=== PATIENT | male | born 1950 | race American Indian/Alaskan Native ===

== ENCOUNTER 2019-03-03 13:29 | Inpatient (IN) | payer MEDICAID, MEDICARE ==
--- NOTE | 2019-03-03 16:23 | Emergency Department Report ---
ED General Adult HPI - General Chief complaint: Dyspnea/Respdistress Stated complaint: CHOKING Time Seen by Provider: 03/03/19 16:08 Source: EMS Mode of arrival: Stretcher Limitations: Altered Mental Status, Physical Limitation - History of Present Illness Initial comments: Patient is 68 year old male with history of progressive supranuclear ophthalmopl egia, HYPERTENSION AND PARANOID SCHIZOPHRENIA. PATIENT BROUGHT TO THE EMERGENCY ROOM BY [facility] FROM [facility] WITH CHIEF COMPLAINT OF CHOKING MORE THAN USUAL WHEN HE EATS. NO RESPIRATORY DISTRESS NOTED BY EMS OR IN THE EMERGENCY ROOM. PATIENT IS NOT VERBALLY COMMUNICATING SECONDARY TO HIS CHRONIC CONDITION. HOWEVER THE PATIENT IS FOLLOWING COMMANDS. Severity scale (0 -10): 0 ED Review of Systems ROS: Stated complaint: CHOKING Other details as noted in HPI Comment: Unobtainable due to pts medical conditions ED Past Medical Hx - Past Medical History Previous Medical History?: Yes Hx Hypertension: Yes Hx Psychiatric Treatment: Yes (paranoid schizophrenia) Additional medical history: cervical stenosis - Surgical History Past Surgical History?: No ED Physical Exam - General Limitations: Altered Mental Status, Physical Limitation General appearance: alert, in no apparent distress - Head Head exam: Present: atraumatic, normocephalic, normal inspection - Eye Eye exam: Present: normal appearance - ENT ENT exam: Present: normal exam, normal orophraynx, mucous membranes moist - Neck Neck exam: Present: normal inspection, full ROM. Absent: tenderness, m eningismus, lymphadenopathy, thyromegaly - Respiratory Respiratory exam: Present: normal lung sounds bilaterally. Absent: respiratory distress, wheezes, rales, rhonchi, chest wall tenderness, accessory muscle use, decreased breath sounds, prolonged expiratory - Cardiovascular Cardiovascular Exam: Present: regular rate, normal rhythm, normal heart sounds - GI/Abdominal GI/Abdominal exam: Present: soft, normal bowel sounds. Absent: distended, tenderness, guarding, rebound, rigid, organomegaly, mass, bruit, pulsatile mass, hernia - Back Exam Back exam: Present: normal inspection, full ROM. Absent: CVA tenderness (R), CVA tenderness (L) - Neurological Exam Neurological exam: Present: alert - Skin Skin exam: Present: warm ED Course Vital Signs 03/03/19 03/03/19 03/03/19 16:14 16:15 16:16 Temperature 98.0 F Pulse Rate 75 77 77 Respiratory 26 H 27 H 20 Rate Blood Pressure 145/80 Blood Pressure 148/81 [Left] O2 Sat by Pulse 86 98 98 Oximetry 03/03/19 03/03/19 03/03/19 16:30 16:45 17:00 Temperature Pulse Rate 73 69 69 Respiratory 25 H 26 H 24 Rate Blood Pressure 145/80 148/80 148/80 Blood Pressure [Left] O2 Sat by Pulse 98 97 100 Oximetry 03/03/19 03/03/19 03/03/19 17:16 17:30 17:46 Temperature Pulse Rate 77 68 78 Respiratory 26 H 24 27 H Rate Blood Pressure 133/78 151/76 137/77 Blood Pressure [Left] O2 Sat by Pulse 98 98 99 Oximetry 03/03/19 03/03/19 03/03/19 18:00 18:15 18:30 Temperature Pulse Rate 76 73 71 Respiratory 26 H 29 H 28 H Rate Blood Pressure 135/78 148/76 148/76 Blood Pressure [Left] O2 Sat by Pulse 100 99 100 Oximetry 03/03/19 03/03/19 03/03/19 18:46 19:00 19:23 Temperature Pulse Rate 70 77 64 Respiratory 24 26 H 22 Rate Blood Pressure 148/77 139/77 136/76 Blood Pressure [Left] O2 Sat by Pulse 100 99 100 Oximetry ED Medical Decision Making - Lab Data Result diagrams: 03/03/19 16:27 03/03/19 16:27 - EKG Data -: EKG Interpreted by Ct EKG shows normal: sinus rhythm Rate: normal - EKG Data Interpretation: no acute changes - Radiology Data Radiology results: report reviewed - Medical Decision Making Patient is 68 year old male with history of progressive supranuclear ophthalmoplegia, HYPERTENSION AND PARANOID SCHIZOPHRENIA. PATIENT BROUGHT TO THE EMERGENCY ROOM BY [facility] FROM [facility] WITH CHIEF COMPL AINT OF CHOKING MORE THAN USUAL WHEN HE EATS. NO RESPIRATORY DISTRESS NOTED BY EMS OR IN THE EMERGENCY ROOM. PATIENT IS NOT VERBALLY COMMUNICATING SECONDARY TO HIS CHRONIC CONDITION. HOWEVER THE PATIENT IS FOLLOWING COMMANDS. Patient remained stable in the emergency room. Labs reviewed and is u nremarkable. Chest x-ray show possible hilar mass and radiologist recommended CT chest with IV contrast. Patient CT chest with IV contrast showed a left lower lobe pneumonia. Patient received Levaquin IV. I discussed the patient with Dr., Gbenle, he agreed to admit the patient to medical service for further management. Critical care attestation.: If time is entered above; I have spent that time in minutes in the direct care of this critically ill patient, excluding procedure time. ED Disposition Clinical Impression: Pneumonia, Acute respiratory distress Disposition: [id number] OP ADMIT IP TO THIS HOSP Is pt being admited?: Yes Condition: Stable Instructions: Bacterial Pneumonia (ED) Referrals: PRIMARY CARE, [Primary Care Provider] - 3-5 Days
[2019-03-03 16:50] LABS: Basophils % (Auto) 0.3 % (0.0-1.8); Eosinophils # (Auto) 0.1 K/mm3 (0.0-0.4); Hematocrit 34.6 % (35.5-45.6); Hemoglobin 11.6 gm/dl (11.8-15.2); Lymphocytes # (Auto) 0.8 K/mm3 (1.2-5.4); Lymphocytes % (Auto) 13.7 % (13.4-35.0); Mean Corpuscular HGB Conc 34 % (32-34); Mean Corpuscular Volume 88 fl (84-94); Monocytes # (Auto) 0.5 K/mm3 (0.0-0.8); Monocytes % (Auto) 8.1 % (0.0-7.3); Platelet Count 328 K/mm3 (140-440); Red Blood Count 3.94 M/mm3 (3.65-5.03); Red Cell Distribution Width 14.9 % (13.2-15.2)
[2019-03-03 17:10] LABS: BUN/Creatinine Ratio 23; Blood Urea Nitrogen 14 mg/dL (9-20); Calcium 9.6 mg/dL (8.4-10.2); Hemolysis Index 1
--- NOTE | 2019-03-03 17:47 | XRay Report ---
CHEST 1 VIEW 03/03/2019 5:12 PM INDICATION / CLINICAL INFORMATION: Dyspnea. COMPARISON: None available. FINDINGS: SUPPORT DEVICES: None. HEART / MEDIASTINUM: No significant abnormality. LUNGS / PLEURA: Left perihilar mass versus less likely parenchymal consolidation No pneumothorax. ADDITIONAL FINDINGS: No significant additional findings. IMPRESSION: 1. Probable left perihilar mass/adenopathy. Recommend chest CT with contrast for further evaluation. Pneumonia is considered less likely Signer Name: Angel Brown MD Signed: 03/03/2019 5:43 PM Workstation Name: [id number]
--- NOTE | 2019-03-03 19:39 | Cat Scan Report ---
CT CHEST WITH IV CONTRAST INDICATION: abnormal chest x-ray, possible mass.. COMPARISON: No prior chest CTs. Chest radiograph earlier the same day. TECHNIQUE: All CT scans at this location are performed using CT dose reduction for ALARA by means of automated e xposure control. Axial CT images were obtained through the chest after IV contrast. FINDINGS: Upper Abdomen: Punctate hepatic cysts are noted. There is constipation the included upper colon. Ther e appears to be trace ascites. There is mild diffuse thickening of the adrenal glands. 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 This does not extend proximally or distally. Skeletal System: No acute abnormality. Chest: Great Vessels: No acute abnormality. Heart: Normal. Mediastinum & Monserrat: No significant abnormality. Lungs: Within the anteromedial left upper lobe, there is dense consolidation. Centrally within the co nsolidation, there is a cavitary lesion which measures 2.1 cm on axial image 66 of series 2. This im ages changes are noted. There is debris within the right bronchus intermedius and right lower lobe br onchi. Pleura: No significant pleural effusion. No pneumothorax. Additional Findings: None. IMPRESSION: 1. Consolidation in the anteromedial left upper lobe is likely due to pneumonia. Central 2.2 lesion m ay be an intrapulmonary abscess. Follow-up is recommended to confirm resolution. 2. Debris within the right bronchus intermedius and right lower lobe bronchi may be due to mucous/sec retions. 3. Emphysematous changes. 4. Incidental findings in the included upper abdomen, as above. Signer Name: Xavi Grant MD Signed: 03/03/2019 7:34 PM Workstation Name: [id number]
[2019-03-03] MEDS ORDERED: ONDANSETRON 4 MG/2 ML INJ IV PRN (22:12)
[2019-03-03] MEDS ORDERED: MORPHINE 2 MG/1 ML INJ IV PRN (22:12)
[2019-03-03] MEDS ORDERED: MAGNESIUM HYDROXIDE (MOM) ORAL LIQD UDC PO PRN (22:12)
[2019-03-03] MEDS ORDERED: ACETAMINOPHEN 325 MG TAB PO PRN (22:12)
--- NOTE | 2019-03-03 22:22 | History and Physical Report ---
History of Present Illness Date of examination: 03/03/19 Date of admission: 03/03/2019 Chief complaint: Choking while eating History of present illness: 68-year-old -[place] male resident of a [place] [facility] with known history of progressive supranuclear ophthalmoplegia brought into the emergency room today because of choking episodes while in the [place] [facility] [place]. Patient is said to be choking more frequently while eating. Patient is nonverbal however cannot follow commands. There was limited history from patient. Upon evaluation in the emergency room radiological exam including chest x-ray and CT scan of the chest was consistent with pneumonia. Patient subsequently started on empiric IV antibiotics. Past History Past Medical History: hypertension, other (Paranoid schizophrenia, history of cervical stenosis, history of progressive supranuclear ophthalmoplegia) Past Surgical History: No surgical history Social history: no significant social history Family history: no significant family history Medications and Allergies Allergies Allergy/AdvReac Type Severity Reaction Status Date / Time No Known Allergies Allergy Verified 03/03/19 22:19 Home Medications Medication Instructions Recorded Confirmed Last Taken Type Aspirin EC [Halfprin EC] 81 mg PO QDAY 03/03/19 03/03/19 03/03/19 History Folic Acid 1 mg PO DAILY 03/03/19 03/03/19 03/03/19 History Gabapentin [Neurontin] 300 mg PO Q8HR 03/03/19 03/03/19 03/03/19 History HYDROcodone/APAP 5-325 [Lena 1 each PO Q6HR PRN 03/03/19 03/03/19 03/03/19 History 5/325] LORazepam [Ativan] 1 mg PO TID PRN 03/03/19 03/03/19 03/03/19 History OLANZapine [Zyprexa] 5 mg PO DAILY 03/03/19 03/03/19 03/03/19 History OLANzapine [ZyPREXA] 10 mg PO DAILY 03/03/19 03/03/19 03/03/19 History amLODIPine [Norvasc] 10 mg PO DAILY 03/03/19 03/03/19 03/03/19 History Active Meds: Active Medications Acetaminophen (Tylenol) 650 mg PO Q4H PRN PRN Reason: Pain MILD(1-3)/Fever >100.5/URIAS Sodium Chloride (Nacl 0.9% 1000 Ml) 1,000 mls @ 125 mls/hr IV DIRECT NANCY Levofloxacin/Dextrose (Levaquin 750mg/150ml) 750 mg in 150 mls @ 100 mls/hr IV Q24HR NANCY; Protocol Magnesium Hydroxide (Milk Of Magnesia) 30 ml PO Q4H PRN PRN Reason: Constipation Morphine Sulfate (Morphine) 2 mg IV Q4H PRN PRN Reason: Pain, Moderate (4-6) Ondansetron HCl (Zofran) 4 mg IV Q8H PRN PRN Reason: Nausea And Vomiting Sodium Chloride (Sodium Chloride Flush Syringe 10 Ml) 10 ml IV BID NANCY Sodium Chloride (Sodium Chloride Flush Syringe 10 Ml) 10 ml IV PRN PRN PRN Reason: LINE FLUSH Review of Systems Gastrointestinal: other (Choking while eating) Exam - Constitutional Vitals: Temp Pulse Resp BP Pulse Ox 98.0 F 75 29 H 150/85 99 03/03/19 16:16 03/03/19 21:45 03/03/19 21:45 03/03/19 21:45 03/03/19 21:45 General appearance: Present: no acute distress, well-nourished - EENT Eyes: Present: PERRL, EOM intact ENT: hearing intact, clear oral mucosa, dentition normal - Neck Neck: Present: supple, normal ROM - Respiratory Respiratory: left: rales - Cardiovascular Rhythm: regular Heart Sounds: Present: S1 & S2 - Extremities Extremities: no ischemia, No edema, Full ROM Peripheral Pulses: within normal limits - Abdominal General gastrointestinal: Present: non-tender, non-distended - Integumentary Integumentary: Present: warm, dry, normal turgor - Musculoskeletal Musculoskeletal: strength equal bilaterally - Psychiatric Psychiatric: appropriate mood/affect, cooperative - Neurologic Neurologic: CNII-XII intact, focal deficits, moves all extremities, other (Nonverbal but responds to commands) Results - Labs CBC & Chem 7: 03/04/19 04:47 03/03/19 16:27 Labs: Abnormal lab results 03/03/19 03/03/19 Range/Units 16:27 16:27 Hgb 11.6 L (11.8-15.2) gm/dl Hct 34.6 L (35.5-45.6) % [place] % (Auto) 8.1 H (0.0-7.3) % Lymph # 0.8 L (1.2-5.4) K/mm3 Seg Neutrophils % 76.9 H (40.0-70.0) % Creatinine 0.6 L (0.8-1.5) mg/dL Glucose 105 H (75-100) mg/dL Assessment and Plan - Patient Problems (1) Acute respiratory distress Current Visit: Yes Status: Acute Plan to address problem: Possibly secondary to pneumonia. We will monitor vital signs closely continue antibiotics. (2) Pneumonia Current Visit: Yes Status: Acute Plan to address problem: Patient placed on empiric IV antibiotics and will await blood culture results. (3) DVT prophylaxis Current Visit: Yes Status: Acute Plan to address problem: Patient placed on subcutaneous heparin (4) Full code status Current Visit: Yes Status: Acute
[2019-03-04] MEDS: SODIUM CHLORIDE 0.9% 1000 ML 1,000 ML IV SCH ×2 (01:15→13:36)
[2019-03-04 05:40] LABS: Basophils % (Auto) 0.5 % (0.0-1.8); Eosinophils # (Auto) 0.1 K/mm3 (0.0-0.4); Eosinophils % (Auto) 1.8 % (0.0-4.3); Hematocrit 32.3 % (35.5-45.6); Hemoglobin 10.6 gm/dl (11.8-15.2); Lymphocytes # (Auto) 0.9 K/mm3 (1.2-5.4); Lymphocytes % (Auto) 16.8 % (13.4-35.0); Mean Corpuscular HGB Conc 33 % (32-34); Mean Corpuscular Volume 88 fl (84-94); Monocytes # (Auto) 0.5 K/mm3 (0.0-0.8); Monocytes % (Auto) 9.9 % (0.0-7.3); Platelet Count 302 K/mm3 (140-440); Red Blood Count 3.66 M/mm3 (3.65-5.03); Red Cell Distribution Width 14.8 % (13.2-15.2)
[2019-03-04] MEDS ORDERED: HYDROcodone/ACETAMINOPHEN 5-325 MG TAB PO PRN (05:54)
[2019-03-04] MEDS ORDERED: LORazepam 1 MG TAB PO PRN (05:54)
[2019-03-04 06:03] LABS: BUN/Creatinine Ratio 22; Blood Urea Nitrogen 13 mg/dL (9-20); Hemolysis Index 6
[2019-03-04] MEDS: GABAPENTIN 300 MG CAP PO SCH ×3 (07:44→22:00)
[2019-03-04] MEDS: amLODIPine 10 MG TAB PO SCH ×2 (09:35→11:12)
[2019-03-04] MEDS: FOLIC ACID 1 MG TAB PO SCH ×2 (09:35→11:12)
[2019-03-04] MEDS: ASPIRIN EC 81 MG TAB PO SCH ×2 (09:35→11:12)
--- NOTE | 2019-03-04 14:16 | Progress Note ---
Assessment and Plan - Patient Problems (1) Pneumonia Current Visit: Yes Status: Acute Qualifiers: Laterality: left Lung location: upper lobe of lung Plan to address problem: Pneumonia protocol, IV antibiotic therapy, supplemental oxygen, nebulizer therapy, aspiration precautions, pulse oximetry. (2) Encephalopathy Current Visit: Yes Status: Acute Plan to address problem: Metabolic Encephalopathy: Neuro check, thyroid panel, aspiration precautions, neuro checks. (3) Progressive supranuclear ophthalmoplegia Current Visit: Yes Status: Acute Plan to address problem: Supportive care, outpatient follow-up, (4) Debility Current Visit: Yes Status: Acute Plan to address problem: PT (5) Severe malnutrition Current Visit: Yes Status: Acute Plan to address problem: Increase protein intake when patient is awake and alert only, dietary supplementation, (6) DVT prophylaxis Current Visit: Yes Status: Acute Plan to address problem: SCD to BLE while in bed, Prophylactic heparin History Interval history: 68-year-old male hospital day 2 with pneumonia, supranuclear ophthalmoplegia, encephalopathy. Patient medically stable overnight. Patient is currently nonverbal. Patient requires 6 out of 6 assistance with activities of daily living. Patient is unable to express her rate his pain at this time. Patient has experienced episodes of dysphasia. Labs reviewed, imaging studies reviewed, vital signs reviewed. Hospitalist Physical - Constitutional Vitals: Temp Pulse Resp BP Pulse Ox 98.4 F 71 18 171/90 98 03/04/19 07:44 03/04/19 12:03 03/04/19 12:03 03/04/19 11:12 03/04/19 12:03 General appearance: Present: mild distress, obese - EENT Eyes: Present: PERRL, miosis - Neck Neck: Present: supple - Respiratory Respiratory effort: labored, accessory muscle use Respiratory: right: diminished - Cardiovascular Rhythm: regular Heart Sounds: Present: S1 & S2 - Extremities Extremities: no ischemia Peripheral Pulses: within normal limits - Abdominal General gastrointestinal: soft, non-tender, non-distended - Integumentary Integumentary: Present: clear, dry, clammy - Psychiatric Psychiatric: no appropriate mood/affect, no intact judgment & insight, no memory intact - Neurologic Neurologic: moves all extremities, no gait normal Results - Labs CBC & Chem 7: 03/04/19 04:47 03/04/19 04:47 Labs: Laboratory Last Values WBC 5.2 K/mm3 (4.5-11.0) 03/04/19 04:47 RBC 3.66 M/mm3 (3.65-5.03) 03/04/19 04:47 Hgb 10.6 gm/dl (11.8-15.2) L 03/04/19 04:47 Hct 32.3 % (35.5-45.6) L 03/04/19 04:47 MCV 88 fl (84-94) 03/04/19 04:47 MCH 29 pg (28-32) 03/04/19 04:47 MCHC 33 % (32-34) 03/04/19 04:47 RDW 14.8 % (13.2-15.2) 03/04/19 04:47 Plt Count 302 K/mm3 (140-440) 03/04/19 04:47 Lymph % (Auto) 16.8 % (13.4-35.0) 03/04/19 04:47 [place] % (Auto) 9.9 % (0.0-7.3) H 03/04/19 04:47 Eos % (Auto) 1.8 % (0.0-4.3) 03/04/19 04:47 Baso % (Auto) 0.5 % (0.0-1.8) 03/04/19 04:47 Lymph # 0.9 K/mm3 (1.2-5.4) L 03/04/19 04:47 Amelia # 0.5 K/mm3 (0.0-0.8) 03/04/19 04:47 Eos # 0.1 K/mm3 (0.0-0.4) 03/04/19 04:47 Baso # 0.0 K/mm3 (0.0-0.1) 03/04/19 04:47 Seg Neutrophils % 71.0 % (40.0-70.0) H 03/04/19 04:47 Seg Neutrophils # 3.7 K/mm3 (1.8-7.7) 03/04/19 04:47 Sodium 142 mmol/L (137-145) 03/04/19 04:47 Potassium 4.0 mmol/L (3.6-5.0) 03/04/19 04:47 Chloride 105.8 mmol/L (98-107) 03/04/19 04:47 Carbon Dioxide 23 mmol/L (22-30) 03/04/19 04:47 Anion Gap 17 mmol/L 03/04/19 04:47 BUN 13 mg/dL (9-20) 03/04/19 04:47 Creatinine 0.6 mg/dL (0.8-1.5) L 03/04/19 04:47 Estimated GFR > 60 ml/min 03/04/19 04:47 BUN/Creatinine Ratio 22 % 03/04/19 04:47 Glucose 93 mg/dL (75-100) 03/04/19 04:47 Calcium 9.0 mg/dL (8.4-10.2) 03/04/19 04:47 Troponin T < 0.010 ng/mL (0.00-0.029) 03/03/19 16:27 Active Medications - Current Medications Current Medications: Generic Name Dose Route Start Last Admin Trade Name Freq PRN Reason Stop Dose Admin Acetaminophen 650 mg 03/03/19 22:12 Tylenol PO Q4H PRN Pain MILD(1-3)/Fever >100.5/URIAS Acetaminophen/Hydrocodone Bitart 1 each 03/04/19 05:54 [place] 5/325 PO Q6HR PRN Pain, Moderate (4-6) Amlodipine Besylate 10 mg 03/04/19 10:00 03/04/19 11:12 Amlodipine PO 10 mg DAILY NANCY Administration Aspirin 81 mg 03/04/19 10:00 03/04/19 11:12 Halfprin Ec PO 81 mg QDAY NANCY Administration Folic Acid 1 mg 03/04/19 10:00 03/04/19 11:12 Folvite PO 1 mg DAILY NANCY Administration Gabapentin 300 mg 03/04/19 06:00 03/04/19 13:38 Gabapentin PO Not Given Q8HR NANCY Sodium Chloride 1,000 mls @ 125 mls/hr 03/03/19 22:15 03/04/19 13:36 Nacl 0.9% 1000 Ml IV 125 mls/hr DIRECT NANCY Administration Levofloxacin/Dextrose 750 mg in 150 mls @ 100 mls/hr 03/04/19 10:00 03/04/19 09:32 Levaquin 750mg/150ml IV 100 mls/hr Q24HR NANCY Administration Protocol Lorazepam 1 mg 03/04/19 05:54 Ativan PO TID PRN Agitation Magnesium Hydroxide 30 ml 03/03/19 22:12 Milk Of Magnesia PO Q4H PRN Constipation Morphine Sulfate 2 mg 03/03/19 22:12 03/04/19 01:15 Morphine IV 2 mg Q4H PRN Administration Pain, Moderate (4-6) Olanzapine 5 mg 03/04/19 10:00 03/04/19 11:12 Zyprexa PO 5 mg DAILY NANCY Administration Olanzapine 10 mg 03/04/19 10:00 03/04/19 11:12 Zyprexa PO 10 mg DAILY NANCY Administration Ondansetron HCl 4 mg 03/03/19 22:12 Zofran IV Q8H PRN Nausea And Vomiting Pneumococcal Polyvalent Vaccine 0.5 ml 03/05/19 12:00 Pneumovax 23 IM 03/05/19 12:01 .ONCE ONE Sodium Chloride 10 ml 03/04/19 10:00 03/04/19 11:12 Sodium Chloride Flush Syringe 10 Ml IV 10 ml BID NANCY Administration Sodium Chloride 10 ml 03/03/19 22:12 Sodium Chloride Flush Syringe 10 Ml IV PRN PRN LINE FLUSH Nutrition/Malnutrition Assess - Dietary Evaluation Nutrition/Malnutrition Findings: Nutrition Notes Start: 03/04/19 10:33 Freq: Status: Active Protocol: Document 03/04/19 10:36 PS (Rec: 03/04/19 10:53 PS [id number]) Co-Sign 03/04/19 10:36 LP Nutrition Notes Need for Assessment generated from: MD Order,Education Initial or Follow up Assessment Current Diagnosis Hypertension Other Pertinent Diagnosis paranoid schizophrenia, AMS Current Diet NPO Labs/Tests Cr 0.6 Pertinent Medications Milk of Magnesia Folic Acid Height 5 ft 7 in Weight 54.4 kg [place] Body Weight (kg) 67.27 BMI 18.8 Intake Prior to Admission Good Weight Status Underweight Subjective/Other Information MD order for diet education. Pt experiencing AMS. Pt. states that he has been eating 100% of diet [employer] and has had no wt loss. Pt does not know UBW. Ensure was offered and pt stated he drank them [employer]. Pt is NPO but has an appetite. Pt has temporal and clavical wasting. Burn Absent Trauma Absent GI Symptoms None Difficulty In Swallowing Current % PO Negligible Minimum of two criteria Yes Body Fat Depletion Moderate depletion (severe) Muscle Mass Mild Depletion (non-severe) #1 Nutrition Diagnosis Malnutrition Etiology choking while swallowing and AMS As Evidenced by Signs and Symptoms pt NPO and appearing with mild muscle depletion and moderate body fat depletion. Is patient on ventilator? No Is Patient Ambulatory and/or Out of Bed No REE-([facility]-confined to bed) 1544.832 Kcal/Kg value to use for calculation 35 Approximate Energy Requirements Using 1904 kcal/Kg Calculation Used for Recommendations Kcal/kg Additional Notes Pro: 65 - 82 g (1.2-1.5 g/kg) Malnutrition Fluid: 1 ml/kcal Nutrition Intervention Change Diet Order: Advance to Cardiac Diet per MD Add Supplement/Snack (indicate name/kcal Ensure Enlive Vanilla BID once /protein ) diet advances Provides kCal: 700 Provides Protein (gm) 40 Goal #1 Meet 75% of energy/pro needs Anticipated Discharge Needs: Cardiac Diet Follow-Up By: 03/06/19 Additional Comments F/U for diet advancement/ intakes - Malnutrition Assessment Minimum of two criteria: Yes - Attestation Statement I have reviewed and agreed w/ Malnutrition eval & tx plan: Yes
[2019-03-04] MEDS: HEPARIN 5,000 UNIT/1 ML VIAL SUB-Q SCH (22:00)
[2019-03-05] MEDS: SODIUM CHLORIDE 0.9% 1000 ML 1,000 ML IV SCH ×3 (02:08→22:22)
[2019-03-05] MEDS: GABAPENTIN 300 MG CAP PO SCH ×3 (06:03→22:23)
[2019-03-05 06:11] LABS: BUN/Creatinine Ratio 17; Blood Urea Nitrogen 10 mg/dL (9-20); Calcium 8.8 mg/dL (8.4-10.2); Hemolysis Index 3
[2019-03-05] MEDS: FOLIC ACID 1 MG TAB PO SCH (09:23)
[2019-03-05] MEDS: amLODIPine 10 MG TAB PO SCH (09:23)
[2019-03-05] MEDS: ASPIRIN EC 81 MG TAB PO SCH (09:23)
[2019-03-05] MEDS: HEPARIN 5,000 UNIT/1 ML VIAL SUB-Q SCH ×2 (09:24→22:22)
[2019-03-05] MEDS ORDERED: PNEUMOCOCCAL 23 Valent 0.5 ML VIAL IM ONE (12:00)
--- NOTE | 2019-03-05 14:38 | Progress Note ---
Assessment and Plan - Patient Problems (1) Pneumonia Current Visit: Yes Status: Acute Qualifiers: Laterality: left Lung location: upper lobe of lung Plan to address problem: Pneumonia protocol, IV antibiotic therapy, supplemental oxygen, nebulizer therapy, aspiration precautions, pulse oximetry. (2) Encephalopathy Current Visit: Yes Status: Acute Plan to address problem: Metabolic Encephalopathy: Neuro check, thyroid panel, aspiration precautions, neuro checks. (3) Progressive supranuclear ophthalmoplegia Current Visit: Yes Status: Acute Plan to address problem: Supportive care, outpatient follow-up, (4) Debility Current Visit: Yes Status: Acute Plan to address problem: PT (5) Severe malnutrition Current Visit: Yes Status: Acute Plan to address problem: Increase protein intake when patient is awake and alert only, dietary supplementation, (6) Dysphagia Current Visit: Yes Status: Acute Qualifiers: Dysphagia type: oropharyngeal phase Qualified Code(s): R13.12 - Dysphagia, oropharyngeal phase Plan to address problem: Speech therapy consulted, pending speech evaluation. (7) DVT prophylaxis Current Visit: Yes Status: Acute Plan to address problem: SCD to BLE while in bed, Prophylactic heparin History Interval history: 68-year-old male hospital day 3 with Pneumonia, supranuclear ophthalmoplegia, Encephalopathy. Patient medically stable overnight. Patient is currently nonverbal and continues to be Encephalopathic and is at high risk for aspiration. Patient is currently unable to tolerate oral diet.. Patient requires 6 out of 6 assistance with activities of daily living. Patient is unable to express her rate his pain at this time. Patient has experienced episodes of dysphasia. Speech Therapy Consulted. Labs reviewed, imaging studies reviewed, vital signs reviewed. No reported nursing events overnight. Continue antibiotic therapy for pneumonia. [facility] Hospitalist Physical - Constitutional Vitals: Temp Pulse Resp BP Pulse Ox 98.0 F 70 18 132/76 98 03/05/19 12:55 03/05/19 12:55 03/05/19 12:55 03/05/19 12:55 03/05/19 12:55 General appearance: Present: mild distress, obese - EENT Eyes: Present: PERRL, miosis - Neck Neck: Present: supple - Respiratory Respiratory: bilateral: diminished - Cardiovascular Rhythm: regular Heart Sounds: Present: S1 & S2 - Extremities Extremities: no ischemia Peripheral Pulses: within normal limits - Abdominal General gastrointestinal: soft, non-tender, non-distended - Integumentary Integumentary: Present: clear, dry - Psychiatric Psychiatric: no appropriate mood/affect, no intact judgment & insight, no memory intact - Neurologic Neurologic: moves all extremities, no gait normal Results - Labs CBC & Chem 7: 03/04/19 04:47 03/05/19 05:11 Labs: Laboratory Last Values WBC 5.2 K/mm3 (4.5-11.0) 03/04/19 04:47 RBC 3.66 M/mm3 (3.65-5.03) 03/04/19 04:47 Hgb 10.6 gm/dl (11.8-15.2) L 03/04/19 04:47 Hct 32.3 % (35.5-45.6) L 03/04/19 04:47 MCV 88 fl (84-94) 03/04/19 04:47 MCH 29 pg (28-32) 03/04/19 04:47 MCHC 33 % (32-34) 03/04/19 04:47 RDW 14.8 % (13.2-15.2) 03/04/19 04:47 Plt Count 302 K/mm3 (140-440) 03/04/19 04:47 Lymph % (Auto) 16.8 % (13.4-35.0) 03/04/19 04:47 [place] % (Auto) 9.9 % (0.0-7.3) H 03/04/19 04:47 Eos % (Auto) 1.8 % (0.0-4.3) 03/04/19 04:47 Baso % (Auto) 0.5 % (0.0-1.8) 03/04/19 04:47 Lymph # 0.9 K/mm3 (1.2-5.4) L 03/04/19 04:47 [place] # 0.5 K/mm3 (0.0-0.8) 03/04/19 04:47 Eos # 0.1 K/mm3 (0.0-0.4) 03/04/19 04:47 Baso # 0.0 K/mm3 (0.0-0.1) 03/04/19 04:47 Seg Neutrophils % 71.0 % (40.0-70.0) H 03/04/19 04:47 Seg Neutrophils # 3.7 K/mm3 (1.8-7.7) 03/04/19 04:47 Sodium 141 mmol/L (137-145) 03/05/19 05:11 Potassium 4.0 mmol/L (3.6-5.0) 03/05/19 05:11 Chloride 107.3 mmol/L (98-107) H 03/05/19 05:11 Carbon Dioxide 20 mmol/L (22-30) L 03/05/19 05:11 Anion Gap 18 mmol/L 03/05/19 05:11 BUN 10 mg/dL (9-20) 03/05/19 05:11 Creatinine 0.6 mg/dL (0.8-1.5) L 03/05/19 05:11 Estimated GFR > 60 ml/min 03/05/19 05:11 BUN/Creatinine Ratio 17 % 03/05/19 05:11 Glucose 82 mg/dL (75-100) 03/05/19 05:11 Calcium 8.8 mg/dL (8.4-10.2) 03/05/19 05:11 Troponin T < 0.010 ng/mL (0.00-0.029) 03/03/19 16:27 Active Medications - Current Medications Current Medications: Generic Name Dose Route Start Last Admin Trade Name Freq PRN Reason Stop Dose Admin Acetaminophen 650 mg 03/03/19 22:12 Tylenol PO Q4H PRN Pain MILD(1-3)/Fever >100.5/URIAS Acetaminophen/Hydrocodone Bitart 1 each 03/04/19 05:54 [place] 5/325 PO Q6HR PRN Pain, Moderate (4-6) Amlodipine Besylate 10 mg 03/04/19 10:00 03/05/19 09:23 Amlodipine PO 10 mg DAILY NANCY Administration Aspirin 81 mg 03/04/19 10:00 03/05/19 09:23 Halfprin Ec PO 81 mg QDAY NANCY Administration Folic Acid 1 mg 03/04/19 10:00 03/05/19 09:23 Folvite PO 1 mg DAILY NANCY Administration Gabapentin 300 mg 03/04/19 06:00 03/05/19 13:53 Gabapentin PO 300 mg Q8HR NANCY Administration Heparin Sodium (Porcine) 5,000 unit 03/04/19 22:00 03/05/19 09:24 Heparin SUB-Q 5,000 unit Q12HR NANCY Administration Sodium Chloride 1,000 mls @ 125 mls/hr 03/03/19 22:15 03/05/19 13:51 Nacl 0.9% 1000 Ml IV 125 mls/hr DIRECT NANCY Administration Levofloxacin/Dextrose 750 mg in 150 mls @ 100 mls/hr 03/04/19 10:00 03/05/19 09:23 Levaquin 750mg/150ml IV 100 mls/hr Q24HR NANCY Administration Protocol Lorazepam 1 mg 03/04/19 05:54 Ativan PO TID PRN Agitation Magnesium Hydroxide 30 ml 03/03/19 22:12 Milk Of Magnesia PO Q4H PRN Constipation Morphine Sulfate 2 mg 03/03/19 22:12 03/04/19 01:15 Morphine IV 2 mg Q4H PRN Administration Pain, Moderate (4-6) Olanzapine 5 mg 03/04/19 10:00 03/05/19 09:23 Zyprexa PO 5 mg DAILY NANCY Administration Olanzapine 10 mg 03/04/19 10:00 03/05/19 09:23 Zyprexa PO 10 mg DAILY NANCY Administration Ondansetron HCl 4 mg 03/03/19 22:12 Zofran IV Q8H PRN Nausea And Vomiting Sodium Chloride 10 ml 03/04/19 10:00 03/05/19 09:25 Sodium Chloride Flush Syringe 10 Ml IV 10 ml BID NANCY Administration Sodium Chloride 10 ml 03/03/19 22:12 Sodium Chloride Flush Syringe 10 Ml IV PRN PRN LINE FLUSH Nutrition/Malnutrition Assess - Dietary Evaluation Nutrition/Malnutrition Findings: Nutrition Notes Start: 03/04/19 10:33 Freq: Status: Active Protocol: Document 03/04/19 10:36 PS (Rec: 03/04/19 10:53 PS [id number]) Co-Sign 03/04/19 10:36 LP Nutrition Notes Need for Assessment generated from: MD Order,Education Initial or Follow up Assessment Current Diagnosis Hypertension Other Pertinent Diagnosis paranoid schizophrenia, AMS Current Diet NPO Labs/Tests Cr 0.6 Pertinent Medications Milk of Magnesia Folic Acid Height 5 ft 7 in Weight 54.4 kg [place] Body Weight (kg) 67.27 BMI 18.8 Intake Prior to Admission Good Weight Status Underweight Subjective/Other Information MD order for diet education. Pt experiencing AMS. Pt. states that he has been eating 100% of diet [employer] and has had no wt loss. Pt does not know UBW. Ensure was offered and pt stated he drank them [employer]. Pt is NPO but has an appetite. Pt has temporal and clavical wasting. Burn Absent Trauma Absent GI Symptoms None Difficulty In Swallowing Current % PO Negligible Minimum of two criteria Yes Body Fat Depletion Moderate depletion (severe) Muscle Mass Mild Depletion (non-severe) #1 Nutrition Diagnosis Malnutrition Etiology choking while swallowing and AMS As Evidenced by Signs and Symptoms pt NPO and appearing with mild muscle depletion and moderate body fat depletion. Is patient on ventilator? No Is Patient Ambulatory and/or Out of Bed No REE-([facility]-confined to bed) 1544.832 Kcal/Kg value to use for calculation 35 Approximate Energy Requirements Using 1904 kcal/Kg Calculation Used for Recommendations Kcal/kg Additional Notes Pro: 65 - 82 g (1.2-1.5 g/kg) Malnutrition Fluid: 1 ml/kcal Nutrition Intervention Change Diet Order: Advance to Cardiac Diet per MD Add Supplement/Snack (indicate name/kcal Ensure Enlive Vanilla BID once /protein ) diet advances Provides kCal: 700 Provides Protein (gm) 40 Goal #1 Meet 75% of energy/pro needs Anticipated Discharge Needs: Cardiac Diet Follow-Up By: 03/06/19 Additional Comments F/U for diet advancement/ intakes
[2019-03-05] MEDS ORDERED: SODIUM BICARB 8.4% 50 MEQ/50 ML SYRINGE IV ONE (21:30)
[2019-03-06] MEDS: SODIUM CHLORIDE 0.9% 1000 ML 1,000 ML IV SCH ×2 (06:34→14:49)
[2019-03-06] MEDS: GABAPENTIN 300 MG CAP PO SCH ×2 (06:35→14:49)
[2019-03-06 06:47] LABS: BUN/Creatinine Ratio 10; Blood Urea Nitrogen 6 mg/dL (9-20); Calcium 8.6 mg/dL (8.4-10.2); Hemolysis Index 0
[2019-03-06] MEDS: amLODIPine 10 MG TAB PO SCH (09:54)
[2019-03-06] MEDS: FOLIC ACID 1 MG TAB PO SCH (09:54)
[2019-03-06] MEDS: ASPIRIN EC 81 MG TAB PO SCH (09:54)
[2019-03-06] MEDS: HEPARIN 5,000 UNIT/1 ML VIAL SUB-Q SCH (09:55)
--- NOTE | 2019-03-06 15:00 | Progress Note ---
Assessment and Plan - Patient Problems (1) Pneumonia Current Visit: Yes Status: Acute Qualifiers: Laterality: left Lung location: upper lobe of lung Plan to address problem: Pneumonia protocol, IV antibiotic therapy, supplemental oxygen, nebulizer therapy, aspiration precautions, pulse oximetry. (2) Encephalopathy Current Visit: Yes Status: Acute Plan to address problem: Metabolic Encephalopathy: Neuro check, thyroid panel, aspiration precautions, neuro checks. (3) Progressive supranuclear ophthalmoplegia Current Visit: Yes Status: Acute Plan to address problem: Supportive care, outpatient follow-up, (4) Debility Current Visit: Yes Status: Acute Plan to address problem: PT (5) Severe malnutrition Current Visit: Yes Status: Acute Plan to address problem: Increase protein intake when patient is awake and alert only, dietary supplementation, (6) Dysphagia Current Visit: Yes Status: Acute Qualifiers: Dysphagia type: oropharyngeal phase Qualified Code(s): R13.12 - Dysphagia, oropharyngeal phase Plan to address problem: Speech therapy consulted, pending speech evaluation. (7) DVT prophylaxis Current Visit: Yes Status: Acute Plan to address problem: SCD to BLE while in bed, Prophylactic heparin (8) Advance care planning Current Visit: Yes Status: Acute Plan to address problem: Patient is full code, disease education conducted today. Patient son acknowledges understanding and agreement with care plan. +30 minutes. History Interval history: 68-year-old male hospital day 4 with Pneumonia, supranuclear ophthalmoplegia, Encephalopathy, dysphasia. Patient medically stable overnight. Patient is currently nonverbal and continues to be Encephalopathic and is at high risk for aspiration. Patient is currently unable to tolerate oral diet.. Patient requires 6 out of 6 assistance with activities of daily living. Patient is unable to express her rate his pain at this time. Patient has experienced ep isodes of dysphasia. Speech Therapy Consulted. Labs reviewed, imaging studies reviewed, vital signs reviewed. No reported nursing events overnight. Continue antibiotic therapy for pneumonia. [facility]charge planning to [facility] jail. Advanced care planning conducted again today. Patient son at bedside during exam and interview. Patient son signed consent for PEG tube placement. Hospitalist Physical - Constitutional Vitals: Temp Pulse Resp BP Pulse Ox 97.5 F L 55 L 20 156/81 98 03/06/19 03:21 03/06/19 10:00 03/06/19 03:21 03/06/19 03:21 03/06/19 03:21 General appearance: Present: mild distress, obese - EENT Eyes: Present: PERRL - Neck Neck: Present: supple - Respiratory Respiratory effort: labored Respiratory: bilateral: diminished - Cardiovascular Rhythm: regular Heart Sounds: Present: S1 & S2 - Extremities Extremities: no ischemia Peripheral Pulses: within normal limits - Abdominal General gastrointestinal: soft, non-tender, non-distended - Integumentary Integumentary: Present: clear, dry, clammy - Psychiatric Psychiatric: no appropriate mood/affect, no intact judgment & insight, no memory intact - Neurologic Neurologic: no CNII-XII intact, no focal deficits, no moves all extremities, no gait normal Results - Labs CBC & Chem 7: 03/04/19 04:47 03/06/19 05:47 Labs: Laboratory Last Values WBC 5.2 K/mm3 (4.5-11.0) 03/04/19 04:47 RBC 3.66 M/mm3 (3.65-5.03) 03/04/19 04:47 Hgb 10.6 gm/dl (11.8-15.2) L 03/04/19 04:47 Hct 32.3 % (35.5-45.6) L 03/04/19 04:47 MCV 88 fl (84-94) 03/04/19 04:47 MCH 29 pg (28-32) 03/04/19 04:47 MCHC 33 % (32-34) 03/04/19 04:47 RDW 14.8 % (13.2-15.2) 03/04/19 04:47 Plt Count 302 K/mm3 (140-440) 03/04/19 04:47 Lymph % (Auto) 16.8 % (13.4-35.0) 03/04/19 04:47 [place] % (Auto) 9.9 % (0.0-7.3) H 03/04/19 04:47 Eos % (Auto) 1.8 % (0.0-4.3) 03/04/19 04:47 Baso % (Auto) 0.5 % (0.0-1.8) 03/04/19 04:47 Lymph # 0.9 K/mm3 (1.2-5.4) L 03/04/19 04:47 [place] # 0.5 K/mm3 (0.0-0.8) 03/04/19 04:47 Eos # 0.1 K/mm3 (0.0-0.4) 03/04/19 04:47 Baso # 0.0 K/mm3 (0.0-0.1) 03/04/19 04:47 Seg Neutrophils % 71.0 % (40.0-70.0) H 03/04/19 04:47 Seg Neutrophils # 3.7 K/mm3 (1.8-7.7) 03/04/19 04:47 Sodium 142 mmol/L (137-145) 03/06/19 05:47 Potassium 3.6 mmol/L (3.6-5.0) 03/06/19 05:47 Chloride 107.4 mmol/L (98-107) H 03/06/19 05:47 Carbon Dioxide 25 mmol/L (22-30) 03/06/19 05:47 Anion Gap 13 mmol/L 03/06/19 05:47 BUN 6 mg/dL (9-20) L 03/06/19 05:47 Creatinine 0.6 mg/dL (0.8-1.5) L 03/06/19 05:47 Estimated GFR > 60 ml/min 03/06/19 05:47 BUN/Creatinine Ratio 10 % 03/06/19 05:47 Glucose 92 mg/dL (75-100) 03/06/19 05:47 Calcium 8.6 mg/dL (8.4-10.2) 03/06/19 05:47 Troponin T < 0.010 ng/mL (0.00-0.029) 03/03/19 16:27 Active Medications - Current Medications Current Medications: Generic Name Dose Route Start Last Admin Trade Name Freq PRN Reason Stop Dose Admin Acetaminophen 650 mg 03/03/19 22:12 Tylenol PO Q4H PRN Pain MILD(1-3)/Fever >100.5/URIAS Acetaminophen/Hydrocodone Bitart 1 each 03/04/19 05:54 [place] 5/325 PO Q6HR PRN Pain, Moderate (4-6) Amlodipine Besylate 10 mg 03/04/19 10:00 03/06/19 09:54 Amlodipine PO 10 mg DAILY NANCY Administration Aspirin 81 mg 03/04/19 10:00 03/06/19 09:54 Halfprin Ec PO 81 mg QDAY NANCY Administration Folic Acid 1 mg 03/04/19 10:00 03/06/19 09:54 Folvite PO 1 mg DAILY NANCY Administration Gabapentin 300 mg 03/04/19 06:00 03/06/19 14:49 Gabapentin PO 300 mg Q8HR NANCY Administration Heparin Sodium (Porcine) 5,000 unit 03/04/19 22:00 03/06/19 09:55 Heparin SUB-Q 5,000 unit Q12HR NANCY Administration Sodium Chloride 1,000 mls @ 125 mls/hr 03/03/19 22:15 03/06/19 14:49 Nacl 0.9% 1000 Ml IV 125 mls/hr DIRECT NANCY Administration Levofloxacin/Dextrose 750 mg in 150 mls @ 100 mls/hr 03/04/19 10:00 03/06/19 09:54 Levaquin 750mg/150ml IV 100 mls/hr Q24HR NANCY Administration Protocol Lorazepam 1 mg 03/04/19 05:54 Ativan PO TID PRN Agitation Magnesium Hydroxide 30 ml 03/03/19 22:12 Milk Of Magnesia PO Q4H PRN Constipation Morphine Sulfate 2 mg 03/03/19 22:12 03/04/19 01:15 Morphine IV 2 mg Q4H PRN Administration Pain, Moderate (4-6) Olanzapine 5 mg 03/04/19 10:00 03/06/19 09:54 Zyprexa PO 5 mg DAILY NANCY Administration Olanzapine 10 mg 03/04/19 10:00 03/06/19 09:54 Zyprexa PO 10 mg DAILY NANCY Administration Ondansetron HCl 4 mg 03/03/19 22:12 Zofran IV Q8H PRN Nausea And Vomiting Sodium Chloride 10 ml 03/04/19 10:00 03/06/19 09:55 Sodium Chloride Flush Syringe 10 Ml IV 10 ml BID NANCY Administration Sodium Chloride 10 ml 03/03/19 22:12 Sodium Chloride Flush Syringe 10 Ml IV PRN PRN LINE FLUSH Nutrition/Malnutrition Assess - Dietary Evaluation Nutrition/Malnutrition Findings: Nutrition Notes Start: 03/04/19 10:33 Freq: Status: Active Protocol: Document 03/06/19 12:59 MASON (Rec: 03/06/19 13:05 MASON [id number]) Co-Sign 01/10/20 12:59 LP Nutrition Notes Initial or Follow up Reassessment Current Diagnosis Hypertension Other Pertinent Diagnosis paranoid schizophrenia, AMS Current Diet Pureed diet Labs/Tests BUN 6 Cr 0.6 Pertinent Medications Reviewed Height 5 ft 7 in Weight 54.4 kg [place] Body Weight (kg) 67.27 BMI 18.8 Weight Status Underweight Subjective/Other Information F/U for diet advancement/ intakes. Pt was experiencing AMS during time of visit. Pt stated his appetite was good and ate 75% of breakfast. Pt drank one Ensure yesterday and one today. Percent of energy/protein needs met: 100%/100% Burn Absent Trauma Absent GI Symptoms None Difficulty In Swallowing Current % PO Good (75-100%) Minimum of two criteria Yes Body Fat Depletion Moderate depletion (severe) Muscle Mass Mild Depletion (non-severe) #1 Nutrition Diagnosis Malnutrition Diagnosis Progress(for reassessment Continues documentation) Is patient on ventilator? No Is Patient Ambulatory and/or Out of Bed No REE-([place]-confined to bed) 1544.832 Kcal/Kg value to use for calculation 35 Approximate Energy Requirements Using 1904 kcal/Kg Calculation Used for Recommendations Kcal/kg Additional Notes Pro: 65 - 82 g (1.2-1.5 g/kg) Malnutrition Fluid: 1 ml/kcal Nutrition Intervention Change Diet Order: Continue current Add Supplement/Snack (indicate name/kcal Ensure Enlive Vanilla BID /protein ) Provides kCal: 700 Provides Protein (gm) 40 Goal #1 Meet 90% of energy/pro needs Anticipated Discharge Needs: Pureed w/ ONS BID Follow-Up By: 03/11/19 Additional Comments F/U for PO and ONS intakes.
--- NOTE | 2019-03-06 15:11 | Discharge Summary ---
Providers - Providers Date of Admission: 03/03/19 21:34 Attending physician: STEFANY PEACOCK 03/03/19 22:14 Consult to Dietitian/Nutrition [CONS] Routine Physician Instructions: Reason For Exam: Reason for Consult: Diet education 03/03/19 22:16 Speech Therapy Evaluation and Treat [CONS] Routine Reason For Exam: swallowing difficulty and choking. please evaluate 03/04/19 11:30 Physical Therapy Evaluation and Treat [CONS] Routine Comment: Reason For Exam: Weakness Primary care physician: JIMY DANIELSON MD Hospitalization Condition: Stable Disposition: DC-30 STILL A PATIENT - Discharge Diagnoses (1) Pneumonia Status: Acute Qualifiers: Laterality: left Lung location: upper lobe of lung (2) Encephalopathy Status: Acute (3) Progressive supranuclear ophthalmoplegia Status: Acute (4) Debility Status: Acute (5) Severe malnutrition Status: Acute (6) Dysphagia Status: Acute Qualifiers: Dysphagia type: oropharyngeal phase Qualified Code(s): R13.12 - Dysphagia, oropharyngeal phase (7) DVT prophylaxis Status: Acute (8) Advance care planning Status: Acute Exam - Constitutional Vitals: Temp Pulse Resp BP Pulse Ox 97.5 F L 55 L 20 156/81 98 03/06/19 03:21 03/06/19 10:00 03/06/19 03:21 03/06/19 03:21 03/06/19 03:21 Plan Follow up with: JIMY DANIELSON MD [Primary Care Provider] - 3-5 Days
[2019-03-06 15:12] VITALS: BP 126/75
== END 2019-03-06 18:00 | disposition home health service (06) | DRG 193 ==
LOC: ED 13:29 → 3A 21:34 → 2B-ACE 22:24
PROVIDERS: ADMIT Internal Medicine Geriatric Medicine; ATTEND Internal Medicine
PROC: 3E0234Z Introduction of Serum, Toxoid and Vaccine into Muscle, Percutaneous Approach (ICD-10-PCS; principal; 2019-03-05)
DX: J18.9 Pneumonia, unspecified organism (principal); G93.41 Metabolic encephalopathy; E43 Unspecified severe protein-calorie malnutrition; R06.03 Acute respiratory distress; G23.1 Progressive supranuclear ophthalmoplegia [Steele-Richardson-Olszewski]; Z23 Encounter for immunization; I10 Essential (primary) hypertension; R13.12 Dysphagia, oropharyngeal phase; F20.0 Paranoid schizophrenia; Z68.1 Body mass index [BMI] 19.9 or less, adult
CPT/HCPCS: 36415; 71045; 71260; 80048; 84484; 85025; 87040; 87116; 90732; 93005; 93010; G0378; J1644; J1956; J2270; J7030; Q9967

== ENCOUNTER 2019-03-26 12:11 | Inpatient (IN) | payer MEDICAID, MEDICARE ==
[2019-03-26] MEDS ORDERED: SODIUM CHLORIDE 0.9% 1000 ML 1,000 ML ONE (12:16)
[2019-03-26] MEDS ORDERED: SODIUM CHLORIDE 0.9% 1000 ML 1,000 ML IV ONE (12:16)
--- NOTE | 2019-03-26 12:27 | Emergency Department Report ---
ED Altered Mental Status HPI - General Chief Complaint: Altered Mental Status Stated Complaint: AMS Time Seen by Provider: 03/26/19 12:16 Source: patient, family, RN/MD, EMS Mode of arrival: Stretcher - History of Present Illness Initial Comments: 68 yo comes to ER from nursing home after being found unresponsive prior to arrival. The last known well time was 1999 last night. Verbal reports are that pt uses pain meds- narcan given x 1 by EMS with no change. We gave a 2nd dose in ER on arrival and he did seem to respond. Prior to narcan he was flaccid. After the 2nd narcan he withdrew to deep pain. May be unrelated given UDS negative. Also given per EMS- 2 Gm Mg and 125 mg IV solumedrol EMS reports they were told pt had fall 3 days ago- details unknown On arrival to nursing home EMS reports sat in 60's with 100% NRB he was 86-88 on arrival-with teeth clenched. Bipap initiated p suctioning pts mouth for copious clear secretions- no vomit. Family in route to hospital On arrival ABC stabilized- labs sent- CT/xray- ABG MD Complaint: altered mental status -: Sudden, hour(s) Severity: severe Context: other Associated Symptoms: denies other symptoms Treatments Prior to Arrival: other pre-hosp med - Related Data Home Medications Medication Instructions Recorded Confirmed Last Taken Aspirin EC [Halfprin EC] 81 mg PO QDAY 03/03/19 03/03/19 03/03/19 Folic Acid 1 mg PO DAILY 03/03/19 03/03/19 03/03/19 Gabapentin [Neurontin] 300 mg PO Q8HR 03/03/19 03/03/19 03/03/19 HYDROcodone/APAP 5-325 [[place] 1 each PO Q6HR PRN 03/03/19 03/03/19 03/03/19 5/325] LORazepam [Ativan] 1 mg PO TID PRN 03/03/19 03/03/19 03/03/19 OLANZapine [Zyprexa] 5 mg PO DAILY 03/03/19 03/03/19 03/03/19 OLANzapine [ZyPREXA] 10 mg PO DAILY 03/03/19 03/03/19 03/03/19 amLODIPine [Norvasc] 10 mg PO DAILY 01/09/1303/03/19 03/03/19 Previous Rx's Medication Instructions Recorded Last Taken Type levoFLOXacin [Levaquin TAB] 500 mg PO QDAY #7 tablet 03/06/19 Unknown Rx Allergies Allergy/AdvReac Type Severity Reaction Status Date / Time No Known Allergies Allergy Verified 03/03/19 22:19 ED Review of Systems ROS: Stated complaint: AMS Other details as noted in HPI Comment: All other systems reviewed and negative ED Past Medical Hx - Past Medical History Hx Hypertension: Yes Hx CVA: No Hx Heart Attack/AMI: No Hx Congestive Heart Failure: No Hx Diabetes: No Hx Deep Vein Thrombosis: No Hx Pulmonary Embolism: No Hx GERD: No Hx Liver Disease: No Hx Renal Disease: No Hx of Cancer: No Hx Sickle Cell Disease: No Hx Arthritis: No Hx Headaches / Migraines: No Hx Seizures: No Hx Kidney Stones: No Hx Psychiatric Treatment: Yes (paranoid schizophrenia) Hx Asthma: No Hx COPD: No Hx Tuberculosis: No Hx Dementia: Yes Hx HIV: No Additional medical history: cervical stenosis-hld- hypothyroid - Family History Family history: no significant - Social History Smoking Status: Unknown if ever smoked - Medications Home Medications: Home Medications Medication Instructions Recorded Confirmed Last Taken Type Aspirin EC [Halfprin EC] 81 mg PO QDAY 03/03/19 03/03/19 03/03/19 History Folic Acid 1 mg PO DAILY 03/03/19 03/03/19 03/03/19 History Gabapentin [Neurontin] 300 mg PO Q8HR 03/03/19 03/03/19 03/03/19 History HYDROcodone/APAP 5-325 [[place] 1 each PO Q6HR PRN 03/03/19 03/03/19 03/03/19 History 5/325] LORazepam [Ativan] 1 mg PO TID PRN 03/03/19 03/03/19 03/03/19 History OLANZapine [Zyprexa] 5 mg PO DAILY 03/03/19 03/03/19 03/03/19 History OLANzapine [ZyPREXA] 10 mg PO DAILY 03/03/19 03/03/19 03/03/19 History amLODIPine [Norvasc] 10 mg PO DAILY 03/03/19 03/03/19 03/03/19 History levoFLOXacin [Levaquin TAB] 500 mg PO QDAY #7 tablet 03/06/19 Unknown Rx ED Physical Exam - General Limitations: Altered Mental Status General appearance: other (altered- withdrawal to noxious pain; pos cough; pupils pin point) - Head Head exam: Present: atraumatic - Eye Eye exam: Present: other (pinpoint) - ENT ENT exam: Present: mucous membranes moist - Neck Neck exam: Present: normal inspection - Respiratory Respiratory exam: Present: rhonchi (r>l), other (tachypnea) - Cardiovascular Cardiovascular Exam: Present: tachycardia - GI/Abdominal GI/Abdominal exam: Present: soft - Rectal Rectal exam: Present: deferred - exam: Present: other (payne ) - Extremities Exam Extremities exam: Absent: normal capillary refill - Neurological Exam Neurological exam: Present: other (ams) - Psychiatric Psychiatric exam: Present: other - Skin Skin exam: Present: warm, pallor - Assessment Assessment Interval: Baseline - Level of Consciousness 1a. Level of Consciousness: resp stimuli/obtunded - LOC Questions 1b. LOC Questions: aphasic - LOC Command 1c. LOC Commands: performs no tasks correctly - Best Gaze 2. Best Gaze: forced deviation - Motor Arm 5a. Motor Arm Left: no movement 5b. Motor Arm Right: no movement - Motor Leg 6a. Motor Leg Left: no movement 6b. Motor Leg Right: no movement - Sensory 8. Sensory: coma/unresponsive - Best Language 9. Best Language: coma/unresponsive - Dysarthria 10. Dysarthria: mute/anarrthric - Extinction and Inattention 11. Extinction/Inattention: complete neglect ED Course Vital Signs 03/26/19 03/26/19 12:59 13:00 Temperature 100.8 F H Pulse Rate 116 H 113 H Respiratory 34 H 40 H Rate Blood Pressure 126/83 [Left] O2 Sat by Pulse 96 95 Oximetry - Reevaluation(s) Reevaluation #1: 03/26/19 15:06 snf meds- administered to pt keppra risperidone mematine trazadone pravastatin norvasc fluticasone synthroid lexapro hctz asa metoprolol - Lab Data Result diagrams: 03/26/19 12:28 03/26/19 12:28 Lab Results 03/26/19 03/26/19 03/26/19 Range/Units 12:28 12:28 12:28 WBC 6.1 (4.5-11.0) K/mm3 RBC 4.81 (3.65-5.03) M/mm3 Hgb 13.9 (11.8-15.2) gm/dl Hct 42.2 (35.5-45.6) % MCV 88 (84-94) fl MCH 29 (28-32) pg MCHC 33 (32-34) % RDW 16.1 H (13.2-15.2) % Plt Count 237 (140-440) K/mm3 Lymph % (Auto) 12.3 L (13.4-35.0) % [place] % (Auto) 5.2 (0.0-7.3) % Eos % (Auto) 0.1 (0.0-4.3) % Baso % (Auto) 0.4 (0.0-1.8) % Lymph # 0.7 L (1.2-5.4) K/mm3 [place] # 0.3 (0.0-0.8) K/mm3 Eos # 0.0 (0.0-0.4) K/mm3 Baso # 0.0 (0.0-0.1) K/mm3 Seg Neutrophils % 82.0 H (40.0-70.0) % Seg Neutrophils # 5.0 (1.8-7.7) K/mm3 PT 15.9 H (12.2-14.9) Sec. INR 1.25 H (0.87-1.13) APTT 31.2 (24.2-36.6) Sec. ABG pH (7.350-7.450) pH Units ABG pCO2 mm Hg ABG pO2 (80.0-90.0) mm Hg ABG HCO3 (20.0-26.0) mmol/L ABG O2 Saturation (95.0-99.0) % ABG O2 Content (0.0-44) ABG Base Excess (-2.0-3.0) mmol/L ABG Hemoglobin (14.0-18.0) gm/dl ABG Carboxyhemoglobin (0.0-5.0) % ABG Methemoglobin (0.0-1.5) % Oxyhemoglobin (95.0-99.0) % FiO2 % Sodium 155 H (137-145) mmol/L Potassium 3.9 (3.6-5.0) mmol/L Chloride 115.8 H (98-107) mmol/L Carbon Dioxide 18 L (22-30) mmol/L Anion Gap 25 mmol/L BUN 39 H (9-20) mg/dL Creatinine 1.1 (0.8-1.5) mg/dL Estimated GFR > 60 ml/min BUN/Creatinine Ratio 35 % Glucose 213 H (75-100) mg/dL Lactic Acid (0.7-2.0) mmol/L Calcium 9.6 (8.4-10.2) mg/dL Total Bilirubin 1.20 (0.1-1.2) mg/dL AST 29 (5-40) units/L ALT 40 (7-56) units/L Alkaline Phosphatase 163 H (35-129) units/L Total Creatine Kinase 133 (55-170) units/L CK-MB (CK-2) < 1.0 (0.0-4.0) ng/mL CK-MB (CK-2) Rel Index 0.7 (0-4) Troponin T < 0.010 (0.00-0.029) ng/mL Total Protein 8.6 H (6.3-8.2) g/dL Albumin 3.4 L (3.9-5) g/dL Albumin/Globulin Ratio 0.7 % Urine Color (Yellow) Urine Turbidity (Clear) Urine pH (5.0-7.0) Ur Specific [place] (1.003-1.030) Urine Protein (Negative) mg/dL Urine Glucose (UA) (Negative) mg/dL Urine Ketones (Negative) mg/dL Urine Blood (Negative) Urine Nitrite (Negative) Urine Bilirubin (Negative) Urine Urobilinogen (<2.0) mg/dL Ur Leukocyte Esterase (Negative) Urine WBC (Auto) (0.0-6.0) /HPF Urine RBC (Auto) (0.0-6.0) /HPF U Epithel Cells (Auto) (0-13.0) /HPF Urine Mucus /HPF Urine Opiates Screen Urine Methadone Screen Ur Barbiturates Screen Ur Phencyclidine Scrn Ur Amphetamines Screen U Benzodiazepines Scrn Urine Cocaine Screen U Marijuana (THC) Screen Drugs of Abuse Note 03/26/19 03/26/19 03/26/19 Range/Units 12:28 12:36 12:36 WBC (4.5-11.0) K/mm3 RBC (3.65-5.03) M/mm3 Hgb (11.8-15.2) gm/dl Hct (35.5-45.6) % MCV (84-94) fl MCH (28-32) pg MCHC (32-34) % RDW (13.2-15.2) % Plt Count (140-440) K/mm3 Lymph % (Auto) (13.4-35.0) % [place] % (Auto) (0.0-7.3) % Eos % (Auto) (0.0-4.3) % Baso % (Auto) (0.0-1.8) % Lymph # (1.2-5.4) K/mm3 [place] # (0.0-0.8) K/mm3 Eos # (0.0-0.4) K/mm3 Baso # (0.0-0.1) K/mm3 Seg Neutrophils % (40.0-70.0) % Seg Neutrophils # (1.8-7.7) K/mm3 PT (12.2-14.9) Sec. INR (0.87-1.13) APTT (24.2-36.6) Sec. ABG pH (7.350-7.450) pH Units ABG pCO2 mm Hg ABG pO2 (80.0-90.0) mm Hg ABG HCO3 (20.0-26.0) mmol/L ABG O2 Saturation (95.0-99.0) % ABG O2 Content (0.0-44) ABG Base Excess (-2.0-3.0) mmol/L ABG Hemoglobin (14.0-18.0) gm/dl ABG Carboxyhemoglobin (0.0-5.0) % ABG Methemoglobin (0.0-1.5) % Oxyhemoglobin (95.0-99.0) % FiO2 % Sodium (137-145) mmol/L Potassium (3.6-5.0) mmol/L Chloride (98-107) mmol/L Carbon Dioxide (22-30) mmol/L Anion Gap mmol/L BUN (9-20) mg/dL Creatinine (0.8-1.5) mg/dL Estimated GFR ml/min BUN/Creatinine Ratio % Glucose (75-100) mg/dL Lactic Acid 3.50 H* (0.7-2.0) mmol/L Calcium (8.4-10.2) mg/dL Total Bilirubin (0.1-1.2) mg/dL AST (5-40) units/L ALT (7-56) units/L Alkaline Phosphatase (35-129) units/L Total Creatine Kinase (55-170) units/L CK-MB (CK-2) (0.0-4.0) ng/mL CK-MB (CK-2) Rel Index (0-4) Troponin T (0.00-0.029) ng/mL Total Protein (6.3-8.2) g/dL Albumin (3.9-5) g/dL Albumin/Globulin Ratio % Urine Color [place] (Yellow) Urine Turbidity Slightly-cloudy (Clear) Urine pH 5.0 (5.0-7.0) Ur Specific [place] 1.028 (1.003-1.030) Urine Protein 30 mg/dl (Negative) mg/dL Urine Glucose (UA) Neg (Negative) mg/dL Urine Ketones Neg (Negative) mg/dL Urine Blood Neg (Negative) Urine Nitrite Neg (Negative) Urine Bilirubin Neg (Negative) Urine Urobilinogen 4.0 (<2.0) mg/dL Ur Leukocyte Esterase Neg (Negative) Urine WBC (Auto) 6.0 (0.0-6.0) /HPF Urine RBC (Auto) 3.0 (0.0-6.0) /HPF U Epithel Cells (Auto) 11.0 (0-13.0) /HPF Urine Mucus 2+ /HPF Urine Opiates Screen Presumptive negative Urine Methadone Screen Presumptive negative Ur Barbiturates Screen Presumptive negative Ur Phencyclidine Scrn Presumptive negative Ur Amphetamines Screen Presumptive negative U Benzodiazepines Scrn Presumptive negative Urine Cocaine Screen Presumptive negative U Marijuana (THC) Screen Presumptive negative Drugs of Abuse Note Disclamer 03/26/19 Range/Units 13:40 WBC (4.5-11.0) K/mm3 RBC (3.65-5.03) M/mm3 Hgb (11.8-15.2) gm/dl Hct (35.5-45.6) % MCV (84-94) fl MCH (28-32) pg MCHC (32-34) % RDW (13.2-15.2) % Plt Count (140-440) K/mm3 Lymph % (Auto) (13.4-35.0) % [place] % (Auto) (0.0-7.3) % Eos % (Auto) (0.0-4.3) % Baso % (Auto) (0.0-1.8) % Lymph # (1.2-5.4) K/mm3 [place] # (0.0-0.8) K/mm3 Eos # (0.0-0.4) K/mm3 Baso # (0.0-0.1) K/mm3 Seg Neutrophils % (40.0-70.0) % Seg Neutrophils # (1.8-7.7) K/mm3 PT (12.2-14.9) Sec. INR (0.87-1.13) APTT (24.2-36.6) Sec. ABG pH 7.411 (7.350-7.450) pH Units ABG pCO2 34.3 mm Hg ABG pO2 109.5 H (80.0-90.0) mm Hg ABG HCO3 21.3 (20.0-26.0) mmol/L ABG O2 Saturation 98.0 (95.0-99.0) % ABG O2 Content 19.0 (0.0-44) ABG Base Excess -2.5 L (-2.0-3.0) mmol/L ABG Hemoglobin 13.9 L (14.0-18.0) gm/dl ABG Carboxyhemoglobin 1.3 (0.0-5.0) % ABG Methemoglobin 0.6 (0.0-1.5) % Oxyhemoglobin 96.2 (95.0-99.0) % FiO2 50 % Sodium (137-145) mmol/L Potassium (3.6-5.0) mmol/L Chloride (98-107) mmol/L Carbon Dioxide (22-30) mmol/L Anion Gap mmol/L BUN (9-20) mg/dL Creatinine (0.8-1.5) mg/dL Estimated GFR ml/min BUN/Creatinine Ratio % Glucose (75-100) mg/dL Lactic Acid (0.7-2.0) mmol/L Calcium (8.4-10.2) mg/dL Total Bilirubin (0.1-1.2) mg/dL AST (5-40) units/L ALT (7-56) units/L Alkaline Phosphatase (35-129) units/L Total Creatine Kinase (55-170) units/L CK-MB (CK-2) (0.0-4.0) ng/mL CK-MB (CK-2) Rel Index (0-4) Troponin T (0.00-0.029) ng/mL Total Protein (6.3-8.2) g/dL Albumin (3.9-5) g/dL Albumin/Globulin Ratio % Urine Color (Yellow) Urine Turbidity (Clear) Urine pH (5.0-7.0) Ur Specific [place] (1.003-1.030) Urine Protein (Negative) mg/dL Urine Glucose (UA) (Negative) mg/dL Urine Ketones (Negative) mg/dL Urine Blood (Negative) Urine Nitrite (Negative) Urine Bilirubin (Negative) Urine Urobilinogen (<2.0) mg/dL Ur Leukocyte Esterase (Negative) Urine WBC (Auto) (0.0-6.0) /HPF Urine RBC (Auto) (0.0-6.0) /HPF U Epithel Cells (Auto) (0-13.0) /HPF Urine Mucus /HPF Urine Opiates Screen Urine Methadone Screen Ur Barbiturates Screen Ur Phencyclidine Scrn Ur Amphetamines Screen U Benzodiazepines Scrn Urine Cocaine Screen U Marijuana (THC) Screen Drugs of Abuse Note - EKG Data -: EKG Interpreted by Tn EKG shows normal: sinus rhythm Rate: tachycardia When compared to previous EKG there are: no significant change Interpretation: no acute changes - Radiology Data Radiology results: report reviewed, image reviewed - Medical Decision Making Lab Results 03/26/19 03/26/19 03/26/19 Range/Units 12:28 12:28 12:28 WBC 6.1 (4.5-11.0) K/mm3 RBC 4.81 (3.65-5.03) M/mm3 Hgb 13.9 (11.8-15.2) gm/dl Hct 42.2 (35.5-45.6) % MCV 88 (84-94) fl MCH 29 (28-32) pg MCHC 33 (32-34) % RDW 16.1 H (13.2-15.2) % Plt Count 237 (140-440) K/mm3 Lymph % (Auto) 12.3 L (13.4-35.0) % [place] % (Auto) 5.2 (0.0-7.3) % Eos % (Auto) 0.1 (0.0-4.3) % Baso % (Auto) 0.4 (0.0-1.8) % Lymph # 0.7 L (1.2-5.4) K/mm3 [place] # 0.3 (0.0-0.8) K/mm3 Eos # 0.0 (0.0-0.4) K/mm3 Baso # 0.0 (0.0-0.1) K/mm3 Seg Neutrophils % 82.0 H (40.0-70.0) % Seg Neutrophils # 5.0 (1.8-7.7) K/mm3 PT 15.9 H (12.2-14.9) Sec. INR 1.25 H (0.87-1.13) APTT 31.2 (24.2-36.6) Sec. ABG pH (7.350-7.450) pH Units ABG pCO2 mm Hg ABG pO2 (80.0-90.0) mm Hg ABG HCO3 (20.0-26.0) mmol/L ABG O2 Saturation (95.0-99.0) % ABG O2 Content (0.0-44) ABG Base Excess (-2.0-3.0) mmol/L ABG Hemoglobin (14.0-18.0) gm/dl ABG Carboxyhemoglobin (0.0-5.0) % ABG Methemoglobin (0.0-1.5) % Oxyhemoglobin (95.0-99.0) % FiO2 % Sodium 155 H (137-145) mmol/L Potassium 3.9 (3.6-5.0) mmol/L Chloride 115.8 H (98-107) mmol/L Carbon Dioxide 18 L (22-30) mmol/L Anion Gap 25 mmol/L BUN 39 H (9-20) mg/dL Creatinine 1.1 (0.8-1.5) mg/dL Estimated GFR > 60 ml/min BUN/Creatinine Ratio 35 % Glucose 213 H (75-100) mg/dL Lactic Acid (0.7-2.0) mmol/L Calcium 9.6 (8.4-10.2) mg/dL Total Bilirubin 1.20 (0.1-1.2) mg/dL AST 29 (5-40) units/L ALT 40 (7-56) units/L Alkaline Phosphatase 163 H (35-129) units/L Total Creatine Kinase 133 (55-170) units/L CK-MB (CK-2) < 1.0 (0.0-4.0) ng/mL CK-MB (CK-2) Rel Index 0.7 (0-4) Troponin T < 0.010 (0.00-0.029) ng/mL Total Protein 8.6 H (6.3-8.2) g/dL Albumin 3.4 L (3.9-5) g/dL Albumin/Globulin Ratio 0.7 % Urine Color (Yellow) Urine Turbidity (Clear) Urine pH (5.0-7.0) Ur Specific [place] (1.003-1.030) Urine Protein (Negative) mg/dL Urine Glucose (UA) (Negative) mg/dL Urine Ketones (Negative) mg/dL Urine Blood (Negative) Urine Nitrite (Negative) Urine Bilirubin (Negative) Urine Urobilinogen (<2.0) mg/dL Ur Leukocyte Esterase (Negative) Urine WBC (Auto) (0.0-6.0) /HPF Urine RBC (Auto) (0.0-6.0) /HPF U Epithel Cells (Auto) (0-13.0) /HPF Urine Mucus /HPF Urine Opiates Screen Urine Methadone Screen Ur Barbiturates Screen Ur Phencyclidine Scrn Ur Amphetamines Screen U Benzodiazepines Scrn Urine Cocaine Screen U Marijuana (THC) Screen Drugs of Abuse Note 03/26/19 03/26/19 03/26/19 Range/Units 12:28 12:36 12:36 WBC (4.5-11.0) K/mm3 RBC (3.65-5.03) M/mm3 Hgb (11.8-15.2) gm/dl Hct (35.5-45.6) % MCV (84-94) fl MCH (28-32) pg MCHC (32-34) % RDW (13.2-15.2) % Plt Count (140-440) K/mm3 Lymph % (Auto) (13.4-35.0) % [place] % (Auto) (0.0-7.3) % Eos % (Auto) (0.0-4.3) % Baso % (Auto) (0.0-1.8) % Lymph # (1.2-5.4) K/mm3 [place] # (0.0-0.8) K/mm3 Eos # (0.0-0.4) K/mm3 Baso # (0.0-0.1) K/mm3 Seg Neutrophils % (40.0-70.0) % Seg Neutrophils # (1.8-7.7) K/mm3 PT (12.2-14.9) Sec. INR (0.87-1.13) APTT (24.2-36.6) Sec. ABG pH (7.350-7.450) pH Units ABG pCO2 mm Hg ABG pO2 (80.0-90.0) mm Hg ABG HCO3 (20.0-26.0) mmol/L ABG O2 Saturation (95.0-99.0) % ABG O2 Content (0.0-44) ABG Base Excess (-2.0-3.0) mmol/L ABG Hemoglobin (14.0-18.0) gm/dl ABG Carboxyhemoglobin (0.0-5.0) % ABG Methemoglobin (0.0-1.5) % Oxyhemoglobin (95.0-99.0) % FiO2 % Sodium (137-145) mmol/L Potassium (3.6-5.0) mmol/L Chloride (98-107) mmol/L Carbon Dioxide (22-30) mmol/L Anion Gap mmol/L BUN (9-20) mg/dL Creatinine (0.8-1.5) mg/dL Estimated GFR ml/min BUN/Creatinine Ratio % Glucose (75-100) mg/dL Lactic Acid 3.50 H* (0.7-2.0) mmol/L Calcium (8.4-10.2) mg/dL Total Bilirubin (0.1-1.2) mg/dL AST (5-40) units/L ALT (7-56) units/L Alkaline Phosphatase (35-129) units/L Total Creatine Kinase (55-170) units/L CK-MB (CK-2) (0.0-4.0) ng/mL CK-MB (CK-2) Rel Index (0-4) Troponin T (0.00-0.029) ng/mL Total Protein (6.3-8.2) g/dL Albumin (3.9-5) g/dL Albumin/Globulin Ratio % Urine Color [place] (Yellow) Urine Turbidity Slightly-cloudy (Clear) Urine pH 5.0 (5.0-7.0) Ur Specific [place] 1.028 (1.003-1.030) Urine Protein 30 mg/dl (Negative) mg/dL Urine Glucose (UA) Neg (Negative) mg/dL Urine Ketones Neg (Negative) mg/dL Urine Blood Neg (Negative) Urine Nitrite Neg (Negative) Urine Bilirubin Neg (Negative) Urine Urobilinogen 4.0 (<2.0) mg/dL Ur Leukocyte Esterase Neg (Negative) Urine WBC (Auto) 6.0 (0.0-6.0) /HPF Urine RBC (Auto) 3.0 (0.0-6.0) /HPF U Epithel Cells (Auto) 11.0 (0-13.0) /HPF Urine Mucus 2+ /HPF Urine Opiates Screen Presumptive negative Urine Methadone Screen Presumptive negative Ur Barbiturates Screen Presumptive negative Ur Phencyclidine Scrn Presumptive negative Ur Amphetamines Screen Presumptive negative U Benzodiazepines Scrn Presumptive negative Urine Cocaine Screen Presumptive negative U Marijuana (THC) Screen Presumptive negative Drugs of Abuse Note Disclamer 03/26/19 Range/Units 13:40 WBC (4.5-11.0) K/mm3 RBC (3.65-5.03) M/mm3 Hgb (11.8-15.2) gm/dl Hct (35.5-45.6) % MCV (84-94) fl MCH (28-32) pg MCHC (32-34) % RDW (13.2-15.2) % Plt Count (140-440) K/mm3 Lymph % (Auto) (13.4-35.0) % [place] % (Auto) (0.0-7.3) % Eos % (Auto) (0.0-4.3) % Baso % (Auto) (0.0-1.8) % Lymph # (1.2-5.4) K/mm3 [place] # (0.0-0.8) K/mm3 Eos # (0.0-0.4) K/mm3 Baso # (0.0-0.1) K/mm3 Seg Neutrophils % (40.0-70.0) % Seg Neutrophils # (1.8-7.7) K/mm3 PT (12.2-14.9) Sec. INR (0.87-1.13) APTT (24.2-36.6) Sec. ABG pH 7.411 (7.350-7.450) pH Units ABG pCO2 34.3 mm Hg ABG pO2 109.5 H (80.0-90.0) mm Hg ABG HCO3 21.3 (20.0-26.0) mmol/L ABG O2 Saturation 98.0 (95.0-99.0) % ABG O2 Content 19.0 (0.0-44) ABG Base Excess -2.5 L (-2.0-3.0) mmol/L ABG Hemoglobin 13.9 L (14.0-18.0) gm/dl ABG Carboxyhemoglobin 1.3 (0.0-5.0) % ABG Methemoglobin 0.6 (0.0-1.5) % Oxyhemoglobin 96.2 (95.0-99.0) % FiO2 50 % Sodium (137-145) mmol/L Potassium (3.6-5.0) mmol/L Chloride (98-107) mmol/L Carbon Dioxide (22-30) mmol/L Anion Gap mmol/L BUN (9-20) mg/dL Creatinine (0.8-1.5) mg/dL Estimated GFR ml/min BUN/Creatinine Ratio % Glucose (75-100) mg/dL Lactic Acid (0.7-2.0) mmol/L Calcium (8.4-10.2) mg/dL Total Bilirubin (0.1-1.2) mg/dL AST (5-40) units/L ALT (7-56) units/L Alkaline Phosphatase (35-129) units/L Total Creatine Kinase (55-170) units/L CK-MB (CK-2) (0.0-4.0) ng/mL CK-MB (CK-2) Rel Index (0-4) Troponin T (0.00-0.029) ng/mL Total Protein (6.3-8.2) g/dL Albumin (3.9-5) g/dL Albumin/Globulin Ratio % Urine Color (Yellow) Urine Turbidity (Clear) Urine pH (5.0-7.0) Ur Specific [place] (1.003-1.030) Urine Protein (Negative) mg/dL Urine Glucose (UA) (Negative) mg/dL Urine Ketones (Negative) mg/dL Urine Blood (Negative) Urine Nitrite (Negative) Urine Bilirubin (Negative) Urine Urobilinogen (<2.0) mg/dL Ur Leukocyte Esterase (Negative) Urine WBC (Auto) (0.0-6.0) /HPF Urine RBC (Auto) (0.0-6.0) /HPF U Epithel Cells (Auto) (0-13.0) /HPF Urine Mucus /HPF Urine Opiates Screen Urine Methadone Screen Ur Barbiturates Screen Ur Phencyclidine Scrn Ur Amphetamines Screen U Benzodiazepines Scrn Urine Cocaine Screen U Marijuana (THC) Screen Drugs of Abuse Note Vital Signs 03/26/19 03/26/19 12:59 13:00 Temperature 100.8 F H Pulse Rate 116 H 113 H Respiratory 34 H 40 H Rate Blood Pressure 126/83 [Left] O2 Sat by Pulse 96 [address] Ricks on NRB on arrival- to bipap concern for aspiration temp noted volume resuscitation initiated labs noted vanc/flagyl/azithrom empiric coverage- ? aspiration/recent hospitalization xray with b pna noted CT head NAP ABG noted on bipap noted- can wean oxygen 1200 family updated on plan of care and pt is a FULL code per NOK who is the son. [address] Marquez- will admit to [facility]U - Differential Diagnosis AMS ro CVA/drug related/sepsis/ACS - Core Measures Measure Exclusions: not indicated - NEXUS Criteria Focal neurological deficit present: Yes Midline spinal tenderness present: No Altered level of consciousness: Yes Intoxication present: No Distracting injury present: No NEXUS results: C-Spine cannot be cleared clinically by these results. Imaging is required. Critical care attestation.: If time is entered above; I have spent that time in minutes in the direct care of this critically ill patient, excluding procedure time. ED Disposition Clinical Impression: AMS (altered mental status), Sepsis Disposition: [id number] OP ADMIT IP TO THIS HOSP Is pt being admited?: Yes Does the pt Need Aspirin: No Condition: Stable Time of Disposition: 14:40
[2019-03-26 12:45] LABS: Basophils % (Auto) 0.4 % (0.0-1.8); Eosinophils % (Auto) 0.1 % (0.0-4.3); Hematocrit 42.2 % (35.5-45.6); Hemoglobin 13.9 gm/dl (11.8-15.2); Lymphocytes # (Auto) 0.7 K/mm3 (1.2-5.4); Lymphocytes % (Auto) 12.3 % (13.4-35.0); Mean Corpuscular HGB Conc 33 % (32-34); Mean Corpuscular Volume 88 fl (84-94); Monocytes # (Auto) 0.3 K/mm3 (0.0-0.8); Monocytes % (Auto) 5.2 % (0.0-7.3); Platelet Count 237 K/mm3 (140-440); Red Blood Count 4.81 M/mm3 (3.65-5.03); Red Cell Distribution Width 16.1 % (13.2-15.2)
[2019-03-26] MEDS ORDERED: ACETAMINOPHEN 650 MG RECT SUPP PR ONE (13:01)
[2019-03-26] MEDS ORDERED: VANCOMYCIN 1,000 MG in SODIUM CHLORIDE 0.9% 500 ML 500 ML IV ONE (13:02)
[2019-03-26] MEDS ORDERED: AZITHROMYCIN 500 MG in SODIUM CHLORIDE 0.9% 250ML 250 ML IV SCH (13:04)
[2019-03-26 13:07] LABS: Amphetamine Screen,Urine PRESUMPTIVE NEGATIVE; Benzodiazepines Screen,Urine PRESUMPTIVE NEGATIVE; Cannabinoid Screen,Urine PRESUMPTIVE NEGATIVE; Cocaine Screen,Urine PRESUMPTIVE NEGATIVE; Methadone Screen,Urine PRESUMPTIVE NEGATIVE; Opiate Screen,Urine PRESUMPTIVE NEGATIVE
[2019-03-26 13:10] LABS: Alanine Aminotransferase 40 units/L (7-56); Albumin 3.4 g/dL (3.9-5); BUN/Creatinine Ratio 35; Blood Urea Nitrogen 39 mg/dL (9-20); Calcium 9.6 mg/dL (8.4-10.2); Hemolysis Index 0
[2019-03-26 13:11] LABS: Creatine Kinase MB < 1.0 ng/mL (0.0-4.0)
[2019-03-26 13:12] LABS: Bilirubin,Urine NEG (Negative); Blood,Urine NEG (Negative); Color,Urine Amber (Yellow)
[2019-03-26] MEDS ORDERED: SODIUM CHLORIDE 0.9% 1000 ML IV SOLN IV ONE (13:14)
[2019-03-26] MEDS ORDERED: NALOXONE 2 MG/2 ML INJ ONE (13:15)
[2019-03-26 13:16] LABS: INR 1.25 (0.87-1.13)
[2019-03-26 13:17] LABS: Partial Thromboplastin Time 31.2 Sec. (24.2-36.6)
[2019-03-26 13:29] LABS: Mucus,Urine 2+ /HPF
--- NOTE | 2019-03-26 13:33 | Cat Scan Report ---
CT head without contrast HISTORY: AMS. TECHNIQUE: Axial imaging performed from the skull apex through the skull base without the use of con trast. All CT scans at this location are performed using CT dose reduction for ALARA by means of aut omated exposure control. COMPARISON: None FINDINGS: Parenchyma: No acute intracranial hemorrhage or parenchymal abnormality. Ventricles: There is mild diffuse brain atrophy with commensurate ventricular enlargement which is l ikely age appropriate. Soft tissues: Soft tissues including the orbits appear normal. Bones: No acute osseous abnormality. Sinuses: Sinuses and mastoid air cells are clear. IMPRESSION: No acute abnormality. Signer Name: Billy Boo MD Signed: 03/26/2019 1:29 PM Workstation Name: [id number]
--- NOTE | 2019-03-26 13:51 | XRay Report ---
CHEST 1 VIEW 1:26 PM INDICATION / CLINICAL INFORMATION: Dyspnea. COMPARISON: 03/03/2019. FINDINGS: SUPPORT DEVICES: None. HEART / MEDIASTINUM: The heart size and pulmonary vasculature are normal. LUNGS / PLEURA: There is mild patchy parenchymal disease in both perihilar regions/central lung zones and in the left lower lung, new since the prior study. There may be a trace amount of left pleural f luid. No pneumothorax. ADDITIONAL FINDINGS: No significant additional findings. IMPRESSION: Patchy bilateral bronchopneumonia. Signer Name: Timothy Madrid MD Signed: 03/26/2019 1:46 PM Workstation Name: [id number]
[2019-03-26 13:56] LABS: ABG Base Excess -2.5 mmol/L (-2.0-3.0); ABG HCO3 21.3 mmol/L (20.0-26.0); ABG Methemoglobin 0.6 % (0.0-1.5); ABG PCO2 34.3 mm Hg; ABG PH 7.411 pH Units (7.350-7.450); ABG PO2 109.5 mm Hg (80.0-90.0)
[2019-03-26] MEDS ORDERED: VANCOMYCIN/NS 1 GM/250 ML 1 GM/250 ML BAG IV ONE (14:00)
[2019-03-26] MEDS ORDERED: VANCOMYCIN PHARMACY TO DOSE IV SCH (14:00)
[2019-03-26] MEDS: metroNIDAZOLE/NS 500 MG/100 ML 500 MG/100 ML BAG IV SCH (14:50)
[2019-03-26] MEDS ORDERED: LORazepam 1 MG TAB PO PRN (22:17)
[2019-03-26] MEDS ORDERED: HYDROcodone/ACETAMINOPHEN 5-325 MG TAB PO PRN (22:17)
[2019-03-26] MEDS ORDERED: MORPHINE 2 MG/1 ML INJ IV PRN (22:19)
[2019-03-26] MEDS ORDERED: METOCLOPRAMIDE 10 MG/2 ML INJ IV PRN (22:19)
[2019-03-26] MEDS ORDERED: ACETAMINOPHEN 325 MG TAB PO PRN (22:19)
--- NOTE | 2019-03-26 22:19 | History and Physical Report ---
History of Present Illness Date of examination: 03/26/19 Date of admission: 03/26/19 14:50 Chief complaint: Unresponsive and SOB since AM History of present illness: 68 yo from custodial found unresponsive prior to arrival. The last known well time was 1999 last night. Patient was very lathargic and Hypoxic.Sats were in 60's and improved to some extent with NRB.Was given SOlumedrol and Narcan by EMS>Now on Bipap and improved to some extent.LWKT was 8pm last night.No fever or chills.Bipap initiated after suctioning pts mouth for copious clear secretions- no vomit. Past Medical History Hypertension: Yes Psychiatric Treatment: Yes (paranoid schizophrenia) Dementia: Yes Additional medical history: cervical stenosis-hld- hypothyroid Surgical History Unknown Family History Family history: no significant Social History Smoking Status: Unknown if ever smoked Medications Home Medications: Home Medications Medication Instructions Recorded Confirmed Last Taken Type Aspirin EC [Halfprin EC] 81 mg PO QDAY 03/03/19 03/03/19 03/03/19 History Folic Acid 1 mg PO DAILY 03/03/19 03/03/19 03/03/19 History Gabapentin [Neurontin] 300 mg PO Q8HR 03/03/19 03/03/19 03/03/19 History HYDROcodone/APAP 5-325 [[place] 1 each PO Q6HR PRN 03/03/19 03/03/19 03/03/19 History 5/325] LORazepam [Ativan] 1 mg PO TID PRN 03/03/19 03/03/19 03/03/19 History OLANZapine [Zyprexa] 5 mg PO DAILY 03/03/19 03/03/19 03/03/19 History OLANzapine [ZyPREXA] 10 mg PO DAILY 03/03/19 03/03/19 03/03/19 History amLODIPine [Norvasc] 10 mg PO DAILY 03/03/19 03/03/19 03/03/19 History levoFLOXacin [Levaquin TAB] 500 mg PO QDAY #7 tablet 03/06/19 Unknown Rx Review of Systems ROS: Stated complaint: AMS Other details as noted in HPI Comment: All other systems reviewed and negative Medications and Allergies Allergies Allergy/AdvReac Type Severity Reaction Status Date / Time No Known Allergies Allergy Verified 03/03/19 22:19 Home Medications Medication Instructions Recorded Confirmed Last Taken Type Aspirin EC [Halfprin EC] 81 mg PO QDAY 03/03/19 03/26/19 03/03/19 History Folic Acid 1 mg PO DAILY 03/03/19 03/26/19 03/03/19 History Gabapentin [Neurontin] 300 mg PO Q8HR 03/03/19 03/26/19 03/03/19 History HYDROcodone/APAP 5-325 [[place] 1 each PO Q6HR PRN 03/03/19 03/26/19 03/03/19 History 5/325] LORazepam [Ativan] 1 mg PO TID PRN 03/03/19 03/26/19 03/03/19 History OLANZapine [Zyprexa] 5 mg PO DAILY 03/03/19 03/26/19 03/03/19 History OLANzapine [ZyPREXA] 10 mg PO DAILY 03/03/19 03/26/19 03/03/19 History amLODIPine [Norvasc] 10 mg PO DAILY 03/03/19 03/26/19 03/03/19 History levoFLOXacin [Levaquin TAB] 500 mg PO QDAY #7 tablet 03/06/19 03/26/19 Unknown Rx Active Meds: Active Medications Metronidazole (Flagyl 500 Mg/100 Ml) 500 mg in 100 mls @ 100 mls/hr IV Q8HR NANCY; Protocol Last Admin: 03/26/19 14:50 Dose: 100 mls/hr Documented by: Azithromycin 500 mg/ Sodium (Chloride) 250 mls @ 250 mls/hr IV Q24HR NANCY; Protocol Last Admin: 03/26/19 14:35 Dose: 250 mls/hr Documented by: Vancomycin HCl 750 mg/ Sodium (Chloride) 265 mls @ 166.667 mls/hr IV Q24H NANCY Exam - Constitutional Vitals: Temp Pulse Resp BP Pulse Ox 100.8 F H 100 H 30 H 137/84 99 03/26/19 12:59 03/26/19 21:55 03/26/19 21:55 03/26/19 19:00 03/26/19 21:55 General appearance: Present: severe distress - EENT Eyes: Present: PERRL ENT: hearing intact, clear oral mucosa - Neck Neck: Present: supple, normal ROM - Respiratory Respiratory effort: normal Respiratory: bilateral: CTA, rales, rhonchi, wheezing - Cardiovascular Heart rate: 98 Rhythm: regular Heart Sounds: Present: S1 & S2. Absent: rub, click - Extremities Extremities: no ischemia, pulses intact, pulses symmetrical, No edema Peripheral Pulses: within normal limits - Abdominal General gastrointestinal: Present: soft, non-tender, non-distended, normal bowel sounds Male genitourinary: Present: normal - Rectal Rectal Exam: deferred - Integumentary Integumentary: Present: clear, warm, dry - Musculoskeletal Musculoskeletal: generalized weakness - Psychiatric Psychiatric: appropriate mood/affect, other (Decreased responsiveness) - Neurologic Neurologic: moves all extremities - Allied Health Allied health notes reviewed: nursing, case management Results - Labs CBC & Chem 7: 03/27/19 04:27 03/27/19 04:27 Labs: Laboratory Last Values WBC 6.1 K/mm3 (4.5-11.0) 03/26/19 12:28 RBC 4.81 M/mm3 (3.65-5.03) 03/26/19 12:28 Hgb 13.9 gm/dl (11.8-15.2) 03/26/19 12:28 Hct 42.2 % (35.5-45.6) 03/26/19 12:28 MCV 88 fl (84-94) 03/26/19 12:28 MCH 29 pg (28-32) 03/26/19 12:28 MCHC 33 % (32-34) 03/26/19 12:28 RDW 16.1 % (13.2-15.2) H 03/26/19 12:28 Plt Count 237 K/mm3 (140-440) 03/26/19 12:28 Lymph % (Auto) 12.3 % (13.4-35.0) L 03/26/19 12:28 Holt % (Auto) 5.2 % (0.0-7.3) 03/26/19 12:28 Eos % (Auto) 0.1 % (0.0-4.3) 03/26/19 12:28 Baso % (Auto) 0.4 % (0.0-1.8) 03/26/19 12:28 Lymph # 0.7 K/mm3 (1.2-5.4) L 03/26/19 12:28 Holt # 0.3 K/mm3 (0.0-0.8) 03/26/19 12:28 Eos # 0.0 K/mm3 (0.0-0.4) 03/26/19 12:28 Baso # 0.0 K/mm3 (0.0-0.1) 03/26/19 12:28 Seg Neutrophils % 82.0 % (40.0-70.0) H 03/26/19 12:28 Seg Neutrophils # 5.0 K/mm3 (1.8-7.7) 03/26/19 12:28 PT 15.9 Sec. (12.2-14.9) H 03/26/19 12:28 INR 1.25 (0.87-1.13) H 03/26/19 12: APTT 31.2 Sec. (24.2-36.6) 03/26/19 12:28 ABG pH 7.411 pH Units (7.350-7.450) 03/26/19 13:40 ABG pCO2 34.3 mm Hg 03/26/19 13:40 ABG pO2 109.5 mm Hg (80.0-90.0) H 03/26/19 13:40 ABG HCO3 21.3 mmol/L (20.0-26.0) 03/26/19 13:40 ABG O2 Saturation 98.0 % (95.0-99.0) 03/26/19 13:40 ABG O2 Content 19.0 (0.0-44) 03/26/19 13:40 ABG Base Excess -2.5 mmol/L (-2.0-3.0) L 03/26/19 13:40 ABG Hemoglobin 13.9 gm/dl (14.0-18.0) L 03/26/19 13:40 ABG Carboxyhemoglobin 1.3 % (0.0-5.0) 03/26/19 13:40 ABG Methemoglobin 0.6 % (0.0-1.5) 03/26/19 13:40 Oxyhemoglobin 96.2 % (95.0-99.0) 03/26/19 13:40 FiO2 50 % 03/26/19 13:40 Sodium 155 mmol/L (137-145) H 03/26/19 12:28 Potassium 3.9 mmol/L (3.6-5.0) 03/26/19 12:28 Chloride 115.8 mmol/L (98-107) H 03/26/19 12:28 Carbon Dioxide 18 mmol/L (22-30) L 03/26/19 12:28 Anion Gap 25 mmol/L 03/26/19 12:28 BUN 39 mg/dL (9-20) H 03/26/19 12:28 Creatinine 1.1 mg/dL (0.8-1.5) 03/26/19 12:28 Estimated GFR > 60 ml/min 03/26/19 12:28 BUN/Creatinine Ratio 35 % 03/26/19 12:28 Glucose 213 mg/dL (75-100) H 03/26/19 12:28 Lactic Acid 2.80 mmol/L (0.7-2.0) H* 03/26/19 20:26 Calcium 9.6 mg/dL (8.4-10.2) 03/26/19 12:28 Total Bilirubin 1.20 mg/dL (0.1-1.2) 03/26/19 12:28 AST 29 units/L (5-40) 03/26/19 12:28 ALT 40 units/L (7-56) 03/26/19 12:28 Alkaline Phosphatase 163 units/L (35-129) H 03/26/19 12:28 Total Creatine Kinase 133 units/L (55-170) 03/26/19 12:28 CK-MB (CK-2) < 1.0 ng/mL (0.0-4.0) 03/26/19 12:28 CK-MB (CK-2) Rel Index 0.7 (0-4) 03/26/19 12:28 Troponin T < 0.010 ng/mL (0.00-0.029) 03/26/19 14:41 Total Protein 8.6 g/dL (6.3-8.2) H 03/26/19 12:28 Albumin 3.4 g/dL (3.9-5) L 03/26/19 12:28 Albumin/Globulin Ratio 0.7 % 03/26/19 12:28 Urine Color Dahlia (Yellow) 03/26/19 12:36 Urine Turbidity Slightly-cloudy (Clear) 03/26/19 12:36 Urine pH 5.0 (5.0-7.0) 03/26/19 12:36 Ur Specific [place] 1.028 (1.003-1.030) 03/26/19 12:36 Urine Protein 30 mg/dl mg/dL (Negative) 03/26/19 12:36 Urine Glucose (UA) Neg mg/dL (Negative) 03/26/19 12:36 Urine Ketones Neg mg/dL (Negative) 03/26/19 12:36 Urine Blood Neg (Negative) 03/26/19 12:36 Urine Nitrite Neg (Negative) 03/26/19 12:36 Urine Bilirubin Neg (Negative) 03/26/19 12:36 Urine Urobilinogen 4.0 mg/dL (<2.0) 03/26/19 12:36 Ur Leukocyte Esterase Neg (Negative) 03/26/19 12:36 Urine WBC (Auto) 6.0 /HPF (0.0-6.0) 03/26/19 12:36 Urine RBC (Auto) 3.0 /HPF (0.0-6.0) 03/26/19 12:36 U Epithel Cells (Auto) 11.0 /HPF (0-13.0) 03/26/19 12:36 Urine Mucus 2+ /HPF 03/26/19 12:36 Urine Opiates Screen Presumptive negative 03/26/19 12:36 Urine Methadone Screen Presumptive negative 03/26/19 12:36 Ur Barbiturates Screen Presumptive negative 03/26/19 12:36 Ur Phencyclidine Scrn Presumptive negative 03/26/19 12:36 Ur Amphetamines Screen Presumptive negative 03/26/19 12:36 U Benzodiazepines Scrn Presumptive negative 03/26/19 12:36 Urine Cocaine Screen Presumptive negative 03/26/19 12:36 U Marijuana (THC) Screen Presumptive negative 03/26/19 12:36 Drugs of Abuse Note Disclamer 03/26/19 12:36 - Imaging and Cardiology EKG: report reviewed Chest x-ray: report reviewed (Patchy bilateral bronchopneumonia) Assessment and Plan Assessment and plan: CCT 40 minutes Advance Directives: Yes (Full code) VTE prophylaxis?: Chemical Plan of care discussed with patient/family: Yes - Patient Problems (1) Sepsis Current Visit: Yes Status: Acute Qualifiers: Qualified Code(s): P36.0 - Sepsis of due to streptococcus, group B; R65.20 - Severe sepsis without septic shock; N17.1 - Acute kidney failure with acute cortical necrosis Plan to address problem: Elevated Lactic acid No Hypotension IV Cefepime and IV Vancomycin (2) Acute encephalopathy Current Visit: Yes Status: Acute Plan to address problem: Secondary to Hypoxia Cont BIpap and Neb treatments and abx (3) Acute respiratory failure with hypoxia Current Visit: Yes Status: Acute Plan to address problem: Patient has bilateral pneumonia IV cefepime and IV Vancomycin Possible aspiration pneumonia (4) Bilateral pneumonia Current Visit: Yes Status: Acute Qualifiers: Pneumonia type: aspiration pneumonia Plan to address problem: Patient has bilateral pneumonia IV cefepime and IV Vancomycin Possible aspiration pneumonia (5) Hypernatremia Current Visit: Yes Status: Acute Plan to address problem: IV D5w foor now Monitor Na Levels (6) HTN (hypertension) Current Visit: Yes Status: Chronic Plan to address problem: Cont antihypertensives (7) Peripheral neuropathy Current Visit: Yes Status: Chronic Qualifiers: Peripheral neuropathy type: polyneuropathy, unspecified Qualified Code(s): G62.9 - Polyneuropathy, unspecified Plan to address problem: Cont Gabapentin (8) Schizophrenia Current Visit: Yes Status: Chronic Qualifiers: Schizophrenia type: unspecified Qualified Code(s): F20.9 - Schizophrenia, unspecified Plan to address problem: Cont Zyprexa (9) DVT prophylaxis Current Visit: No Status: Acute Plan to address problem: Heparin 5000 q12 and GI prophylaxis
[2019-03-26] MEDS ORDERED: IPRATROPIUM/ALBUTEROL SULFATE 3 ML AMPUL.NEB IH PRN (22:25)
[2019-03-26] MEDS ORDERED: CEFEPIME/NS 2 GM/100 ML 2 GM/100 ML BAG IV SCH (23:00)
[2019-03-27] MEDS: metroNIDAZOLE/NS 500 MG/100 ML 500 MG/100 ML BAG IV SCH ×2 (00:30→05:35)
[2019-03-27] MEDS: CEFEPIME/NS 2 GM/100 ML 2 GM/100 ML BAG IV SCH ×3 (00:31→22:48)
[2019-03-27] MEDS: methylPREDNISolone Sod Succinate 40 MG/1 ML INJ IV SCH ×4 (00:31→23:04)
[2019-03-27] MEDS: HYDROmorphone 1 MG/1 ML INJ IV PRN (00:34)
[2019-03-27] MEDS: DEXTROSE 5% IN WATER 1,000 ML IV SCH ×2 (00:50→17:26)
[2019-03-27] MEDS: GABAPENTIN 300 MG CAP PO SCH ×3 (05:17→22:49)
[2019-03-27 05:33] LABS: Hematocrit 37.7 % (35.5-45.6); Hemoglobin 12.1 gm/dl (11.8-15.2); Lymphocytes # (Auto) 0.6 K/mm3 (1.2-5.4); Lymphocytes % (Auto) 10.5 % (13.4-35.0); Mean Corpuscular HGB Conc 32 % (32-34); Mean Corpuscular Volume 90 fl (84-94); Monocytes # (Auto) 0.4 K/mm3 (0.0-0.8); Monocytes % (Auto) 6.2 % (0.0-7.3); Platelet Count 200 K/mm3 (140-440); Red Blood Count 4.19 M/mm3 (3.65-5.03); Red Cell Distribution Width 16.3 % (13.2-15.2)
[2019-03-27 06:00] LABS: Alanine Aminotransferase 30 units/L (7-56); Albumin 3.2 g/dL (3.9-5); BUN/Creatinine Ratio 40; Blood Urea Nitrogen 40 mg/dL (9-20); Hemolysis Index 4
[2019-03-27] MEDS: IPRATROPIUM/ALBUTEROL SULFATE 3 ML AMPUL.NEB IH SCH ×4 (08:09→19:37)
[2019-03-27] MEDS: FAMOTIDINE 20 MG/2 ML INJ IV SCH ×2 (10:50→22:54)
--- NOTE | 2019-03-27 11:14 | Consultation ---
History of Present Illness Consult date: 03/27/19 Requesting physician: VILMA BURNS Reason for consult: pneumonia, other (acute respiratory failure) History of present illness: 68 y/o male, recently admitted here with "choking" now admitted with acute respiratory failure and bilateral mid lung alveolar infiltrates. Currently on Bipap. No ABG today. Grandson at bedside who does not know much history but states that his grandfather was not like this the last time he saw him. Past History Past Medical History: other (unable to obtain) Past Surgical History: Other (unable to obtain) Social history: other (unable to obtain) Family history: other (unable to obtain) Medications and Allergies Allergies Allergy/AdvReac Type Severity Reaction Status Date / Time No Known Allergies Allergy Verified 03/03/19 22:19 Home Medications Medication Instructions Recorded Confirmed Last Taken Type Aspirin EC [Halfprin EC] 81 mg PO QDAY 03/03/19 03/26/19 03/03/19 History Folic Acid 1 mg PO DAILY 03/03/19 03/26/19 03/03/19 History Gabapentin [Neurontin] 300 mg PO Q8HR 03/03/19 03/26/19 03/03/19 History HYDROcodone/APAP 5-325 [[place] 1 each PO Q6HR PRN 03/03/19 03/26/19 03/03/19 History 5/325] LORazepam [Ativan] 1 mg PO TID PRN 03/03/19 03/26/19 03/03/19 History OLANZapine [Zyprexa] 5 mg PO DAILY 03/03/19 03/26/19 03/03/19 History OLANzapine [ZyPREXA] 10 mg PO DAILY 03/03/19 03/26/19 03/03/19 History amLODIPine [Norvasc] 10 mg PO DAILY 03/03/19 03/26/19 03/03/19 History levoFLOXacin [Levaquin TAB] 500 mg PO QDAY #7 tablet 03/06/19 03/26/19 Unknown Rx Active Meds: Active Medications Acetaminophen (Tylenol) 650 mg PO Q4H PRN PRN Reason: Pain MILD(1-3)/Fever >100.5/URIAS Acetaminophen/Hydrocodone Bitart ([place] 5/325) 1 each PO Q6HR PRN PRN Reason: Pain, Moderate (4-6) Albuterol (Proventil) 2.5 mg IH Q3HRT PRN PRN Reason: Wheezing Albuterol/Ipratropium (Duoneb *Not For Prn Use*) 1 ampul IH QIDRT [facility] Last Admin: 03/27/19 08:09 Dose: 1 ampul Documented by: Amlodipine Besylate (Amlodipine) 10 mg PO DAILY [facility] Aspirin (Halfprin Ec) 81 mg PO QDAY [facility] Famotidine (Pepcid) 20 mg IV BID [facility] Folic Acid (Folvite) 1 mg PO DAILY [facility] Gabapentin (Gabapentin) 300 mg PO Q8HR [facility] Last Admin: 03/27/19 05:17 Dose: Not Given Documented by: Hydromorphone HCl (Dilaudid) 1 mg IV Q3H PRN PRN Reason: Pain , Severe (7-10) Last Admin: 03/27/19 00:34 Dose: 1 mg Documented by: Vancomycin HCl 750 mg/ Sodium (Chloride) 265 mls @ 166.667 mls/hr IV Q24H [facility] Dextrose (D5w) 1,000 mls @ 100 mls/hr IV DIRECT [facility] Last Admin: 03/27/19 00:50 Dose: 100 mls/hr Documented by: Cefepime HCl (Cefepime/Ns 2 Gm/100 Ml) 2 gm in 100 mls @ 200 mls/hr IV Q12HR [facility]; Protocol Last Admin: 03/27/19 00:31 Dose: Not Given Documented by: Lorazepam (Ativan) 1 mg PO TID PRN PRN Reason: Agitation Methylprednisolone Sodium Succinate (Solu-Medrol) 40 mg IV Q8HR [facility] Last Admin: 03/27/19 05:35 Dose: 40 mg Documented by: Metoclopramide HCl (Reglan) 10 mg IV Q6H PRN PRN Reason: Nausea And Vomiting Morphine Sulfate (Morphine) 2 mg IV Q4H PRN PRN Reason: Pain, Moderate (4-6) Olanzapine (Zyprexa) 10 mg PO DAILY [facility] Ondansetron HCl (Zofran) 4 mg IV Q3H PRN PRN Reason: Nausea And Vomiting Sodium Chloride (Sodium Chloride Flush Syringe 10 Ml) 10 ml IV BID [facility] Sodium Chloride (Sodium Chloride Flush Syringe 10 Ml) 10 ml IV PRN PRN PRN Reason: LINE FLUSH Review of Systems ROS unobtainable: due to mental status Physical Examination Vital signs: Vital Signs Pulse Resp Pulse Ox 116 H 37 H 100 03/26/19 12:40 03/26/19 12:40 03/26/19 12:40 General appearance: appears uncomfortable, other (eyes open but not responsive) Eyes: non-icteric ENT: other (full face mask bipap in place) Neck: supple Effort: mildly labored Ascultation: Bilateral: clear Cardiovascular: regular rate and rhythm Results - Laboratory Findings CBC and BMP: 03/28/19 03:43 03/28/19 03:43 ABG ABG pH 7.411 pH Units (7.350-7.450) 03/26/19 13:40 ABG pCO2 34.3 mm Hg 03/26/19 13:40 ABG pO2 109.5 mm Hg (80.0-90.0) H 03/26/19 13:40 ABG O2 Saturation 98.0 % (95.0-99.0) 03/26/19 13:40 PT/INR, D-dimer PT 15.9 Sec. (12.2-14.9) H 03/26/19 12:28 INR 1.25 (0.87-1.13) H 03/26/19 12:28 Abnormal lab findings: Abnormal Labs 03/26/19 03/26/19 03/26/19 12:28 12:28 12:28 RDW 16.1 H Lymph % (Auto) 12.3 L Lymph # 0.7 L Seg Neutrophils % 82.0 H PT 15.9 H INR 1.25 H ABG pO2 ABG Base Excess ABG Hemoglobin Sodium 155 H Chloride 115.8 H Carbon Dioxide 18 L BUN 39 H Glucose 213 H Lactic Acid Alkaline Phosphatase 163 H Total Protein 8.6 H Albumin 3.4 L 03/26/19 03/26/19 03/26/19 12:28 13:40 14:41 RDW Lymph % (Auto) Lymph # Seg Neutrophils % PT INR ABG pO2 109.5 H ABG Base Excess -2.5 L ABG Hemoglobin 13.9 L Sodium Chloride Carbon Dioxide BUN Glucose Lactic Acid 3.50 H* 4.90 H* Alkaline Phosphatase Total Protein Albumin 03/26/19 03/26/19 03/26/19 15:46 20:26 21:34 RDW Lymph % (Auto) Lymph # Seg Neutrophils % PT INR ABG pO2 ABG Base Excess ABG Hemoglobin Sodium Chloride Carbon Dioxide BUN Glucose Lactic Acid 3.60 H* 2.80 H* 3.00 H* Alkaline Phosphatase Total Protein Albumin 03/27/19 03/27/19 04:27 04:27 RDW 16.3 H Lymph % (Auto) 10.5 L Lymph # 0.6 L Seg Neutrophils % 83.3 H PT INR ABG pO2 ABG Base Excess ABG Hemoglobin Sodium 156 H Chloride 120.2 H Carbon Dioxide 21 L BUN 40 H Glucose 207 H Lactic Acid Alkaline Phosphatase 136 H Total Protein Albumin 3.2 L - Diagnostic Findings Chest x-ray: image reviewed (as stated in HPI) Assessment and Plan 68 y/o male admitted with altered mental status and acute respiratory failure from presumed pneumonia. 1. Needs neurology consult and EEG 2. Wean Bipap off 3. Ok with abx 4. Will stop steroids
--- NOTE | 2019-03-27 11:16 | Progress Note ---
Assessment and Plan Assessment and plan: Sepsis Elevated Lactic acid No Hypotension IV Cefepime and IV Vancomycin Acute toxic metabolic encephalopathy Acute respiratory failure with hypoxia Patient has bilateral pneumonia IV cefepime and IV Vancomycin Possible aspiration pneumonia Bilateral pneumonia Patient has bilateral pneumonia IV cefepime and IV Vancomycin Possible aspiration pneumonia Pulm consulted, following Hypernatremia Sodium 155 on admission IV D5w for now Monitor Na Levels HTN (hypertension) Cont antihypertensives Peripheral neuropathy Cont Gabapentin Schizophrenia Cont Zyprexa DVT prophylaxis Heparin 5000 q12 and GI prophylaxis discussed with Grandson at bedside History Interval history: Patient with altered mental status, shortness of breath Hospitalist Physical - Physical exam Narrative exam: GEN: Not in acute distress, lying in bed, malnourished HEENT: Normocephalic, atraumatic, Neck: supple, No JVD Lungs: Bilateral crackles Heart;S1 and S2 reg, no murmurs, rubs or gallop Abd:soft, non tender, non distended, normal bowel sounds Ext: No edema, no clubbing, no cyanosis Neuro: Lethargic, - Constitutional Vitals: Temp Pulse Resp BP Pulse Ox 97.8 F 74 20 140/88 100 03/27/19 08:00 03/27/19 08:09 03/27/19 08:09 03/27/19 07:46 03/27/19 07:46 Results - Labs CBC & Chem 7: 03/27/19 04:27 03/27/19 04:27 Labs: Laboratory Last Values WBC 5.7 K/mm3 (4.5-11.0) 03/27/19 04:27 RBC 4.19 M/mm3 (3.65-5.03) 03/27/19 04:27 Hgb 12.1 gm/dl (11.8-15.2) 03/27/19 04:27 Hct 37.7 % (35.5-45.6) 03/27/19 04:27 MCV 90 fl (84-94) 03/27/19 04:27 MCH 29 pg (28-32) 03/27/19 04:27 MCHC 32 % (32-34) 03/27/19 04:27 RDW 16.3 % (13.2-15.2) H 03/27/19 04:27 Plt Count 200 K/mm3 (140-440) 03/27/19 04:27 Lymph % (Auto) 10.5 % (13.4-35.0) L 03/27/19 04:27 Edd[place] % (Auto) 6.2 % (0.0-7.3) 03/27/19 04:27 Eos % (Auto) 0.0 % (0.0-4.3) 03/27/19 04:27 Baso % (Auto) 0.0 % (0.0-1.8) 03/27/19 04:27 Lymph # 0.6 K/mm3 (1.2-5.4) L 03/27/19 04:27 Eddy # 0.4 K/mm3 (0.0-0.8) 03/27/19 04:27 Eos # 0.0 K/mm3 (0.0-0.4) 03/27/19 04:27 Baso # 0.0 K/mm3 (0.0-0.1) 03/27/19 04:27 Seg Neutrophils % 83.3 % (40.0-70.0) H 03/27/19 04:27 Seg Neutrophils # 4.7 K/mm3 (1.8-7.7) 03/27/19 04:27 PT 15.9 Sec. (12.2-14.9) H 03/26/19 12:28 INR 1.25 (0.87-1.13) H 03/26/19 12:28 APTT 31.2 Sec. (24.2-36.6) 03/26/19 12:28 ABG pH 7.411 pH Units (7.350-7.450) 03/26/19 13:40 ABG pCO2 34.3 mm Hg 03/26/19 13:40 ABG pO2 109.5 mm Hg (80.0-90.0) H 03/26/19 13:40 ABG HCO3 21.3 mmol/L (20.0-26.0) 03/26/19 13:40 ABG O2 Saturation 98.0 % (95.0-99.0) 03/26/19 13:40 ABG O2 Content 19.0 (0.0-44) 03/26/19 13:40 ABG Base Excess -2.5 mmol/L (-2.0-3.0) L 03/26/19 13:40 ABG Hemoglobin 13.9 gm/dl (14.0-18.0) L 03/26/19 13:40 ABG Carboxyhemoglobin 1.3 % (0.0-5.0) 03/26/19 13:40 ABG Methemoglobin 0.6 % (0.0-1.5) 03/26/19 13:40 Oxyhemoglobin 96.2 % (95.0-99.0) 03/26/19 13:40 FiO2 50 % 03/26/19 13:40 Sodium 156 mmol/L (137-145) H 03/27/19 04:27 Potassium 4.1 mmol/L (3.6-5.0) 03/27/19 04:27 Chloride 120.2 mmol/L (98-107) H 03/27/19 04:27 Carbon Dioxide 21 mmol/L (22-30) L 03/27/19 04:27 Anion Gap 19 mmol/L 03/27/19 04:27 BUN 40 mg/dL (9-20) H 03/27/19 04:27 Creatinine 1.0 mg/dL (0.8-1.5) 03/27/19 04:27 Estimated GFR > 60 ml/min 03/27/19 04:27 BUN/Creatinine Ratio 40 % 03/27/19 04:27 Glucose 207 mg/dL (75-100) H 03/27/19 04:27 Hemoglobin A1c 5.7 % (4-6) 03/27/19 04:27 Lactic Acid 1.80 mmol/L (0.7-2.0) 03/27/19 04:27 Calcium 9.0 mg/dL (8.4-10.2) 03/27/19 04:27 Total Bilirubin 0.60 mg/dL (0.1-1.2) 03/27/19 04:27 AST 20 units/L (5-40) 03/27/19 04:27 ALT 30 units/L (7-56) 03/27/19 04:27 Alkaline Phosphatase 136 units/L (35-129) H 03/27/19 04:27 Total Creatine Kinase 133 units/L (55-170) 03/26/19 12:28 CK-MB (CK-2) < 1.0 ng/mL (0.0-4.0) 03/26/19 12:28 CK-MB (CK-2) Rel Index 0.7 (0-4) 03/26/19 12:28 Troponin T < 0.010 ng/mL (0.00-0.029) 03/26/19 14:41 Total Protein 8.0 g/dL (6.3-8.2) 03/27/19 04:27 Albumin 3.2 g/dL (3.9-5) L 03/27/19 04:27 Albumin/Globulin Ratio 0.7 % 03/27/19 04:27 Urine Color Dahlia (Yellow) 03/26/19 12:36 Urine Turbidity Slightly-cloudy (Clear) 03/26/19 12:36 Urine pH 5.0 (5.0-7.0) 03/26/19 12:36 Ur Specific [place] 1.028 (1.003-1.030) 03/26/19 12:36 Urine Protein 30 mg/dl mg/dL (Negative) 03/26/19 12:36 Urine Glucose (UA) Neg mg/dL (Negative) 03/26/19 12:36 Urine Ketones Neg mg/dL (Negative) 03/26/19 12:36 Urine Blood Neg (Negative) 03/26/19 12:36 Urine Nitrite Neg (Negative) 03/26/19 12:36 Urine Bilirubin Neg (Negative) 03/26/19 12:36 Urine Urobilinogen 4.0 mg/dL (<2.0) 03/26/19 12:36 Ur Leukocyte Esterase Neg (Negative) 03/26/19 12:36 Urine WBC (Auto) 6.0 /HPF (0.0-6.0) 03/26/19 12:36 Urine RBC (Auto) 3.0 /HPF (0.0-6.0) 03/26/19 12:36 U Epithel Cells (Auto) 11.0 /HPF (0-13.0) 03/26/19 12:36 Urine Mucus 2+ /HPF 03/26/19 12:36 Urine Opiates Screen Presumptive negative 03/26/19 12:36 Urine Methadone Screen Presumptive negative 03/26/19 12:36 Ur Barbiturates Screen Presumptive negative 03/26/19 12:36 Ur Phencyclidine Scrn Presumptive negative 03/26/19 12:36 Ur Amphetamines Screen Presumptive negative 03/26/19 12:36 U Benzodiazepines Scrn Presumptive negative 03/26/19 12:36 Urine Cocaine Screen Presumptive negative 03/26/19 12:36 U Marijuana (THC) Screen Presumptive negative 03/26/19 12:36 Drugs of Abuse Note Disclamer 03/26/19 12:36 Active Medications - Current Medications Current Medications: Generic Name Dose Route Start Last Admin Trade Name Freq PRN Reason Stop Dose Admin Acetaminophen 650 mg 03/26/19 22:19 Tylenol PO Q4H PRN Pain MILD(1-3)/Fever >100.5/URIAS Acetaminophen/Hydrocodone Bitart 1 each 03/26/19 22:17 [place] 5/325 PO Q6HR PRN Pain, Moderate (4-6) Albuterol 2.5 mg 03/26/19 22:36 Proventil IH Q3HRT PRN Wheezing Albuterol/Ipratropium 1 ampul 03/27/19 08:00 03/27/19 08:09 Duoneb *Not For Prn Use* IH 1 ampul QIDRT NANCY Administration Amlodipine Besylate 10 mg 03/27/19 10:00 Amlodipine PO DAILY NANCY Aspirin 81 mg 03/27/19 10:00 Halfprin Ec PO QDAY NANCY Famotidine 20 mg 03/27/19 10:00 Pepcid IV BID NANCY Folic Acid 1 mg 03/27/19 10:00 Folvite PO DAILY [facility] Gabapentin 300 mg 03/27/19 06:00 03/27/19 05:17 Gabapentin PO Not Given Q8HR NANCY Hydromorphone HCl 1 mg 03/26/19 22:19 03/27/19 00:34 Dilaudid IV 1 mg Q3H PRN Administration Pain , Severe (7-10) Vancomycin HCl 750 mg/ Sodium 265 mls @ 166.667 mls/hr 03/27/19 14:00 Chloride IV Q24H NANCY Dextrose 1,000 mls @ 100 mls/hr 03/26/19 23:00 03/27/19 00:50 D5w IV 100 mls/hr DIRECT NANCY Administration Cefepime HCl 2 gm in 100 mls @ 200 mls/hr 03/26/19 23:00 03/27/19 00:31 Cefepime/Ns 2 Gm/100 Ml IV Not Given Q12HR [facility] Protocol Lorazepam 1 mg 01/30/20 22:17 Ativan PO TID PRN Agitation Methylprednisolone Sodium Succinate 40 mg 03/26/19 23:00 03/27/19 05:35 Solu-Medrol IV 40 mg Q8HR NANCY Administration Metoclopramide HCl 10 mg 03/26/19 22:19 Reglan IV Q6H PRN Nausea And Vomiting Morphine Sulfate 2 mg 03/26/19 22:19 Morphine IV Q4H PRN Pain, Moderate (4-6) Olanzapine 10 mg 03/27/19 10:00 Zyprexa PO DAILY [facility] Ondansetron HCl 4 mg 03/26/19 22:19 Zofran IV Q3H PRN Nausea And Vomiting Sodium Chloride 10 ml 03/27/19 10:00 Sodium Chloride Flush Syringe 10 Ml IV BID [facility] Sodium Chloride 10 ml 03/26/19 22:19 Sodium Chloride Flush Syringe 10 Ml IV PRN PRN LINE FLUSH
[2019-03-27] MEDS: FOLIC ACID 1 MG TAB PO SCH (11:20)
[2019-03-27] MEDS: amLODIPine 10 MG TAB PO SCH (11:20)
[2019-03-27] MEDS: ASPIRIN EC 81 MG TAB PO SCH (11:21)
[2019-03-27] MEDS: VANCOMYCIN 750 MG in SODIUM CHLORIDE 0.9% 250ML 250 ML IV SCH (14:52)
[2019-03-27 19:34] LABS: BUN/Creatinine Ratio 51; Blood Urea Nitrogen 41 mg/dL (9-20); Hemolysis Index 2
[2019-03-28] MEDS: DEXTROSE 5% IN WATER 1,000 ML IV SCH ×2 (04:12→14:52)
[2019-03-28 04:20] LABS: Hematocrit 31.9 % (35.5-45.6); Hemoglobin 10.3 gm/dl (11.8-15.2); Mean Corpuscular HGB Conc 32 % (32-34); Mean Corpuscular Volume 89 fl (84-94); Platelet Count 171 K/mm3 (140-440); Red Blood Count 3.56 M/mm3 (3.65-5.03); Red Cell Distribution Width 15.9 % (13.2-15.2)
[2019-03-28 04:41] LABS: BUN/Creatinine Ratio 43; Blood Urea Nitrogen 34 mg/dL (9-20); Calcium 8.8 mg/dL (8.4-10.2); Hemolysis Index 5
[2019-03-28] MEDS: methylPREDNISolone Sod Succinate 40 MG/1 ML INJ IV SCH (05:12)
[2019-03-28] MEDS: GABAPENTIN 300 MG CAP PO SCH (05:13)
[2019-03-28] MEDS: IPRATROPIUM/ALBUTEROL SULFATE 3 ML AMPUL.NEB IH SCH ×4 (08:28→19:18)
--- NOTE | 2019-03-28 09:04 | Progress Note ---
Assessment and Plan Assessment and plan: Sepsis, possibly Elevated Lactic acid IV Cefepime and IV Vancomycin Consult ID Altered mental status poss Acute toxic metabolic encephalopathy Consult Neurology Acute respiratory failure with hypoxia On Oxygen by HFNC Patient has bilateral pneumonia IV cefepime and IV Vancomycin Possible aspiration pneumonia Bilateral pneumonia Patient has bilateral pneumonia IV cefepime and IV Vancomycin Possible aspiration pneumonia Pulm consulted, following Hypernatremia Sodium 155 on admission IV D5w for now Monitor Na Levels HTN (hypertension) Cont antihypertensives Peripheral neuropathy Hold Gabapentin because of mental status Schizophrenia Cont Zyprexa DVT prophylaxis Heparin 5000 q12 and GI prophylaxis Discussed with Grandson at bedside 03/27 History Interval history: Patient with altered mental status, shortness of breath Hospitalist Physical - Physical exam Narrative exam: GEN: Not in acute distress, lying in bed, malnourished HEENT: Normocephalic, atraumatic, Neck: supple, No JVD Lungs: Bilateral crackles Heart;S1 and S2 reg, no murmurs, rubs or gallop Abd:soft, non tender, non distended, normal bowel sounds Ext: No edema, no clubbing, no cyanosis Neuro: Lethargic, - Constitutional Vitals: Temp Pulse Resp BP Pulse Ox 99.0 F 68 24 126/70 98 03/28/19 08:00 03/28/19 08:36 03/28/19 08:28 03/28/19 08:36 03/28/19 08:39 Results - Labs CBC & Chem 7: 03/28/19 03:43 03/28/19 03:43 Labs: Laboratory Last Values WBC 8.4 K/mm3 (4.5-11.0) 03/28/19 03:43 RBC 3.56 M/mm3 (3.65-5.03) L 03/28/19 03:43 Hgb 10.3 gm/dl (11.8-15.2) L 03/28/19 03:43 Hct 31.9 % (35.5-45.6) L 03/28/19 03:43 MCV 89 fl (84-94) 03/28/19 03:43 MCH 29 pg (28-32) 03/28/19 03:43 MCHC 32 % (32-34) 03/28/19 03:43 RDW 15.9 % (13.2-15.2) H 03/28/19 03:43 Plt Count 171 K/mm3 (140-440) 03/28/19 03:43 Lymph % (Auto) 10.5 % (13.4-35.0) L 03/27/19 04:27 Terrell % (Auto) 6.2 % (0.0-7.3) 03/27/19 04:27 Eos % (Auto) 0.0 % (0.0-4.3) 03/27/19 04:27 Baso % (Auto) 0.0 % (0.0-1.8) 03/27/19 04:27 Lymph # 0.6 K/mm3 (1.2-5.4) L 03/27/19 04:27 Terrell # 0.4 K/mm3 (0.0-0.8) 03/27/19 04:27 Eos # 0.0 K/mm3 (0.0-0.4) 03/27/19 04:27 Baso # 0.0 K/mm3 (0.0-0.1) 03/27/19 04:27 Seg Neutrophils % 83.3 % (40.0-70.0) H 03/27/19 04:27 Seg Neutrophils # 4.7 K/mm3 (1.8-7.7) 03/27/19 04:27 PT 15.9 Sec. (12.2-14.9) H 03/26/19 12:28 INR 1.25 (0.87-1.13) H 03/26/19 12:28 APTT 31.2 Sec. (24.2-36.6) 03/26/19 12:28 ABG pH 7.411 pH Units (7.350-7.450) 03/26/19 13:40 ABG pCO2 34.3 mm Hg 03/26/19 13:40 ABG pO2 109.5 mm Hg (80.0-90.0) H 03/26/19 13:40 ABG HCO3 21.3 mmol/L (20.0-26.0) 03/26/19 13:40 ABG O2 Saturation 98.0 % (95.0-99.0) 03/26/19 13:40 ABG O2 Content 19.0 (0.0-44) 03/26/19 13:40 ABG Base Excess -2.5 mmol/L (-2.0-3.0) L 03/26/19 13:40 ABG Hemoglobin 13.9 gm/dl (14.0-18.0) L 03/26/19 13:40 ABG Carboxyhemoglobin 1.3 % (0.0-5.0) 03/26/19 13:40 ABG Methemoglobin 0.6 % (0.0-1.5) 03/26/19 13:40 Oxyhemoglobin 96.2 % (95.0-99.0) 03/26/19 13:40 FiO2 50 % 03/26/19 13:40 Sodium 152 mmol/L (137-145) H 03/28/19 03:43 Potassium 3.9 mmol/L (3.6-5.0) 03/28/19 03:43 Chloride 117.5 mmol/L (98-107) H 03/28/19 03:43 Carbon Dioxide 22 mmol/L (22-30) 03/28/19 03:43 Anion Gap 16 mmol/L 03/28/19 03:43 BUN 34 mg/dL (9-20) H 03/28/19 03:43 Creatinine 0.8 mg/dL (0.8-1.5) 03/28/19 03:43 Estimated GFR > 60 ml/min 03/28/19 03:43 BUN/Creatinine Ratio 43 % 03/28/19 03:43 Glucose 143 mg/dL (75-100) H 03/28/19 03:43 Hemoglobin A1c 5.7 % (4-6) 03/27/19 04:27 Lactic Acid 1.80 mmol/L (0.7-2.0) 03/27/19 04:27 Calcium 8.8 mg/dL (8.4-10.2) 03/28/19 03:43 Total Bilirubin 0.60 mg/dL (0.1-1.2) 03/27/19 04:27 AST 20 units/L (5-40) 03/27/19 04:27 ALT 30 units/L (7-56) 03/27/19 04:27 Alkaline Phosphatase 136 units/L (35-129) H 03/27/19 04:27 Total Creatine Kinase 133 units/L (55-170) 03/26/19 12:28 CK-MB (CK-2) < 1.0 ng/mL (0.0-4.0) 03/26/19 12:28 CK-MB (CK-2) Rel Index 0.7 (0-4) 03/26/19 12:28 Troponin T < 0.010 ng/mL (0.00-0.029) 03/26/19 14:41 Total Protein 8.0 g/dL (6.3-8.2) 03/27/19 04:27 Albumin 3.2 g/dL (3.9-5) L 03/27/19 04:27 Albumin/Globulin Ratio 0.7 % 03/27/19 04:27 Urine Color Dahlia (Yellow) 03/26/19 12:36 Urine Turbidity Slightly-cloudy (Clear) 03/26/19 12:36 Urine pH 5.0 (5.0-7.0) 03/26/19 12:36 Ur Specific [place] 1.028 (1.003-1.030) 03/26/19 12:36 Urine Protein 30 mg/dl mg/dL (Negative) 03/26/19 12:36 Urine Glucose (UA) Neg mg/dL (Negative) 03/26/19 12:36 Urine Ketones Neg mg/dL (Negative) 03/26/19 12:36 Urine Blood Neg (Negative) 03/26/19 12:36 Urine Nitrite Neg (Negative) 03/26/19 12:36 Urine Bilirubin Neg (Negative) 03/26/19 12:36 Urine Urobilinogen 4.0 mg/dL (<2.0) 03/26/19 12:36 Ur Leukocyte Esterase Neg (Negative) 03/26/19 12:36 Urine WBC (Auto) 6.0 /HPF (0.0-6.0) 03/26/19 12:36 Urine RBC (Auto) 3.0 /HPF (0.0-6.0) 03/26/19 12:36 U Epithel Cells (Auto) 11.0 /HPF (0-13.0) 03/26/19 12:36 Urine Mucus 2+ /HPF 03/26/19 12:36 Urine Opiates Screen Presumptive negative 03/26/19 12:36 Urine Methadone Screen Presumptive negative 03/26/19 12:36 Ur Barbiturates Screen Presumptive negative 03/26/19 12:36 Ur Phencyclidine Scrn Presumptive negative 03/26/19 12:36 Ur Amphetamines Screen Presumptive negative 03/26/19 12:36 U Benzodiazepines Scrn Presumptive negative 03/26/19 12:36 Urine Cocaine Screen Presumptive negative 03/26/19 12:36 U Marijuana (THC) Screen Presumptive negative 03/26/19 12:36 Drugs of Abuse Note Disclamer 03/26/19 12:36 Active Medications - Current Medications Current Medications: Generic Name Dose Route Start Last Admin Trade Name Freq PRN Reason Stop Dose Admin Acetaminophen 650 mg 03/26/19 22:19 Tylenol PO Q4H PRN Pain MILD(1-3)/Fever >100.5/URIAS Acetaminophen/Hydrocodone Bitart 1 each 03/26/19 22:17 Holcomb 5/325 PO Q6HR PRN Pain, Moderate (4-6) Albuterol 2.5 mg 03/26/19 22:36 Proventil IH Q3HRT PRN Wheezing Albuterol/Ipratropium 1 ampul 03/27/19 08:00 03/28/19 08:28 Duoneb *Not For Prn Use* IH 1 ampul QIDRT NANCY Administration Amlodipine Besylate 10 mg 03/27/19 10:00 03/27/19 11:20 Amlodipine PO Not Given DAILY NANCY Aspirin 81 mg 03/27/19 10:00 03/27/19 11:21 Halfprin Ec PO Not Given QDAY NANCY Famotidine 20 mg 03/27/19 10:00 03/27/19 22:54 Pepcid IV 20 mg BID NANCY Administration Folic Acid 1 mg 03/27/19 10:00 03/27/19 11:20 Folvite PO Not Given DAILY NANCY Gabapentin 300 mg 03/27/19 06:00 03/28/19 05:13 Gabapentin PO Not Given Q8HR NANCY Hydromorphone HCl 1 mg 03/26/19 22:19 03/27/19 00:34 Dilaudid IV 1 mg Q3H PRN Administration Pain , Severe (7-10) Vancomycin HCl 750 mg/ Sodium 265 mls @ 166.667 mls/hr 03/27/19 14:00 03/27/19 14:52 Chloride IV 166.667 mls/hr Q24H NANCY Administration Dextrose 1,000 mls @ 100 mls/hr 03/26/19 23:00 03/28/19 04:12 D5w IV 100 mls/hr DIRECT NANCY Administration Cefepime HCl 2 gm in 100 mls @ 200 mls/hr 03/26/19 23:00 03/27/19 22:48 Cefepime/Ns 2 Gm/100 Ml IV 200 mls/hr Q12HR NANCY Administration Protocol Lorazepam 1 mg 03/26/19 22:17 Ativan PO TID PRN Agitation Methylprednisolone Sodium Succinate 40 mg 03/26/19 23:00 03/28/19 05:12 Solu-Medrol IV 40 mg Q8HR NANCY Administration Metoclopramide HCl 10 mg 03/26/19 22:19 Reglan IV Q6H PRN Nausea And Vomiting Morphine Sulfate 2 mg 03/26/19 22:19 Morphine IV Q4H PRN Pain, Moderate (4-6) Olanzapine 10 mg 03/27/19 10:00 03/27/19 11:21 Zyprexa PO Not Given DAILY NANCY Ondansetron HCl 4 mg 03/26/19 22:19 Zofran IV Q3H PRN Nausea And Vomiting Sodium Chloride 10 ml 03/27/19 10:00 03/27/19 22:55 Sodium Chloride Flush Syringe 10 Ml IV 10 ml BID NANCY Administration Sodium Chloride 10 ml 03/26/19 22:19 Sodium Chloride Flush Syringe 10 Ml IV PRN PRN LINE FLUSH Nutrition/Malnutrition Assess - Dietary Evaluation Nutrition/Malnutrition Findings: Nutrition Notes Start: 03/27/19 14:04 Freq: Status: Active Protocol: Document 03/28/19 07:29 KALE (Rec: 03/28/19 07:30 KALE [id number]) Nutrition Notes Need for Assessment generated from: MD Order Initial or Follow up Brief Note Current Diagnosis Sepsis,Hypertension, Respiratory Failure Other Pertinent Diagnosis Schizophrenia, dysphagia, AMS, bilat pneu, hypernatremia Current Diet Cardiac Diet Subjective/Other Information MD consult for malnutrition. Pt already being followed by [facility]. Nutrition Intervention Follow-Up By: 03/30/19
[2019-03-28] MEDS: ASPIRIN EC 81 MG TAB PO SCH (10:05)
[2019-03-28] MEDS: FOLIC ACID 1 MG TAB PO SCH (10:05)
[2019-03-28] MEDS: amLODIPine 10 MG TAB PO SCH (10:05)
[2019-03-28] MEDS: CEFEPIME/NS 2 GM/100 ML 2 GM/100 ML BAG IV SCH ×2 (10:25→21:51)
[2019-03-28] MEDS: FAMOTIDINE 20 MG/2 ML INJ IV SCH ×2 (10:26→21:51)
--- NOTE | 2019-03-28 10:56 | Progress Note ---
Assessment and Plan 68 y/o male admitted with altered mental status and acute respiratory failure from presumed pneumonia. 1. Needs neurology consult and EEG, not sure if this can happen on the weekend. 2. Spoke with RT, will try on Nasal cannula 3. Ok with abx 4. Off steroids. Also stopped all pain meds and scheduled ativan that per report patient was on outside of the hospital. Subjective Date of service: 03/28/19 Interval history: Off bipap on HFNC at 20 and 30. Good sats. Family asleep on floor. patient still with same mental state. Objective Vital Signs - 12hr 03/27/19 03/27/19 03/27/19 23:01 23:11 23:21 Temperature Pulse Rate 74 88 75 Pulse Rate [ Anterior Bilateral Throughout] Pulse Rate [ From Monitor] Respiratory 26 H 22 26 H Rate Respiratory Rate [Anterior Bilateral Throughout] Blood Pressure 141/79 141/79 141/79 O2 Sat by Pulse 97 95 95 Oximetry 03/27/19 03/27/19 03/27/19 23:31 23:41 23:50 Temperature 98.4 F Pulse Rate 72 70 Pulse Rate [ Anterior Bilateral Throughout] Pulse Rate [ From Monitor] Respiratory 23 24 Rate Respiratory Rate [Anterior Bilateral Throughout] Blood Pressure 141/79 141/79 O2 Sat by Pulse 95 95 Oximetry 03/27/19 03/28/19 03/28/19 23:51 00:00 00:11 Temperature Pulse Rate 74 70 69 Pulse Rate [ Anterior Bilateral Throughout] Pulse Rate [ 73 From Monitor] Respiratory 26 H 24 27 H Rate Respiratory Rate [Anterior Bilateral Throughout] Blood Pressure 141/79 121/66 121/66 O2 Sat by Pulse 96 98 98 Oximetry 03/28/19 03/28/19 03/28/19 00:21 00:31 00:41 Temperature Pulse Rate 69 66 65 Pulse Rate [ Anterior Bilateral Throughout] Pulse Rate [ From Monitor] Respiratory 25 H 26 H 28 H Rate Respiratory Rate [Anterior Bilateral Throughout] Blood Pressure 121/66 121/66 121/66 O2 Sat by Pulse 98 98 98 Oximetry 03/28/19 03/28/19 03/28/19 00:51 01:01 01:11 Temperature Pulse Rate 65 63 61 Pulse Rate [ Anterior Bilateral Throughout] Pulse Rate [ From Monitor] Respiratory 26 H 27 H 25 H Rate Respiratory Rate [Anterior Bilateral Throughout] Blood Pressure 121/66 121/66 121/66 O2 Sat by Pulse 99 99 99 Oximetry 03/28/19 03/28/19 03/28/19 01:21 01:31 01:41 Temperature Pulse Rate 61 62 66 Pulse Rate [ Anterior Bilateral Throughout] Pulse Rate [ From Monitor] Respiratory 23 25 H 27 H Rate Respiratory Rate [Anterior Bilateral Throughout] Blood Pressure 121/66 121/66 121/66 O2 Sat by Pulse 99 99 98 Oximetry 03/28/19 03/28/19 03/28/19 01:51 02:01 02:11 Temperature Pulse Rate 65 77 65 Pulse Rate [ Anterior Bilateral Throughout] Pulse Rate [ From Monitor] Respiratory 26 H 24 28 H Rate Respiratory Rate [Anterior Bilateral Throughout] Blood Pressure 121/66 121/66 121/66 O2 Sat by Pulse 97 97 98 Oximetry 03/28/19 03/28/19 03/28/19 02:21 02:31 02:41 Temperature Pulse Rate 67 69 72 Pulse Rate [ Anterior Bilateral Throughout] Pulse Rate [ From Monitor] Respiratory 26 H 27 H 20 Rate Respiratory Rate [Anterior Bilateral Throughout] Blood Pressure 121/66 121/66 121/66 O2 Sat by Pulse 98 98 98 Oximetry 03/28/19 03/28/19 03/28/19 02:51 03:00 03:01 Temperature 98.3 F Pulse Rate 85 63 Pulse Rate [ Anterior Bilateral Throughout] Pulse Rate [ From Monitor] Respiratory 29 H 27 H Rate Respiratory Rate [Anterior Bilateral Throughout] Blood Pressure 121/66 121/66 O2 Sat by Pulse 99 100 Oximetry 03/28/19 03/28/19 03/28/19 03:11 03:21 03:31 Temperature Pulse Rate 69 66 65 Pulse Rate [ Anterior Bilateral Throughout] Pulse Rate [ From Monitor] Respiratory 24 26 H 25 H Rate Respiratory Rate [Anterior Bilateral Throughout] Blood Pressure 121/66 121/66 121/66 O2 Sat by Pulse 99 99 99 Oximetry 03/28/19 03/28/19 03/28/19 03:41 03:51 04:00 Temperature 98.3 F Pulse Rate 66 64 69 Pulse Rate [ Anterior Bilateral Throughout] Pulse Rate [ 68 From Monitor] Respiratory 25 H 26 H 26 H Rate Respiratory Rate [Anterior Bilateral Throughout] Blood Pressure 121/66 121/66 126/69 O2 Sat by Pulse 99 99 100 Oximetry 03/28/19 03/28/19 03/28/19 04:11 04:21 04:31 Temperature Pulse Rate 71 68 71 Pulse Rate [ Anterior Bilateral Throughout] Pulse Rate [ From Monitor] Respiratory 27 H 28 H 26 H Rate Respiratory Rate [Anterior Bilateral Throughout] Blood Pressure 126/69 126/69 126/69 O2 Sat by Pulse 99 99 99 Oximetry 03/28/19 03/28/19 03/28/19 04:41 04:51 05:01 Temperature Pulse Rate 65 62 61 Pulse Rate [ Anterior Bilateral Throughout] Pulse Rate [ From Monitor] Respiratory 27 H 25 H 25 H Rate Respiratory Rate [Anterior Bilateral Throughout] Blood Pressure 126/69 126/69 126/69 O2 Sat by Pulse 99 99 99 Oximetry 03/28/19 03/28/19 03/28/19 05:11 05:21 05:31 Temperature Pulse Rate 62 61 60 Pulse Rate [ Anterior Bilateral Throughout] Pulse Rate [ From Monitor] Respiratory 27 H 26 H 28 H Rate Respiratory Rate [Anterior Bilateral Throughout] Blood Pressure 126/69 126/69 126/69 O2 Sat by Pulse 99 99 100 Oximetry 03/28/19 03/28/19 03/28/19 05:41 05:51 06:01 Temperature Pulse Rate 61 57 L 64 Pulse Rate [ Anterior Bilateral Throughout] Pulse Rate [ From Monitor] Respiratory 30 H 26 H 30 H Rate Respiratory Rate [Anterior Bilateral Throughout] Blood Pressure 126/69 126/69 126/69 O2 Sat by Pulse 100 100 100 Oximetry 03/28/19 03/28/19 03/28/19 06:11 06:21 08:00 Temperature 99.0 F Pulse Rate 64 57 L Pulse Rate [ Anterior Bilateral Throughout] Pulse Rate [ From Monitor] Respiratory 28 H 24 Rate Respiratory Rate [Anterior Bilateral Throughout] Blood Pressure 126/69 126/69 O2 Sat by Pulse 100 100 Oximetry 03/28/19 03/28/19 03/28/19 08:28 08:36 08:39 Temperature Pulse Rate 68 Pulse Rate [ 72 Anterior Bilateral Throughout] Pulse Rate [ From Monitor] Respiratory Rate Respiratory 24 Rate [Anterior Bilateral Throughout] Blood Pressure 126/70 O2 Sat by Pulse 99 99 98 Oximetry Constitutional: appears uncomfortable, other (eyes open but not responsive) Eyes: non-icteric ENT: other (full face mask bipap in place) Neck: supple Effort: mildly labored Ascultation: Bilateral: clear Cardiovascular: regular rate and rhythm CBC and BMP: 03/28/19 03:43 03/28/19 03:43 ABG, PT/INR, D-dimer: ABG ABG pH 7.411 pH Units (7.350-7.450) 03/26/19 13:40 ABG pCO2 34.3 mm Hg 03/26/19 13:40 ABG pO2 109.5 mm Hg (80.0-90.0) H 03/26/19 13:40 ABG O2 Saturation 98.0 % (95.0-99.0) 03/26/19 13:40 PT/INR, D-dimer PT 15.9 Sec. (12.2-14.9) H 03/26/19 12:28 INR 1.25 (0.87-1.13) H 03/26/19 12:28 Abnormal lab findings: Abnormal Labs 03/26/19 03/26/19 03/26/19 12:28 12:28 12:28 RBC Hgb Hct RDW 16.1 H Lymph % (Auto) 12.3 L Lymph # 0.7 L Seg Neutrophils % 82.0 H PT 15.9 H INR 1.25 H ABG pO2 ABG Base Excess ABG Hemoglobin Sodium 155 H Chloride 115.8 H Carbon Dioxide 18 L BUN 39 H Glucose 213 H Lactic Acid Alkaline Phosphatase 163 H Total Protein 8.6 H Albumin 3.4 L 03/26/19 03/26/19 03/26/19 12:28 13:40 14:41 RBC Hgb Hct RDW Lymph % (Auto) Lymph # Seg Neutrophils % PT INR ABG pO2 109.5 H ABG Base Excess -2.5 L ABG Hemoglobin 13.9 L Sodium Chloride Carbon Dioxide BUN Glucose Lactic Acid 3.50 H* 4.90 H* Alkaline Phosphatase Total Protein Albumin 03/26/19 03/26/19 03/26/19 15:46 20:26 21:34 RBC Hgb Hct RDW Lymph % (Auto) Lymph # Seg Neutrophils % PT INR ABG pO2 ABG Base Excess ABG Hemoglobin Sodium Chloride Carbon Dioxide BUN Glucose Lactic Acid 3.60 H* 2.80 H* 3.00 H* Alkaline Phosphatase Total Protein Albumin 03/27/19 03/27/19 03/27/19 04:27 04:27 18:59 RBC Hgb Hct RDW 16.3 H Lymph % (Auto) 10.5 L Lymph # 0.6 L Seg Neutrophils % 83.3 H PT INR ABG pO2 ABG Base Excess ABG Hemoglobin Sodium 156 H 157 H Chloride 120.2 H 122.1 H Carbon Dioxide 21 L 21 L BUN 40 H 41 H Glucose 207 H 170 H Lactic Acid Alkaline Phosphatase 136 H Total Protein Albumin 3.2 L 03/28/19 03/28/19 03:43 03:43 RBC 3.56 L Hgb 10.3 L Hct 31.9 L RDW 15.9 H Lymph % (Auto) Lymph # Seg Neutrophils % PT INR ABG pO2 ABG Base Excess ABG Hemoglobin Sodium 152 H Chloride 117.5 H Carbon Dioxide BUN 34 H Glucose 143 H Lactic Acid Alkaline Phosphatase Total Protein Albumin
[2019-03-28] MEDS: VANCOMYCIN 750 MG in SODIUM CHLORIDE 0.9% 250ML 250 ML IV SCH (14:43)
--- NOTE | 2019-03-28 17:40 | Consultation ---
History of Present Illness - Reason for Consult Consult date: 03/28/19 - History of Present Illness 68 yo M unknown PMHx admitted for acute respiratory failure. He was recently seen in the hospital for choking, and was shortly readmitted for these complaints. he is unable to provide much history secondary to his altered mental status. Family unable to elaborate much, but ntoe that his mental status is different from his baseline. Febrile on admission to 100.8. Blood and urine cultures are pending. Current;y receiving vancomycin and cefepime. Imaging personally reviewed: CXR: patchy bilateral pneumonia. Past History Past Medical History: other (unable to obtain) Past Surgical History: Other (unable to obtain) Social history: other (unable to obtain) Family history: other (unable to obtain) Medications and Allergies Allergies Allergy/AdvReac Type Severity Reaction Status Date / Time No Known Allergies Allergy Verified 03/03/19 22:19 Home Medications Medication Instructions Recorded Confirmed Last Taken Type Aspirin EC [Halfprin EC] 81 mg PO QDAY 03/03/19 03/26/19 03/03/19 History Folic Acid 1 mg PO DAILY 03/03/19 03/26/19 03/03/19 History Gabapentin [Neurontin] 300 mg PO Q8HR 03/03/19 03/26/19 03/03/19 History HYDROcodone/APAP 5-325 [[place] 1 each PO Q6HR PRN 03/03/19 03/26/19 03/03/19 History 5/325] LORazepam [Ativan] 1 mg PO TID PRN 03/03/19 03/26/19 03/03/19 History OLANZapine [Zyprexa] 5 mg PO DAILY 03/03/19 03/26/19 03/03/19 History OLANzapine [ZyPREXA] 10 mg PO DAILY 03/03/19 03/26/19 03/03/19 History amLODIPine [Norvasc] 10 mg PO DAILY 03/03/19 03/26/19 03/03/19 History levoFLOXacin [Levaquin TAB] 500 mg PO QDAY #7 tablet 03/06/19 03/26/19 Unknown Rx Active Meds: Active Medications Acetaminophen (Tylenol) 650 mg PO Q4H PRN PRN Reason: Pain MILD(1-3)/Fever >100.5/URIAS Albuterol (Proventil) 2.5 mg IH Q3HRT PRN PRN Reason: Wheezing Albuterol/Ipratropium (Duoneb *Not For Prn Use*) 1 ampul IH QIDRT [facility] Last Admin: 03/28/19 15:44 Dose: 1 ampul Documented by: Amlodipine Besylate (Amlodipine) 10 mg PO DAILY [facility] Last Admin: 03/28/19 10:05 Dose: Not Given Documented by: Aspirin (Halfprin Ec) 81 mg PO QDAY [facility] Last Admin: 03/28/19 10:05 Dose: Not Given Documented by: Famotidine (Pepcid) 20 mg IV BID [facility] Last Admin: 03/28/19 10:26 Dose: 20 mg Documented by: Folic Acid (Folvite) 1 mg PO DAILY [facility] Last Admin: 03/28/19 10:05 Dose: Not Given Documented by: Hydromorphone HCl (Dilaudid) 1 mg IV Q3H PRN PRN Reason: Pain , Severe (7-10) Last Admin: 03/27/19 00:34 Dose: 1 mg Documented by: Vancomycin HCl 750 mg/ Sodium (Chloride) 265 mls @ 166.667 mls/hr IV Q24H [facility] Last Admin: 03/28/19 14:43 Dose: 166.667 mls/hr Documented by: Dextrose (D5w) 1,000 mls @ 100 mls/hr IV DIRECT [facility] Last Admin: 03/28/19 14:52 Dose: 100 mls/hr Documented by: Cefepime HCl (Cefepime/Ns 2 Gm/100 Ml) 2 gm in 100 mls @ 200 mls/hr IV Q12HR [facility]; Protocol Last Admin: 03/28/19 10:25 Dose: 200 mls/hr Documented by: Olanzapine (Zyprexa) 10 mg PO DAILY [facility] Last Admin: 03/28/19 10:05 Dose: Not Given Documented by: Ondansetron HCl (Zofran) 4 mg IV Q3H PRN PRN Reason: Nausea And Vomiting Sodium Chloride (Sodium Chloride Flush Syringe 10 Ml) 10 ml IV BID [facility] Last Admin: 03/28/19 10:26 Dose: 10 ml Documented by: Sodium Chloride (Sodium Chloride Flush Syringe 10 Ml) 10 ml IV PRN PRN PRN Reason: LINE FLUSH Review of Systems ROS unobtainable: due to mental status Physical Examination - Physical Exam Narrative exam: Constitutional: Lethargic, unable to rouse Head, Ears, Nose: Normocephalic, atraumatic. External ears, nose normal Eyes: Conjunctivae/corneas clear. No icterus. No ptosis. Neck: Supple, no meningeal signs Oral: dentition fair, no thrush Cardiovascular: S1, S2 normal. Respiratory: Gurgling breath noises GI: Soft, non-tender; bowel sounds normal. No peritoneal signs. Musculoskeletal: No pedal edema, no cyanosis. Skin: No rash or abscess Hem/Lymphatic: No palpable cervical or supraclavicular nodes. No lymphangitis Psych: Lethargic Neurological: Lethargic - Constitutional Vitals: Vital Signs Temp Pulse Resp BP Pulse Ox 99.1 F 86 29 H 141/79 97 03/28/19 15:40 03/28/19 16:00 03/28/19 16:00 03/28/19 16:00 03/28/19 16:00 Temperature -Last 24 Hours Temperature 99.1 F Temperature 99.1 F Temperature 99.0 F Temperature 98.3 F Temperature 98.3 F Temperature 98.4 F Results - Labs CBC & Chem 7: 03/28/19 03:43 03/28/19 03:43 Labs: Abnormal lab results 03/27/19 03/28/19 03/28/19 Range/Units 18:59 03:43 03:43 RBC 3.56 L (3.65-5.03) M/mm3 Hgb 10.3 L (11.8-15.2) gm/dl Hct 31.9 L (35.5-45.6) % RDW 15.9 H (13.2-15.2) % Sodium 157 H 152 H (137-145) mmol/L Chloride 122.1 H 117.5 H (98-107) mmol/L Carbon Dioxide 21 L (22-30) mmol/L BUN 41 H 34 H (9-20) mg/dL Glucose 170 H 143 H (75-100) mg/dL Assessment and Plan Cultures: 03/26/2019 urine cultures: NGTD 03/26/2019 blood cultures: NGTD A&P: 68 yo M unknown PMHx admitted for bilateral pneumonia after being recently admitted for choking. Bilateral pneumonia - Order MRSA nares swab and stop vancomycin if negative. Low suspicion for MRSA PNA. Continue cefepime, but add metronidazole given recent admission for "choking", could have some risk factors for aspiration. Recommendations: Ordered MRSA nasal swab Continue vancomycin goal trough 10-20 dosed per pharmacy. Stop if above negative Continue cefepime start metronidazole Thank you for the consult, will continue to follow. MD [facility] M: [phone] O: [phone] F: [phone]
[2019-03-28] MEDS: HYDROmorphone 1 MG/1 ML INJ IV PRN ×2 (17:43→21:51)
--- NOTE | 2019-03-28 19:47 | Progress Note ---
Subjective Date of service: 03/28/19 Interval history: I examined the patien and the CT ids not remarkable on review personally suspect poly rug induced encephalopathy could be seizure induced plan EEG neuro exam semi coma present w/o focality doubt he is having ongoing seizure activity Thanks will follow up Objective - Vital Sign Vital Signs - 12hr 03/28/19 03/28/19 03/28/19 08:00 08:28 08:36 Temperature 99.0 F Pulse Rate 65 68 Pulse Rate [ 72 Anterior Bilateral Throughout] Pulse Rate [ 65 From Monitor] Respiratory 28 H Rate Respiratory 24 Rate [Anterior Bilateral Throughout] Blood Pressure 126/70 126/70 O2 Sat by Pulse 98 99 99 Oximetry 03/28/19 03/28/19 03/28/19 08:39 09:00 10:00 Temperature Pulse Rate 79 77 Pulse Rate [ Anterior Bilateral Throughout] Pulse Rate [ From Monitor] Respiratory 30 H 27 H Rate Respiratory Rate [Anterior Bilateral Throughout] Blood Pressure 121/69 130/69 O2 Sat by Pulse 98 96 97 Oximetry 03/28/19 03/28/19 03/28/19 11:00 11:25 12:00 Temperature 99.1 F Pulse Rate 84 93 H Pulse Rate [ 83 Anterior Bilateral Throughout] Pulse Rate [ 67 From Monitor] Respiratory 30 H 27 H Rate Respiratory 30 H Rate [Anterior Bilateral Throughout] Blood Pressure 140/76 142/82 O2 Sat by Pulse 97 97 98 Oximetry 03/28/19 03/28/19 03/28/19 13:00 14:00 15:00 Temperature Pulse Rate 87 85 84 Pulse Rate [ Anterior Bilateral Throughout] Pulse Rate [ From Monitor] Respiratory 33 H 35 H 30 H Rate Respiratory Rate [Anterior Bilateral Throughout] Blood Pressure 153/78 148/79 149/78 O2 Sat by Pulse 97 97 97 Oximetry 03/28/19 03/28/19 03/28/19 15:40 15:44 16:00 Temperature 99.1 F Pulse Rate 88 Pulse Rate [ 85 Anterior Bilateral Throughout] Pulse Rate [ 86 From Monitor] Respiratory 34 H Rate Respiratory 30 H Rate [Anterior Bilateral Throughout] Blood Pressure 141/79 O2 Sat by Pulse 97 Oximetry 03/28/19 03/28/19 03/28/19 17:00 17:59 18:00 Temperature 99.4 F Pulse Rate 83 79 Pulse Rate [ Anterior Bilateral Throughout] Pulse Rate [ From Monitor] Respiratory 29 H 26 H Rate Respiratory Rate [Anterior Bilateral Throughout] Blood Pressure 142/76 128/74 O2 Sat by Pulse 98 92 Oximetry 03/28/19 19:00 Temperature Pulse Rate 86 Pulse Rate [ Anterior Bilateral Throughout] Pulse Rate [ From Monitor] Respiratory 30 H Rate Respiratory Rate [Anterior Bilateral Throughout] Blood Pressure 126/67 O2 Sat by Pulse 86 Oximetry - Laboratory Findings CBC and BMP: 03/28/19 03:43 03/28/19 03:43 Abnormal Lab Findings: Abnormal Labs 03/26/19 03/26/19 03/26/19 12:28 12:28 12:28 RBC Hgb Hct RDW 16.1 H Lymph % (Auto) 12.3 L Lymph # 0.7 L Seg Neutrophils % 82.0 H PT 15.9 H INR 1.25 H ABG pO2 ABG Base Excess ABG Hemoglobin Sodium 155 H Chloride 115.8 H Carbon Dioxide 18 L BUN 39 H Glucose 213 H Lactic Acid Alkaline Phosphatase 163 H Total Protein 8.6 H Albumin 3.4 L 03/26/19 03/26/19 03/26/19 12:28 13:40 14:41 RBC Hgb Hct RDW Lymph % (Auto) Lymph # Seg Neutrophils % PT INR ABG pO2 109.5 H ABG Base Excess -2.5 L ABG Hemoglobin 13.9 L Sodium Chloride Carbon Dioxide BUN Glucose Lactic Acid 3.50 H* 4.90 H* Alkaline Phosphatase Total Protein Albumin 03/26/19 03/26/19 03/26/19 15:46 20:26 21:34 RBC Hgb Hct RDW Lymph % (Auto) Lymph # Seg Neutrophils % PT INR ABG pO2 ABG Base Excess ABG Hemoglobin Sodium Chloride Carbon Dioxide BUN Glucose Lactic Acid 3.60 H* 2.80 H* 3.00 H* Alkaline Phosphatase Total Protein Albumin 03/27/19 03/27/19 03/27/19 04:27 04:27 18:59 RBC Hgb Hct RDW 16.3 H Lymph % (Auto) 10.5 L Lymph # 0.6 L Seg Neutrophils % 83.3 H PT INR ABG pO2 ABG Base Excess ABG Hemoglobin Sodium 156 H 157 H Chloride 120.2 H 122.1 H Carbon Dioxide 21 L 21 L BUN 40 H 41 H Glucose 207 H 170 H Lactic Acid Alkaline Phosphatase 136 H Total Protein Albumin 3.2 L 02/01/20 02/01/20 03:43 03:43 RBC 3.56 L Hgb 10.3 L Hct 31.9 L RDW 15.9 H Lymph % (Auto) Lymph # Seg Neutrophils % PT INR ABG pO2 ABG Base Excess ABG Hemoglobin Sodium 152 H Chloride 117.5 H Carbon Dioxide BUN 34 H Glucose 143 H Lactic Acid Alkaline Phosphatase Total Protein Albumin
[2019-03-28] MEDS: ONDANSETRON 4 MG/2 ML INJ IV PRN (21:51)
[2019-03-28] MEDS: metroNIDAZOLE/NS 500 MG/100 ML 500 MG/100 ML BAG IV SCH (21:51)
[2019-03-29] MEDS: DEXTROSE 5% IN WATER 1,000 ML IV SCH (00:01)
[2019-03-29] MEDS: metroNIDAZOLE/NS 500 MG/100 ML 500 MG/100 ML BAG IV SCH ×3 (05:52→22:04)
[2019-03-29] MEDS: HYDROmorphone 1 MG/1 ML INJ IV PRN (05:53)
[2019-03-29 06:49] LABS: Hematocrit 31.3 % (35.5-45.6); Hemoglobin 10.1 gm/dl (11.8-15.2); Mean Corpuscular HGB Conc 32 % (32-34); Mean Corpuscular Volume 89 fl (84-94); Platelet Count 156 K/mm3 (140-440); Red Blood Count 3.51 M/mm3 (3.65-5.03)
[2019-03-29 07:08] LABS: BUN/Creatinine Ratio 30; Blood Urea Nitrogen 21 mg/dL (9-20); Hemolysis Index 1
[2019-03-29] MEDS: IPRATROPIUM/ALBUTEROL SULFATE 3 ML AMPUL.NEB IH SCH ×4 (07:15→21:53)
--- NOTE | 2019-03-29 08:27 | Progress Note ---
Assessment and Plan Assessment and plan: Sepsis, possibly Elevated Lactic acid IV Cefepime and IV Vancomycin, Flagyl Consulted ID, following Altered mental status poss Acute toxic metabolic encephalopathy Consulted Neurology following Acute respiratory failure with hypoxia On Oxygen by HFNC Patient has bilateral pneumonia IV cefepime and IV Vancomycin, Flagyl Possible aspiration pneumonia Bilateral pneumonia Patient has bilateral pneumonia IV cefepime and IV Vancomycin Possible aspiration pneumonia Pulm consulted, following Hypernatremia Sodium 155 on admission IV D5w for now Monitor Na Levels HTN (hypertension) Cont antihypertensives Peripheral neuropathy Hold Gabapentin because of mental status Schizophrenia Cont Zyprexa DVT prophylaxis Heparin 5000 q12 and GI prophylaxis Progressive supranuclear opthalmoplegia Discussed with [place] at bedside 03/27 History Interval history: Patient with altered mental status, shortness of breath Hospitalist Physical - Physical exam Narrative exam: GEN: Not in acute distress, lying in bed, malnourished HEENT: Normocephalic, atraumatic, Neck: supple, No JVD Lungs: Bilateral crackles Heart;S1 and S2 reg, no murmurs, rubs or gallop Abd:soft, non tender, non distended, normal bowel sounds Ext: No edema, no clubbing, no cyanosis Neuro: Somnolent - Constitutional Vitals: Temp Pulse Resp BP Pulse Ox 98.8 F 84 28 H 130/64 91 03/29/19 04:00 03/29/19 06:00 03/29/19 06:00 03/29/19 06:00 03/29/19 06:00 Results - Labs CBC & Chem 7: 03/29/19 05:27 03/29/19 05:27 Labs: Laboratory Last Values WBC 14.5 K/mm3 (4.5-11.0) H 03/29/19 05:27 RBC 3.51 M/mm3 (3.65-5.03) L 03/29/19 05:27 Hgb 10.1 gm/dl (11.8-15.2) L 03/29/19 05:27 Hct 31.3 % (35.5-45.6) L 03/29/19 05:27 MCV 89 fl (84-94) 03/29/19 05:27 MCH 29 pg (28-32) 03/29/19 05:27 MCHC 32 % (32-34) 03/29/19 05:27 RDW 16.0 % (13.2-15.2) H 03/29/19 05:27 Plt Count 156 K/mm3 (140-440) 03/29/19 05:27 Lymph % (Auto) 10.5 % (13.4-35.0) L 03/27/19 04:27 [place] % (Auto) 6.2 % (0.0-7.3) 03/27/19 04:27 Eos % (Auto) 0.0 % (0.0-4.3) 03/27/19 04:27 Baso % (Auto) 0.0 % (0.0-1.8) 03/27/19 04:27 Lymph # 0.6 K/mm3 (1.2-5.4) L 03/27/19 04:27 [place] # 0.4 K/mm3 (0.0-0.8) 03/27/19 04:27 Eos # 0.0 K/mm3 (0.0-0.4) 03/27/19 04:27 Baso # 0.0 K/mm3 (0.0-0.1) 03/27/19 04:27 Seg Neutrophils % 83.3 % (40.0-70.0) H 03/27/19 04:27 Seg Neutrophils # 4.7 K/mm3 (1.8-7.7) 03/27/19 04:27 PT 15.9 Sec. (12.2-14.9) H 03/26/19 12:28 INR 1.25 (0.87-1.13) H 03/26/19 12:28 APTT 31.2 Sec. (24.2-36.6) 03/26/19 12:28 ABG pH 7.411 pH Units (7.350-7.450) 03/26/19 13:40 ABG pCO2 34.3 mm Hg 03/26/19 13:40 ABG pO2 109.5 mm Hg (80.0-90.0) H 03/26/19 13:40 ABG HCO3 21.3 mmol/L (20.0-26.0) 03/26/19 13:40 ABG O2 Saturation 98.0 % (95.0-99.0) 03/26/19 13:40 ABG O2 Content 19.0 (0.0-44) 03/26/19 13:40 ABG Base Excess -2.5 mmol/L (-2.0-3.0) L 03/26/19 13:40 ABG Hemoglobin 13.9 gm/dl (14.0-18.0) L 03/26/19 13:40 ABG Carboxyhemoglobin 1.3 % (0.0-5.0) 03/26/19 13:40 ABG Methemoglobin 0.6 % (0.0-1.5) 03/26/19 13:40 Oxyhemoglobin 96.2 % (95.0-99.0) 03/26/19 13:40 FiO2 50 % 03/26/19 13:40 Sodium 147 mmol/L (137-145) H 03/29/19 05:27 Potassium 3.6 mmol/L (3.6-5.0) 03/29/19 05:27 Chloride 113.0 mmol/L (98-107) H 03/29/19 05:27 Carbon Dioxide 20 mmol/L (22-30) L 03/29/19 05:27 Anion Gap 18 mmol/L 03/29/19 05:27 BUN 21 mg/dL (9-20) H 03/29/19 05:27 Creatinine 0.7 mg/dL (0.8-1.5) L 03/29/19 05:27 Estimated GFR > 60 ml/min 03/29/19 05:27 BUN/Creatinine Ratio 30 % 03/29/19 05:27 Glucose 127 mg/dL (75-100) H 03/29/19 05:27 Hemoglobin A1c 5.7 % (4-6) 03/27/19 04:27 Lactic Acid 1.80 mmol/L (0.7-2.0) 03/27/19 04:27 Calcium 9.0 mg/dL (8.4-10.2) 03/29/19 05:27 Total Bilirubin 0.60 mg/dL (0.1-1.2) 03/27/19 04:27 AST 20 units/L (5-40) 03/27/19 04:27 ALT 30 units/L (7-56) 03/27/19 04:27 Alkaline Phosphatase 136 units/L (35-129) H 03/27/19 04:27 Total Creatine Kinase 133 units/L (55-170) 03/26/19 12:28 CK-MB (CK-2) < 1.0 ng/mL (0.0-4.0) 03/26/19 12:28 CK-MB (CK-2) Rel Index 0.7 (0-4) 03/26/19 12:28 Troponin T < 0.010 ng/mL (0.00-0.029) 03/26/19 14:41 Total Protein 8.0 g/dL (6.3-8.2) 03/27/19 04:27 Albumin 3.2 g/dL (3.9-5) L 03/27/19 04:27 Albumin/Globulin Ratio 0.7 % 03/27/19 04:27 Urine Color [place] (Yellow) 03/26/19 12:36 Urine Turbidity Slightly-cloudy (Clear) 03/26/19 12:36 Urine pH 5.0 (5.0-7.0) 03/26/19 12:36 Ur Specific [place] 1.028 (1.003-1.030) 03/26/19 12:36 Urine Protein 30 mg/dl mg/dL (Negative) 03/26/19 12:36 Urine Glucose (UA) Neg mg/dL (Negative) 03/26/19 12:36 Urine Ketones Neg mg/dL (Negative) 03/26/19 12:36 Urine Blood Neg (Negative) 03/26/19 12:36 Urine Nitrite Neg (Negative) 03/26/19 12:36 Urine Bilirubin Neg (Negative) 03/26/19 12:36 Urine Urobilinogen 4.0 mg/dL (<2.0) 03/26/19 12:36 Ur Leukocyte Esterase Neg (Negative) 03/26/19 12:36 Urine WBC (Auto) 6.0 /HPF (0.0-6.0) 03/26/19 12:36 Urine RBC (Auto) 3.0 /HPF (0.0-6.0) 03/26/19 12:36 U Epithel Cells (Auto) 11.0 /HPF (0-13.0) 03/26/19 12:36 Urine Mucus 2+ /HPF 03/26/19 12:36 Urine Opiates Screen Presumptive negative 03/26/19 12:36 Urine Methadone Screen Presumptive negative 03/26/19 12:36 Ur Barbiturates Screen Presumptive negative 03/26/19 12:36 Ur Phencyclidine Scrn Presumptive negative 03/26/19 12:36 Ur Amphetamines Screen Presumptive negative 03/26/19 12:36 U Benzodiazepines Scrn Presumptive negative 03/26/19 12:36 Urine Cocaine Screen Presumptive negative 03/26/19 12:36 U Marijuana (THC) Screen Presumptive negative 03/26/19 12:36 Drugs of Abuse Note Disclamer 03/26/19 12:36 Active Medications - Current Medications Current Medications: Generic Name Dose Route Start Last Admin Trade Name Freq PRN Reason Stop Dose Admin Acetaminophen 650 mg 03/26/19 22:19 Tylenol PO Q4H PRN Pain MILD(1-3)/Fever >100.5/URIAS Albuterol 2.5 mg 03/26/19 22:36 Proventil IH Q3HRT PRN Wheezing Albuterol/Ipratropium 1 ampul 03/27/19 08:00 03/29/19 07:15 Duoneb *Not For Prn Use* IH 1 ampul QIDRT NANCY Administration Amlodipine Besylate 10 mg 03/27/19 10:00 03/28/19 10:05 Amlodipine PO Not Given DAILY NANCY Aspirin 81 mg 03/27/19 10:00 03/28/19 10:05 Halfprin Ec PO Not Given QDAY NANCY Famotidine 20 mg 03/27/19 10:00 03/28/19 21:51 Pepcid IV 20 mg BID NANCY Administration Folic Acid 1 mg 03/27/19 10:00 03/28/19 10:05 Folvite PO Not Given DAILY NANCY Hydromorphone HCl 1 mg 03/26/19 22:19 03/29/19 05:53 Dilaudid IV 1 mg Q3H PRN Administration Pain , Severe (7-10) Vancomycin HCl 750 mg/ Sodium 265 mls @ 166.667 mls/hr 03/27/19 14:00 03/28/19 14:43 Chloride IV 166.667 mls/hr Q24H NANCY Administration Dextrose 1,000 mls @ 100 mls/hr 03/26/19 23:00 03/29/19 00:01 D5w IV 100 mls/hr DIRECT NANCY Administration Cefepime HCl 2 gm in 100 mls @ 200 mls/hr 03/26/19 23:00 03/28/19 21:51 Cefepime/Ns 2 Gm/100 Ml IV 200 mls/hr Q12HR NANCY Administration Protocol Metronidazole 500 mg in 100 mls @ 100 mls/hr 03/28/19 22:00 03/29/19 05:52 Flagyl 500 Mg/100 Ml IV 100 mls/hr Q8HR NANCY Administration Protocol Olanzapine 10 mg 03/27/19 10:00 03/28/19 10:05 Zyprexa PO Not Given DAILY [facility] Ondansetron HCl 4 mg 03/26/19 22:19 03/28/19 21:51 Zofran IV 4 mg Q3H PRN Administration Nausea And Vomiting Sodium Chloride 10 ml 03/27/19 10:00 03/28/19 21:52 Sodium Chloride Flush Syringe 10 Ml IV 10 ml BID NANCY Administration Sodium Chloride 10 ml 03/26/19 22:19 Sodium Chloride Flush Syringe 10 Ml IV PRN PRN LINE FLUSH Nutrition/Malnutrition Assess - Dietary Evaluation Nutrition/Malnutrition Findings: Nutrition Notes Start: 03/27/19 14:04 Freq: Status: Active Protocol: Document 03/28/19 07:29 (Rec: 03/28/19 07:30 [id number]) Nutrition Notes Need for Assessment generated from: MD Order Initial or Follow up Brief Note Current Diagnosis Sepsis,Hypertension, Respiratory Failure Other Pertinent Diagnosis Schizophrenia, dysphagia, AMS, bilat pneu, hypernatremia Current Diet Cardiac Diet Subjective/Other Information MD consult for malnutrition. Pt already being followed by RD. Pt now awake. RN was about to help pt eat bfast at time of visit. Nutrition Intervention Follow-Up By: 03/30/19 Additional Comments f/u for PO intakes, need for ONS
[2019-03-29] MEDS: ASPIRIN EC 81 MG TAB PO SCH (10:00)
[2019-03-29] MEDS: amLODIPine 10 MG TAB PO SCH (10:00)
[2019-03-29] MEDS: FOLIC ACID 1 MG TAB PO SCH (10:00)
[2019-03-29] MEDS: CEFEPIME/NS 2 GM/100 ML 2 GM/100 ML BAG IV SCH ×2 (10:37→22:04)
[2019-03-29] MEDS: FAMOTIDINE 20 MG/2 ML INJ IV SCH ×2 (10:38→22:04)
--- NOTE | 2019-03-29 11:45 | Progress Note ---
Assessment and Plan 68 y/o male admitted with altered mental status and acute respiratory failure from presumed pneumonia. 1. Will ask CM to see if there is other more knowledgeable family that can provide further insight into patient mental state. Person yesterday states that patient is legally blind and is very close to what his baseline is mentally. 2. Wean Bipap as tolerated 3. Ok with abx 4. Off steroids. Also stopped all pain meds and scheduled ativan that per report patient was on outside of the hospital. Subjective Date of service: 03/29/19 Interval history: Unfortunately had to be placed back on bipap. There was another individual who came yesterday who had some information about the patient but was not family. Grandson remains. Objective Vital Signs - 12hr 03/28/19 03/29/19 03/29/19 23:59 00:00 01:00 Temperature 98.5 F Pulse Rate 92 H 93 H 92 H Pulse Rate [ Anterior Bilateral Throughout] Pulse Rate [ 94 H From Monitor] Respiratory 32 H 24 22 Rate Respiratory Rate [Anterior Bilateral Throughout] Blood Pressure 128/74 134/74 115/58 O2 Sat by Pulse 96 90 88 Oximetry 03/29/19 03/29/19 03/29/19 02:00 03:00 04:00 Temperature 98.8 F Pulse Rate 91 H 91 H 91 H Pulse Rate [ Anterior Bilateral Throughout] Pulse Rate [ 91 H From Monitor] Respiratory 23 27 H 28 H Rate Respiratory Rate [Anterior Bilateral Throughout] Blood Pressure 118/61 118/60 118/60 O2 Sat by Pulse 93 92 92 Oximetry 03/29/19 03/29/19 03/29/19 05:00 06:00 07:15 Temperature Pulse Rate 89 84 Pulse Rate [ 86 Anterior Bilateral Throughout] Pulse Rate [ From Monitor] Respiratory 27 H 28 H Rate Respiratory 24 Rate [Anterior Bilateral Throughout] Blood Pressure 113/59 130/64 O2 Sat by Pulse 94 91 93 Oximetry 03/29/19 03/29/19 07:35 08:00 Temperature 99.4 F Pulse Rate 104 H Pulse Rate [ Anterior Bilateral Throughout] Pulse Rate [ From Monitor] Respiratory 28 H Rate Respiratory Rate [Anterior Bilateral Throughout] Blood Pressure 118/80 O2 Sat by Pulse 97 Oximetry Constitutional: appears uncomfortable, other (eyes open but not responsive) Eyes: non-icteric ENT: other (full face mask bipap in place) Neck: supple Effort: mildly labored Ascultation: Bilateral: clear Cardiovascular: regular rate and rhythm CBC and BMP: 03/29/19 05:27 03/29/19 05:27 ABG, PT/INR, D-dimer: ABG ABG pH 7.411 pH Units (7.350-7.450) 03/26/19 13:40 ABG pCO2 34.3 mm Hg 03/26/19 13:40 ABG pO2 109.5 mm Hg (80.0-90.0) H 03/26/19 13:40 ABG O2 Saturation 98.0 % (95.0-99.0) 03/26/19 13:40 PT/INR, D-dimer PT 15.9 Sec. (12.2-14.9) H 03/26/19 12:28 INR 1.25 (0.87-1.13) H 03/26/19 12:28 Abnormal lab findings: Abnormal Labs 03/26/19 03/26/19 03/26/19 12:28 12:28 12:28 WBC RBC Hgb Hct RDW 16.1 H Lymph % (Auto) 12.3 L Lymph # 0.7 L Seg Neutrophils % 82.0 H PT 15.9 H INR 1.25 H ABG pO2 ABG Base Excess ABG Hemoglobin Sodium 155 H Chloride 115.8 H Carbon Dioxide 18 L BUN 39 H Creatinine Glucose 213 H Lactic Acid Alkaline Phosphatase 163 H Total Protein 8.6 H Albumin 3.4 L 03/26/19 03/26/19 03/26/19 12:28 13:40 14:41 WBC RBC Hgb Hct RDW Lymph % (Auto) Lymph # Seg Neutrophils % PT INR ABG pO2 109.5 H ABG Base Excess -2.5 L ABG Hemoglobin 13.9 L Sodium Chloride Carbon Dioxide BUN Creatinine Glucose Lactic Acid 3.50 H* 4.90 H* Alkaline Phosphatase Total Protein Albumin 03/26/19 03/26/19 03/26/19 15:46 20:26 21:34 WBC RBC Hgb Hct RDW Lymph % (Auto) Lymph # Seg Neutrophils % PT INR ABG pO2 ABG Base Excess ABG Hemoglobin Sodium Chloride Carbon Dioxide BUN Creatinine Glucose Lactic Acid 3.60 H* 2.80 H* 3.00 H* Alkaline Phosphatase Total Protein Albumin 03/27/19 03/27/19 03/27/19 04:27 04:27 18:59 WBC RBC Hgb Hct RDW 16.3 H Lymph % (Auto) 10.5 L Lymph # 0.6 L Seg Neutrophils % 83.3 H PT INR ABG pO2 ABG Base Excess ABG Hemoglobin Sodium 156 H 157 H Chloride 120.2 H 122.1 H Carbon Dioxide 21 L 21 L BUN 40 H 41 H Creatinine Glucose 207 H 170 H Lactic Acid Alkaline Phosphatase 136 H Total Protein Albumin 3.2 L 03/28/19 03/28/19 03/29/19 03:43 03:43 05:27 WBC 14.5 H RBC 3.56 L 3.51 L Hgb 10.3 L 10.1 L Hct 31.9 L 31.3 L RDW 15.9 H 16.0 H Lymph % (Auto) Lymph # Seg Neutrophils % PT INR ABG pO2 ABG Base Excess ABG Hemoglobin Sodium 152 H Chloride 117.5 H Carbon Dioxide BUN 34 H Creatinine Glucose 143 H Lactic Acid Alkaline Phosphatase Total Protein Albumin 03/29/19 05:27 WBC RBC Hgb Hct RDW Lymph % (Auto) Lymph # Seg Neutrophils % PT INR ABG pO2 ABG Base Excess ABG Hemoglobin Sodium 147 H Chloride 113.0 H Carbon Dioxide 20 L BUN 21 H Creatinine 0.7 L Glucose 127 H Lactic Acid Alkaline Phosphatase Total Protein Albumin
[2019-03-29] MEDS: VANCOMYCIN 750 MG in SODIUM CHLORIDE 0.9% 250ML 250 ML IV SCH (16:06)
[2019-03-30 05:02] LABS: Hematocrit 31.8 % (35.5-45.6); Hemoglobin 10.6 gm/dl (11.8-15.2); Mean Corpuscular HGB Conc 33 % (32-34); Mean Corpuscular Volume 88 fl (84-94); Platelet Count 156 K/mm3 (140-440); Red Blood Count 3.61 M/mm3 (3.65-5.03); Red Cell Distribution Width 15.6 % (13.2-15.2)
[2019-03-30 05:30] LABS: BUN/Creatinine Ratio 25; Blood Urea Nitrogen 20 mg/dL (9-20); Calcium 8.7 mg/dL (8.4-10.2); Hemolysis Index 0
[2019-03-30] MEDS: metroNIDAZOLE/NS 500 MG/100 ML 500 MG/100 ML BAG IV SCH ×3 (05:30→21:51)
[2019-03-30] MEDS: IPRATROPIUM/ALBUTEROL SULFATE 3 ML AMPUL.NEB IH SCH ×4 (08:30→20:00)
--- NOTE | 2019-03-30 09:20 | Progress Note ---
Assessment and Plan Assessment and plan: Sepsis, possibly Elevated Lactic acid IV Cefepime and IV Vancomycin, Flagyl Consulted ID, following Altered mental status poss Acute toxic metabolic encephalopathy Consulted Neurology, Dr. 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 Discussed with Grandson at bedside 03/27 History Interval history: Patient with altered mental status, shortness of breath Hospitalist Physical - Physical exam Narrative exam: GEN: Not in acute distress, lying in bed, malnourished HEENT: Normocephalic, atraumatic, Neck: supple, No JVD Lungs: Bilateral crackles Heart;S1 and S2 reg, no murmurs, rubs or gallop Abd:soft, non tender, non distended, normal bowel sounds Ext: No edema, no clubbing, no cyanosis Neuro: Somnolent - Constitutional Vitals: Temp Pulse Resp BP Pulse Ox 98.4 F 91 H 38 H 121/66 98 03/30/19 03:56 03/30/19 08:32 03/30/19 08:32 03/30/19 06:00 03/30/19 08:52 Results - Labs CBC & Chem 7: 03/30/19 04:49 03/30/19 04:49 Labs: Laboratory Last Values WBC 10.3 K/mm3 (4.5-11.0) 03/30/19 04:49 RBC 3.61 M/mm3 (3.65-5.03) L 03/30/19 04:49 Hgb 10.6 gm/dl (11.8-15.2) L 03/30/19 04:49 Hct 31.8 % (35.5-45.6) L 03/30/19 04:49 MCV 88 fl (84-94) 03/30/19 04:49 MCH 30 pg (28-32) 03/30/19 04:49 MCHC 33 % (32-34) 03/30/19 04:49 RDW 15.6 % (13.2-15.2) H 03/30/19 04:49 Plt Count 156 K/mm3 (140-440) 03/30/19 04:49 Lymph % (Auto) 10.5 % (13.4-35.0) L 03/27/19 04:27 Piatt % (Auto) 6.2 % (0.0-7.3) 03/27/19 04:27 Eos % (Auto) 0.0 % (0.0-4.3) 03/27/19 04:27 Baso % (Auto) 0.0 % (0.0-1.8) 03/27/19 04:27 Lymph # 0.6 K/mm3 (1.2-5.4) L 03/27/19 04:27 Piatt # 0.4 K/mm3 (0.0-0.8) 03/27/19 04:27 Eos # 0.0 K/mm3 (0.0-0.4) 03/27/19 04:27 Baso # 0.0 K/mm3 (0.0-0.1) 03/27/19 04:27 Seg Neutrophils % 83.3 % (40.0-70.0) H 03/27/19 04:27 Seg Neutrophils # 4.7 K/mm3 (1.8-7.7) 03/27/19 04:27 PT 15.9 Sec. (12.2-14.9) H 03/26/19 12:28 INR 1.25 (0.87-1.13) H 03/26/19 12:28 APTT 31.2 Sec. (24.2-36.6) 03/26/19 12:28 ABG pH 7.411 pH Units (7.350-7.450) 03/26/19 13:40 ABG pCO2 34.3 mm Hg 03/26/19 13:40 ABG pO2 109.5 mm Hg (80.0-90.0) H 03/26/19 13:40 ABG HCO3 21.3 mmol/L (20.0-26.0) 03/26/19 13:40 ABG O2 Saturation 98.0 % (95.0-99.0) 03/26/19 13:40 ABG O2 Content 19.0 (0.0-44) 03/26/19 13:40 ABG Base Excess -2.5 mmol/L (-2.0-3.0) L 03/26/19 13:40 ABG Hemoglobin 13.9 gm/dl (14.0-18.0) L 03/26/19 13:40 ABG Carboxyhemoglobin 1.3 % (0.0-5.0) 03/26/19 13:40 ABG Methemoglobin 0.6 % (0.0-1.5) 03/26/19 13:40 Oxyhemoglobin 96.2 % (95.0-99.0) 03/26/19 13:40 FiO2 50 % 03/26/19 13:40 Sodium 152 mmol/L (137-145) H 03/30/19 04:49 Potassium 3.6 mmol/L (3.6-5.0) 03/30/19 04:49 Chloride 117.8 mmol/L (98-107) H 03/30/19 04:49 Carbon Dioxide 20 mmol/L (22-30) L 03/30/19 04:49 Anion Gap 18 mmol/L 03/30/19 04:49 BUN 20 mg/dL (9-20) 03/30/19 04:49 Creatinine 0.8 mg/dL (0.8-1.5) 03/30/19 04:49 Estimated GFR > 60 ml/min 03/30/19 04:49 BUN/Creatinine Ratio 25 % 03/30/19 04:49 Glucose 109 mg/dL (75-100) H 03/30/19 04:49 Hemoglobin A1c 5.7 % (4-6) 03/27/19 04:27 Lactic Acid 1.80 mmol/L (0.7-2.0) 03/27/19 04:27 Calcium 8.7 mg/dL (8.4-10.2) 03/30/19 04:49 Total Bilirubin 0.60 mg/dL (0.1-1.2) 03/27/19 04:27 AST 20 units/L (5-40) 03/27/19 04:27 ALT 30 units/L (7-56) 03/27/19 04:27 Alkaline Phosphatase 136 units/L (35-129) H 03/27/19 04:27 Total Creatine Kinase 133 units/L (55-170) 03/26/19 12:28 CK-MB (CK-2) < 1.0 ng/mL (0.0-4.0) 03/26/19 12:28 CK-MB (CK-2) Rel Index 0.7 (0-4) 03/26/19 12:28 Troponin T < 0.010 ng/mL (0.00-0.029) 03/26/19 14:41 Total Protein 8.0 g/dL (6.3-8.2) 03/27/19 04:27 Albumin 3.2 g/dL (3.9-5) L 03/27/19 04:27 Albumin/Globulin Ratio 0.7 % 03/27/19 04:27 Urine Color Dahlia (Yellow) 03/26/19 12:36 Urine Turbidity Slightly-cloudy (Clear) 03/26/19 12:36 Urine pH 5.0 (5.0-7.0) 03/26/19 12:36 Ur Specific Interior 1.028 (1.003-1.030) 03/26/19 12:36 Urine Protein 30 mg/dl mg/dL (Negative) 03/26/19 12:36 Urine Glucose (UA) Neg mg/dL (Negative) 03/26/19 12:36 Urine Ketones Neg mg/dL (Negative) 03/26/19 12:36 Urine Blood Neg (Negative) 03/26/19 12:36 Urine Nitrite Neg (Negative) 03/26/19 12:36 Urine Bilirubin Neg (Negative) 03/26/19 12:36 Urine Urobilinogen 4.0 mg/dL (<2.0) 03/26/19 12:36 Ur Leukocyte Esterase Neg (Negative) 03/26/19 12:36 Urine WBC (Auto) 6.0 /HPF (0.0-6.0) 03/26/19 12:36 Urine RBC (Auto) 3.0 /HPF (0.0-6.0) 03/26/19 12:36 U Epithel Cells (Auto) 11.0 /HPF (0-13.0) 03/26/19 12:36 Urine Mucus 2+ /HPF 03/26/19 12:36 Urine Opiates Screen Presumptive negative 03/26/19 12:36 Urine Methadone Screen Presumptive negative 03/26/19 12:36 Ur Barbiturates Screen Presumptive negative 03/26/19 12:36 Ur Phencyclidine Scrn Presumptive negative 03/26/19 12:36 Ur Amphetamines Screen Presumptive negative 03/26/19 12:36 U Benzodiazepines Scrn Presumptive negative 03/26/19 12:36 Urine Cocaine Screen Presumptive negative 03/26/19 12:36 U Marijuana (THC) Screen Presumptive negative 03/26/19 12:36 Drugs of Abuse Note Disclamer 03/26/19 12:36 Active Medications - Current Medications Current Medications: Generic Name Dose Route Start Last Admin Trade Name Freq PRN Reason Stop Dose Admin Acetaminophen 650 mg 03/26/19 22:19 Tylenol PO Q4H PRN Pain MILD(1-3)/Fever >100.5/URIAS Albuterol 2.5 mg 03/26/19 22:36 Proventil IH Q3HRT PRN Wheezing Albuterol/Ipratropium 1 ampul 03/27/19 08:00 03/30/19 08:30 Duoneb *Not For Prn Use* IH 1 ampul QIDRT NANCY Administration Amlodipine Besylate 10 mg 03/27/19 10:00 03/29/19 10:00 Amlodipine PO Not Given DAILY NANCY Aspirin 81 mg 03/27/19 10:00 03/29/19 10:00 Halfprin Ec PO Not Given QDAY NANCY Famotidine 20 mg 03/27/19 10:00 03/29/19 22:04 Pepcid IV 20 mg BID NANCY Administration Folic Acid 1 mg 03/27/19 10:00 03/29/19 10:00 Folvite PO Not Given DAILY NANCY Hydromorphone HCl 1 mg 03/26/19 22:19 03/29/19 05:53 Dilaudid IV 1 mg Q3H PRN Administration Pain , Severe (7-10) Vancomycin HCl 750 mg/ Sodium 265 mls @ 166.667 mls/hr 03/27/19 14:00 03/29/19 16:06 Chloride IV 166.667 mls/hr Q24H NANCY Administration Dextrose 1,000 mls @ 100 mls/hr 03/26/19 23:00 03/29/19 00:01 D5w IV 100 mls/hr DIRECT NANCY Administration Cefepime HCl 2 gm in 100 mls @ 200 mls/hr 03/26/19 23:00 03/29/19 22:04 Cefepime/Ns 2 Gm/100 Ml IV 200 mls/hr Q12HR NANCY Administration Protocol Metronidazole 500 mg in 100 mls @ 100 mls/hr 03/28/19 22:00 03/30/19 05:30 Flagyl 500 Mg/100 Ml IV 100 mls/hr Q8HR NANCY Administration Protocol Olanzapine 10 mg 03/27/19 10:00 03/29/19 10:00 Zyprexa PO Not Given DAILY [facility] Ondansetron HCl 4 mg 03/26/19 22:19 03/28/19 21:51 Zofran IV 4 mg Q3H PRN Administration Nausea And Vomiting Sodium Chloride 10 ml 03/27/19 10:00 03/29/19 22:06 Sodium Chloride Flush Syringe 10 Ml IV 10 ml BID NANCY Administration Sodium Chloride 10 ml 03/26/19 22:19 Sodium Chloride Flush Syringe 10 Ml IV PRN PRN LINE FLUSH Nutrition/Malnutrition Assess - Dietary Evaluation Nutrition/Malnutrition Findings: Nutrition Notes Start: 03/27/19 14:04 Freq: Status: Active Protocol: Document 03/28/19 07:29 (Rec: 03/28/19 07:30 [email or web address]) Nutrition Notes Need for Assessment generated from: MD Order Initial or Follow up Brief Note Current Diagnosis Sepsis,Hypertension, Respiratory Failure Other Pertinent Diagnosis Schizophrenia, dysphagia, AMS, bilat pneu, hypernatremia Current Diet Cardiac Diet Subjective/Other Information MD consult for malnutrition. Pt already being followed by RD. Pt now awake. RN was about to help pt eat bfast at time of visit. Nutrition Intervention Follow-Up By: 03/30/19 Additional Comments f/u for PO intakes, need for ONS
[2019-03-30] MEDS: CEFEPIME/NS 2 GM/100 ML 2 GM/100 ML BAG IV SCH ×2 (09:43→21:51)
[2019-03-30] MEDS: FAMOTIDINE 20 MG/2 ML INJ IV SCH (09:44)
--- NOTE | 2019-03-30 09:50 | Progress Note ---
Assessment and Plan 68 y/o male admitted with altered mental status and acute respiratory failure from presumed pneumonia. 1. Will ask CM to see if there is other more knowledgeable family that can provide further insight into patient mental state. Person yesterday states that patient is legally blind and is very close to what his baseline is mentally. 2. Wean HFNC as tolerated. 3. Ok with abx 4. Off steroids. Also stopped all pain meds and scheduled ativan that per report patient was on outside of the hospital. 5. Will repeat CXR today. Subjective Date of service: 03/30/19 Interval history: no acute events. Now on HFNC at 20 and 30. Eyes open. No family at bedside. Objective Vital Signs - 12hr 03/29/19 03/29/19 03/29/19 21:52 21:54 22:00 Temperature Pulse Rate 88 Pulse Rate [ 88 Anterior Bilateral Throughout] Pulse Rate [ Bilateral] Pulse Rate [ From Monitor] Respiratory 25 H Rate Respiratory 24 Rate [Anterior Bilateral Throughout] Respiratory Rate [Bilateral ] Blood Pressure 121/68 O2 Sat by Pulse 97 97 Oximetry 03/29/19 03/29/19 03/30/19 23:00 23:56 00:00 Temperature 98.5 F Pulse Rate 96 H 96 H 98 H Pulse Rate [ Anterior Bilateral Throughout] Pulse Rate [ Bilateral] Pulse Rate [ 86 From Monitor] Respiratory 37 H 38 H 39 H Rate Respiratory Rate [Anterior Bilateral Throughout] Respiratory Rate [Bilateral ] Blood Pressure 110/65 110/65 119/71 O2 Sat by Pulse 97 96 96 Oximetry 03/30/19 03/30/19 03/30/19 00:02 01:00 02:00 Temperature Pulse Rate 98 H 96 H 94 H Pulse Rate [ Anterior Bilateral Throughout] Pulse Rate [ Bilateral] Pulse Rate [ From Monitor] Respiratory 37 H 38 H 37 H Rate Respiratory Rate [Anterior Bilateral Throughout] Respiratory Rate [Bilateral ] Blood Pressure 110/65 125/68 114/68 O2 Sat by Pulse 96 97 97 Oximetry 03/30/19 03/30/19 03/30/19 02:59 03:00 03:56 Temperature 98.4 F Pulse Rate 97 H Pulse Rate [ Anterior Bilateral Throughout] Pulse Rate [ Bilateral] Pulse Rate [ From Monitor] Respiratory 38 H Rate Respiratory Rate [Anterior Bilateral Throughout] Respiratory Rate [Bilateral ] Blood Pressure 113/67 O2 Sat by Pulse 97 97 Oximetry 03/30/19 03/30/19 03/30/19 04:00 05:00 06:00 Temperature Pulse Rate 88 92 H 94 H Pulse Rate [ Anterior Bilateral Throughout] Pulse Rate [ Bilateral] Pulse Rate [ 86 From Monitor] Respiratory 35 H 36 H 38 H Rate Respiratory Rate [Anterior Bilateral Throughout] Respiratory Rate [Bilateral ] Blood Pressure 110/65 110/65 121/66 O2 Sat by Pulse 97 98 98 Oximetry 03/30/19 03/30/19 08:32 08:52 Temperature Pulse Rate Pulse Rate [ 91 H Anterior Bilateral Throughout] Pulse Rate [ 94 H Bilateral] Pulse Rate [ From Monitor] Respiratory Rate Respiratory 38 H Rate [Anterior Bilateral Throughout] Respiratory 35 H Rate [Bilateral ] Blood Pressure O2 Sat by Pulse 98 98 Oximetry Constitutional: appears uncomfortable, other (eyes open but not responsive) Eyes: non-icteric ENT: other (full face mask bipap in place) Neck: supple Effort: mildly labored Ascultation: Bilateral: clear Cardiovascular: regular rate and rhythm CBC and BMP: 03/30/19 04:49 03/30/19 04:49 ABG, PT/INR, D-dimer: ABG ABG pH 7.411 pH Units (7.350-7.450) 03/26/19 13:40 ABG pCO2 34.3 mm Hg 03/26/19 13:40 ABG pO2 109.5 mm Hg (80.0-90.0) H 03/26/19 13:40 ABG O2 Saturation 98.0 % (95.0-99.0) 03/26/19 13:40 PT/INR, D-dimer PT 15.9 Sec. (12.2-14.9) H 03/26/19 12:28 INR 1.25 (0.87-1.13) H 03/26/19 12:28 Abnormal lab findings: Abnormal Labs 03/26/19 03/26/19 03/26/19 12:28 12:28 12:28 WBC RBC Hgb Hct RDW 16.1 H Lymph % (Auto) 12.3 L Lymph # 0.7 L Seg Neutrophils % 82.0 H PT 15.9 H INR 1.25 H ABG pO2 ABG Base Excess ABG Hemoglobin Sodium 155 H Chloride 115.8 H Carbon Dioxide 18 L BUN 39 H Creatinine Glucose 213 H Lactic Acid Alkaline Phosphatase 163 H Total Protein 8.6 H Albumin 3.4 L 03/26/19 03/26/19 03/26/19 12:28 13:40 14:41 WBC RBC Hgb Hct RDW Lymph % (Auto) Lymph # Seg Neutrophils % PT INR ABG pO2 109.5 H ABG Base Excess -2.5 L ABG Hemoglobin 13.9 L Sodium Chloride Carbon Dioxide BUN Creatinine Glucose Lactic Acid 3.50 H* 4.90 H* Alkaline Phosphatase Total Protein Albumin 03/26/19 03/26/19 03/26/19 15:46 20:26 21:34 WBC RBC Hgb Hct RDW Lymph % (Auto) Lymph # Seg Neutrophils % PT INR ABG pO2 ABG Base Excess ABG Hemoglobin Sodium Chloride Carbon Dioxide BUN Creatinine Glucose Lactic Acid 3.60 H* 2.80 H* 3.00 H* Alkaline Phosphatase Total Protein Albumin 03/27/19 03/27/19 03/27/19 04:27 04:27 18:59 WBC RBC Hgb Hct RDW 16.3 H Lymph % (Auto) 10.5 L Lymph # 0.6 L Seg Neutrophils % 83.3 H PT INR ABG pO2 ABG Base Excess ABG Hemoglobin Sodium 156 H 157 H Chloride 120.2 H 122.1 H Carbon Dioxide 21 L 21 L BUN 40 H 41 H Creatinine Glucose 207 H 170 H Lactic Acid Alkaline Phosphatase 136 H Total Protein Albumin 3.2 L 03/28/19 03/28/19 03/29/19 03:43 03:43 05:27 WBC 14.5 H RBC 3.56 L 3.51 L Hgb 10.3 L 10.1 L Hct 31.9 L 31.3 L RDW 15.9 H 16.0 H Lymph % (Auto) Lymph # Seg Neutrophils % PT INR ABG pO2 ABG Base Excess ABG Hemoglobin Sodium 152 H Chloride 117.5 H Carbon Dioxide BUN 34 H Creatinine Glucose 143 H Lactic Acid Alkaline Phosphatase Total Protein Albumin 03/29/19 03/30/19 03/30/19 05:27 04:49 04:49 WBC RBC 3.61 L Hgb 10.6 L Hct 31.8 L RDW 15.6 H Lymph % (Auto) Lymph # Seg Neutrophils % PT INR ABG pO2 ABG Base Excess ABG Hemoglobin Sodium 147 H 152 H Chloride 113.0 H 117.8 H Carbon Dioxide 20 L 20 L BUN 21 H Creatinine 0.7 L Glucose 127 H 109 H Lactic Acid Alkaline Phosphatase Total Protein Albumin
--- NOTE | 2019-03-30 12:11 | XRay Report ---
CHEST 1 VIEW 03/30/2019 11:41 AM INDICATION / CLINICAL INFORMATION: Hypoxemia. COMPARISON: One view of the chest from 03/26/2019. FINDINGS: SUPPORT DEVICES: None. HEART / MEDIASTINUM: No significant abnormality. LUNGS / PLEURA: There is a small right apical pneumothorax. Bilateral pulmonary opacities have worsen ed, most notably along the right lung base. No significant pleural effusion. ADDITIONAL FINDINGS: No significant additional findings. IMPRESSION: 1. Interval development of a small right apical pneumothorax. 2. Interval worsening of bilateral pulmonary opacities. CRITICAL RESULT: Radiologist: Dr. Goldsmith Time of Discovery: 11:00 OSTEOLOGIST Time of Communication: 11:06 OSTEOLOGIST Licensed Practitioner Receiving Report: Dr. Sanabria Read Back Performed: Yes. Signer Name: Melvin Goldsmith MD Signed: 03/30/2019 12:06 PM Workstation Name: [id number]
[2019-03-30] MEDS: VANCOMYCIN 750 MG in SODIUM CHLORIDE 0.9% 250ML 250 ML IV SCH (13:56)
--- NOTE | 2019-03-30 16:49 | Progress Note ---
Assessment and Plan Cultures: 03/26/2019 urine cultures: NGTD 03/26/2019 blood cultures: NGTD A&P: 68 yo M unknown PMHx admitted for bilateral pneumonia after being recently admitted for choking. Bilateral pneumonia - Order MRSA nares swab and stop vancomycin if negative. Low suspicion for MRSA PNA. Continue cefepime, but add metronidazole given recent admission for "choking", could have some risk factors for aspiration. Recommendations: Ordered MRSA nasal swab - unobtained. Continue vancomycin goal trough 10-20 dosed per pharmacy. Stop if above negative Continue cefepime start metronidazole Plan 5 day course of antibiotics for CAP. Thank you for the consult, will continue to follow. Judie Barnes MD [facility] ([facility]) M: [phone] O: [phone] F: [phone] Subjective Date of service: 03/30/19 Interval history: Afebrile now, stable white count. Unclear baseline mental status. Objective - Exam Narrative Exam: Constitutional: Lethargic, unable to rouse Head, Ears, Nose: Normocephalic, atraumatic. External ears, nose normal Eyes: Conjunctivae/corneas clear. No icterus. No ptosis. Neck: Supple, no meningeal signs Oral: dentition fair, no thrush Cardiovascular: S1, S2 normal. Respiratory: Gurgling breath noises GI: Soft, non-tender; bowel sounds normal. No peritoneal signs. Musculoskeletal: No pedal edema, no cyanosis. Skin: No rash or abscess Hem/Lymphatic: No palpable cervical or supraclavicular nodes. No lymphangitis Psych: Lethargic Neurological: Lethargic - Constitutional Vitals: Vital Signs Temp Pulse Resp BP Pulse Ox 98.6 F 92 H 34 H 113/68 96 03/30/19 12:00 03/30/19 12:28 03/30/19 12:28 03/30/19 10:00 03/30/19 10:00 Temperature -Last 24 Hours Temperature 98.6 F Temperature 99.4 F Temperature 98.4 F Temperature 98.5 F Temperature 100.8 F - Labs CBC & Chem 7: 03/30/19 04:49 03/30/19 04:49 Labs: Abnormal lab results 02/03/20 02/03/20 Range/Units 04:49 04:49 RBC 3.61 L (3.65-5.03) M/mm3 Hgb 10.6 L (11.8-15.2) gm/dl Hct 31.8 L (35.5-45.6) % RDW 15.6 H (13.2-15.2) % Sodium 152 H (137-145) mmol/L Chloride 117.8 H (98-107) mmol/L Carbon Dioxide 20 L (22-30) mmol/L Glucose 109 H (75-100) mg/dL
[2019-03-30] MEDS: HEPARIN 5,000 UNIT/1 ML VIAL SUB-Q SCH ×2 (17:35→21:52)
[2019-03-30] MEDS: HYDROmorphone 1 MG/1 ML INJ IV PRN (23:24)
[2019-03-31] MEDS: HYDROmorphone 1 MG/1 ML INJ IV PRN (04:01)
[2019-03-31] MEDS: FAMOTIDINE 20 MG/2 ML INJ IV SCH ×3 (04:08→22:49)
[2019-03-31] MEDS: metroNIDAZOLE/NS 500 MG/100 ML 500 MG/100 ML BAG IV SCH ×3 (05:08→22:40)
[2019-03-31] MEDS: HEPARIN 5,000 UNIT/1 ML VIAL SUB-Q SCH ×3 (05:09→22:42)
[2019-03-31] MEDS: IPRATROPIUM/ALBUTEROL SULFATE 3 ML AMPUL.NEB IH SCH ×4 (08:44→20:37)
[2019-03-31] MEDS: CEFEPIME/NS 2 GM/100 ML 2 GM/100 ML BAG IV SCH ×2 (09:57→22:35)
--- NOTE | 2019-03-31 12:10 | Progress Note ---
Assessment and Plan 68 y/o male admitted with altered mental status and acute respiratory failure from presumed pneumonia. 1. Will ask CM to see if there is other more knowledgeable family that can provide further insight into patient mental state. Person yesterday states that patient is legally blind and is very close to what his baseline is mentally. 2. Wean HFNC as tolerated. 3. Ok with abx 4. Off steroids. Also stopped all pain meds and scheduled ativan that per report patient was on outside of the hospital. 5. Will repeat CXR today, clinically stable. I have discontinued bipap secondary to the PTX. Hopefully it is resolving on its own with HFNC. Subjective Date of service: 03/31/19 Interval history: No acute events. PTX seen on CXR and I spoke with RT to pass along no PPV unless I am notified first. Objective Vital Signs - 12hr 03/31/19 03/31/19 03/31/19 01:00 02:00 03:00 Temperature Pulse Rate 82 77 76 Pulse Rate [ Bilateral] Pulse Rate [ From Monitor] Respiratory 25 H 25 H 24 Rate Respiratory Rate [Bilateral ] Blood Pressure 114/70 113/66 120/75 O2 Sat by Pulse 97 96 95 Oximetry 03/31/19 03/31/19 03/31/19 03:58 04:00 04:01 Temperature 97.9 F Pulse Rate 72 Pulse Rate [ Bilateral] Pulse Rate [ 86 From Monitor] Respiratory 22 24 Rate Respiratory Rate [Bilateral ] Blood Pressure 124/74 O2 Sat by Pulse 97 Oximetry 03/31/19 03/31/19 03/31/19 05:00 06:00 07:00 Temperature Pulse Rate 85 82 71 Pulse Rate [ Bilateral] Pulse Rate [ From Monitor] Respiratory 19 18 26 H Rate Respiratory Rate [Bilateral ] Blood Pressure 124/74 176/81 179/80 O2 Sat by Pulse 93 92 93 Oximetry 03/31/19 03/31/19 03/31/19 08:00 08:43 08:44 Temperature 99.0 F Pulse Rate 78 Pulse Rate [ 82 Bilateral] Pulse Rate [ 80 From Monitor] Respiratory 15 Rate Respiratory 16 Rate [Bilateral ] Blood Pressure 175/86 O2 Sat by Pulse 94 96 Oximetry 03/31/19 03/31/19 03/31/19 09:00 10:00 11:00 Temperature Pulse Rate 80 84 75 Pulse Rate [ Bilateral] Pulse Rate [ From Monitor] Respiratory 24 22 21 Rate Respiratory Rate [Bilateral ] Blood Pressure 170/83 170/83 160/83 O2 Sat by Pulse 96 96 96 Oximetry Constitutional: appears uncomfortable, other (eyes open but not responsive) Eyes: non-icteric ENT: other (full face mask bipap in place) Neck: supple Effort: mildly labored Ascultation: Bilateral: clear Cardiovascular: regular rate and rhythm CBC and BMP: 03/30/19 04:49 03/30/19 04:49 ABG, PT/INR, D-dimer: ABG ABG pH 7.411 pH Units (7.350-7.450) 03/26/19 13:40 ABG pCO2 34.3 mm Hg 03/26/19 13:40 ABG pO2 109.5 mm Hg (80.0-90.0) H 03/26/19 13:40 ABG O2 Saturation 98.0 % (95.0-99.0) 03/26/19 13:40 PT/INR, D-dimer PT 15.9 Sec. (12.2-14.9) H 03/26/19 12:28 INR 1.25 (0.87-1.13) H 03/26/19 12:28 Abnormal lab findings: Abnormal Labs 03/26/19 03/26/19 03/26/19 12:28 12:28 12:28 WBC RBC Hgb Hct RDW 16.1 H Lymph % (Auto) 12.3 L Lymph # 0.7 L Seg Neutrophils % 82.0 H PT 15.9 H INR 1.25 H ABG pO2 ABG Base Excess ABG Hemoglobin Sodium 155 H Chloride 115.8 H Carbon Dioxide 18 L BUN 39 H Creatinine Glucose 213 H Lactic Acid Alkaline Phosphatase 163 H Total Protein 8.6 H Albumin 3.4 L 03/26/19 03/26/19 03/26/19 12:28 13:40 14:41 WBC RBC Hgb Hct RDW Lymph % (Auto) Lymph # Seg Neutrophils % PT INR ABG pO2 109.5 H ABG Base Excess -2.5 L ABG Hemoglobin 13.9 L Sodium Chloride Carbon Dioxide BUN Creatinine Glucose Lactic Acid 3.50 H* 4.90 H* Alkaline Phosphatase Total Protein Albumin 03/26/19 03/26/19 03/26/19 15:46 20:26 21:34 WBC RBC Hgb Hct RDW Lymph % (Auto) Lymph # Seg Neutrophils % PT INR ABG pO2 ABG Base Excess ABG Hemoglobin Sodium Chloride Carbon Dioxide BUN Creatinine Glucose Lactic Acid 3.60 H* 2.80 H* 3.00 H* Alkaline Phosphatase Total Protein Albumin 03/27/19 03/27/19 03/27/19 04:27 04:27 18:59 WBC RBC Hgb Hct RDW 16.3 H Lymph % (Auto) 10.5 L Lymph # 0.6 L Seg Neutrophils % 83.3 H PT INR ABG pO2 ABG Base Excess ABG Hemoglobin Sodium 156 H 157 H Chloride 120.2 H 122.1 H Carbon Dioxide 21 L 21 L BUN 40 H 41 H Creatinine Glucose 207 H 170 H Lactic Acid Alkaline Phosphatase 136 H Total Protein Albumin 3.2 L 03/28/19 03/28/19 03/29/19 03:43 03:43 05:27 WBC 14.5 H RBC 3.56 L 3.51 L Hgb 10.3 L 10.1 L Hct 31.9 L 31.3 L RDW 15.9 H 16.0 H Lymph % (Auto) Lymph # Seg Neutrophils % PT INR ABG pO2 ABG Base Excess ABG Hemoglobin Sodium 152 H Chloride 117.5 H Carbon Dioxide BUN 34 H Creatinine Glucose 143 H Lactic Acid Alkaline Phosphatase Total Protein Albumin 03/29/19 03/30/19 03/30/19 05:27 04:49 04:49 WBC RBC 3.61 L Hgb 10.6 L Hct 31.8 L RDW 15.6 H Lymph % (Auto) Lymph # Seg Neutrophils % PT INR ABG pO2 ABG Base Excess ABG Hemoglobin Sodium 147 H 152 H Chloride 113.0 H 117.8 H Carbon Dioxide 20 L 20 L BUN 21 H Creatinine 0.7 L Glucose 127 H 109 H Lactic Acid Alkaline Phosphatase Total Protein Albumin
--- NOTE | 2019-03-31 13:20 | Progress Note ---
Assessment and Plan Assessment and plan: Sepsis. Etiology secondary to bilateral pneumonia Elevated Lactic acid Continue antibiotics per ID ID following Toxic metabolic encephalopathy Consulted Neurology, Dr. 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 Hospitalist Physical - Constitutional Vitals: Temp Pulse Resp BP Pulse Ox 99.0 F 75 21 160/83 96 03/31/19 08:00 03/31/19 11:00 03/31/19 11:00 03/31/19 11:00 03/31/19 11:00 General appearance: Present: no acute distress - EENT Eyes: Present: PERRL, EOM intact ENT: hearing intact, clear oral mucosa, dentition normal - Neck Neck: Present: supple, normal ROM - Respiratory Respiratory effort: normal Respiratory: bilateral: CTA - Cardiovascular Rhythm: regular Heart Sounds: Present: S1 & S2. Absent: gallop, rub - Extremities Extremities: no ischemia, No edema, Full ROM - Abdominal General gastrointestinal: soft, non-tender, non-distended, normal bowel sounds - Integumentary Integumentary: Present: clear, warm, dry - Neurologic Neurologic: CNII-XII intact, moves all extremities Results - Labs CBC & Chem 7: 03/30/19 04:49 03/30/19 04:49 Labs: Laboratory Last Values WBC 10.3 K/mm3 (4.5-11.0) 03/30/19 04:49 RBC 3.61 M/mm3 (3.65-5.03) L 03/30/19 04:49 Hgb 10.6 gm/dl (11.8-15.2) L 03/30/19 04:49 Hct 31.8 % (35.5-45.6) L 03/30/19 04:49 MCV 88 fl (84-94) 03/30/19 04:49 MCH 30 pg (28-32) 03/30/19 04:49 MCHC 33 % (32-34) 03/30/19 04:49 RDW 15.6 % (13.2-15.2) H 03/30/19 04:49 Plt Count 156 K/mm3 (140-440) 03/30/19 04:49 Lymph % (Auto) 10.5 % (13.4-35.0) L 03/27/19 04:27 Jack % (Auto) 6.2 % (0.0-7.3) 03/27/19 04:27 Eos % (Auto) 0.0 % (0.0-4.3) 03/27/19 04:27 Baso % (Auto) 0.0 % (0.0-1.8) 03/27/19 04:27 Lymph # 0.6 K/mm3 (1.2-5.4) L 03/27/19 04:27 Jack # 0.4 K/mm3 (0.0-0.8) 03/27/19 04:27 Eos # 0.0 K/mm3 (0.0-0.4) 03/27/19 04:27 Baso # 0.0 K/mm3 (0.0-0.1) 03/27/19 04:27 Seg Neutrophils % 83.3 % (40.0-70.0) H 03/27/19 04:27 Seg Neutrophils # 4.7 K/mm3 (1.8-7.7) 03/27/19 04:27 PT 15.9 Sec. (12.2-14.9) H 03/26/19 12:28 INR 1.25 (0.87-1.13) H 03/26/19 12:28 APTT 31.2 Sec. (24.2-36.6) 03/26/19 12:28 ABG pH 7.411 pH Units (7.350-7.450) 03/26/19 13:40 ABG pCO2 34.3 mm Hg 03/26/19 13:40 ABG pO2 109.5 mm Hg (80.0-90.0) H 03/26/19 13:40 ABG HCO3 21.3 mmol/L (20.0-26.0) 03/26/19 13:40 ABG O2 Saturation 98.0 % (95.0-99.0) 03/26/19 13:40 ABG O2 Content 19.0 (0.0-44) 03/26/19 13:40 ABG Base Excess -2.5 mmol/L (-2.0-3.0) L 03/26/19 13:40 ABG Hemoglobin 13.9 gm/dl (14.0-18.0) L 03/26/19 13:40 ABG Carboxyhemoglobin 1.3 % (0.0-5.0) 03/26/19 13:40 ABG Methemoglobin 0.6 % (0.0-1.5) 03/26/19 13:40 Oxyhemoglobin 96.2 % (95.0-99.0) 03/26/19 13:40 FiO2 50 % 03/26/19 13:40 Sodium 152 mmol/L (137-145) H 03/30/19 04:49 Potassium 3.6 mmol/L (3.6-5.0) 03/30/19 04:49 Chloride 117.8 mmol/L (98-107) H 03/30/19 04:49 Carbon Dioxide 20 mmol/L (22-30) L 03/30/19 04:49 Anion Gap 18 mmol/L 03/30/19 04:49 BUN 20 mg/dL (9-20) 03/30/19 04:49 Creatinine 0.8 mg/dL (0.8-1.5) 03/30/19 04:49 Estimated GFR > 60 ml/min 03/30/19 04:49 BUN/Creatinine Ratio 25 % 03/30/19 04:49 Glucose 109 mg/dL (75-100) H 03/30/19 04:49 POC Glucose 98 (70-105) 03/31/19 00:02 Hemoglobin A1c 5.7 % (4-6) 03/27/19 04:27 Lactic Acid 1.80 mmol/L (0.7-2.0) 03/27/19 04:27 Calcium 8.7 mg/dL (8.4-10.2) 03/30/19 04:49 Total Bilirubin 0.60 mg/dL (0.1-1.2) 03/27/19 04:27 AST 20 units/L (5-40) 03/27/19 04:27 ALT 30 units/L (7-56) 03/27/19 04:27 Alkaline Phosphatase 136 units/L (35-129) H 03/27/19 04:27 Total Creatine Kinase 133 units/L (55-170) 03/26/19 12:28 CK-MB (CK-2) < 1.0 ng/mL (0.0-4.0) 03/26/19 12:28 CK-MB (CK-2) Rel Index 0.7 (0-4) 03/26/19 12:28 Troponin T < 0.010 ng/mL (0.00-0.029) 03/26/19 14:41 Total Protein 8.0 g/dL (6.3-8.2) 03/27/19 04:27 Albumin 3.2 g/dL (3.9-5) L 03/27/19 04:27 Albumin/Globulin Ratio 0.7 % 03/27/19 04:27 Urine Color Dahlia (Yellow) 03/26/19 12:36 Urine Turbidity Slightly-cloudy (Clear) 03/26/19 12:36 Urine pH 5.0 (5.0-7.0) 03/26/19 12:36 Ur Specific [place] 1.028 (1.003-1.030) 03/26/19 12:36 Urine Protein 30 mg/dl mg/dL (Negative) 03/26/19 12:36 Urine Glucose (UA) Neg mg/dL (Negative) 03/26/19 12:36 Urine Ketones Neg mg/dL (Negative) 03/26/19 12:36 Urine Blood Neg (Negative) 03/26/19 12:36 Urine Nitrite Neg (Negative) 03/26/19 12:36 Urine Bilirubin Neg (Negative) 03/26/19 12:36 Urine Urobilinogen 4.0 mg/dL (<2.0) 03/26/19 12:36 Ur Leukocyte Esterase Neg (Negative) 03/26/19 12:36 Urine WBC (Auto) 6.0 /HPF (0.0-6.0) 03/26/19 12:36 Urine RBC (Auto) 3.0 /HPF (0.0-6.0) 03/26/19 12:36 U Epithel Cells (Auto) 11.0 /HPF (0-13.0) 03/26/19 12:36 Urine Mucus 2+ /HPF 03/26/19 12:36 Urine Opiates Screen Presumptive negative 03/26/19 12:36 Urine Methadone Screen Presumptive negative 03/26/19 12:36 Ur Barbiturates Screen Presumptive negative 03/26/19 12:36 Ur Phencyclidine Scrn Presumptive negative 03/26/19 12:36 Ur Amphetamines Screen Presumptive negative 03/26/19 12:36 U Benzodiazepines Scrn Presumptive negative 03/26/19 12:36 Urine Cocaine Screen Presumptive negative 03/26/19 12:36 U Marijuana (THC) Screen Presumptive negative 03/26/19 12:36 Drugs of Abuse Note Disclamer 03/26/19 12:36 Active Medications - Current Medications Current Medications: Generic Name Dose Route Start Last Admin Trade Name Freq PRN Reason Stop Dose Admin Acetaminophen 650 mg 03/26/19 22:19 Tylenol PO Q4H PRN Pain MILD(1-3)/Fever >100.5/URIAS Albuterol 2.5 mg 03/26/19 22:36 Proventil IH Q3HRT PRN Wheezing Albuterol/Ipratropium 1 ampul 03/27/19 08:00 03/31/19 08:44 Duoneb *Not For Prn Use* IH 1 ampul QIDRT NANCY Administration Amlodipine Besylate 10 mg 03/27/19 10:00 03/29/19 10:00 Amlodipine PO Not Given DAILY NANCY Aspirin 81 mg 03/27/19 10:00 03/29/19 10:00 Halfprin Ec PO Not Given QDAY NANCY Famotidine 20 mg 03/27/19 10:00 03/31/19 09:57 Pepcid IV 20 mg BID NANCY Administration Folic Acid 1 mg 03/27/19 10:00 03/29/19 10:00 Folvite PO Not Given DAILY NANCY Heparin Sodium (Porcine) 5,000 unit 03/30/19 17:00 03/31/19 05:09 Heparin SUB-Q 5,000 unit Q8HR NANCY Administration Hydromorphone HCl 1 mg 03/26/19 22:19 03/31/19 04:01 Dilaudid IV 1 mg Q3H PRN Administration Pain , Severe (7-10) Vancomycin HCl 750 mg/ Sodium 265 mls @ 166.667 mls/hr 03/27/19 14:00 03/30/19 13:56 Chloride IV 03/31/19 23:59 166.667 mls/hr Q24H NANCY Administration Dextrose 1,000 mls @ 100 mls/hr 03/26/19 23:00 03/29/19 00:01 D5w IV 100 mls/hr DIRECT NANCY Administration Cefepime HCl 2 gm in 100 mls @ 200 mls/hr 03/26/19 23:00 03/31/19 09:57 Cefepime/Ns 2 Gm/100 Ml IV 03/31/19 23:59 200 mls/hr Q12HR NANCY Administration Protocol Metronidazole 500 mg in 100 mls @ 100 mls/hr 03/28/19 22:00 03/31/19 05:08 Flagyl 500 Mg/100 Ml IV 04/02/19 21:59 100 mls/hr Q8HR NANCY Administration Protocol Olanzapine 10 mg 03/27/19 10:00 03/29/19 10:00 Zyprexa PO Not Given DAILY NANCY Ondansetron HCl 4 mg 03/26/19 22:19 03/28/19 21:51 Zofran IV 4 mg Q3H PRN Administration Nausea And Vomiting Sodium Chloride 10 ml 03/27/19 10:00 03/31/19 09:57 Sodium Chloride Flush Syringe 10 Ml IV 10 ml BID NANCY Administration Sodium Chloride 10 ml 03/26/19 22:19 Sodium Chloride Flush Syringe 10 Ml IV PRN PRN LINE FLUSH Nutrition/Malnutrition Assess - Dietary Evaluation Nutrition/Malnutrition Findings: Nutrition Notes Start: 03/27/19 14:04 Freq: Status: Active Protocol: Document 03/31/19 11:18 CW (Rec: 03/31/19 11:20 CW [id number]) Co-Sign 03/31/19 11:18 LP Nutrition Notes Initial or Follow up Brief Note Current Diagnosis Sepsis,Hypertension, Respiratory Failure Other Pertinent Diagnosis Schizophrenia, dysphagia, AMS, bilat pneu, hypernatremia Current Diet NPO Subjective/Other Information F/U for TF consult. Pt remains NPO. Pt failed 1 st eval and refused a second swallow eval. TF likely. Per RN, pt. awaiting dobhoff/NGT order and placement Percent of energy/protein needs met: 0%/0% Burn Absent Trauma Absent Nutrition Intervention Goal #1 Start TF when medically feasible Anticipated Discharge Needs: unable to determine at this time Follow-Up By: 04/01/19 Additional Comments F/U for TF consult/ placement of dobhoff/NGT
--- NOTE | 2019-03-31 13:58 | XRay Report ---
CHEST 1 VIEW INDICATION: Right sided PTX. COMPARISON: 03/30/2019 FINDINGS: Support devices: None. Heart: Within normal limits. Pulmonary vasculature: Normal. Lungs/Pleura: Bilateral patchy and streaky lung opacities are not significantly changed compared to t he last exam. No pleural effusion. The right lung is normally expanded with no pneumothorax. Additional findings: None. IMPRESSION: 1. Bilateral multi lobar pneumonia. 2. No right pneumothorax. Signer Name: Manuel Camacho MD Signed: 03/31/2019 1:53 PM Workstation Name: [id number]
--- NOTE | 2019-03-31 14:37 | Electroencephalogram Report ---
Electroencephalogram EEG Date of exam: 03/31/19 History: confusion Impression: 1- diffuse back ground slowing in 4 Hz 2- recurrent biforntal atriphasic waves R>L 3- No clear sleep 4- rare begum looking waves noted predominantly R>L This finding is suggestive of encephalopathic process and or drug effect the possibility of post anoxic brain injury can not be excluded , the possibility of post ictal state can not be R?O clinical and radiological correlation is in order. Description: The waking background shows an appropriate organization with well-defined anterior posterior voltage and frequency gradients. Posteriorly, there is a well-developed alpha rhythm of [4 ] Hz which is symmetrical and bilaterally reactive. also noted frequent triphasic wave R>L through out the recording , no clear epileptiform discharges are noted During drowsiness, there is attenuation of the background rhythms. No sleep is noted Throughout, the recording there are no epileptiform abnormalities, focal or lateralizing features, or significant interhemispheric findings.
[2019-03-31] MEDS: VANCOMYCIN 750 MG in SODIUM CHLORIDE 0.9% 250ML 250 ML IV SCH (15:25)
[2019-03-31] MEDS: DEXTROSE 5% IN WATER 1,000 ML IV SCH (15:26)
--- NOTE | 2019-03-31 16:07 | Progress Note ---
Assessment and Plan Cultures: 03/26/2019 urine cultures: NGTD 03/26/2019 blood cultures: NGTD A&P: 68 yo M unknown PMHx admitted for bilateral pneumonia after being recently admitted for choking. Bilateral pneumonia - Order MRSA nares swab and stop vancomycin if negative. Low suspicion for MRSA PNA. Continue cefepime, but add metronidazole given recent admission for "choking", could have some risk factors for aspiration. Recommendations: Ordered MRSA nasal swab - unobtained. Continue vancomycin goal trough 10-20 dosed per pharmacy. Stop if above negative Continue cefepime Continue metronidazole ordered procal for AM Thank you for the consult, will continue to follow. Judie Barnes MD [facility] ([facility]) M: [phone] O: [phone] F: [phone] Subjective Date of service: 03/31/19 Interval history: Afebrile now, improved white count. Objective - Exam Narrative Exam: Constitutional: Lethargic, unable to rouse Head, Ears, Nose: Normocephalic, atraumatic. External ears, nose normal Eyes: Conjunctivae/corneas clear. Neck: Supple, no meningeal signs Oral: dentition fair, no thrush Cardiovascular: S1, S2 normal. Respiratory: Gurgling breath noises GI: Soft, non-tender; bowel sounds normal. No peritoneal signs. Musculoskeletal: No pedal edema, no cyanosis. Skin: No rash or abscess Hem/Lymphatic: No palpable cervical or supraclavicular nodes. No lymphangitis Psych: Lethargic Neurological: Lethargic - Constitutional Vitals: Vital Signs Temp Pulse Resp BP Pulse Ox 99 F 76 22 139/79 98 03/31/19 12:00 03/31/19 15:20 03/31/19 15:20 03/31/19 15:00 03/31/19 15:21 Temperature -Last 24 Hours Temperature 99 F Temperature 99.0 F Temperature 97.9 F Temperature 97.8 F Temperature 97.9 F - Labs CBC & Chem 7: 03/30/19 04:49 03/30/19 04:49
[2019-04-01] MEDS: DEXTROSE 5% IN WATER 1,000 ML IV SCH ×2 (04:43→22:26)
[2019-04-01] MEDS: metroNIDAZOLE/NS 500 MG/100 ML 500 MG/100 ML BAG IV SCH ×3 (05:04→22:25)
[2019-04-01] MEDS: HEPARIN 5,000 UNIT/1 ML VIAL SUB-Q SCH ×3 (05:06→22:26)
[2019-04-01 05:26] LABS: Eosinophils % (Auto) 0.2 % (0.0-4.3); Hemoglobin 10.4 gm/dl (11.8-15.2); Lymphocytes # (Auto) 0.5 K/mm3 (1.2-5.4); Mean Corpuscular HGB Conc 33 % (32-34); Mean Corpuscular Volume 89 fl (84-94); Monocytes # (Auto) 0.6 K/mm3 (0.0-0.8); Monocytes % (Auto) 8.6 % (0.0-7.3); Platelet Count 230 K/mm3 (140-440); Red Blood Count 3.62 M/mm3 (3.65-5.03); Red Cell Distribution Width 15.7 % (13.2-15.2)
[2019-04-01 05:48] LABS: BUN/Creatinine Ratio 36; Blood Urea Nitrogen 29 mg/dL (9-20); Calcium 8.6 mg/dL (8.4-10.2); Hemolysis Index 4
[2019-04-01] MEDS: IPRATROPIUM/ALBUTEROL SULFATE 3 ML AMPUL.NEB IH SCH ×4 (10:16→21:48)
--- NOTE | 2019-04-01 10:41 | Progress Note ---
Assessment and Plan 68 y/o male admitted with altered mental status and acute respiratory failure from presumed pneumonia. 1. Will ask CM to see if there is other more knowledgeable family that can provide further insight into patient mental state. 2. Wean HFNC as tolerated. 3. Ok with abx 4. Off steroids. Also stopped all pain meds and scheduled ativan that per report patient was on outside of the hospital. 5. Weaned to 20 and 30 on the HFNC, sats are still in the high 90's. Stable for transfer to floor, likely Tele Subjective Date of service: 04/01/19 Interval history: No acute events. had EEG yesterday, no seizure activity, just diffuse slowing. Concern for drug effect as well. Dilaudid was still on APR so I stopped this. No family at bedside. Repeat CXR shows resolution of PTX Objective Vital Signs - 12hr 03/31/19 04/01/19 04/01/19 23:00 00:00 01:00 Temperature 98.2 F Pulse Rate 68 72 68 Pulse Rate [ 72 From Monitor] Respiratory 31 H 31 H 29 H Rate Blood Pressure 141/74 141/77 126/70 O2 Sat by Pulse 97 98 97 Oximetry 04/01/19 04/01/19 04/01/19 02:00 03:00 04:00 Temperature 99.6 F Pulse Rate 71 69 68 Pulse Rate [ 71 From Monitor] Respiratory 31 H 31 H 31 H Rate Blood Pressure 126/70 146/76 138/74 O2 Sat by Pulse 98 99 96 Oximetry 04/01/19 04/01/19 04/01/19 05:00 06:00 07:00 Temperature 98.3 F Pulse Rate 72 75 69 Pulse Rate [ From Monitor] Respiratory 31 H 33 H 34 H Rate Blood Pressure 143/78 151/81 146/78 O2 Sat by Pulse 97 97 97 Oximetry 04/01/19 04/01/19 04/01/19 08:00 09:00 10:00 Temperature Pulse Rate 69 77 79 Pulse Rate [ 71 From Monitor] Respiratory 32 H 32 H 35 H Rate Blood Pressure 144/77 148/79 145/77 O2 Sat by Pulse 98 98 96 Oximetry Constitutional: appears uncomfortable, other (eyes open but not responsive) Eyes: non-icteric ENT: other (full face mask bipap in place) Neck: supple Effort: mildly labored Ascultation: Bilateral: clear Cardiovascular: regular rate and rhythm CBC and BMP: 04/01/19 04:19 04/01/19 04:19 ABG, PT/INR, D-dimer: ABG ABG pH 7.411 pH Units (7.350-7.450) 03/26/19 13:40 ABG pCO2 34.3 mm Hg 03/26/19 13:40 ABG pO2 109.5 mm Hg (80.0-90.0) H 03/26/19 13:40 ABG O2 Saturation 98.0 % (95.0-99.0) 03/26/19 13:40 PT/INR, D-dimer PT 15.9 Sec. (12.2-14.9) H 03/26/19 12:28 INR 1.25 (0.87-1.13) H 03/26/19 12:28 Abnormal lab findings: Abnormal Labs 03/26/19 03/26/19 03/26/19 12:28 12:28 12:28 WBC RBC Hgb Hct RDW 16.1 H Lymph % (Auto) 12.3 L Wolfe % (Auto) Lymph # 0.7 L Seg Neutrophils % 82.0 H PT 15.9 H INR 1.25 H ABG pO2 ABG Base Excess ABG Hemoglobin Sodium 155 H Potassium Chloride 115.8 H Carbon Dioxide 18 L BUN 39 H Creatinine Glucose 213 H Lactic Acid Alkaline Phosphatase 163 H Total Protein 8.6 H Albumin 3.4 L 03/26/19 03/26/19 03/26/19 12:28 13:40 14:41 WBC RBC Hgb Hct RDW Lymph % (Auto) Wolfe % (Auto) Lymph # Seg Neutrophils % PT INR ABG pO2 109.5 H ABG Base Excess -2.5 L ABG Hemoglobin 13.9 L Sodium Potassium Chloride Carbon Dioxide BUN Creatinine Glucose Lactic Acid 3.50 H* 4.90 H* Alkaline Phosphatase Total Protein Albumin 03/26/19 03/26/19 03/26/19 15:46 20:26 21:34 WBC RBC Hgb Hct RDW Lymph % (Auto) Wolfe % (Auto) Lymph # Seg Neutrophils % PT INR ABG pO2 ABG Base Excess ABG Hemoglobin Sodium Potassium Chloride Carbon Dioxide BUN Creatinine Glucose Lactic Acid 3.60 H* 2.80 H* 3.00 H* Alkaline Phosphatase Total Protein Albumin 01/03/27/19 03/27/19 04:27 04:27 18:59 WBC RBC Hgb Hct RDW 16.3 H Lymph % (Auto) 10.5 L Wolfe % (Auto) Lymph # 0.6 L Seg Neutrophils % 83.3 H PT INR ABG pO2 ABG Base Excess ABG Hemoglobin Sodium 156 H 157 H Potassium Chloride 120.2 H 122.1 H Carbon Dioxide 21 L 21 L BUN 40 H 41 H Creatinine Glucose 207 H 170 H Lactic Acid Alkaline Phosphatase 136 H Total Protein Albumin 3.2 L 03/28/19 03/28/19 03/29/19 03:43 03:43 05:27 WBC 14.5 H RBC 3.56 L 3.51 L Hgb 10.3 L 10.1 L Hct 31.9 L 31.3 L RDW 15.9 H 16.0 H Lymph % (Auto) Wolfe % (Auto) Lymph # Seg Neutrophils % PT INR ABG pO2 ABG Base Excess ABG Hemoglobin Sodium 152 H Potassium Chloride 117.5 H Carbon Dioxide BUN 34 H Creatinine Glucose 143 H Lactic Acid Alkaline Phosphatase Total Protein Albumin 03/29/19 03/30/19 03/30/19 05:27 04:49 04:49 WBC RBC 3.61 L Hgb 10.6 L Hct 31.8 L RDW 15.6 H Lymph % (Auto) Wolfe % (Auto) Lymph # Seg Neutrophils % PT INR ABG pO2 ABG Base Excess ABG Hemoglobin Sodium 147 H 152 H Potassium Chloride 113.0 H 117.8 H Carbon Dioxide 20 L 20 L BUN 21 H Creatinine 0.7 L Glucose 127 H 109 H Lactic Acid Alkaline Phosphatase Total Protein Albumin 04/01/19 04/01/19 04:19 04:19 WBC RBC 3.62 L Hgb 10.4 L Hct 32.0 L RDW 15.7 H Lymph % (Auto) 7.0 L Wolfe % (Auto) 8.6 H Lymph # 0.5 L Seg Neutrophils % 84.2 H PT INR ABG pO2 ABG Base Excess ABG Hemoglobin Sodium 154 H Potassium 3.4 L Chloride 120.5 H Carbon Dioxide BUN 29 H Creatinine Glucose 151 H Lactic Acid Alkaline Phosphatase Total Protein Albumin
[2019-04-01] MEDS: CEFEPIME/NS 2 GM/100 ML 2 GM/100 ML BAG IV SCH ×2 (11:25→22:26)
[2019-04-01] MEDS: FAMOTIDINE 20 MG/2 ML INJ IV SCH ×2 (11:55→22:26)
--- NOTE | 2019-04-01 12:11 | Progress Note ---
Assessment and Plan Assessment and plan: Sepsis. Etiology secondary to bilateral pneumonia Elevated Lactic acid Continue antibiotics per ID ID following Toxic metabolic encephalopathy Consulted Neurology, Dr. Clarke following EEG revealed findings suggestive of encephalopathic process with the possibility of post anoxic brain injury or post ictal state. 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 Hospitalist Physical - Constitutional Vitals: Temp Pulse Resp BP Pulse Ox 98.3 F 79 35 H 145/77 96 04/01/19 07:00 04/01/19 10:00 04/01/19 10:00 04/01/19 10:00 04/01/19 10:00 General appearance: Present: no acute distress - EENT Eyes: Present: PERRL, EOM intact ENT: hearing intact, clear oral mucosa, dentition normal - Neck Neck: Present: supple, normal ROM - Respiratory Respiratory effort: normal Respiratory: bilateral: CTA - Cardiovascular Rhythm: regular Heart Sounds: Present: S1 & S2. Absent: gallop, rub - Extremities Extremities: no ischemia, No edema, Full ROM - Abdominal General gastrointestinal: soft, non-tender, non-distended, normal bowel sounds - Integumentary Integumentary: Present: clear, warm, dry - Neurologic Neurologic: CNII-XII intact, moves all extremities Results - Labs CBC & Chem 7: 04/01/19 04:19 04/01/19 04:19 Labs: Laboratory Last Values WBC 7.5 K/mm3 (4.5-11.0) 04/01/19 04:19 RBC 3.62 M/mm3 (3.65-5.03) L 04/01/19 04:19 Hgb 10.4 gm/dl (11.8-15.2) L 04/01/19 04:19 Hct 32.0 % (35.5-45.6) L 04/01/19 04:19 MCV 89 fl (84-94) 04/01/19 04:19 MCH 29 pg (28-32) 04/01/19 04:19 MCHC 33 % (32-34) 04/01/19 04:19 RDW 15.7 % (13.2-15.2) H 04/01/19 04:19 Plt Count 230 K/mm3 (140-440) 04/01/19 04:19 Lymph % (Auto) 7.0 % (13.4-35.0) L 04/01/19 04:19 [place] % (Auto) 8.6 % (0.0-7.3) H 04/01/19 04:19 Eos % (Auto) 0.2 % (0.0-4.3) 04/01/19 04:19 Baso % (Auto) 0.0 % (0.0-1.8) 04/01/19 04:19 Lymph # 0.5 K/mm3 (1.2-5.4) L 04/01/19 04:19 [place] # 0.6 K/mm3 (0.0-0.8) 04/01/19 04:19 Eos # 0.0 K/mm3 (0.0-0.4) 04/01/19 04:19 Baso # 0.0 K/mm3 (0.0-0.1) 04/01/19 04:19 Seg Neutrophils % 84.2 % (40.0-70.0) H 04/01/19 04:19 Seg Neutrophils # 6.3 K/mm3 (1.8-7.7) 04/01/19 04:19 PT 15.9 Sec. (12.2-14.9) H 03/26/19 12:28 INR 1.25 (0.87-1.13) H 03/26/19 12:28 APTT 31.2 Sec. (24.2-36.6) 03/26/19 12:28 ABG pH 7.411 pH Units (7.350-7.450) 03/26/19 13:40 ABG pCO2 34.3 mm Hg 03/26/19 13:40 ABG pO2 109.5 mm Hg (80.0-90.0) H 03/26/19 13:40 ABG HCO3 21.3 mmol/L (20.0-26.0) 03/26/19 13:40 ABG O2 Saturation 98.0 % (95.0-99.0) 03/26/19 13:40 ABG O2 Content 19.0 (0.0-44) 03/26/19 13:40 ABG Base Excess -2.5 mmol/L (-2.0-3.0) L 03/26/19 13:40 ABG Hemoglobin 13.9 gm/dl (14.0-18.0) L 03/26/19 13:40 ABG Carboxyhemoglobin 1.3 % (0.0-5.0) 03/26/19 13:40 ABG Methemoglobin 0.6 % (0.0-1.5) 03/26/19 13:40 Oxyhemoglobin 96.2 % (95.0-99.0) 03/26/19 13:40 FiO2 50 % 03/26/19 13:40 Sodium 154 mmol/L (137-145) H 04/01/19 04:19 Potassium 3.4 mmol/L (3.6-5.0) L 04/01/19 04:19 Chloride 120.5 mmol/L (98-107) H 04/01/19 04:19 Carbon Dioxide 22 mmol/L (22-30) 04/01/19 04:19 Anion Gap 15 mmol/L 04/01/19 04:19 BUN 29 mg/dL (9-20) H 04/01/19 04:19 Creatinine 0.8 mg/dL (0.8-1.5) 04/01/19 04:19 Estimated GFR > 60 ml/min 04/01/19 04:19 BUN/Creatinine Ratio 36 % 04/01/19 04:19 Glucose 151 mg/dL (75-100) H 04/01/19 04:19 POC Glucose 98 (70-105) 03/31/19 00:02 Hemoglobin A1c 5.7 % (4-6) 03/27/19 04:27 Lactic Acid 1.80 mmol/L (0.7-2.0) 03/27/19 04:27 Calcium 8.6 mg/dL (8.4-10.2) 04/01/19 04:19 Total Bilirubin 0.60 mg/dL (0.1-1.2) 03/27/19 04:27 AST 20 units/L (5-40) 03/27/19 04:27 ALT 30 units/L (7-56) 03/27/19 04:27 Alkaline Phosphatase 136 units/L (35-129) H 03/27/19 04:27 Total Creatine Kinase 133 units/L (55-170) 03/26/19 12:28 CK-MB (CK-2) < 1.0 ng/mL (0.0-4.0) 03/26/19 12:28 CK-MB (CK-2) Rel Index 0.7 (0-4) 03/26/19 12:28 Troponin T < 0.010 ng/mL (0.00-0.029) 03/26/19 14:41 Total Protein 8.0 g/dL (6.3-8.2) 03/27/19 04:27 Albumin 3.2 g/dL (3.9-5) L 03/27/19 04:27 Albumin/Globulin Ratio 0.7 % 03/27/19 04:27 Procalcitonin 1.82 ng/mL (<0.15) 04/01/19 04:19 Urine Color [place] (Yellow) 03/26/19 12:36 Urine Turbidity Slightly-cloudy (Clear) 03/26/19 12:36 Urine pH 5.0 (5.0-7.0) 03/26/19 12:36 Ur Specific [place] 1.028 (1.003-1.030) 03/26/19 12:36 Urine Protein 30 mg/dl mg/dL (Negative) 03/26/19 12:36 Urine Glucose (UA) Neg mg/dL (Negative) 03/26/19 12:36 Urine Ketones Neg mg/dL (Negative) 03/26/19 12:36 Urine Blood Neg (Negative) 03/26/19 12:36 Urine Nitrite Neg (Negative) 03/26/19 12:36 Urine Bilirubin Neg (Negative) 03/26/19 12:36 Urine Urobilinogen 4.0 mg/dL (<2.0) 03/26/19 12:36 Ur Leukocyte Esterase Neg (Negative) 03/26/19 12:36 Urine WBC (Auto) 6.0 /HPF (0.0-6.0) 03/26/19 12:36 Urine RBC (Auto) 3.0 /HPF (0.0-6.0) 03/26/19 12:36 U Epithel Cells (Auto) 11.0 /HPF (0-13.0) 03/26/19 12:36 Urine Mucus 2+ /HPF 03/26/19 12:36 Urine Opiates Screen Presumptive negative 03/26/19 12:36 Urine Methadone Screen Presumptive negative 03/26/19 12:36 Ur Barbiturates Screen Presumptive negative 03/26/19 12:36 Ur Phencyclidine Scrn Presumptive negative 03/26/19 12:36 Ur Amphetamines Screen Presumptive negative 03/26/19 12:36 U Benzodiazepines Scrn Presumptive negative 03/26/19 12:36 Urine Cocaine Screen Presumptive negative 03/26/19 12:36 U Marijuana (THC) Screen Presumptive negative 03/26/19 12:36 Drugs of Abuse Note Disclamer 03/26/19 12:36 Active Medications - Current Medications Current Medications: Generic Name Dose Route Start Last Admin Trade Name Freq PRN Reason Stop Dose Admin Acetaminophen 650 mg 03/26/19 22:19 Tylenol PO Q4H PRN Pain MILD(1-3)/Fever >100.5/URIAS Albuterol 2.5 mg 03/26/19 22:36 Proventil IH Q3HRT PRN Wheezing Albuterol/Ipratropium 1 ampul 03/27/19 08:00 04/01/19 10:16 Duoneb *Not For Prn Use* IH Not Given QIDRT [facility] Amlodipine Besylate 10 mg 03/27/19 10:00 03/29/19 10:00 Amlodipine PO Not Given DAILY [facility] Aspirin 81 mg 03/27/19 10:00 03/29/19 10:00 Halfprin Ec PO Not Given QDAY [facility] Famotidine 20 mg 03/27/19 10:00 03/31/19 22:49 Pepcid IV 20 mg BID NANCY Administration Folic Acid 1 mg 03/27/19 10:00 03/29/19 10:00 Folvite PO Not Given DAILY [facility] Heparin Sodium (Porcine) 5,000 unit 03/30/19 17:00 04/01/19 05:06 Heparin SUB-Q 5,000 unit Q8HR NANCY Administration Dextrose 1,000 mls @ 100 mls/hr 03/26/19 23:00 04/01/19 04:43 D5w IV 100 mls/hr DIRECT NANCY Administration Metronidazole 500 mg in 100 mls @ 100 mls/hr 03/28/19 22:00 04/01/19 05:04 Flagyl 500 Mg/100 Ml IV 100 mls/hr Q8HR NANCY Administration Protocol Cefepime HCl 2 gm in 100 mls @ 200 mls/hr 04/01/19 10:00 Cefepime/Ns 2 Gm/100 Ml IV Q12HR NANCY Protocol Olanzapine 10 mg 03/27/19 10:00 03/29/19 10:00 Zyprexa PO Not Given DAILY NANCY Ondansetron HCl 4 mg 03/26/19 22:19 03/28/19 21:51 Zofran IV 4 mg Q3H PRN Administration Nausea And Vomiting Sodium Chloride 10 ml 03/27/19 10:00 03/31/19 22:41 Sodium Chloride Flush Syringe 10 Ml IV 10 ml BID NANCY Administration Sodium Chloride 10 ml 03/26/19 22:19 Sodium Chloride Flush Syringe 10 Ml IV PRN PRN LINE FLUSH Nutrition/Malnutrition Assess - Dietary Evaluation Nutrition/Malnutrition Findings: Nutrition Notes Start: 03/27/19 14:04 Freq: Status: Active Protocol: Document 04/01/19 10:16 CC (Rec: 04/01/19 10:20 CC [id number]) Co-Sign 04/01/19 10:16 LP Nutrition Notes Initial or Follow up Reassessment Current Diagnosis Sepsis,Hypertension, Respiratory Failure Other Pertinent Diagnosis Schizophrenia, dysphagia, AMS, bilat pneu, hypernatremia Current Diet NPO Labs/Tests Na 154 BUN 29 Pertinent Medications D5w at 100ml/hr Height 5 ft 8 in Weight 53.116 kg [place] Body Weight (kg) 70.00 BMI 17.8 Subjective/Other Information F/U for TF consult. Pt remains NPO. RN stated will speak with MD today about why pt has not had an order for NGT or TF. Percent of energy/protein needs met: 0%/0% Burn Absent Trauma Absent Difficulty In Swallowing Current % PO Negligible Minimum of two criteria Yes Body Fat Depletion Mild depletion (non-severe) Muscle Mass Moderate Depletion (severe) #2 Nutrition Diagnosis Malnutrition Diagnosis Progress(for reassessment Continues documentation) #1 Nutrition Diagnosis Inadequate oral intake Diagnosis Progress(for reassessment Continues documentation) Is patient on ventilator? No Is Patient Ambulatory and/or Out of Bed No REE-([facility] [place]-confined to bed) 1548.492 Kcal/Kg value to use for calculation 34 Approximate Energy Requirements Using 1806 kcal/Kg Calculation Used for Recommendations Kcal/kg Additional Notes protein: 64-80 g (1.2 - 1.5 g/ kg) fluid 1ml/ kcal Nutrition Intervention Change Diet Order: recommend TF Nutrition Support: Jevity 1.2 at 55 ml/hr Flush 200 ml q4h for hypernatremia Flush 100 ml q4h once hypernatremia resolves Kcal 1,728 Protein (gm) 80 Fluid (mL) 1,162 Goal #1 Start TF when medically feasible Anticipated Discharge Needs: unable to determine at this time Follow-Up By: 04/02/19 Additional Comments F/U for TF consult/ placement of dobhoff/NGT
[2019-04-01] MEDS ORDERED: HYDROmorphone 2 MG/1 ML INJ IV NR (14:20)
--- NOTE | 2019-04-01 15:35 | Progress Note ---
Assessment and Plan Cultures: 03/26/2019 urine cultures: NGTD 03/26/2019 blood cultures: NGTD A&P: 68 yo M unknown PMHx admitted for bilateral pneumonia after being recently admitted for choking. Bilateral pneumonia - Order MRSA nares swab and stop vancomycin if negative. Low suspicion for MRSA PNA. Continue cefepime, but add metronidazole given recent admission for "choking", could have some risk factors for aspiration. Recommendations: Continue cefepime Continue metronidazole Complete 7 day course of antibiotics. Stop date: 04/03/2019 Thank you for the consult, will sign off. please call with questions. Judie Barnes MD [facility] ([facility]) M: [phone] O: [phone] F: [phone] Subjective Date of service: 04/01/19 Interval history: Afebrile now, improved white count. Objective - Exam Narrative Exam: Constitutional: Lethargic, unable to rouse Head, Ears, Nose: Normocephalic, atraumatic. External ears, nose normal Oral: dentition fair, no thrush Cardiovascular: S1, S2 normal. Respiratory: Gurgling breath noises GI: Soft, non-tender; bowel sounds normal. No peritoneal signs. Musculoskeletal: No pedal edema, no cyanosis. Skin: No rash or abscess Hem/Lymphatic: No palpable cervical or supraclavicular nodes. No lymphangitis Psych: Lethargic Neurological: Lethargic - Constitutional Vitals: Vital Signs Temp Pulse Resp BP Pulse Ox 98.8 F 79 38 H 130/70 95 04/01/19 11:00 04/01/19 13:00 04/01/19 13:00 04/01/19 13:00 04/01/19 13:00 Temperature -Last 24 Hours Temperature 98.8 F Temperature 98.3 F Temperature 99.6 F Temperature 98.2 F Temperature 98.3 F Temperature 97.9 F - Labs CBC & Chem 7: 04/01/19 04:19 04/01/19 04:19 Labs: Abnormal lab results 04/01/19 04/01/19 Range/Units 04:19 04:19 RBC 3.62 L (3.65-5.03) M/mm3 Hgb 10.4 L (11.8-15.2) gm/dl Hct 32.0 L (35.5-45.6) % RDW 15.7 H (13.2-15.2) % Lymph % (Auto) 7.0 L (13.4-35.0) % [place] % (Auto) 8.6 H (0.0-7.3) % Lymph # 0.5 L (1.2-5.4) K/mm3 Seg Neutrophils % 84.2 H (40.0-70.0) % Sodium 154 H (137-145) mmol/L Potassium 3.4 L (3.6-5.0) mmol/L Chloride 120.5 H (98-107) mmol/L BUN 29 H (9-20) mg/dL Glucose 151 H (75-100) mg/dL
--- NOTE | 2019-04-01 20:00 | XRay Report ---
ABDOMEN 1 VIEW(S) INDICATION / CLINICAL INFORMATION: Feeding tube placement. COMPARISON: None available. FINDINGS: TUBES / LINES: None. BOWEL GAS PATTERN: No significant abnormality. FREE AIR / EXTRALUMINAL GAS: There is relative lucency over the upper abdomen which is concerning for pneumoperitoneum. ADDITIONAL FINDINGS: There are minimally displaced fractures through the lateral left lower ribs. IMPRESSION: 1. No feeding tube is seen. This could be within the esophagus or the lungs. Consider obtaining a caty st radiograph. 2. Relative lucency over the abdomen is concerning for pneumoperitoneum. 3. Minimally displaced left lower rib fractures. COMMUNICATION: Time of Communication: 6:53 PM central Licensed Practitioner Receiving Report: MARIKA Bautista [facility] Signer Name: Xavi Grant MD Signed: 04/01/2019 7:55 PM Workstation Name: [email or web address]
[2019-04-01] MEDS: ASPIRIN EC 81 MG TAB PO SCH (20:05)
[2019-04-01] MEDS: amLODIPine 10 MG TAB PO SCH (20:05)
[2019-04-01] MEDS: FOLIC ACID 1 MG TAB PO SCH (20:05)
--- NOTE | 2019-04-01 21:00 | Event Note ---
Date: 04/01/[address] Morrissey regarding new consult on this patient for possible free air seen on abdominal xray. Xray was performed to check for dobhoff tube placement. No feeding tube seen in the stomach. Patient has stable VS. Discussed with patient's am shift RN and patient's abdominal exam has been stable without signs of distension, tenderness, or firmness. Ct scan A/P ordered stat. Advised patient's PM RN to hold off on placing any feeding tube until Ct A/P is resulted. Abd xray reviewed - full right hemidiaphragm not seen well. Radiologist read states " relative lucency over the abdomen is concerning for pneumoperitoneum." Ct scan A/P - images and report reviewed- No free air seen. Radiology read - " no acute intraabdominal disease identified. There is no evidence for pneumoperitoneum." No surgical intervention. Dr. Morrissey updated and discussed with patient's RN.
--- NOTE | 2019-04-01 21:37 | Cat Scan Report ---
CT OF THE ABDOMEN AND PELVIS WITHOUT CONTRAST INDICATION / CLINICAL INFORMATION: KUB with concern for free air. TECHNIQUE: All CT scans at this location are performed using CT dose reduction for ALARA by means of automated e xposure control. COMPARISON: None available. FINDINGS: ABDOMEN: There is contrast throughout the colon. I see no evidence of bowel obstruction, wall thicken ing or free air. There are several small simple cysts in the liver. The gallbladder, bile ducts, panc reas, spleen, adrenal glands and kidneys are normal. There is bibasilar consolidation, greater on the right. PELVIS: There is a Marte catheter in the urinary bladder which contains gas. There is a urinary bladd er diverticulum on the right. Brachytherapy seeds overlie the prostate gland. No acute osseous abnorm ality is identified. IMPRESSION: 1. No acute intra-abdominal disease is identified. There is no evidence of pneumoperitoneum. 2. Bilateral lower lobe pneumonia, right greater than left. Signer Name: Timothy Madrid MD Signed: 04/01/2019 9:32 PM Workstation Name: [id number]
[2019-04-01] MEDS: ONDANSETRON 4 MG/2 ML INJ IV PRN (22:26)
[2019-04-02] MEDS: ALBUTEROL 2.5 MG/3 ML NEBU IH PRN (02:46)
[2019-04-02 03:39] LABS: ABG Base Excess -0.7 mmol/L (-2.0-3.0); ABG HCO3 21.8 mmol/L (20.0-26.0); ABG Methemoglobin 0.6 % (0.0-1.5); ABG Oxygen Saturation 87.2 % (95.0-99.0); ABG PCO2 29.4 mm Hg; ABG PH 7.487 pH Units (7.350-7.450); ABG PO2 48.3 mm Hg (80.0-90.0)
--- NOTE | 2019-04-02 05:03 | XRay Report ---
CHEST - 1 VIEW INDICATION: Abnormal ABG's COMPARISON: 2 days prior FINDINGS: Support devices: None. Heart: Stable cardiomediastinal silhouette. Lungs/pleura: New/worsened patchy right basilar airspace disease and small layering effusion. Additional findings: None. IMPRESSION: New/worsened exam. Signer Name: Billy Boo MD Signed: 04/02/2019 4:59 AM Workstation Name: [id number]
[2019-04-02 05:22] LABS: Basophils % (Auto) 0.1 % (0.0-1.8); Eosinophils % (Auto) 0.2 % (0.0-4.3); Hematocrit 34.6 % (35.5-45.6); Hemoglobin 11.3 gm/dl (11.8-15.2); Lymphocytes # (Auto) 0.6 K/mm3 (1.2-5.4); Lymphocytes % (Auto) 6.1 % (13.4-35.0); Mean Corpuscular HGB Conc 33 % (32-34); Mean Corpuscular Volume 88 fl (84-94); Monocytes # (Auto) 0.6 K/mm3 (0.0-0.8); Monocytes % (Auto) 5.6 % (0.0-7.3); Platelet Count 252 K/mm3 (140-440); Red Blood Count 3.93 M/mm3 (3.65-5.03); Red Cell Distribution Width 15.6 % (13.2-15.2)
[2019-04-02 05:47] LABS: BUN/Creatinine Ratio 26; Blood Urea Nitrogen 21 mg/dL (9-20); Calcium 8.5 mg/dL (8.4-10.2); Hemolysis Index 2
[2019-04-02] MEDS: metroNIDAZOLE/NS 500 MG/100 ML 500 MG/100 ML BAG IV SCH ×3 (05:47→22:30)
[2019-04-02] MEDS: HEPARIN 5,000 UNIT/1 ML VIAL SUB-Q SCH ×3 (05:47→22:32)
[2019-04-02] MEDS: IPRATROPIUM/ALBUTEROL SULFATE 3 ML AMPUL.NEB IH SCH ×4 (07:50→20:17)
--- NOTE | 2019-04-02 10:05 | Progress Note ---
Assessment and Plan 68 y/o male admitted with altered mental status and acute respiratory failure from presumed pneumonia. 1. Ordered CPT for patient with NT suctioning to see if this well help. Do not want to bronch as it may send him into worsening respiratory failure. 2. Wean HFNC as tolerated. 3. Ok with abx 4. Spoke with Nutrition, ok with starting TPN Guarded prognosis. Patient may need peg but need to determine who the appropriate next of kin. Specifically who signed him in to the facility he came from as clearly he was not able to do this himself. Subjective Date of service: 04/02/19 Interval history: it appears sometime between the KUB for NG placement and the CXR this am that the patient aspirated. He now has a large right sided dense infiltrate with likely effusion. Mentally he is unchanged. Currently on HFNC at 40 and 60%. No family is present. Objective Vital Signs - 12hr 04/01/19 04/01/19 04/02/19 23:00 23:48 00:00 Temperature 97.8 F Pulse Rate 108 H 104 H 103 H Pulse Rate [ Bilateral] Pulse Rate [ 97 H From Monitor] Respiratory 35 H 34 H 32 H Rate Respiratory Rate [Bilateral ] Blood Pressure 149/87 149/87 156/95 O2 Sat by Pulse 87 93 92 Oximetry 04/02/19 04/02/19 04/02/19 01:00 02:00 03:00 Temperature Pulse Rate 96 H 97 H 95 H Pulse Rate [ 101 H Bilateral] Pulse Rate [ From Monitor] Respiratory 35 H 32 H 36 H Rate Respiratory 37 H Rate [Bilateral ] Blood Pressure 156/95 156/95 156/95 O2 Sat by Pulse 91 90 92 Oximetry 04/02/19 04/02/19 04/02/19 03:54 04:00 05:00 Temperature 97.9 F Pulse Rate 110 H 92 H Pulse Rate [ Bilateral] Pulse Rate [ 100 H From Monitor] Respiratory 40 H 31 H Rate Respiratory Rate [Bilateral ] Blood Pressure 143/97 143/97 O2 Sat by Pulse 96 91 99 Oximetry 04/02/19 04/02/19 04/02/19 06:00 07:50 08:00 Temperature 98.8 F Pulse Rate 92 H Pulse Rate [ 86 Bilateral] Pulse Rate [ From Monitor] Respiratory 30 H Rate Respiratory 30 H Rate [Bilateral ] Blood Pressure 143/97 O2 Sat by Pulse 100 Oximetry Constitutional: appears uncomfortable, other (eyes open but not responsive) Eyes: non-icteric ENT: other (full face mask bipap in place) Neck: supple Effort: mildly labored Ascultation: Bilateral: clear Cardiovascular: regular rate and rhythm CBC and BMP: 04/02/19 04:51 04/02/19 04:51 ABG, PT/INR, D-dimer: ABG ABG pH 7.487 pH Units (7.350-7.450) H 04/02/19 03:25 ABG pCO2 29.4 mm Hg 04/02/19 03:25 ABG pO2 48.3 mm Hg (80.0-90.0) L 04/02/19 03:25 ABG O2 Saturation 87.2 % (95.0-99.0) L 04/02/19 03:25 PT/INR, D-dimer PT 15.9 Sec. (12.2-14.9) H 03/26/19 12:28 INR 1.25 (0.87-1.13) H 03/26/19 12:28 Abnormal lab findings: Abnormal Labs 03/26/19 03/26/19 03/26/19 12:28 12:28 12:28 WBC RBC Hgb Hct RDW 16.1 H Lymph % (Auto) 12.3 L [place] % (Auto) Lymph # 0.7 L Seg Neutrophils % 82.0 H Seg Neutrophils # PT 15.9 H INR 1.25 H ABG pH ABG pO2 ABG O2 Saturation ABG Base Excess ABG Hemoglobin Oxyhemoglobin Sodium 155 H Potassium Chloride 115.8 H Carbon Dioxide 18 L BUN 39 H Creatinine Glucose 213 H Lactic Acid Alkaline Phosphatase 163 H Total Protein 8.6 H Albumin 3.4 L Levetiracetam 03/26/19 03/26/19 03/26/19 12:28 13:40 14:41 WBC RBC Hgb Hct RDW Lymph % (Auto) [place] % (Auto) Lymph # Seg Neutrophils % Seg Neutrophils # PT INR ABG pH ABG pO2 109.5 H ABG O2 Saturation ABG Base Excess -2.5 L ABG Hemoglobin 13.9 L Oxyhemoglobin Sodium Potassium Chloride Carbon Dioxide BUN Creatinine Glucose Lactic Acid 3.50 H* 4.90 H* Alkaline Phosphatase Total Protein Albumin Levetiracetam 0103/26/19 03/26/19 15:46 15:46 20:26 WBC RBC Hgb Hct RDW Lymph % (Auto) [place] % (Auto) Lymph # Seg Neutrophils % Seg Neutrophils # PT INR ABG pH ABG pO2 ABG O2 Saturation ABG Base Excess ABG Hemoglobin Oxyhemoglobin Sodium Potassium Chloride Carbon Dioxide BUN Creatinine Glucose Lactic Acid 3.60 H* 2.80 H* Alkaline Phosphatase Total Protein Albumin Levetiracetam <1.0 L 03/26/19 03/27/19 03/27/19 21:34 04:27 04:27 WBC RBC Hgb Hct RDW 16.3 H Lymph % (Auto) 10.5 L [place] % (Auto) Lymph # 0.6 L Seg Neutrophils % 83.3 H Seg Neutrophils # PT INR ABG pH ABG pO2 ABG O2 Saturation ABG Base Excess ABG Hemoglobin Oxyhemoglobin Sodium 156 H Potassium Chloride 120.2 H Carbon Dioxide 21 L BUN 40 H Creatinine Glucose 207 H Lactic Acid 3.00 H* Alkaline Phosphatase 136 H Total Protein Albumin 3.2 L Levetiracetam 03/27/19 03/28/19 03/28/19 18:59 03:43 03:43 WBC RBC 3.56 L Hgb 10.3 L Hct 31.9 L RDW 15.9 H Lymph % (Auto) [place] % (Auto) Lymph # Seg Neutrophils % Seg Neutrophils # PT INR ABG pH ABG pO2 ABG O2 Saturation ABG Base Excess ABG Hemoglobin Oxyhemoglobin Sodium 157 H 152 H Potassium Chloride 122.1 H 117.5 H Carbon Dioxide 21 L BUN 41 H 34 H Creatinine Glucose 170 H 143 H Lactic Acid Alkaline Phosphatase Total Protein Albumin Levetiracetam 03/29/19 03/29/19 03/30/19 05:27 05:27 04:49 WBC 14.5 H RBC 3.51 L Hgb 10.1 L Hct 31.3 L RDW 16.0 H Lymph % (Auto) [place] % (Auto) Lymph # Seg Neutrophils % Seg Neutrophils # PT INR ABG pH ABG pO2 ABG O2 Saturation ABG Base Excess ABG Hemoglobin Oxyhemoglobin Sodium 147 H 152 H Potassium Chloride 113.0 H 117.8 H Carbon Dioxide 20 L 20 L BUN 21 H Creatinine 0.7 L Glucose 127 H 109 H Lactic Acid Alkaline Phosphatase Total Protein Albumin Levetiracetam 03/30/19 04/01/19 04/01/19 04:49 04:19 04:19 WBC RBC 3.61 L 3.62 L Hgb 10.6 L 10.4 L Hct 31.8 L 32.0 L RDW 15.6 H 15.7 H Lymph % (Auto) 7.0 L [place] % (Auto) 8.6 H Lymph # 0.5 L Seg Neutrophils % 84.2 H Seg Neutrophils # PT INR ABG pH ABG pO2 ABG O2 Saturation ABG Base Excess ABG Hemoglobin Oxyhemoglobin Sodium 154 H Potassium 3.4 L Chloride 120.5 H Carbon Dioxide BUN 29 H Creatinine Glucose 151 H Lactic Acid Alkaline Phosphatase Total Protein Albumin Levetiracetam 04/02/19 04/02/19 04/02/19 03:25 04:51 04:51 WBC RBC Hgb 11.3 L Hct 34.6 L RDW 15.6 H Lymph % (Auto) 6.1 L [place] % (Auto) Lymph # 0.6 L Seg Neutrophils % 88.0 H Seg Neutrophils # 8.7 H PT INR ABG pH 7.487 H ABG pO2 48.3 L ABG O2 Saturation 87.2 L ABG Base Excess ABG Hemoglobin 12.0 L Oxyhemoglobin 85.6 L Sodium 152 H Potassium 3.3 L Chloride 117.4 H Carbon Dioxide BUN 21 H Creatinine Glucose 134 H Lactic Acid Alkaline Phosphatase Total Protein Albumin Levetiracetam
[2019-04-02] MEDS: DEXTROSE 5% IN WATER 1,000 ML IV SCH (10:18)
[2019-04-02] MEDS: CEFEPIME/NS 2 GM/100 ML 2 GM/100 ML BAG IV SCH ×2 (10:19→22:26)
[2019-04-02] MEDS: FAMOTIDINE 20 MG/2 ML INJ IV SCH ×2 (10:19→22:31)
--- NOTE | 2019-04-02 11:34 | Progress Note ---
Assessment and Plan Assessment and plan: Sepsis. Etiology secondary to bilateral pneumonia Elevated Lactic acid Continue antibiotics per ID ID following Toxic metabolic encephalopathy EEG revealed findings suggestive of encephalopathic process with the possibility of post anoxic brain injury or post ictal state. 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 Hospitalist Physical - Constitutional Vitals: Temp Pulse Resp BP Pulse Ox 98.8 F 86 30 H 143/97 92 04/02/19 08:00 04/02/19 07:50 04/02/19 07:50 04/02/19 06:00 04/02/19 08:00 General appearance: Present: no acute distress - EENT Eyes: Present: PERRL, EOM intact ENT: hearing intact, clear oral mucosa, dentition normal - Neck Neck: Present: supple, normal ROM - Respiratory Respiratory effort: normal Respiratory: bilateral: CTA - Cardiovascular Rhythm: regular Heart Sounds: Present: S1 & S2. Absent: gallop, rub - Extremities Extremities: no ischemia, No edema, Full ROM - Abdominal General gastrointestinal: soft, non-tender, non-distended, normal bowel sounds - Integumentary Integumentary: Present: clear, warm, dry - Neurologic Neurologic: CNII-XII intact, moves all extremities Results - Labs CBC & Chem 7: 04/02/19 04:51 04/02/19 04:51 Labs: Laboratory Last Values WBC 9.9 K/mm3 (4.5-11.0) 04/02/19 04:51 RBC 3.93 M/mm3 (3.65-5.03) 04/02/19 04:51 Hgb 11.3 gm/dl (11.8-15.2) L 04/02/19 04:51 Hct 34.6 % (35.5-45.6) L 04/02/19 04:51 MCV 88 fl (84-94) 04/02/19 04:51 MCH 29 pg (28-32) 04/02/19 04:51 MCHC 33 % (32-34) 04/02/19 04:51 RDW 15.6 % (13.2-15.2) H 04/02/19 04:51 Plt Count 252 K/mm3 (140-440) 04/02/19 04:51 Lymph % (Auto) 6.1 % (13.4-35.0) L 04/02/19 04:51 [place] % (Auto) 5.6 % (0.0-7.3) 04/02/19 04:51 Eos % (Auto) 0.2 % (0.0-4.3) 04/02/19 04:51 Baso % (Auto) 0.1 % (0.0-1.8) 04/02/19 04:51 Lymph # 0.6 K/mm3 (1.2-5.4) L 04/02/19 04:51 [place] # 0.6 K/mm3 (0.0-0.8) 04/02/19 04:51 Eos # 0.0 K/mm3 (0.0-0.4) 04/02/19 04:51 Baso # 0.0 K/mm3 (0.0-0.1) 04/02/19 04:51 Seg Neutrophils % 88.0 % (40.0-70.0) H 04/02/19 04:51 Seg Neutrophils # 8.7 K/mm3 (1.8-7.7) H 04/02/19 04:51 PT 15.9 Sec. (12.2-14.9) H 03/26/19 12:28 INR 1.25 (0.87-1.13) H 03/26/19 12:28 APTT 31.2 Sec. (24.2-36.6) 03/26/19 12:28 ABG pH 7.487 pH Units (7.350-7.450) H 04/02/19 03:25 ABG pCO2 29.4 mm Hg 04/02/19 03:25 ABG pO2 48.3 mm Hg (80.0-90.0) L 04/02/19 03:25 ABG HCO3 21.8 mmol/L (20.0-26.0) 04/02/19 03:25 ABG O2 Saturation 87.2 % (95.0-99.0) L 04/02/19 03:25 ABG O2 Content 14.4 (0.0-44) 04/02/19 03:25 ABG Base Excess -0.7 mmol/L (-2.0-3.0) 04/02/19 03:25 ABG Hemoglobin 12.0 gm/dl (14.0-18.0) L 04/02/19 03:25 ABG Carboxyhemoglobin 1.2 % (0.0-5.0) 04/02/19 03:25 ABG Methemoglobin 0.6 % (0.0-1.5) 04/02/19 03:25 Oxyhemoglobin 85.6 % (95.0-99.0) L 04/02/19 03:25 FiO2 80 % 04/02/19 03:25 Sodium 152 mmol/L (137-145) H 04/02/19 04:51 Potassium 3.3 mmol/L (3.6-5.0) L 04/02/19 04:51 Chloride 117.4 mmol/L (98-107) H 04/02/19 04:51 Carbon Dioxide 22 mmol/L (22-30) 04/02/19 04:51 Anion Gap 16 mmol/L 04/02/19 04:51 BUN 21 mg/dL (9-20) H 04/02/19 04:51 Creatinine 0.8 mg/dL (0.8-1.5) 04/02/19 04:51 Estimated GFR > 60 ml/min 04/02/19 04:51 BUN/Creatinine Ratio 26 % 04/02/19 04:51 Glucose 134 mg/dL (75-100) H 04/02/19 04:51 POC Glucose 98 (70-105) 03/31/19 00:02 Hemoglobin A1c 5.7 % (4-6) 03/27/19 04:27 Lactic Acid 1.80 mmol/L (0.7-2.0) 03/27/19 04:27 Calcium 8.5 mg/dL (8.4-10.2) 04/02/19 04:51 Total Bilirubin 0.60 mg/dL (0.1-1.2) 03/27/19 04:27 AST 20 units/L (5-40) 03/27/19 04:27 ALT 30 units/L (7-56) 03/27/19 04:27 Alkaline Phosphatase 136 units/L (35-129) H 03/27/19 04:27 Total Creatine Kinase 133 units/L (55-170) 03/26/19 12:28 CK-MB (CK-2) < 1.0 ng/mL (0.0-4.0) 03/26/19 12:28 CK-MB (CK-2) Rel Index 0.7 (0-4) 03/26/19 12:28 Troponin T < 0.010 ng/mL (0.00-0.029) 03/26/19 14:41 Total Protein 8.0 g/dL (6.3-8.2) 03/27/19 04:27 Albumin 3.2 g/dL (3.9-5) L 03/27/19 04:27 Albumin/Globulin Ratio 0.7 % 03/27/19 04:27 Procalcitonin 1.82 ng/mL (<0.15) 04/01/19 04:19 Urine Color [place]ia (Yellow) 03/26/19 12:36 Urine Turbidity Slightly-cloudy (Clear) 03/26/19 12:36 Urine pH 5.0 (5.0-7.0) 03/26/19 12:36 Ur Specific [place] 1.028 (1.003-1.030) 03/26/19 12:36 Urine Protein 30 mg/dl mg/dL (Negative) 03/26/19 12:36 Urine Glucose (UA) Neg mg/dL (Negative) 03/26/19 12:36 Urine Ketones Neg mg/dL (Negative) 03/26/19 12:36 Urine Blood Neg (Negative) 03/26/19 12:36 Urine Nitrite Neg (Negative) 03/26/19 12:36 Urine Bilirubin Neg (Negative) 03/26/19 12:36 Urine Urobilinogen 4.0 mg/dL (<2.0) 03/26/19 12:36 Ur Leukocyte Esterase Neg (Negative) 03/26/19 12:36 Urine WBC (Auto) 6.0 /HPF (0.0-6.0) 03/26/19 12:36 Urine RBC (Auto) 3.0 /HPF (0.0-6.0) 03/26/19 12:36 U Epithel Cells (Auto) 11.0 /HPF (0-13.0) 03/26/19 12:36 Urine Mucus 2+ /HPF 03/26/19 12:36 Nasal Screen MRSA (PCR) Negative (Negative) 03/28/19 10:02 Urine Opiates Screen Presumptive negative 03/26/19 12:36 Urine Methadone Screen Presumptive negative 03/26/19 12:36 Ur Barbiturates Screen Presumptive negative 03/26/19 12:36 Levetiracetam <1.0 mcg/mL (12.0-46.0) L 03/26/19 15:46 Ur Phencyclidine Scrn Presumptive negative 03/26/19 12:36 Ur Amphetamines Screen Presumptive negative 03/26/19 12:36 U Benzodiazepines Scrn Presumptive negative 03/26/19 12:36 Urine Cocaine Screen Presumptive negative 03/26/19 12:36 U Marijuana (THC) Screen Presumptive negative 03/26/19 12:36 Drugs of Abuse Note Disclamer 03/26/19 12:36 Active Medications - Current Medications Current Medications: Generic Name Dose Route Start Last Admin Trade Name Freq PRN Reason Stop Dose Admin Acetaminophen 650 mg 03/26/19 22:19 Tylenol PO Q4H PRN Pain MILD(1-3)/Fever >100.5/URIAS Albuterol 2.5 mg 03/26/19 22:36 04/02/19 02:46 Proventil IH 2.5 mg Q3HRT PRN Administration Wheezing Albuterol/Ipratropium 1 ampul 03/27/19 08:00 04/02/19 07:50 Duoneb *Not For Prn Use* IH 1 ampul QIDRT NANCY Administration Amlodipine Besylate 10 mg 03/27/19 10:00 04/01/19 20:05 Amlodipine PO Not Given DAILY NANCY Aspirin 81 mg 03/27/19 10:00 04/01/19 20:05 Halfprin Ec PO Not Given QDAY NANCY Famotidine 20 mg 03/27/19 10:00 04/02/19 10:19 Pepcid IV 20 mg BID NANCY Administration Folic Acid 1 mg 03/27/19 10:00 04/01/19 20:05 Folvite PO Not Given DAILY [facility] Heparin Sodium (Porcine) 5,000 unit 03/30/19 17:00 04/02/19 05:47 Heparin SUB-Q 5,000 unit Q8HR NANCY Administration Dextrose 1,000 mls @ 100 mls/hr 03/26/19 23:00 04/02/19 10:18 D5w IV 100 mls/hr DIRECT NANCY Administration Metronidazole 500 mg in 100 mls @ 100 mls/hr 03/28/19 22:00 04/02/19 05:47 Flagyl 500 Mg/100 Ml IV 04/03/19 21:59 100 mls/hr Q8HR NANCY Administration Protocol Cefepime HCl 2 gm in 100 mls @ 200 mls/hr 04/01/19 10:00 04/02/19 10:19 Cefepime/Ns 2 Gm/100 Ml IV 04/03/19 23:59 200 mls/hr Q12HR NANCY Administration Protocol Olanzapine 10 mg 03/27/19 10:00 04/01/19 20:05 Zyprexa PO Not Given DAILY NANCY Ondansetron HCl 4 mg 03/26/19 22:19 04/01/19 22:26 Zofran IV 4 mg Q3H PRN Administration Nausea And Vomiting Sodium Chloride 10 ml 03/27/19 10:00 04/02/19 10:19 Sodium Chloride Flush Syringe 10 Ml IV 10 ml BID NANCY Administration Sodium Chloride 10 ml 03/26/19 22:19 Sodium Chloride Flush Syringe 10 Ml IV PRN PRN LINE FLUSH Nutrition/Malnutrition Assess - Dietary Evaluation Nutrition/Malnutrition Findings: Nutrition Notes Start: 03/27/19 14:04 Freq: Status: Active Protocol: Document 04/02/19 08:17 MASON (Rec: 04/02/19 08:19 MASON [id number]) Co-Sign 04/02/19 08:17 LP Nutrition Notes Initial or Follow up Reassessment Current Diagnosis Sepsis,Hypertension, Respiratory Failure Other Pertinent Diagnosis Schizophrenia, dysphagia, AMS, bilat pneu, hypernatremia Current Diet NPO Labs/Tests BUN 21 BUN 134 K 3.3 Pertinent Medications D5w at 100ml/hr Height 5 ft 8 in Weight 53.116 kg [place] Body Weight (kg) 70.00 BMI 17.8 Subjective/Other Information MD consult for TPN and F/U for TF consult/Dobhoff/NGT placement. Dobhoff has failed to be placed. Pt has INT and will get PPN. Percent of energy/protein needs met: 0%/0% Burn Absent Trauma Absent Difficulty In Swallowing Current % PO Negligible Minimum of two criteria Yes Body Fat Depletion Mild depletion (non-severe) Muscle Mass Moderate Depletion (severe) #2 Nutrition Diagnosis Malnutrition Diagnosis Progress(for reassessment Continues documentation) #1 Nutrition Diagnosis Inadequate oral intake Diagnosis Progress(for reassessment Continues documentation) Is patient on ventilator? No Is Patient Ambulatory and/or Out of Bed No REE-([facility]-confined to bed) 1548.492 Kcal/Kg value to use for calculation 34 Approximate Energy Requirements Using 1806 kcal/Kg Calculation Used for Recommendations Kcal/kg Additional Notes Protein: 64-80 g (1.2 - 1.5 g/ kg) fluid 1ml/ kcal Nutrition Intervention Change Diet Order: PPN Nutrition Support: Clinimix 4.25%/5% at 84 ml/hr Kcal 680 Protein (gm) 85 Carbohydrates (gm) 100 Fluid (mL) 2,016 Goal #1 Start PPN when medically feasible Goal #2 Meet needs as best as possible with PPN Anticipated Discharge Needs: unable to determine at this time Follow-Up By: 04/03/19 Additional Comments Lab in am: BMP, Mg, Phos
[2019-04-02] MEDS ORDERED: AMINO ACIDS 4.25 %/DEXTROSE 5% 2,000 ML IV SCH (20:00)
[2019-04-03] MEDS: ALBUTEROL 2.5 MG/3 ML NEBU IH PRN (01:36)
[2019-04-03 02:11] LABS: ABG Base Excess -0.9 mmol/L (-2.0-3.0); ABG HCO3 21.9 mmol/L (20.0-26.0); ABG Methemoglobin 0.5 % (0.0-1.5); ABG Oxygen Saturation 94.9 % (95.0-99.0); ABG PCO2 30.1 mm Hg; ABG PH 7.479 pH Units (7.350-7.450); ABG PO2 65.9 mm Hg (80.0-90.0)
[2019-04-03 04:53] LABS: BUN/Creatinine Ratio 28; Blood Urea Nitrogen 17 mg/dL (9-20); Calcium 8.1 mg/dL (8.4-10.2); Hematocrit 40.2 % (35.5-45.6); Hemoglobin 12.6 gm/dl (11.8-15.2); Hemolysis Index 28; Mean Corpuscular HGB Conc 31 % (32-34); Mean Corpuscular Volume 93 fl (84-94); Platelet Count 201 K/mm3 (140-440); Red Blood Count 4.34 M/mm3 (3.65-5.03); Red Cell Distribution Width 16.2 % (13.2-15.2)
[2019-04-03] MEDS: HEPARIN 5,000 UNIT/1 ML VIAL SUB-Q SCH ×3 (06:20→22:42)
[2019-04-03] MEDS: metroNIDAZOLE/NS 500 MG/100 ML 500 MG/100 ML BAG IV SCH ×2 (06:21→17:16)
[2019-04-03 06:36] LABS: Basophils % (Manual) 0 % (0.0-1.8); Eosinophils % (Manual) 0 % (0.0-4.3); Total Cells Counted 100
[2019-04-03 06:37] LABS: Platelet Estimate Consistent w Auto
[2019-04-03] MEDS: IPRATROPIUM/ALBUTEROL SULFATE 3 ML AMPUL.NEB IH SCH ×4 (09:30→20:53)
[2019-04-03] MEDS: amLODIPine 10 MG TAB PO SCH (10:00)
[2019-04-03] MEDS: ASPIRIN EC 81 MG TAB PO SCH (10:00)
[2019-04-03] MEDS: FOLIC ACID 1 MG TAB PO SCH (10:00)
--- NOTE | 2019-04-03 10:22 | Progress Note ---
Assessment and Plan 68 y/o male admitted with altered mental status and acute respiratory failure from presumed pneumonia. 1. Ordered CPT for patient with NT suctioning to see if this well help. Do not want to bronch as it may send him into worsening respiratory failure. Does not appear to be helping. If patient is subsequently intubated will bronch then. 2. Wean HFNC as tolerated. 3. Ok with abx 4. Spoke with Nutrition, ok with starting TPN Guarded prognosis. Patient may need peg but need to determine who the appropriate next of kin. Specifically who signed him in to the facility he came from as clearly he was not able to do this himself. Subjective Date of service: 04/03/19 Interval history: Now on 100% FiO2 and 40%. Still with the same mental status. Objective Vital Signs - 12hr 04/02/19 04/02/19 04/02/19 23:00 23:35 23:38 Temperature 98.7 F Pulse Rate 92 H Pulse Rate [ From Monitor] Respiratory 39 H Rate Blood Pressure 135/77 O2 Sat by Pulse 85 87 Oximetry 04/03/19 04/03/19 04/03/19 00:00 01:00 01:28 Temperature Pulse Rate 81 89 Pulse Rate [ 83 From Monitor] Respiratory 30 H 37 H Rate Blood Pressure 145/83 158/80 O2 Sat by Pulse 91 80 L 87 Oximetry 04/03/19 04/03/19 04/03/19 02:00 03:00 03:38 Temperature 98.6 F Pulse Rate 96 H 104 H Pulse Rate [ From Monitor] Respiratory 33 H 31 H Rate Blood Pressure 158/80 155/88 O2 Sat by Pulse 95 Oximetry 04/03/19 04/03/19 04/03/19 04:00 05:00 06:00 Temperature Pulse Rate 100 H 109 H 104 H Pulse Rate [ 90 From Monitor] Respiratory 31 H 44 H 42 H Rate Blood Pressure 147/89 151/88 143/91 O2 Sat by Pulse 100 98 Oximetry 04/03/19 04/03/19 04/03/19 07:00 07:01 08:00 Temperature 98.6 F 98.6 F Pulse Rate 85 96 H Pulse Rate [ 97 H From Monitor] Respiratory 29 H 37 H Rate Blood Pressure 149/86 148/86 O2 Sat by Pulse 98 94 Oximetry 04/03/19 04/03/19 09:00 10:01 Temperature Pulse Rate 98 H 87 Pulse Rate [ From Monitor] Respiratory 42 H 27 H Rate Blood Pressure 144/86 136/82 O2 Sat by Pulse 87 99 Oximetry Constitutional: appears uncomfortable, other (eyes open but not responsive) Eyes: non-icteric ENT: other (full face mask bipap in place) Neck: supple Effort: mildly labored Ascultation: Bilateral: clear Cardiovascular: regular rate and rhythm CBC and BMP: 04/03/19 04:13 04/03/19 04:13 ABG, PT/INR, D-dimer: ABG ABG pH 7.479 pH Units (7.350-7.450) H 04/03/19 01:58 ABG pCO2 30.1 mm Hg 04/03/19 01:58 ABG pO2 65.9 mm Hg (80.0-90.0) L 04/03/19 01:58 ABG O2 Saturation 94.9 % (95.0-99.0) L 04/03/19 01:58 PT/INR, D-dimer PT 15.9 Sec. (12.2-14.9) H 03/26/19 12:28 INR 1.25 (0.87-1.13) H 03/26/19 12:28 Abnormal lab findings: Abnormal Labs 03/26/19 03/26/19 03/26/19 12:28 12:28 12:28 WBC RBC Hgb Hct MCHC RDW 16.1 H Lymph % (Auto) 12.3 L [place] % (Auto) Lymph # 0.7 L Seg Neutrophils % 82.0 H Seg Neuts % (Manual) Lymphocytes % (Manual) Seg Neutrophils # Seg Neutrophils # Man Lymphocytes # (Manual) PT 15.9 H INR 1.25 H ABG pH ABG pO2 ABG O2 Saturation ABG Base Excess ABG Hemoglobin Oxyhemoglobin Sodium 155 H Potassium Chloride 115.8 H Carbon Dioxide 18 L BUN 39 H Creatinine Glucose 213 H Lactic Acid Calcium Phosphorus Alkaline Phosphatase 163 H Total Protein 8.6 H Albumin 3.4 L Levetiracetam 03/26/19 03/26/19 03/26/19 12:28 13:40 14:41 WBC RBC Hgb Hct MCHC RDW Lymph % (Auto) [place] % (Auto) Lymph # Seg Neutrophils % Seg Neuts % (Manual) Lymphocytes % (Manual) Seg Neutrophils # Seg Neutrophils # Man Lymphocytes # (Manual) PT INR ABG pH ABG pO2 109.5 H ABG O2 Saturation ABG Base Excess -2.5 L ABG Hemoglobin 13.9 L Oxyhemoglobin Sodium Potassium Chloride Carbon Dioxide BUN Creatinine Glucose Lactic Acid 3.50 H* 4.90 H* Calcium Phosphorus Alkaline Phosphatase Total Protein Albumin Levetiracetam 03/26/19 03/26/19 03/26/19 15:46 15:46 20:26 WBC RBC Hgb Hct MCHC RDW Lymph % (Auto) [place] % (Auto) Lymph # Seg Neutrophils % Seg Neuts % (Manual) Lymphocytes % (Manual) Seg Neutrophils # Seg Neutrophils # Man Lymphocytes # (Manual) PT INR ABG pH ABG pO2 ABG O2 Saturation ABG Base Excess ABG Hemoglobin Oxyhemoglobin Sodium Potassium Chloride Carbon Dioxide BUN Creatinine Glucose Lactic Acid 3.60 H* 2.80 H* Calcium Phosphorus Alkaline Phosphatase Total Protein Albumin Levetiracetam <1.0 L 03/26/19 03/27/19 03/27/19 21:34 04:27 04:27 WBC RBC Hgb Hct MCHC RDW 16.3 H Lymph % (Auto) 10.5 L [place] % (Auto) Lymph # 0.6 L Seg Neutrophils % 83.3 H Seg Neuts % (Manual) Lymphocytes % (Manual) Seg Neutrophils # Seg Neutrophils # Man Lymphocytes # (Manual) PT INR ABG pH ABG pO2 ABG O2 Saturation ABG Base Excess ABG Hemoglobin Oxyhemoglobin Sodium 156 H Potassium Chloride 120.2 H Carbon Dioxide 21 L BUN 40 H Creatinine Glucose 207 H Lactic Acid 3.00 H* Calcium Phosphorus Alkaline Phosphatase 136 H Total Protein Albumin 3.2 L Levetiracetam 03/27/19 03/28/19 03/28/19 18:59 03:43 03:43 WBC RBC 3.56 L Hgb 10.3 L Hct 31.9 L MCHC RDW 15.9 H Lymph % (Auto) [place] % (Auto) Lymph # Seg Neutrophils % Seg Neuts % (Manual) Lymphocytes % (Manual) Seg Neutrophils # Seg Neutrophils # Man Lymphocytes # (Manual) PT INR ABG pH ABG pO2 ABG O2 Saturation ABG Base Excess ABG Hemoglobin Oxyhemoglobin Sodium 157 H 152 H Potassium Chloride 122.1 H 117.5 H Carbon Dioxide 21 L BUN 41 H 34 H Creatinine Glucose 170 H 143 H Lactic Acid Calcium Phosphorus Alkaline Phosphatase Total Protein Albumin Levetiracetam 03/29/19 03/29/19 03/30/19 05:27 05:27 04:49 WBC 14.5 H RBC 3.51 L Hgb 10.1 L Hct 31.3 L MCHC RDW 16.0 H Lymph % (Auto) [place] % (Auto) Lymph # Seg Neutrophils % Seg Neuts % (Manual) Lymphocytes % (Manual) Seg Neutrophils # Seg Neutrophils # Man Lymphocytes # (Manual) PT INR ABG pH ABG pO2 ABG O2 Saturation ABG Base Excess ABG Hemoglobin Oxyhemoglobin Sodium 147 H 152 H Potassium Chloride 113.0 H 117.8 H Carbon Dioxide 20 L 20 L BUN 21 H Creatinine 0.7 L Glucose 127 H 109 H Lactic Acid Calcium Phosphorus Alkaline Phosphatase Total Protein Albumin Levetiracetam 03/30/19 04/01/19 04/01/19 04:49 04:19 04:19 WBC RBC 3.61 L 3.62 L Hgb 10.6 L 10.4 L Hct 31.8 L 32.0 L MCHC RDW 15.6 H 15.7 H Lymph % (Auto) 7.0 L [place] % (Auto) 8.6 H Lymph # 0.5 L Seg Neutrophils % 84.2 H Seg Neuts % (Manual) Lymphocytes % (Manual) Seg Neutrophils # Seg Neutrophils # Man Lymphocytes # (Manual) PT INR ABG pH ABG pO2 ABG O2 Saturation ABG Base Excess ABG Hemoglobin Oxyhemoglobin Sodium 154 H Potassium 3.4 L Chloride 120.5 H Carbon Dioxide BUN 29 H Creatinine Glucose 151 H Lactic Acid Calcium Phosphorus Alkaline Phosphatase Total Protein Albumin Levetiracetam 04/02/19 04/02/19 04/02/19 03:25 04:51 04:51 WBC RBC Hgb 11.3 L Hct 34.6 L MCHC RDW 15.6 H Lymph % (Auto) 6.1 L [place] % (Auto) Lymph # 0.6 L Seg Neutrophils % 88.0 H Seg Neuts % (Manual) Lymphocytes % (Manual) Seg Neutrophils # 8.7 H Seg Neutrophils # Man Lymphocytes # (Manual) PT INR ABG pH 7.487 H ABG pO2 48.3 L ABG O2 Saturation 87.2 L ABG Base Excess ABG Hemoglobin 12.0 L Oxyhemoglobin 85.6 L Sodium 152 H Potassium 3.3 L Chloride 117.4 H Carbon Dioxide BUN 21 H Creatinine Glucose 134 H Lactic Acid Calcium Phosphorus Alkaline Phosphatase Total Protein Albumin Levetiracetam 04/03/19 04/03/19 04/03/19 01:58 04:13 04:13 WBC 13.9 H RBC Hgb Hct MCHC 31 L RDW 16.2 H Lymph % (Auto) [place] % (Auto) Lymph # Seg Neutrophils % Seg Neuts % (Manual) 91.0 H Lymphocytes % (Manual) 5.0 L Seg Neutrophils # Seg Neutrophils # Man 12.6 H Lymphocytes # (Manual) 0.7 L PT INR ABG pH 7.479 H ABG pO2 65.9 L ABG O2 Saturation 94.9 L ABG Base Excess ABG Hemoglobin 10.9 L Oxyhemoglobin 93.5 L Sodium Potassium Chloride 112.0 H Carbon Dioxide 20 L BUN Creatinine 0.6 L Glucose 128 H Lactic Acid Calcium 8.1 L Phosphorus Alkaline Phosphatase Total Protein Albumin Levetiracetam 04/03/19 07:56 WBC RBC Hgb Hct MCHC RDW Lymph % (Auto) [place] % (Auto) Lymph # Seg Neutrophils % Seg Neuts % (Manual) Lymphocytes % (Manual) Seg Neutrophils # Seg Neutrophils # Man Lymphocytes # (Manual) PT INR ABG pH ABG pO2 ABG O2 Saturation ABG Base Excess ABG Hemoglobin Oxyhemoglobin Sodium Potassium Chloride Carbon Dioxide BUN Creatinine Glucose Lactic Acid Calcium Phosphorus 2.20 L Alkaline Phosphatase Total Protein Albumin Levetiracetam
[2019-04-03] MEDS: CEFEPIME/NS 2 GM/100 ML 2 GM/100 ML BAG IV SCH ×2 (10:30→22:37)
[2019-04-03] MEDS: FAMOTIDINE 20 MG/2 ML INJ IV SCH ×2 (10:49→22:44)
[2019-04-03] MEDS ORDERED: TOTAL PARENTERAL NUTRITION 2,016 ML IV SCH (20:00)
[2019-04-03] MEDS ORDERED: FAT EMULSIONS 20% 250 ML IV SCH (20:00)
--- NOTE | 2019-04-04 02:47 | XRay Report ---
CHEST 1 VIEW 04/04/2019 2:13 AM INDICATION / CLINICAL INFORMATION: Hypoxemia. COMPARISON: One view of the chest from 04/02/2019. FINDINGS: SUPPORT DEVICES: None. HEART / MEDIASTINUM: No significant abnormality. LUNGS / PLEURA: A large right pleural effusion has increased in size in the interval with associated atelectasis. Generalized left interstitial opacities have worsened. No pneumothorax. ADDITIONAL FINDINGS: No significant additional findings. IMPRESSION: 1. Interval enlargement of the right pleural effusion. 2. Interval worsening of atelectasis/edema along the left lung. Signer Name: Melvin Goldsmith MD Signed: 04/04/2019 2:43 AM Workstation Name: [id number]
[2019-04-04] MEDS: HEPARIN 5,000 UNIT/1 ML VIAL SUB-Q SCH ×3 (05:36→21:41)
[2019-04-04 09:19] LABS: Hematocrit 34.9 % (35.5-45.6); Hemoglobin 11.9 gm/dl (11.8-15.2); Mean Corpuscular HGB Conc 34 % (32-34); Mean Corpuscular Volume 86 fl (84-94); Platelet Count 306 K/mm3 (140-440); Red Blood Count 4.05 M/mm3 (3.65-5.03); Red Cell Distribution Width 15.1 % (13.2-15.2)
[2019-04-04 09:45] LABS: BUN/Creatinine Ratio 43; Blood Urea Nitrogen 17 mg/dL (9-20); Calcium 8.5 mg/dL (8.4-10.2); Hemolysis Index 22
[2019-04-04] MEDS: FAMOTIDINE 20 MG/2 ML INJ IV SCH ×2 (11:05→21:41)
[2019-04-04 12:01] LABS: Basophils % (Manual) 0 % (0.0-1.8); Eosinophils % (Manual) 0 % (0.0-4.3); Total Cells Counted 100
[2019-04-04 12:05] LABS: Platelet Estimate Consistent w Auto
--- NOTE | 2019-04-04 12:53 | Progress Note ---
Assessment and Plan Assessment and plan: Sepsis. Etiology secondary to bilateral pneumonia Elevated Lactic acid Continue antibiotics per ID ID following Toxic metabolic encephalopathy EEG revealed findings suggestive of encephalopathic process with the possibility of post anoxic brain injury or post ictal state. 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 Hospitalist Physical - Constitutional Vitals: Temp Pulse Resp BP Pulse Ox 98.0 F 79 23 154/90 95 04/04/19 12:00 04/04/19 09:45 04/04/19 09:45 04/04/19 08:00 04/04/19 08:00 General appearance: Present: no acute distress - EENT Eyes: Present: PERRL, EOM intact ENT: hearing intact, clear oral mucosa, dentition normal - Neck Neck: Present: supple, normal ROM - Respiratory Respiratory effort: normal Respiratory: bilateral: CTA - Cardiovascular Rhythm: regular Heart Sounds: Present: S1 & S2. Absent: gallop, rub - Extremities Extremities: no ischemia, No edema, Full ROM - Abdominal General gastrointestinal: soft, non-tender, non-distended, normal bowel sounds - Integumentary Integumentary: Present: clear, warm, dry - Neurologic Neurologic: CNII-XII intact, moves all extremities Results - Labs CBC & Chem 7: 04/04/19 08:58 04/04/19 08:58 Labs: Laboratory Last Values WBC 14.2 K/mm3 (4.5-11.0) H 04/04/19 08:58 RBC 4.05 M/mm3 (3.65-5.03) 04/04/19 08:58 Hgb 11.9 gm/dl (11.8-15.2) 04/04/19 08:58 Hct 34.9 % (35.5-45.6) L 04/04/19 08:58 MCV 86 fl (84-94) 04/04/19 08:58 MCH 30 pg (28-32) 04/04/19 08:58 MCHC 34 % (32-34) 04/04/19 08:58 RDW 15.1 % (13.2-15.2) 04/04/19 08:58 Plt Count 306 K/mm3 (140-440) 04/04/19 08:58 Lymph % (Auto) Brake Coupler Dinkey 04/03/19 04:13 Schleicher % (Auto) Brake Coupler Dinkey 04/03/19 04:13 Eos % (Auto) Brake Coupler Dinkey 04/03/19 04:13 Baso % (Auto) Brake Coupler Dinkey 04/03/19 04:13 Lymph # Brake Coupler Dinkey 04/03/19 04:13 Schleicher # Brake Coupler Dinkey 04/03/19 04:13 Eos # Brake Coupler Dinkey 04/03/19 04:13 Baso # Brake Coupler Dinkey 04/03/19 04:13 Add Manual Diff Complete 04/04/19 08:58 Total Counted 100 04/04/19 08:58 Seg Neutrophils % Brake Coupler Dinkey 04/04/19 08:58 Seg Neuts % (Manual) 95.0 % (40.0-70.0) H 04/04/19 08:58 Band Neutrophils % 0 % 04/04/19 08:58 Lymphocytes % (Manual) 2.0 % (13.4-35.0) L 04/04/19 08:58 Reactive Lymphs % (Man) 0 % 04/04/19 08:58 Monocytes % (Manual) 3.0 % (0.0-7.3) 04/04/19 08:58 Eosinophils % (Manual) 0 % (0.0-4.3) 04/04/19 08:58 Basophils % (Manual) 0 % (0.0-1.8) 04/04/19 08:58 Metamyelocytes % 0 % 04/04/19 08:58 Myelocytes % 0 % 04/04/19 08:58 Promyelocytes % 0 % 04/04/19 08:58 Blast Cells % 0 % 04/04/19 08:58 Nucleated RBC % Not Reportable 04/04/19 08:58 Seg Neutrophils # Brake Coupler Dinkey 04/03/19 04:13 Seg Neutrophils # Man 13.5 K/mm3 (1.8-7.7) H 04/04/19 08:58 Band Neutrophils # 0.0 K/mm3 04/04/19 08:58 Lymphocytes # (Manual) 0.3 K/mm3 (1.2-5.4) L 04/04/19 08:58 Abs React Lymphs (Man) 0.0 K/mm3 04/04/19 08:58 Monocytes # (Manual) 0.4 K/mm3 (0.0-0.8) 04/04/19 08:58 Eosinophils # (Manual) 0.0 K/mm3 (0.0-0.4) 04/04/19 08:58 Basophils # (Manual) 0.0 K/mm3 (0.0-0.1) 04/04/19 08:58 Metamyelocytes # 0.0 K/mm3 04/04/19 08:58 Myelocytes # 0.0 K/mm3 04/04/19 08:58 Promyelocytes # 0.0 K/mm3 04/04/19 08:58 Blast Cells # 0.0 K/mm3 04/04/19 08:58 WBC Morphology Not Reportable 04/04/19 08:58 Hypersegmented Neuts Not Reportable 04/04/19 08:58 Hyposegmented Neuts Not Reportable 04/04/19 08:58 Hypogranular Neuts Not Reportable 04/04/19 08:58 Smudge Cells Not Reportable 04/04/19 08:58 Toxic Granulation Not Reportable 04/04/19 08:58 Toxic Vacuolation Not Reportable 04/04/19 08:58 Dohle Bodies Not Reportable 04/04/19 08:58 Pelger-Huet Anomaly Not Reportable 04/04/19 08:58 Radha Rods Not Reportable 04/04/19 08:58 Platelet Estimate Consistent w auto 04/04/19 08:58 Clumped Platelets Not Reportable 04/04/19 08:58 Plt Clumps, EDTA Not Reportable 04/04/19 08:58 Large Platelets Not Reportable 04/04/19 08:58 Giant Platelets Not Reportable 04/04/19 08:58 Platelet Satelliting Not Reportable 04/04/19 08:58 Plt Morphology Comment Not Reportable 04/04/19 08:58 RBC Morphology Not Reportable 04/04/19 08:58 Dimorphic RBCs Not Reportable 04/04/19 08:58 Polychromasia Not Reportable 04/04/19 08:58 Hypochromasia Not Reportable 04/04/19 08:58 Poikilocytosis Not Reportable 04/04/19 08:58 Anisocytosis Not Reportable 04/04/19 08:58 Microcytosis Not Reportable 04/04/19 08:58 Macrocytosis Not Reportable 04/04/19 08:58 Spherocytes Not Reportable 04/04/19 08:58 Pappenheimer Bodies Not Reportable 04/04/19 08:58 Sickle Cells Not Reportable 04/04/19 08:58 Target Cells Not Reportable 04/04/19 08:58 Tear Drop Cells Not Reportable 04/04/19 08:58 Ovalocytes Not Reportable 04/04/19 08:58 Helmet Cells Not Reportable 04/04/19 08:58 [place] Bodies Not Reportable 04/04/19 08:58 [place] Rings Not Reportable 04/04/19 08:58 Elbert Cells Not Reportable 04/04/19 08:58 Bite Cells Not Reportable 04/04/19 08:58 Crenated Cell Not Reportable 04/04/19 08:58 Elliptocytes Few 04/04/19 08:58 Acanthocytes (Spur) Not Reportable 04/04/19 08:58 Rouleaux Not Reportable 04/04/19 08:58 Hemoglobin C Crystals Not Reportable 04/04/19 08:58 Schistocytes Not Reportable 04/04/19 08:58 Malaria parasites Not Reportable 04/04/19 08:58 Og Bodies Not Reportable 04/04/19 08:58 Hem Pathologist Commnt No 04/04/19 08:58 PT 15.9 Sec. (12.2-14.9) H 03/26/19 12:28 INR 1.25 (0.87-1.13) H 03/26/19 12:28 APTT 31.2 Sec. (24.2-36.6) 03/26/19 12:28 ABG pH 7.479 pH Units (7.350-7.450) H 04/03/19 01:58 ABG pCO2 30.1 mm Hg 04/03/19 01:58 ABG pO2 65.9 mm Hg (80.0-90.0) L 04/03/19 01:58 ABG HCO3 21.9 mmol/L (20.0-26.0) 04/03/19 01:58 ABG O2 Saturation 94.9 % (95.0-99.0) L 04/03/19 01:58 ABG O2 Content 14.3 (0.0-44) 04/03/19 01:58 ABG Base Excess -0.9 mmol/L (-2.0-3.0) 04/03/19 01:58 ABG Hemoglobin 10.9 gm/dl (14.0-18.0) L 04/03/19 01:58 ABG Carboxyhemoglobin 1.0 % (0.0-5.0) 04/03/19 01:58 ABG Methemoglobin 0.5 % (0.0-1.5) 04/03/19 01:58 Oxyhemoglobin 93.5 % (95.0-99.0) L 04/03/19 01:58 FiO2 100 % 04/03/19 01:58 Sodium 140 mmol/L (137-145) 04/04/19 08:58 Potassium 3.1 mmol/L (3.6-5.0) L 04/04/19 08:58 Chloride 104.3 mmol/L (98-107) 04/04/19 08:58 Carbon Dioxide 22 mmol/L (22-30) 04/04/19 08:58 Anion Gap 17 mmol/L 04/04/19 08:58 BUN 17 mg/dL (9-20) 04/04/19 08:58 Creatinine 0.4 mg/dL (0.8-1.5) L 04/04/19 08:58 Estimated GFR > 60 ml/min 04/04/19 08:58 BUN/Creatinine Ratio 43 % 04/04/19 08:58 Glucose 149 mg/dL (75-100) H 04/04/19 08:58 POC Glucose 126 (70-105) H 04/03/19 18:07 Hemoglobin A1c 5.7 % (4-6) 03/27/19 04:27 Lactic Acid 1.80 mmol/L (0.7-2.0) 03/27/19 04:27 Calcium 8.5 mg/dL (8.4-10.2) 04/04/19 08:58 Phosphorus 2.50 mg/dL (2.5-4.5) 04/04/19 08:58 Magnesium 2.00 mg/dL (1.7-2.3) 04/04/19 08:58 Total Bilirubin 0.60 mg/dL (0.1-1.2) 03/27/19 04:27 AST 20 units/L (5-40) 03/27/19 04:27 ALT 30 units/L (7-56) 03/27/19 04:27 Alkaline Phosphatase 136 units/L (35-129) H 03/27/19 04:27 Total Creatine Kinase 133 units/L (55-170) 03/26/19 12:28 CK-MB (CK-2) < 1.0 ng/mL (0.0-4.0) 03/26/19 12:28 CK-MB (CK-2) Rel Index 0.7 (0-4) 03/26/19 12:28 Troponin T < 0.010 ng/mL (0.00-0.029) 03/26/19 14:41 Total Protein 8.0 g/dL (6.3-8.2) 03/27/19 04:27 Albumin 3.2 g/dL (3.9-5) L 03/27/19 04:27 Albumin/Globulin Ratio 0.7 % 03/27/19 04:27 Procalcitonin 1.82 ng/mL (<0.15) 04/01/19 04:19 Urine Color Dahlia (Yellow) 03/26/19 12:36 Urine Turbidity Slightly-cloudy (Clear) 03/26/19 12:36 Urine pH 5.0 (5.0-7.0) 03/26/19 12:36 Ur Specific [place] 1.028 (1.003-1.030) 03/26/19 12:36 Urine Protein 30 mg/dl mg/dL (Negative) 03/26/19 12:36 Urine Glucose (UA) Neg mg/dL (Negative) 03/26/19 12:36 Urine Ketones Neg mg/dL (Negative) 03/26/19 12:36 Urine Blood Neg (Negative) 03/26/19 12:36 Urine Nitrite Neg (Negative) 03/26/19 12:36 Urine Bilirubin Neg (Negative) 03/26/19 12:36 Urine Urobilinogen 4.0 mg/dL (<2.0) 03/26/19 12:36 Ur Leukocyte Esterase Neg (Negative) 03/26/19 12:36 Urine WBC (Auto) 6.0 /HPF (0.0-6.0) 03/26/19 12:36 Urine RBC (Auto) 3.0 /HPF (0.0-6.0) 03/26/19 12:36 U Epithel Cells (Auto) 11.0 /HPF (0-13.0) 03/26/19 12:36 Urine Mucus 2+ /HPF 03/26/19 12:36 Nasal Screen MRSA (PCR) Negative (Negative) 03/28/19 10:02 Urine Opiates Screen Presumptive negative 03/26/19 12:36 Urine Methadone Screen Presumptive negative 03/26/19 12:36 Ur Barbiturates Screen Presumptive negative 03/26/19 12:36 Levetiracetam <1.0 mcg/mL (12.0-46.0) L 03/26/19 15:46 Ur Phencyclidine Scrn Presumptive negative 03/26/19 12:36 Ur Amphetamines Screen Presumptive negative 03/26/19 12:36 U Benzodiazepines Scrn Presumptive negative 03/26/19 12:36 Urine Cocaine Screen Presumptive negative 03/26/19 12:36 U Marijuana (THC) Screen Presumptive negative 03/26/19 12:36 Drugs of Abuse Note Disclamer 03/26/19 12:36 Active Medications - Current Medications Current Medications: Generic Name Dose Route Start Last Admin Trade Name Freq PRN Reason Stop Dose Admin Acetaminophen 650 mg 03/26/19 22:19 Tylenol PO Q4H PRN Pain MILD(1-3)/Fever >100.5/URIAS Albuterol 2.5 mg 03/26/19 22:36 04/03/19 01:36 Proventil IH 2.5 mg Q3HRT PRN Administration Wheezing Albuterol/Ipratropium 1 ampul 03/27/19 08:00 04/03/19 20:53 Duoneb *Not For Prn Use* IH 1 ampul QIDRT NANCY Administration Amlodipine Besylate 10 mg 03/27/19 10:00 04/03/19 10:00 Amlodipine PO Not Given DAILY NANCY Aspirin 81 mg 03/27/19 10:00 04/03/19 10:00 Halfprin Ec PO Not Given QDAY NANCY Famotidine 20 mg 03/27/19 10:00 04/04/19 11:05 Pepcid IV 20 mg BID NANCY Administration Folic Acid 1 mg 03/27/19 10:00 04/03/19 10:00 Folvite PO Not Given DAILY [facility] Heparin Sodium (Porcine) 5,000 unit 03/30/19 17:00 04/04/19 05:36 Heparin SUB-Q 5,000 unit Q8HR NANCY Administration Amino Acids/Electrolytes/Dextrose 2,016 mls @ 84 mls/hr 04/03/19 20:00 04/03/19 20:19 Tpn Adult IV 04/04/19 19:59 84 mls/hr DAILY@1999 NANCY Administration Protocol Amino Acids/Electrolytes/Dextrose 2,016 mls @ 84 mls/hr 04/04/19 20:00 Tpn Adult IV 04/05/19 19:59 DAILY@1999 [facility] Protocol Olanzapine 10 mg 03/27/19 10:00 04/03/19 10:00 Zyprexa PO Not Given DAILY [facility] Ondansetron HCl 4 mg 03/26/19 22:19 04/01/19 22:26 Zofran IV 4 mg Q3H PRN Administration Nausea And Vomiting Sodium Chloride 10 ml 03/27/19 10:00 04/03/19 22:40 Sodium Chloride Flush Syringe 10 Ml IV 10 ml BID NANCY Administration Sodium Chloride 10 ml 03/26/19 22:19 Sodium Chloride Flush Syringe 10 Ml IV PRN PRN LINE FLUSH Nutrition/Malnutrition Assess - Dietary Evaluation Nutrition/Malnutrition Findings: Nutrition Notes Start: 03/27/19 14:04 Freq: Status: Active Protocol: Document 04/04/19 10:30 LM (Rec: 04/04/19 10:44 LM [email or web address]) Nutrition Notes Initial or Follow up Reassessment Current Diagnosis Sepsis,Hypertension, Respiratory Failure Other Pertinent Diagnosis Schizophrenia, dysphagia, AMS, bilat pneu, hypernatremia Current Diet PPN at 84ml/hr Labs/Tests K 3.1 Pertinent Medications Reviewed Height 5 ft 8 in Weight 52.3 kg [place] Body Weight (kg) 70.00 BMI 17.5 Weight Status Underweight Subjective/Other Information PPN day 3. PPN running at 84 ml/hr. Percent of energy/protein needs met: 64%/100% Burn Absent Trauma Absent Difficulty In Swallowing Current % PO Negligible Minimum of two criteria Yes Body Fat Depletion Mild depletion (non-severe) Muscle Mass Moderate Depletion (severe) #2 Nutrition Diagnosis Malnutrition Diagnosis Progress(for reassessment Continues documentation) #1 Nutrition Diagnosis Inadequate oral intake Diagnosis Progress(for reassessment Continues documentation) Is patient on ventilator? No Is Patient Ambulatory and/or Out of Bed No REE-([facility]-confined to bed) 1538.712 Kcal/Kg value to use for calculation 35 Approximate Energy Requirements Using 1831 kcal/Kg Calculation Used for Recommendations Kcal/kg Additional Notes Protein: 64-80 g (1.2 - 1.5 g/ kg) fluid 1ml/ kcal Nutrition Intervention Change Diet Order: Continue Nutrition Support: PPN at 84 ml/hr: 120 mEq K, Phos, MVI, thiamine Kcal 680 Protein (gm) 85 Carbohydrates (gm) 100 Fat (gm) 0 Fluid (mL) 2,016 Fiber (gm) 0 Goal #1 Meet needs as best as possible via PPN Anticipated Discharge Needs: unable to determine at this time Follow-Up By: 04/05/19 Additional Comments Lab in am: BMP, Mg, Phos
--- NOTE | 2019-04-04 15:20 | Progress Note ---
Assessment and Plan 68 y/o male admitted with altered mental status and acute respiratory failure from presumed pneumonia. Worsening respiratory status and hypoxemia. Increasing right pleural effusion possibly parapneumonic 1. Ultrasound-guided thoracentesis on the right side 2. BiPAP to improve work of breathing 3. Ok with abx 4. Off steroids. Also stopped all pain meds and scheduled ativan that per report patient was on outside of the hospital. 5. Prognosis guarded Total critical care time 31-minute Subjective Date of service: 04/04/19 Interval history: Increased work of breathing though oxygen saturation has improved. Patient still on high flow nasal cannula at 100%. Oxygen saturation is 97%. Vital signs remained stable. Objective Vital Signs - 12hr 04/04/19 04/04/19 04/04/19 04:00 04:01 05:00 Temperature 98.7 F Pulse Rate 100 H 95 H 92 H Pulse Rate [ Bilateral] Pulse Rate [ 100 H From Monitor] Respiratory 31 H 32 H 31 H Rate Respiratory Rate [Bilateral ] Blood Pressure 163/103 175/97 O2 Sat by Pulse 97 97 97 Oximetry 04/04/19 04/04/19 04/04/19 06:01 07:01 08:00 Temperature 97.9 F Pulse Rate 95 H 87 74 Pulse Rate [ Bilateral] Pulse Rate [ From Monitor] Respiratory 31 H 29 H 30 H Rate Respiratory Rate [Bilateral ] Blood Pressure 180/96 187/91 154/90 O2 Sat by Pulse 95 97 95 Oximetry 04/04/19 04/04/19 04/04/19 09:45 12:00 14:48 Temperature 98.0 F Pulse Rate 88 Pulse Rate [ 79 Bilateral] Pulse Rate [ From Monitor] Respiratory 30 H Rate Respiratory 23 Rate [Bilateral ] Blood Pressure 159/99 O2 Sat by Pulse 98 Oximetry Constitutional: appears uncomfortable, other (eyes open but not responsive) Eyes: non-icteric ENT: other (full face mask bipap in place) Neck: supple Effort: mildly labored Ascultation: Right: diminished breath sounds, Bilateral: clear Cardiovascular: regular rate and rhythm CBC and BMP: 04/04/19 08:58 04/04/19 08:58 ABG, PT/INR, D-dimer: ABG ABG pH 7.479 pH Units (7.350-7.450) H 04/03/19 01:58 ABG pCO2 30.1 mm Hg 04/03/19 01:58 ABG pO2 65.9 mm Hg (80.0-90.0) L 04/03/19 01:58 ABG O2 Saturation 94.9 % (95.0-99.0) L 04/03/19 01:58 PT/INR, D-dimer PT 15.9 Sec. (12.2-14.9) H 03/26/19 12:28 INR 1.25 (0.87-1.13) H 03/26/19 12:28 Abnormal lab findings: Abnormal Labs 03/26/19 03/26/19 03/26/19 12:28 12:28 12:28 WBC RBC Hgb Hct MCHC RDW 16.1 H Lymph % (Auto) 12.3 L Todd % (Auto) Lymph # 0.7 L Seg Neutrophils % 82.0 H Seg Neuts % (Manual) Lymphocytes % (Manual) Seg Neutrophils # Seg Neutrophils # Man Lymphocytes # (Manual) PT 15.9 H INR 1.25 H ABG pH ABG pO2 ABG O2 Saturation ABG Base Excess ABG Hemoglobin Oxyhemoglobin Sodium 155 H Potassium Chloride 115.8 H Carbon Dioxide 18 L BUN 39 H Creatinine Glucose 213 H POC Glucose Lactic Acid Calcium Phosphorus Alkaline Phosphatase 163 H Total Protein 8.6 H Albumin 3.4 L Levetiracetam 03/26/19 03/26/19 03/26/19 12:28 13:40 14:41 WBC RBC Hgb Hct MCHC RDW Lymph % (Auto) Todd % (Auto) Lymph # Seg Neutrophils % Seg Neuts % (Manual) Lymphocytes % (Manual) Seg Neutrophils # Seg Neutrophils # Man Lymphocytes # (Manual) PT INR ABG pH ABG pO2 109.5 H ABG O2 Saturation ABG Base Excess -2.5 L ABG Hemoglobin 13.9 L Oxyhemoglobin Sodium Potassium Chloride Carbon Dioxide BUN Creatinine Glucose POC Glucose Lactic Acid 3.50 H* 4.90 H* Calcium Phosphorus Alkaline Phosphatase Total Protein Albumin Levetiracetam 03/26/19 03/26/19 03/26/19 15:46 15:46 20:26 WBC RBC Hgb Hct MCHC RDW Lymph % (Auto) Todd % (Auto) Lymph # Seg Neutrophils % Seg Neuts % (Manual) Lymphocytes % (Manual) Seg Neutrophils # Seg Neutrophils # Man Lymphocytes # (Manual) PT INR ABG pH ABG pO2 ABG O2 Saturation ABG Base Excess ABG Hemoglobin Oxyhemoglobin Sodium Potassium Chloride Carbon Dioxide BUN Creatinine Glucose POC Glucose Lactic Acid 3.60 H* 2.80 H* Calcium Phosphorus Alkaline Phosphatase Total Protein Albumin Levetiracetam <1.0 L 03/26/19 03/27/19 03/27/19 21:34 04:27 04:27 WBC RBC Hgb Hct MCHC RDW 16.3 H Lymph % (Auto) 10.5 L Todd % (Auto) Lymph # 0.6 L Seg Neutrophils % 83.3 H Seg Neuts % (Manual) Lymphocytes % (Manual) Seg Neutrophils # Seg Neutrophils # Man Lymphocytes # (Manual) PT INR ABG pH ABG pO2 ABG O2 Saturation ABG Base Excess ABG Hemoglobin Oxyhemoglobin Sodium 156 H Potassium Chloride 120.2 H Carbon Dioxide 21 L BUN 40 H Creatinine Glucose 207 H POC Glucose Lactic Acid 3.00 H* Calcium Phosphorus Alkaline Phosphatase 136 H Total Protein Albumin 3.2 L Levetiracetam 03/27/19 03/28/19 03/28/19 18:59 03:43 03:43 WBC RBC 3.56 L Hgb 10.3 L Hct 31.9 L MCHC RDW 15.9 H Lymph % (Auto) Todd % (Auto) Lymph # Seg Neutrophils % Seg Neuts % (Manual) Lymphocytes % (Manual) Seg Neutrophils # Seg Neutrophils # Man Lymphocytes # (Manual) PT INR ABG pH ABG pO2 ABG O2 Saturation ABG Base Excess ABG Hemoglobin Oxyhemoglobin Sodium 157 H 152 H Potassium Chloride 122.1 H 117.5 H Carbon Dioxide 21 L BUN 41 H 34 H Creatinine Glucose 170 H 143 H POC Glucose Lactic Acid Calcium Phosphorus Alkaline Phosphatase Total Protein Albumin Levetiracetam 03/29/19 03/29/19 03/30/19 05:27 05:27 04:49 WBC 14.5 H RBC 3.51 L Hgb 10.1 L Hct 31.3 L MCHC RDW 16.0 H Lymph % (Auto) Todd % (Auto) Lymph # Seg Neutrophils % Seg Neuts % (Manual) Lymphocytes % (Manual) Seg Neutrophils # Seg Neutrophils # Man Lymphocytes # (Manual) PT INR ABG pH ABG pO2 ABG O2 Saturation ABG Base Excess ABG Hemoglobin Oxyhemoglobin Sodium 147 H 152 H Potassium Chloride 113.0 H 117.8 H Carbon Dioxide 20 L 20 L BUN 21 H Creatinine 0.7 L Glucose 127 H 109 H POC Glucose Lactic Acid Calcium Phosphorus Alkaline Phosphatase Total Protein Albumin Levetiracetam 03/30/19 04/01/19 04/01/19 04:49 04:19 04:19 WBC RBC 3.61 L 3.62 L Hgb 10.6 L 10.4 L Hct 31.8 L 32.0 L MCHC RDW 15.6 H 15.7 H Lymph % (Auto) 7.0 L Todd % (Auto) 8.6 H Lymph # 0.5 L Seg Neutrophils % 84.2 H Seg Neuts % (Manual) Lymphocytes % (Manual) Seg Neutrophils # Seg Neutrophils # Man Lymphocytes # (Manual) PT INR ABG pH ABG pO2 ABG O2 Saturation ABG Base Excess ABG Hemoglobin Oxyhemoglobin Sodium 154 H Potassium 3.4 L Chloride 120.5 H Carbon Dioxide BUN 29 H Creatinine Glucose 151 H POC Glucose Lactic Acid Calcium Phosphorus Alkaline Phosphatase Total Protein Albumin Levetiracetam 04/02/19 04/02/19 04/02/19 03:25 04:51 04:51 WBC RBC Hgb 11.3 L Hct 34.6 L MCHC RDW 15.6 H Lymph % (Auto) 6.1 L Todd % (Auto) Lymph # 0.6 L Seg Neutrophils % 88.0 H Seg Neuts % (Manual) Lymphocytes % (Manual) Seg Neutrophils # 8.7 H Seg Neutrophils # Man Lymphocytes # (Manual) PT INR ABG pH 7.487 H ABG pO2 48.3 L ABG O2 Saturation 87.2 L ABG Base Excess ABG Hemoglobin 12.0 L Oxyhemoglobin 85.6 L Sodium 152 H Potassium 3.3 L Chloride 117.4 H Carbon Dioxide BUN 21 H Creatinine Glucose 134 H POC Glucose Lactic Acid Calcium Phosphorus Alkaline Phosphatase Total Protein Albumin Levetiracetam 04/03/19 04/03/19 04/03/19 01:58 04:13 04:13 WBC 13.9 H RBC Hgb Hct MCHC 31 L RDW 16.2 H Lymph % (Auto) Todd % (Auto) Lymph # Seg Neutrophils % Seg Neuts % (Manual) 91.0 H Lymphocytes % (Manual) 5.0 L Seg Neutrophils # Seg Neutrophils # Man 12.6 H Lymphocytes # (Manual) 0.7 L PT INR ABG pH 7.479 H ABG pO2 65.9 L ABG O2 Saturation 94.9 L ABG Base Excess ABG Hemoglobin 10.9 L Oxyhemoglobin 93.5 L Sodium Potassium Chloride 112.0 H Carbon Dioxide 20 L BUN Creatinine 0.6 L Glucose 128 H POC Glucose Lactic Acid Calcium 8.1 L Phosphorus Alkaline Phosphatase Total Protein Albumin Levetiracetam 04/03/19 04/03/19 04/03/19 07:56 13:32 18:07 WBC RBC Hgb Hct MCHC RDW Lymph % (Auto) Todd % (Auto) Lymph # Seg Neutrophils % Seg Neuts % (Manual) Lymphocytes % (Manual) Seg Neutrophils # Seg Neutrophils # Man Lymphocytes # (Manual) PT INR ABG pH ABG pO2 ABG O2 Saturation ABG Base Excess ABG Hemoglobin Oxyhemoglobin Sodium Potassium Chloride Carbon Dioxide BUN Creatinine Glucose POC Glucose 135 H 126 H Lactic Acid Calcium Phosphorus 2.20 L Alkaline Phosphatase Total Protein Albumin Levetiracetam 04/04/19 04/04/19 08:58 08:58 WBC 14.2 H RBC Hgb Hct 34.9 L MCHC RDW Lymph % (Auto) Todd % (Auto) Lymph # Seg Neutrophils % Seg Neuts % (Manual) 95.0 H Lymphocytes % (Manual) 2.0 L Seg Neutrophils # Seg Neutrophils # Man 13.5 H Lymphocytes # (Manual) 0.3 L PT INR ABG pH ABG pO2 ABG O2 Saturation ABG Base Excess ABG Hemoglobin Oxyhemoglobin Sodium Potassium 3.1 L Chloride Carbon Dioxide BUN Creatinine 0.4 L Glucose 149 H POC Glucose Lactic Acid Calcium Phosphorus Alkaline Phosphatase Total Protein Albumin Levetiracetam Chest x-ray: image reviewed (Enlarging right pleural effusion)
[2019-04-04] MEDS: IPRATROPIUM/ALBUTEROL SULFATE 3 ML AMPUL.NEB IH SCH ×3 (17:40→21:01)
[2019-04-04] MEDS: hydrALAZINE 20 MG/1 ML INJ IV PRN (18:44)
[2019-04-04] MEDS ORDERED: TOTAL PARENTERAL NUTRITION 2,016 ML IV SCH (20:00)
[2019-04-04] MEDS: ONDANSETRON 4 MG/2 ML INJ IV PRN (21:41)
[2019-04-04 22:00] LABS: ABG HCO3 26.2 mmol/L (20.0-26.0); ABG Methemoglobin 0.5 % (0.0-1.5); ABG Oxygen Saturation 96.3 % (95.0-99.0); ABG PCO2 39.3 mm Hg; ABG PH 7.441 pH Units (7.350-7.450)
[2019-04-05] MEDS: hydrALAZINE 20 MG/1 ML INJ IV PRN (00:31)
[2019-04-05 05:27] LABS: Hemoglobin 12.4 gm/dl (11.8-15.2); Mean Corpuscular HGB Conc 33 % (32-34); Mean Corpuscular Volume 87 fl (84-94); Platelet Count 369 K/mm3 (140-440); Red Blood Count 4.39 M/mm3 (3.65-5.03); Red Cell Distribution Width 15.2 % (13.2-15.2)
[2019-04-05 05:48] LABS: BUN/Creatinine Ratio 43; Blood Urea Nitrogen 26 mg/dL (9-20); Calcium 9.2 mg/dL (8.4-10.2); Hemolysis Index 7
[2019-04-05] MEDS: HEPARIN 5,000 UNIT/1 ML VIAL SUB-Q SCH ×3 (05:56→21:08)
[2019-04-05 06:33] LABS: Band Neutrophils # (Manual) 0.3 K/mm3; Basophils % (Manual) 0 % (0.0-1.8); Eosinophils % (Manual) 0 % (0.0-4.3); Platelet Estimate Consistent w Auto; Total Cells Counted 100
[2019-04-05] MEDS: IPRATROPIUM/ALBUTEROL SULFATE 3 ML AMPUL.NEB IH SCH ×3 (07:50→20:00)
--- NOTE | 2019-04-05 08:20 | Progress Note ---
Subjective Date of service: 04/05/19 Interval history: interval note patient assessedbut he is on CPAP, limited exam note he is poorly rsponsive and not very communicative further assessment would like to talk to family about prior hx notes labs images reviewed Objective - Vital Sign Vital Signs - 12hr 04/04/19 04/04/19 04/04/19 21:00 21:02 21:03 Temperature Pulse Rate 99 H Pulse Rate [ 97 H Bilateral] Pulse Rate [ From Monitor] Respiratory 42 H Rate Respiratory 38 H Rate [Bilateral ] Blood Pressure 136/79 O2 Sat by Pulse 96 Oximetry 04/04/19 04/04/19 04/04/19 21:04 22:00 23:01 Temperature Pulse Rate 87 94 H 98 H Pulse Rate [ Bilateral] Pulse Rate [ From Monitor] Respiratory 40 H 37 H 41 H Rate Respiratory Rate [Bilateral ] Blood Pressure 136/79 139/83 166/95 O2 Sat by Pulse 96 98 Oximetry 04/05/19 04/05/19 04/05/19 00:00 00:11 00:25 Temperature 97.8 F Pulse Rate 98 H 97 H 91 H Pulse Rate [ Bilateral] Pulse Rate [ 99 H From Monitor] Respiratory 38 H 43 H 44 H Rate Respiratory Rate [Bilateral ] Blood Pressure 172/98 172/98 138/81 O2 Sat by Pulse 98 99 97 Oximetry 04/05/19 04/05/19 04/05/19 00:31 01:01 02:01 Temperature Pulse Rate 100 H 103 H 105 H Pulse Rate [ Bilateral] Pulse Rate [ From Monitor] Respiratory 44 H 45 H Rate Respiratory Rate [Bilateral ] Blood Pressure 178/101 181/101 137/83 O2 Sat by Pulse 99 Oximetry 04/05/19 04/05/19 04/05/19 03:01 04:00 04:27 Temperature 97.5 F L Pulse Rate 92 H 98 H 94 H Pulse Rate [ Bilateral] Pulse Rate [ 99 H From Monitor] Respiratory 43 H 44 H 36 H Rate Respiratory Rate [Bilateral ] Blood Pressure 181/101 157/86 157/86 O2 Sat by Pulse 98 92 98 Oximetry 04/05/19 04/05/19 05:01 06:01 Temperature Pulse Rate 104 H 98 H Pulse Rate [ Bilateral] Pulse Rate [ From Monitor] Respiratory 37 H 45 H Rate Respiratory Rate [Bilateral ] Blood Pressure 157/86 157/86 O2 Sat by Pulse 100 95 Oximetry - Laboratory Findings CBC and BMP: 02/09/20 04:21 04/05/19 04:21 Abnormal Lab Findings: Abnormal Labs 03/26/19 03/26/19 03/26/19 12:28 12:28 12:28 WBC RBC Hgb Hct MCHC RDW 16.1 H Lymph % (Auto) 12.3 L [place] % (Auto) Lymph # 0.7 L Seg Neutrophils % 82.0 H Seg Neuts % (Manual) Lymphocytes % (Manual) Seg Neutrophils # Seg Neutrophils # Man Lymphocytes # (Manual) PT 15.9 H INR 1.25 H ABG pH ABG pO2 ABG HCO3 ABG O2 Saturation ABG Base Excess ABG Hemoglobin Oxyhemoglobin Sodium 155 H Potassium Chloride 115.8 H Carbon Dioxide 18 L BUN 39 H Creatinine Glucose 213 H POC Glucose Lactic Acid Calcium Phosphorus Alkaline Phosphatase 163 H Total Protein 8.6 H Albumin 3.4 L Levetiracetam 03/26/19 03/26/19 03/26/19 12:28 13:40 14:41 WBC RBC Hgb Hct MCHC RDW Lymph % (Auto) [place] % (Auto) Lymph # Seg Neutrophils % Seg Neuts % (Manual) Lymphocytes % (Manual) Seg Neutrophils # Seg Neutrophils # Man Lymphocytes # (Manual) PT INR ABG pH ABG pO2 109.5 H ABG HCO3 ABG O2 Saturation ABG Base Excess -2.5 L ABG Hemoglobin 13.9 L Oxyhemoglobin Sodium Potassium Chloride Carbon Dioxide BUN Creatinine Glucose POC Glucose Lactic Acid 3.50 H* 4.90 H* Calcium Phosphorus Alkaline Phosphatase Total Protein Albumin Levetiracetam 03/26/19 03/26/19 03/26/19 15:46 15:46 20:26 WBC RBC Hgb Hct MCHC RDW Lymph % (Auto) [place] % (Auto) Lymph # Seg Neutrophils % Seg Neuts % (Manual) Lymphocytes % (Manual) Seg Neutrophils # Seg Neutrophils # Man Lymphocytes # (Manual) PT INR ABG pH ABG pO2 ABG HCO3 ABG O2 Saturation ABG Base Excess ABG Hemoglobin Oxyhemoglobin Sodium Potassium Chloride Carbon Dioxide BUN Creatinine Glucose POC Glucose Lactic Acid 3.60 H* 2.80 H* Calcium Phosphorus Alkaline Phosphatase Total Protein Albumin Levetiracetam <1.0 L 03/26/19 03/27/19 03/27/19 21:34 04:27 04:27 WBC RBC Hgb Hct MCHC RDW 16.3 H Lymph % (Auto) 10.5 L [place] % (Auto) Lymph # 0.6 L Seg Neutrophils % 83.3 H Seg Neuts % (Manual) Lymphocytes % (Manual) Seg Neutrophils # Seg Neutrophils # Man Lymphocytes # (Manual) PT INR ABG pH ABG pO2 ABG HCO3 ABG O2 Saturation ABG Base Excess ABG Hemoglobin Oxyhemoglobin Sodium 156 H Potassium Chloride 120.2 H Carbon Dioxide 21 L BUN 40 H Creatinine Glucose 207 H POC Glucose Lactic Acid 3.00 H* Calcium Phosphorus Alkaline Phosphatase 136 H Total Protein Albumin 3.2 L Levetiracetam 03/27/19 03/28/19 03/28/19 18:59 03:43 03:43 WBC RBC 3.56 L Hgb 10.3 L Hct 31.9 L MCHC RDW 15.9 H Lymph % (Auto) [place] % (Auto) Lymph # Seg Neutrophils % Seg Neuts % (Manual) Lymphocytes % (Manual) Seg Neutrophils # Seg Neutrophils # Man Lymphocytes # (Manual) PT INR ABG pH ABG pO2 ABG HCO3 ABG O2 Saturation ABG Base Excess ABG Hemoglobin Oxyhemoglobin Sodium 157 H 152 H Potassium Chloride 122.1 H 117.5 H Carbon Dioxide 21 L BUN 41 H 34 H Creatinine Glucose 170 H 143 H POC Glucose Lactic Acid Calcium Phosphorus Alkaline Phosphatase Total Protein Albumin Levetiracetam 03/29/19 03/29/19 03/30/19 05:27 05:27 04:49 WBC 14.5 H RBC 3.51 L Hgb 10.1 L Hct 31.3 L MCHC RDW 16.0 H Lymph % (Auto) [place] % (Auto) Lymph # Seg Neutrophils % Seg Neuts % (Manual) Lymphocytes % (Manual) Seg Neutrophils # Seg Neutrophils # Man Lymphocytes # (Manual) PT INR ABG pH ABG pO2 ABG HCO3 ABG O2 Saturation ABG Base Excess ABG Hemoglobin Oxyhemoglobin Sodium 147 H 152 H Potassium Chloride 113.0 H 117.8 H Carbon Dioxide 20 L 20 L BUN 21 H Creatinine 0.7 L Glucose 127 H 109 H POC Glucose Lactic Acid Calcium Phosphorus Alkaline Phosphatase Total Protein Albumin Levetiracetam 03/30/19 04/01/19 04/01/19 04:49 04:19 04:19 WBC RBC 3.61 L 3.62 L Hgb 10.6 L 10.4 L Hct 31.8 L 32.0 L MCHC RDW 15.6 H 15.7 H Lymph % (Auto) 7.0 L [place] % (Auto) 8.6 H Lymph # 0.5 L Seg Neutrophils % 84.2 H Seg Neuts % (Manual) Lymphocytes % (Manual) Seg Neutrophils # Seg Neutrophils # Man Lymphocytes # (Manual) PT INR ABG pH ABG pO2 ABG HCO3 ABG O2 Saturation ABG Base Excess ABG Hemoglobin Oxyhemoglobin Sodium 154 H Potassium 3.4 L Chloride 120.5 H Carbon Dioxide BUN 29 H Creatinine Glucose 151 H POC Glucose Lactic Acid Calcium Phosphorus Alkaline Phosphatase Total Protein Albumin Levetiracetam 04/02/19 04/02/19 04/02/19 03:25 04:51 04:51 WBC RBC Hgb 11.3 L Hct 34.6 L MCHC RDW 15.6 H Lymph % (Auto) 6.1 L [place] % (Auto) Lymph # 0.6 L Seg Neutrophils % 88.0 H Seg Neuts % (Manual) Lymphocytes % (Manual) Seg Neutrophils # 8.7 H Seg Neutrophils # Man Lymphocytes # (Manual) PT INR ABG pH 7.487 H ABG pO2 48.3 L ABG HCO3 ABG O2 Saturation 87.2 L ABG Base Excess ABG Hemoglobin 12.0 L Oxyhemoglobin 85.6 L Sodium 152 H Potassium 3.3 L Chloride 117.4 H Carbon Dioxide BUN 21 H Creatinine Glucose 134 H POC Glucose Lactic Acid Calcium Phosphorus Alkaline Phosphatase Total Protein Albumin Levetiracetam 04/03/19 04/03/19 04/03/19 01:58 04:13 04:13 WBC 13.9 H RBC Hgb Hct MCHC 31 L RDW 16.2 H Lymph % (Auto) [place] % (Auto) Lymph # Seg Neutrophils % Seg Neuts % (Manual) 91.0 H Lymphocytes % (Manual) 5.0 L Seg Neutrophils # Seg Neutrophils # Man 12.6 H Lymphocytes # (Manual) 0.7 L PT INR ABG pH 7.479 H ABG pO2 65.9 L ABG HCO3 ABG O2 Saturation 94.9 L ABG Base Excess ABG Hemoglobin 10.9 L Oxyhemoglobin 93.5 L Sodium Potassium Chloride 112.0 H Carbon Dioxide 20 L BUN Creatinine 0.6 L Glucose 128 H POC Glucose Lactic Acid Calcium 8.1 L Phosphorus Alkaline Phosphatase Total Protein Albumin Levetiracetam 04/03/19 04/03/19 04/03/19 07:56 13:32 18:07 WBC RBC Hgb Hct MCHC RDW Lymph % (Auto) [place] % (Auto) Lymph # Seg Neutrophils % Seg Neuts % (Manual) Lymphocytes % (Manual) Seg Neutrophils # Seg Neutrophils # Man Lymphocytes # (Manual) PT INR ABG pH ABG pO2 ABG HCO3 ABG O2 Saturation ABG Base Excess ABG Hemoglobin Oxyhemoglobin Sodium Potassium Chloride Carbon Dioxide BUN Creatinine Glucose POC Glucose 135 H 126 H Lactic Acid Calcium Phosphorus 2.20 L Alkaline Phosphatase Total Protein Albumin Levetiracetam 04/04/19 04/04/19 04/04/19 08:58 08:58 21:45 WBC 14.2 H RBC Hgb Hct 34.9 L MCHC RDW Lymph % (Auto) [place] % (Auto) Lymph # Seg Neutrophils % Seg Neuts % (Manual) 95.0 H Lymphocytes % (Manual) 2.0 L Seg Neutrophils # Seg Neutrophils # Man 13.5 H Lymphocytes # (Manual) 0.3 L PT INR ABG pH ABG pO2 76.0 L ABG HCO3 26.2 H ABG O2 Saturation ABG Base Excess ABG Hemoglobin 12.7 L Oxyhemoglobin 94.8 L Sodium Potassium 3.1 L Chloride Carbon Dioxide BUN Creatinine 0.4 L Glucose 149 H POC Glucose Lactic Acid Calcium Phosphorus Alkaline Phosphatase Total Protein Albumin Levetiracetam 04/05/19 04/05/19 04:21 04:21 WBC 14.6 H RBC Hgb Hct MCHC RDW Lymph % (Auto) [place] % (Auto) Lymph # Seg Neutrophils % Seg Neuts % (Manual) 95.0 H Lymphocytes % (Manual) 1.0 L Seg Neutrophils # Seg Neutrophils # Man 13.9 H Lymphocytes # (Manual) 0.1 L PT INR ABG pH ABG pO2 ABG HCO3 ABG O2 Saturation ABG Base Excess ABG Hemoglobin Oxyhemoglobin Sodium Potassium 3.3 L Chloride Carbon Dioxide BUN 26 H Creatinine 0.6 L Glucose 165 H POC Glucose Lactic Acid Calcium Phosphorus Alkaline Phosphatase Total Protein Albumin Levetiracetam
[2019-04-05] MEDS: amLODIPine 10 MG TAB PO SCH (10:53)
[2019-04-05] MEDS: ASPIRIN EC 81 MG TAB PO SCH (10:54)
[2019-04-05] MEDS: FOLIC ACID 1 MG TAB PO SCH (10:54)
[2019-04-05] MEDS: FAMOTIDINE 20 MG/2 ML INJ IV SCH ×2 (10:56→21:08)
--- NOTE | 2019-04-05 11:12 | Progress Note ---
Assessment and Plan Assessment and plan: Sepsis. Etiology secondary to bilateral pneumonia Elevated Lactic acid Continue antibiotics per ID ID following Toxic metabolic encephalopathy EEG revealed findings suggestive of encephalopathic process with the possibility of post anoxic brain injury or post ictal state. Acute respiratory failure with hypoxia Patient currently on BiPAP. Continue as clinically indicated. 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 Hospitalist Physical - Constitutional Vitals: Temp Pulse Resp BP Pulse Ox 97.9 F 88 31 H 147/84 99 04/05/19 08:00 04/05/19 09:00 04/05/19 09:00 04/05/19 09:00 04/05/19 09:00 General appearance: Present: no acute distress - EENT Eyes: Present: PERRL, EOM intact ENT: hearing intact, clear oral mucosa, dentition normal - Neck Neck: Present: supple, normal ROM - Respiratory Respiratory effort: normal Respiratory: bilateral: CTA - Cardiovascular Rhythm: regular Heart Sounds: Present: S1 & S2. Absent: gallop, rub - Extremities Extremities: no ischemia, No edema, Full ROM - Abdominal General gastrointestinal: soft, non-tender, non-distended, normal bowel sounds - Integumentary Integumentary: Present: clear, warm, dry - Neurologic Neurologic: CNII-XII intact, moves all extremities Results - Labs CBC & Chem 7: 04/05/19 04:21 04/05/19 04:21 Labs: Laboratory Last Values WBC 14.6 K/mm3 (4.5-11.0) H 04/05/19 04:21 RBC 4.39 M/mm3 (3.65-5.03) 04/05/19 04:21 Hgb 12.4 gm/dl (11.8-15.2) 04/05/19 04:21 Hct 38.0 % (35.5-45.6) 04/05/19 04:21 MCV 87 fl (84-94) 04/05/19 04:21 MCH 28 pg (28-32) 04/05/19 04:21 MCHC 33 % (32-34) 04/05/19 04:21 RDW 15.2 % (13.2-15.2) 04/05/19 04:21 Plt Count 369 K/mm3 (140-440) 04/05/19 04:21 Lymph % (Auto) Product Sales Representative 04/03/19 04:13 Ness % (Auto) Product Sales Representative 04/03/19 04:13 Eos % (Auto) Product Sales Representative 04/03/19 04:13 Baso % (Auto) Product Sales Representative 04/03/19 04:13 Lymph # Product Sales Representative 04/03/19 04:13 Ness # Product Sales Representative 04/03/19 04:13 Eos # Product Sales Representative 04/03/19 04:13 Baso # Product Sales Representative 04/03/19 04:13 Add Manual Diff Complete 04/05/19 04:21 Total Counted 100 04/05/19 04:21 Seg Neutrophils % Product Sales Representative 04/05/19 04:21 Seg Neuts % (Manual) 95.0 % (40.0-70.0) H 04/05/19 04:21 Band Neutrophils % 2.0 % 04/05/19 04:21 Lymphocytes % (Manual) 1.0 % (13.4-35.0) L 04/05/19 04:21 Reactive Lymphs % (Man) 0 % 04/05/19 04:21 Monocytes % (Manual) 2.0 % (0.0-7.3) 04/05/19 04:21 Eosinophils % (Manual) 0 % (0.0-4.3) 04/05/19 04:21 Basophils % (Manual) 0 % (0.0-1.8) 04/05/19 04:21 Metamyelocytes % 0 % 04/05/19 04:21 Myelocytes % 0 % 04/05/19 04:21 Promyelocytes % 0 % 04/05/19 04:21 Blast Cells % 0 % 04/05/19 04:21 Nucleated RBC % Not Reportable 04/05/19 04:21 Seg Neutrophils # Product Sales Representative 04/03/19 04:13 Seg Neutrophils # Man 13.9 K/mm3 (1.8-7.7) H 04/05/19 04:21 Band Neutrophils # 0.3 K/mm3 04/05/19 04:21 Lymphocytes # (Manual) 0.1 K/mm3 (1.2-5.4) L 04/05/19 04:21 Abs React Lymphs (Man) 0.0 K/mm3 04/05/19 04:21 Monocytes # (Manual) 0.3 K/mm3 (0.0-0.8) 04/05/19 04:21 Eosinophils # (Manual) 0.0 K/mm3 (0.0-0.4) 04/05/19 04:21 Basophils # (Manual) 0.0 K/mm3 (0.0-0.1) 04/05/19 04:21 Metamyelocytes # 0.0 K/mm3 04/05/19 04:21 Myelocytes # 0.0 K/mm3 04/05/19 04:21 Promyelocytes # 0.0 K/mm3 04/05/19 04:21 Blast Cells # 0.0 K/mm3 04/05/19 04:21 WBC Morphology Not Reportable 04/05/19 04:21 Hypersegmented Neuts Not Reportable 04/05/19 04:21 Hyposegmented Neuts Not Reportable 04/05/19 04:21 Hypogranular Neuts Not Reportable 04/05/19 04:21 Smudge Cells Not Reportable 04/05/19 04:21 Toxic Granulation Not Reportable 04/05/19 04:21 Toxic Vacuolation Not Reportable 04/05/19 04:21 Dohle Bodies Not Reportable 04/05/19 04:21 Pelger-Huet Anomaly Not Reportable 04/05/19 04:21 Radha Rods Not Reportable 04/05/19 04:21 Platelet Estimate Consistent w auto 04/05/19 04:21 Clumped Platelets Not Reportable 04/05/19 04:21 Plt Clumps, EDTA Not Reportable 04/05/19 04:21 Large Platelets Not Reportable 04/05/19 04:21 Giant Platelets Not Reportable 04/05/19 04:21 Platelet Satelliting Not Reportable 04/05/19 04:21 Plt Morphology Comment Not Reportable 04/05/19 04:21 RBC Morphology Not Reportable 04/05/19 04:21 Dimorphic RBCs Not Reportable 04/05/19 04:21 Polychromasia Not Reportable 04/05/19 04:21 Hypochromasia Not Reportable 04/05/19 04:21 Poikilocytosis Not Reportable 04/05/19 04:21 Anisocytosis Not Reportable 04/05/19 04:21 Microcytosis Not Reportable 04/05/19 04:21 Macrocytosis Not Reportable 04/05/19 04:21 Spherocytes Not Reportable 04/05/19 04:21 Pappenheimer Bodies Not Reportable 04/05/19 04:21 Sickle Cells Not Reportable 04/05/19 04:21 Target Cells Not Reportable 04/05/19 04:21 Tear Drop Cells Not Reportable 04/05/19 04:21 Ovalocytes Not Reportable 04/05/19 04:21 Helmet Cells Not Reportable 04/05/19 04:21 [place] Bodies Not Reportable 04/05/19 04:21 [place] Rings Not Reportable 04/05/19 04:21 [place] Cells Not Reportable 04/05/19 04:21 Bite Cells Not Reportable 04/05/19 04:21 Crenated Cell Not Reportable 04/05/19 04:21 Elliptocytes Rare 04/05/19 04:21 Acanthocytes (Spur) Not Reportable 04/05/19 04:21 Rouleaux Not Reportable 04/05/19 04:21 Hemoglobin C Crystals Not Reportable 04/05/19 04:21 Schistocytes Not Reportable 04/05/19 04:21 Malaria parasites Not Reportable 04/05/19 04:21 Og Bodies Not Reportable 04/05/19 04:21 Hem Pathologist Commnt No 04/05/19 04:21 PT 15.9 Sec. (12.2-14.9) H 03/26/19 12:28 INR 1.25 (0.87-1.13) H 03/26/19 12:28 APTT 31.2 Sec. (24.2-36.6) 03/26/19 12:28 ABG pH 7.441 pH Units (7.350-7.450) 04/04/19 21:45 ABG pCO2 39.3 mm Hg 04/04/19 21:45 ABG pO2 76.0 mm Hg (80.0-90.0) L 04/04/19 21:45 ABG HCO3 26.2 mmol/L (20.0-26.0) H 04/04/19 21:45 ABG O2 Saturation 96.3 % (95.0-99.0) 04/04/19 21:45 ABG O2 Content 17.0 (0.0-44) 04/04/19 21:45 ABG Base Excess 2.0 mmol/L (-2.0-3.0) 04/04/19 21:45 ABG Hemoglobin 12.7 gm/dl (14.0-18.0) L 04/04/19 21:45 ABG Carboxyhemoglobin 1.1 % (0.0-5.0) 04/04/19 21:45 ABG Methemoglobin 0.5 % (0.0-1.5) 04/04/19 21:45 Oxyhemoglobin 94.8 % (95.0-99.0) L 04/04/19 21:45 FiO2 50 % 04/04/19 21:45 Sodium 144 mmol/L (137-145) 04/05/19 04:21 Potassium 3.3 mmol/L (3.6-5.0) L 04/05/19 04:21 Chloride 102.8 mmol/L (98-107) 04/05/19 04:21 Carbon Dioxide 27 mmol/L (22-30) 04/05/19 04:21 Anion Gap 18 mmol/L 04/05/19 04:21 BUN 26 mg/dL (9-20) H 04/05/19 04:21 Creatinine 0.6 mg/dL (0.8-1.5) L 04/05/19 04:21 Estimated GFR > 60 ml/min 04/05/19 04:21 BUN/Creatinine Ratio 43 % 04/05/19 04:21 Glucose 165 mg/dL (75-100) H 04/05/19 04:21 POC Glucose 126 (70-105) H 04/03/19 18:07 Hemoglobin A1c 5.7 % (4-6) 03/27/19 04:27 Lactic Acid 1.80 mmol/L (0.7-2.0) 03/27/19 04:27 Calcium 9.2 mg/dL (8.4-10.2) 04/05/19 04:21 Phosphorus 3.00 mg/dL (2.5-4.5) 04/05/19 04:21 Magnesium 2.30 mg/dL (1.7-2.3) 04/05/19 04:21 Total Bilirubin 0.60 mg/dL (0.1-1.2) 03/27/19 04:27 AST 20 units/L (5-40) 03/27/19 04:27 ALT 30 units/L (7-56) 03/27/19 04:27 Alkaline Phosphatase 136 units/L (35-129) H 03/27/19 04:27 Total Creatine Kinase 133 units/L (55-170) 03/26/19 12:28 CK-MB (CK-2) < 1.0 ng/mL (0.0-4.0) 03/26/19 12:28 CK-MB (CK-2) Rel Index 0.7 (0-4) 03/26/19 12:28 Troponin T < 0.010 ng/mL (0.00-0.029) 03/26/19 14:41 Total Protein 8.0 g/dL (6.3-8.2) 03/27/19 04:27 Albumin 3.2 g/dL (3.9-5) L 03/27/19 04:27 Albumin/Globulin Ratio 0.7 % 03/27/19 04:27 Procalcitonin 1.82 ng/mL (<0.15) 04/01/19 04:19 Urine Color Dahlia (Yellow) 03/26/19 12:36 Urine Turbidity Slightly-cloudy (Clear) 03/26/19 12:36 Urine pH 5.0 (5.0-7.0) 03/26/19 12:36 Ur Specific [place] 1.028 (1.003-1.030) 03/26/19 12:36 Urine Protein 30 mg/dl mg/dL (Negative) 03/26/19 12:36 Urine Glucose (UA) Neg mg/dL (Negative) 03/26/19 12:36 Urine Ketones Neg mg/dL (Negative) 03/26/19 12:36 Urine Blood Neg (Negative) 03/26/19 12:36 Urine Nitrite Neg (Negative) 03/26/19 12:36 Urine Bilirubin Neg (Negative) 03/26/19 12:36 Urine Urobilinogen 4.0 mg/dL (<2.0) 03/26/19 12:36 Ur Leukocyte Esterase Neg (Negative) 03/26/19 12:36 Urine WBC (Auto) 6.0 /HPF (0.0-6.0) 03/26/19 12:36 Urine RBC (Auto) 3.0 /HPF (0.0-6.0) 03/26/19 12:36 U Epithel Cells (Auto) 11.0 /HPF (0-13.0) 03/26/19 12:36 Urine Mucus 2+ /HPF 03/26/19 12:36 Nasal Screen MRSA (PCR) Negative (Negative) 03/28/19 10:02 Urine Opiates Screen Presumptive negative 03/26/19 12:36 Urine Methadone Screen Presumptive negative 03/26/19 12:36 Ur Barbiturates Screen Presumptive negative 03/26/19 12:36 Levetiracetam <1.0 mcg/mL (12.0-46.0) L 03/26/19 15:46 Ur Phencyclidine Scrn Presumptive negative 03/26/19 12:36 Ur Amphetamines Screen Presumptive negative 03/26/19 12:36 U Benzodiazepines Scrn Presumptive negative 03/26/19 12:36 Urine Cocaine Screen Presumptive negative 03/26/19 12:36 U Marijuana (THC) Screen Presumptive negative 03/26/19 12:36 Drugs of Abuse Note Disclamer 03/26/19 12:36 Active Medications - Current Medications Current Medications: Generic Name Dose Route Start Last Admin Trade Name Freq PRN Reason Stop Dose Admin Acetaminophen 650 mg 03/26/19 22:19 Tylenol PO Q4H PRN Pain MILD(1-3)/Fever >100.5/URIAS Albuterol 2.5 mg 03/26/19 22:36 04/03/19 01:36 Proventil IH 2.5 mg Q3HRT PRN Administration Wheezing Albuterol/Ipratropium 1 ampul 03/27/19 08:00 04/05/19 07:50 Duoneb *Not For Prn Use* IH 1 ampul QIDRT NANCY Administration Amlodipine Besylate 10 mg 03/27/19 10:00 04/05/19 10:53 Amlodipine PO Not Given DAILY NANCY Aspirin 81 mg 03/27/19 10:00 04/05/19 10:54 Halfprin Ec PO Not Given QDAY NANCY Famotidine 20 mg 03/27/19 10:00 04/05/19 10:56 Pepcid IV 20 mg BID NANCY Administration Folic Acid 1 mg 03/27/19 10:00 04/05/19 10:54 Folvite PO Not Given DAILY [facility] Heparin Sodium (Porcine) 5,000 unit 03/30/19 17:00 04/05/19 05:56 Heparin SUB-Q 5,000 unit Q8HR NANCY Administration Hydralazine HCl 10 mg 04/04/19 16:39 04/05/19 00:31 Apresoline IV 10 mg Q4HR PRN Administration Hypertension Amino Acids/Electrolytes/Dextrose 2,016 mls @ 84 mls/hr 04/04/19 20:00 04/04/19 19:49 Tpn Adult IV 04/05/19 19:59 84 mls/hr DAILY@1999 [facility] Administration Protocol Amino Acids/Electrolytes/Dextrose 2,016 mls @ 84 mls/hr 04/05/19 20:00 Tpn Adult IV 04/06/19 19:59 DAILY@1999 [facility] Protocol Olanzapine 10 mg 03/27/19 10:00 04/05/19 10:54 Zyprexa PO Not Given DAILY [facility] Ondansetron HCl 4 mg 03/26/19 22:19 04/04/19 21:41 Zofran IV 4 mg Q3H PRN Administration Nausea And Vomiting Sodium Chloride 10 ml 03/27/19 10:00 04/05/19 10:56 Sodium Chloride Flush Syringe 10 Ml IV 10 ml BID NANCY Administration Sodium Chloride 10 ml 03/26/19 22:19 04/04/19 18:45 Sodium Chloride Flush Syringe 10 Ml IV 10 ml PRN PRN Administration LINE FLUSH Nutrition/Malnutrition Assess - Dietary Evaluation Nutrition/Malnutrition Findings: Nutrition Notes Start: 03/27/19 14:04 Freq: Status: Active Protocol: Document 04/05/19 10:34 LM (Rec: 04/05/19 10:45 LM [email or web address]) Nutrition Notes Initial or Follow up Reassessment Current Diagnosis Sepsis,Hypertension, Respiratory Failure Other Pertinent Diagnosis Schizophrenia, dysphagia, AMS, bilat pneu, hypernatremia Current Diet PPN at 84ml/hr Labs/Tests K 3.3 Pertinent Medications Reviewed Height 5 ft 8 in Weight 52.3 kg [place] Body Weight (kg) 70.00 BMI 17.5 Weight Status Underweight Subjective/Other Information PPN say 4. PPN running at 84 ml/hr. Pt's K remains low and with INT. Percent of energy/protein needs met: 44%/100% Burn Absent Trauma Absent Difficulty In Swallowing Current % PO Negligible Minimum of two criteria Yes Body Fat Depletion Mild depletion (non-severe) Muscle Mass Moderate Depletion (severe) #2 Nutrition Diagnosis Malnutrition Diagnosis Progress(for reassessment Continues documentation) #1 Nutrition Diagnosis Inadequate oral intake Diagnosis Progress(for reassessment Continues documentation) Is patient on ventilator? No Is Patient Ambulatory and/or Out of Bed No REE-([place]-confined to bed) 1538.712 Kcal/Kg value to use for calculation 35 Approximate Energy Requirements Using 1831 kcal/Kg Calculation Used for Recommendations Kcal/kg Additional Notes Protein: 64-80 g (1.2 - 1.5 g/ kg) fluid 1ml/ kcal Nutrition Intervention Change Diet Order: Continue Nutrition Support: PPN at 84 ml/hr: 80 mEq Na, 140 mEq K, 5 mEq Mg, 10 mEq Ca , MVI, thiamine Kcal 680 Protein (gm) 85 Carbohydrates (gm) 100 Fat (gm) 0 Fluid (mL) 2,016 Fiber (gm) 0 Goal #1 Meet needs as best as possible via PPN Anticipated Discharge Needs: unable to determine at this time Follow-Up By: 04/06/19 Additional Comments Lab in am: Mg FARRELL Phos
--- NOTE | 2019-04-05 12:56 | Progress Note ---
Assessment and Plan 68 y/o male admitted with altered mental status and acute respiratory failure from presumed pneumonia. Worsening respiratory status and hypoxemia. Increasing right pleural effusion possibly parapneumonic 1. Ultrasound-guided thoracentesis on the right side ordered yesterday still awaiting IR to do it 2. BiPAP to improve work of breathing 3. Ok with abx 4. Off steroids. Also stopped all pain meds and scheduled ativan that per r eport patient was on outside of the hospital. 5. Prognosis guarded Total critical care time 31-minute Subjective Date of service: 04/05/19 Interval history: Continued increased work of breathing though oxygen saturation has improved with BiPAP. Patient now on 60% FiO2. Vital signs remained stable. Still awaiting ultrasound-guided thoracentesis ordered urgently yesterday afternoon. Objective Vital Signs - 12hr 04/05/19 04/05/19 04/05/19 01:01 02:01 03:01 Temperature Pulse Rate 103 H 105 H 92 H Pulse Rate [ From Monitor] Respiratory 44 H 45 H 43 H Rate Blood Pressure 181/101 137/83 181/101 O2 Sat by Pulse 99 98 Oximetry 04/05/19 04/05/19 04/05/19 04:00 04:27 05:01 Temperature 97.5 F L Pulse Rate 98 H 94 H 104 H Pulse Rate [ 99 H From Monitor] Respiratory 44 H 36 H 37 H Rate Blood Pressure 157/86 157/86 157/86 O2 Sat by Pulse 92 98 100 Oximetry 04/05/19 04/05/19 04/05/19 06:01 07:00 08:00 Temperature 97.9 F Pulse Rate 98 H 105 H 101 H Pulse Rate [ From Monitor] Respiratory 45 H 37 H 33 H Rate Blood Pressure 157/86 157/86 147/84 O2 Sat by Pulse 95 100 Oximetry 04/05/19 09:00 Temperature Pulse Rate 88 Pulse Rate [ From Monitor] Respiratory 31 H Rate Blood Pressure 147/84 O2 Sat by Pulse 99 Oximetry Constitutional: appears uncomfortable, other (eyes open responsive) Eyes: non-icteric ENT: other (full face mask bipap in place) Neck: supple Effort: mildly labored Ascultation: Right: diminished breath sounds, Bilateral: clear Cardiovascular: regular rate and rhythm CBC and BMP: 04/05/19 04:21 04/05/19 04:21 ABG, PT/INR, D-dimer: ABG ABG pH 7.441 pH Units (7.350-7.450) 04/04/19 21:45 ABG pCO2 39.3 mm Hg 04/04/19 21:45 ABG pO2 76.0 mm Hg (80.0-90.0) L 04/04/19 21:45 ABG O2 Saturation 96.3 % (95.0-99.0) 04/04/19 21:45 PT/INR, D-dimer PT 15.9 Sec. (12.2-14.9) H 03/26/19 12:28 INR 1.25 (0.87-1.13) H 03/26/19 12:28 Abnormal lab findings: Abnormal Labs 03/26/19 03/26/19 03/26/19 12:28 12:28 12:28 WBC RBC Hgb Hct MCHC RDW 16.1 H Lymph % (Auto) 12.3 L [place] % (Auto) Lymph # 0.7 L Seg Neutrophils % 82.0 H Seg Neuts % (Manual) Lymphocytes % (Manual) Seg Neutrophils # Seg Neutrophils # Man Lymphocytes # (Manual) PT 15.9 H INR 1.25 H ABG pH ABG pO2 ABG HCO3 ABG O2 Saturation ABG Base Excess ABG Hemoglobin Oxyhemoglobin Sodium 155 H Potassium Chloride 115.8 H Carbon Dioxide 18 L BUN 39 H Creatinine Glucose 213 H POC Glucose Lactic Acid Calcium Phosphorus Alkaline Phosphatase 163 H Total Protein 8.6 H Albumin 3.4 L Levetiracetam 03/26/19 03/26/19 03/26/19 12:28 13:40 14:41 WBC RBC Hgb Hct MCHC RDW Lymph % (Auto) [place] % (Auto) Lymph # Seg Neutrophils % Seg Neuts % (Manual) Lymphocytes % (Manual) Seg Neutrophils # Seg Neutrophils # Man Lymphocytes # (Manual) PT INR ABG pH ABG pO2 109.5 H ABG HCO3 ABG O2 Saturation ABG Base Excess -2.5 L ABG Hemoglobin 13.9 L Oxyhemoglobin Sodium Potassium Chloride Carbon Dioxide BUN Creatinine Glucose POC Glucose Lactic Acid 3.50 H* 4.90 H* Calcium Phosphorus Alkaline Phosphatase Total Protein Albumin Levetiracetam 03/26/19 03/26/19 03/26/19 15:46 15:46 20:26 WBC RBC Hgb Hct MCHC RDW Lymph % (Auto) [place] % (Auto) Lymph # Seg Neutrophils % Seg Neuts % (Manual) Lymphocytes % (Manual) Seg Neutrophils # Seg Neutrophils # Man Lymphocytes # (Manual) PT INR ABG pH ABG pO2 ABG HCO3 ABG O2 Saturation ABG Base Excess ABG Hemoglobin Oxyhemoglobin Sodium Potassium Chloride Carbon Dioxide BUN Creatinine Glucose POC Glucose Lactic Acid 3.60 H* 2.80 H* Calcium Phosphorus Alkaline Phosphatase Total Protein Albumin Levetiracetam <1.0 L 03/26/19 03/27/19 03/27/19 21:34 04:27 04:27 WBC RBC Hgb Hct MCHC RDW 16.3 H Lymph % (Auto) 10.5 L [place] % (Auto) Lymph # 0.6 L Seg Neutrophils % 83.3 H Seg Neuts % (Manual) Lymphocytes % (Manual) Seg Neutrophils # Seg Neutrophils # Man Lymphocytes # (Manual) PT INR ABG pH ABG pO2 ABG HCO3 ABG O2 Saturation ABG Base Excess ABG Hemoglobin Oxyhemoglobin Sodium 156 H Potassium Chloride 120.2 H Carbon Dioxide 21 L BUN 40 H Creatinine Glucose 207 H POC Glucose Lactic Acid 3.00 H* Calcium Phosphorus Alkaline Phosphatase 136 H Total Protein Albumin 3.2 L Levetiracetam 03/27/19 03/28/19 03/28/19 18:59 03:43 03:43 WBC RBC 3.56 L Hgb 10.3 L Hct 31.9 L MCHC RDW 15.9 H Lymph % (Auto) [place] % (Auto) Lymph # Seg Neutrophils % Seg Neuts % (Manual) Lymphocytes % (Manual) Seg Neutrophils # Seg Neutrophils # Man Lymphocytes # (Manual) PT INR ABG pH ABG pO2 ABG HCO3 ABG O2 Saturation ABG Base Excess ABG Hemoglobin Oxyhemoglobin Sodium 157 H 152 H Potassium Chloride 122.1 H 117.5 H Carbon Dioxide 21 L BUN 41 H 34 H Creatinine Glucose 170 H 143 H POC Glucose Lactic Acid Calcium Phosphorus Alkaline Phosphatase Total Protein Albumin Levetiracetam 03/29/19 03/29/19 03/30/19 05:27 05:27 04:49 WBC 14.5 H RBC 3.51 L Hgb 10.1 L Hct 31.3 L MCHC RDW 16.0 H Lymph % (Auto) [place] % (Auto) Lymph # Seg Neutrophils % Seg Neuts % (Manual) Lymphocytes % (Manual) Seg Neutrophils # Seg Neutrophils # Man Lymphocytes # (Manual) PT INR ABG pH ABG pO2 ABG HCO3 ABG O2 Saturation ABG Base Excess ABG Hemoglobin Oxyhemoglobin Sodium 147 H 152 H Potassium Chloride 113.0 H 117.8 H Carbon Dioxide 20 L 20 L BUN 21 H Creatinine 0.7 L Glucose 127 H 109 H POC Glucose Lactic Acid Calcium Phosphorus Alkaline Phosphatase Total Protein Albumin Levetiracetam 03/30/19 04/01/19 04/01/19 04:49 04:19 04:19 WBC RBC 3.61 L 3.62 L Hgb 10.6 L 10.4 L Hct 31.8 L 32.0 L MCHC RDW 15.6 H 15.7 H Lymph % (Auto) 7.0 L [place] % (Auto) 8.6 H Lymph # 0.5 L Seg Neutrophils % 84.2 H Seg Neuts % (Manual) Lymphocytes % (Manual) Seg Neutrophils # Seg Neutrophils # Man Lymphocytes # (Manual) PT INR ABG pH ABG pO2 ABG HCO3 ABG O2 Saturation ABG Base Excess ABG Hemoglobin Oxyhemoglobin Sodium 154 H Potassium 3.4 L Chloride 120.5 H Carbon Dioxide BUN 29 H Creatinine Glucose 151 H POC Glucose Lactic Acid Calcium Phosphorus Alkaline Phosphatase Total Protein Albumin Levetiracetam 04/02/19 04/02/19 04/02/19 03:25 04:51 04:51 WBC RBC Hgb 11.3 L Hct 34.6 L MCHC RDW 15.6 H Lymph % (Auto) 6.1 L [place] % (Auto) Lymph # 0.6 L Seg Neutrophils % 88.0 H Seg Neuts % (Manual) Lymphocytes % (Manual) Seg Neutrophils # 8.7 H Seg Neutrophils # Man Lymphocytes # (Manual) PT INR ABG pH 7.487 H ABG pO2 48.3 L ABG HCO3 ABG O2 Saturation 87.2 L ABG Base Excess ABG Hemoglobin 12.0 L Oxyhemoglobin 85.6 L Sodium 152 H Potassium 3.3 L Chloride 117.4 H Carbon Dioxide BUN 21 H Creatinine Glucose 134 H POC Glucose Lactic Acid Calcium Phosphorus Alkaline Phosphatase Total Protein Albumin Levetiracetam 04/03/19 04/03/19 04/03/19 01:58 04:13 04:13 WBC 13.9 H RBC Hgb Hct MCHC 31 L RDW 16.2 H Lymph % (Auto) [place] % (Auto) Lymph # Seg Neutrophils % Seg Neuts % (Manual) 91.0 H Lymphocytes % (Manual) 5.0 L Seg Neutrophils # Seg Neutrophils # Man 12.6 H Lymphocytes # (Manual) 0.7 L PT INR ABG pH 7.479 H ABG pO2 65.9 L ABG HCO3 ABG O2 Saturation 94.9 L ABG Base Excess ABG Hemoglobin 10.9 L Oxyhemoglobin 93.5 L Sodium Potassium Chloride 112.0 H Carbon Dioxide 20 L BUN Creatinine 0.6 L Glucose 128 H POC Glucose Lactic Acid Calcium 8.1 L Phosphorus Alkaline Phosphatase Total Protein Albumin Levetiracetam 04/03/19 04/03/19 04/03/19 07:56 13:32 18:07 WBC RBC Hgb Hct MCHC RDW Lymph % (Auto) [place] % (Auto) Lymph # Seg Neutrophils % Seg Neuts % (Manual) Lymphocytes % (Manual) Seg Neutrophils # Seg Neutrophils # Man Lymphocytes # (Manual) PT INR ABG pH ABG pO2 ABG HCO3 ABG O2 Saturation ABG Base Excess ABG Hemoglobin Oxyhemoglobin Sodium Potassium Chloride Carbon Dioxide BUN Creatinine Glucose POC Glucose 135 H 126 H Lactic Acid Calcium Phosphorus 2.20 L Alkaline Phosphatase Total Protein Albumin Levetiracetam 04/04/19 04/04/19 04/04/19 08:58 08:58 21:45 WBC 14.2 H RBC Hgb Hct 34.9 L MCHC RDW Lymph % (Auto) [place] % (Auto) Lymph # Seg Neutrophils % Seg Neuts % (Manual) 95.0 H Lymphocytes % (Manual) 2.0 L Seg Neutrophils # Seg Neutrophils # Man 13.5 H Lymphocytes # (Manual) 0.3 L PT INR ABG pH ABG pO2 76.0 L ABG HCO3 26.2 H ABG O2 Saturation ABG Base Excess ABG Hemoglobin 12.7 L Oxyhemoglobin 94.8 L Sodium Potassium 3.1 L Chloride Carbon Dioxide BUN Creatinine 0.4 L Glucose 149 H POC Glucose Lactic Acid Calcium Phosphorus Alkaline Phosphatase Total Protein Albumin Levetiracetam 04/05/19 04/05/19 04:21 04:21 WBC 14.6 H RBC Hgb Hct MCHC RDW Lymph % (Auto) [place] % (Auto) Lymph # Seg Neutrophils % Seg Neuts % (Manual) 95.0 H Lymphocytes % (Manual) 1.0 L Seg Neutrophils # Seg Neutrophils # Man 13.9 H Lymphocytes # (Manual) 0.1 L PT INR ABG pH ABG pO2 ABG HCO3 ABG O2 Saturation ABG Base Excess ABG Hemoglobin Oxyhemoglobin Sodium Potassium 3.3 L Chloride Carbon Dioxide BUN 26 H Creatinine 0.6 L Glucose 165 H POC Glucose Lactic Acid Calcium Phosphorus Alkaline Phosphatase Total Protein Albumin Levetiracetam
[2019-04-05] MEDS ORDERED: IPRATROPIUM/ALBUTEROL SULFATE 3 ML AMPUL.NEB IH SCH (14:00)
[2019-04-05] MEDS ORDERED: TOTAL PARENTERAL NUTRITION 2,016 ML IV SCH (20:00)
[2019-04-06] MEDS: IPRATROPIUM/ALBUTEROL SULFATE 3 ML AMPUL.NEB IH SCH ×4 (01:54→23:44)
[2019-04-06 05:34] LABS: Hematocrit 33.8 % (35.5-45.6); Hemoglobin 11.3 gm/dl (11.8-15.2); Mean Corpuscular HGB Conc 34 % (32-34); Mean Corpuscular Volume 87 fl (84-94); Platelet Count 378 K/mm3 (140-440); Red Blood Count 3.87 M/mm3 (3.65-5.03); Red Cell Distribution Width 16.1 % (13.2-15.2)
[2019-04-06 05:57] LABS: BUN/Creatinine Ratio 50; Blood Urea Nitrogen 30 mg/dL (9-20); Calcium 9.3 mg/dL (8.4-10.2); Hemolysis Index 29
[2019-04-06 06:29] LABS: Basophils % (Manual) 0 % (0.0-1.8); Total Cells Counted 100
[2019-04-06 06:30] LABS: Platelet Estimate Consistent w Auto; RBC Morphology Normal
--- NOTE | 2019-04-06 09:47 | Progress Note ---
Assessment and Plan Assessment and plan: Sepsis. Etiology secondary to bilateral pneumonia Elevated Lactic acid Continue antibiotics per ID ID following Toxic metabolic encephalopathy EEG revealed findings suggestive of encephalopathic process with the possibility of post anoxic brain injury or post ictal state. Acute respiratory failure with hypoxia Patient currently on BiPAP. Continue as clinically indicated. 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 Hospitalist Physical - Constitutional Vitals: Temp Pulse Resp BP Pulse Ox 98.5 F 95 H 38 H 161/94 98 04/06/19 08:00 04/06/19 08:52 04/06/19 08:52 04/06/19 08:52 04/06/19 08:52 General appearance: Present: no acute distress - EENT Eyes: Present: PERRL, EOM intact ENT: hearing intact, clear oral mucosa, dentition normal - Neck Neck: Present: supple, normal ROM - Respiratory Respiratory effort: normal Respiratory: bilateral: CTA - Cardiovascular Rhythm: regular Heart Sounds: Present: S1 & S2. Absent: gallop, rub - Extremities Extremities: no ischemia, No edema, Full ROM - Abdominal General gastrointestinal: soft, non-tender, non-distended, normal bowel sounds - Integumentary Integumentary: Present: clear, warm, dry - Neurologic Neurologic: CNII-XII intact, moves all extremities Results - Labs CBC & Chem 7: 04/06/19 04:41 04/06/19 04:41 Labs: Laboratory Last Values WBC 14.2 K/mm3 (4.5-11.0) H 04/06/19 04:41 RBC 3.87 M/mm3 (3.65-5.03) 04/06/19 04:41 Hgb 11.3 gm/dl (11.8-15.2) L 04/06/19 04:41 Hct 33.8 % (35.5-45.6) L 04/06/19 04:41 MCV 87 fl (84-94) 04/06/19 04:41 MCH 29 pg (28-32) 04/06/19 04:41 MCHC 34 % (32-34) 04/06/19 04:41 RDW 16.1 % (13.2-15.2) H 04/06/19 04:41 Plt Count 378 K/mm3 (140-440) 04/06/19 04:41 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 [place] 04/03/19 04:13 [place] % (Auto) 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 [place] 04/03/19 04:13 Eos % (Auto) 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 [place] 04/03/19 04:13 Baso % (Auto) 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 [place] 04/03/19 04:13 Lymph # 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 [place] 04/03/19 04:13 [place] # 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 [place] 04/03/19 04:13 Eos # 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 [place] 04/03/19 04:13 Baso # 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 [place] 04/03/19 04:13 Add Manual Diff Complete 04/06/19 04:41 Total Counted 100 04/06/19 04:41 Seg Neutrophils % 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 [place] 04/06/19 04:41 Seg Neuts % (Manual) 92.0 % (40.0-70.0) H 04/06/19 04:41 Band Neutrophils % 0 % 04/06/19 04:41 Lymphocytes % (Manual) 3.0 % (13.4-35.0) L 04/06/19 04:41 Reactive Lymphs % (Man) 0 % 04/06/19 04:41 Monocytes % (Manual) 4.0 % (0.0-7.3) 04/06/19 04:41 Eosinophils % (Manual) 1.0 % (0.0-4.3) 04/06/19 04:41 Basophils % (Manual) 0 % (0.0-1.8) 04/06/19 04:41 Metamyelocytes % 0 % 04/06/19 04:41 Myelocytes % 0 % 04/06/19 04:41 Promyelocytes % 0 % 04/06/19 04:41 Blast Cells % 0 % 04/06/19 04:41 Nucleated RBC % Not Reportable 04/06/19 04:41 Seg Neutrophils # 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 [place] 04/03/19 04:13 Seg Neutrophils # Man 13.1 K/mm3 (1.8-7.7) H 04/06/19 04:41 Band Neutrophils # 0.0 K/mm3 04/06/19 04:41 Lymphocytes # (Manual) 0.4 K/mm3 (1.2-5.4) L 04/06/19 04:41 Abs React Lymphs (Man) 0.0 K/mm3 04/06/19 04:41 Monocytes # (Manual) 0.6 K/mm3 (0.0-0.8) 04/06/19 04:41 Eosinophils # (Manual) 0.1 K/mm3 (0.0-0.4) 04/06/19 04:41 Basophils # (Manual) 0.0 K/mm3 (0.0-0.1) 04/06/19 04:41 Metamyelocytes # 0.0 K/mm3 04/06/19 04:41 Myelocytes # 0.0 K/mm3 04/06/19 04:41 Promyelocytes # 0.0 K/mm3 04/06/19 04:41 Blast Cells # 0.0 K/mm3 04/06/19 04:41 WBC Morphology Not Reportable 04/06/19 04:41 Hypersegmented Neuts Not Reportable 04/06/19 04:41 Hyposegmented Neuts Not Reportable 04/06/19 04:41 Hypogranular Neuts Not Reportable 04/06/19 04:41 Smudge Cells Not Reportable 04/06/19 04:41 Toxic Granulation Not Reportable 04/06/19 04:41 Toxic Vacuolation Not Reportable 04/06/19 04:41 Dohle Bodies Not Reportable 04/06/19 04:41 Pelger-Huet Anomaly Not Reportable 04/06/19 04:41 Radha Rods Not Reportable 04/06/19 04:41 Platelet Estimate Consistent w auto 04/06/19 04:41 Clumped Platelets Not Reportable 04/06/19 04:41 Plt Clumps, EDTA Not Reportable 04/06/19 04:41 Large Platelets Not Reportable 04/06/19 04:41 Giant Platelets Not Reportable 04/06/19 04:41 Platelet Satelliting Not Reportable 04/06/19 04:41 Plt Morphology Comment Not Reportable 04/06/19 04:41 RBC Morphology Normal 04/06/19 04:41 Dimorphic RBCs Not Reportable 04/06/19 04:41 Polychromasia Not Reportable 04/06/19 04:41 Hypochromasia Not Reportable 04/06/19 04:41 Poikilocytosis Not Reportable 04/06/19 04:41 Anisocytosis Not Reportable 04/06/19 04:41 Microcytosis Not Reportable 04/06/19 04:41 Macrocytosis Not Reportable 04/06/19 04:41 Spherocytes Not Reportable 04/06/19 04:41 Pappenheimer Bodies Not Reportable 04/06/19 04:41 Sickle Cells Not Reportable 04/06/19 04:41 Target Cells Not Reportable 04/06/19 04:41 Tear Drop Cells Not Reportable 04/06/19 04:41 Ovalocytes Not Reportable 04/06/19 04:41 Helmet Cells Not Reportable 04/06/19 04:41 [place] Bodies Not Reportable 04/06/19 04:41 [place] Rings Not Reportable 04/06/19 04:41 [place] Cells Not Reportable 04/06/19 04:41 Bite Cells Not Reportable 04/06/19 04:41 Crenated Cell Not Reportable 04/06/19 04:41 Elliptocytes Not Reportable 04/06/19 04:41 Acanthocytes (Spur) Not Reportable 04/06/19 04:41 Rouleaux Not Reportable 04/06/19 04:41 Hemoglobin C Crystals Not Reportable 04/06/19 04:41 Schistocytes Not Reportable 04/06/19 04:41 Malaria parasites Not Reportable 04/06/19 04:41 Og Bodies Not Reportable 04/06/19 04:41 Hem Pathologist Commnt No 04/06/19 04:41 PT 15.9 Sec. (12.2-14.9) H 03/26/19 12:28 INR 1.25 (0.87-1.13) H 03/26/19 12:28 APTT 31.2 Sec. (24.2-36.6) 03/26/19 12:28 ABG pH 7.441 pH Units (7.350-7.450) 04/04/19 21:45 ABG pCO2 39.3 mm Hg 04/04/19 21:45 ABG pO2 76.0 mm Hg (80.0-90.0) L 04/04/19 21:45 ABG HCO3 26.2 mmol/L (20.0-26.0) H 04/04/19 21:45 ABG O2 Saturation 96.3 % (95.0-99.0) 04/04/19 21:45 ABG O2 Content 17.0 (0.0-44) 04/04/19 21:45 ABG Base Excess 2.0 mmol/L (-2.0-3.0) 04/04/19 21:45 ABG Hemoglobin 12.7 gm/dl (14.0-18.0) L 04/04/19 21:45 ABG Carboxyhemoglobin 1.1 % (0.0-5.0) 04/04/19 21:45 ABG Methemoglobin 0.5 % (0.0-1.5) 04/04/19 21:45 Oxyhemoglobin 94.8 % (95.0-99.0) L 04/04/19 21:45 FiO2 50 % 04/04/19 21:45 Sodium 146 mmol/L (137-145) H 04/06/19 04:41 Potassium 4.5 mmol/L (3.6-5.0) D 04/06/19 04:41 Chloride 104.8 mmol/L (98-107) 04/06/19 04:41 Carbon Dioxide 29 mmol/L (22-30) 04/06/19 04:41 Anion Gap 17 mmol/L 04/06/19 04:41 BUN 30 mg/dL (9-20) H 04/06/19 04:41 Creatinine 0.6 mg/dL (0.8-1.5) L 04/06/19 04:41 Estimated GFR > 60 ml/min 04/06/19 04:41 BUN/Creatinine Ratio 50 % 04/06/19 04:41 Glucose 132 mg/dL (75-100) H 04/06/19 04:41 POC Glucose 126 (70-105) H 04/03/19 18:07 Hemoglobin A1c 5.7 % (4-6) 03/27/19 04:27 Lactic Acid 1.80 mmol/L (0.7-2.0) 03/27/19 04:27 Calcium 9.3 mg/dL (8.4-10.2) 04/06/19 04:41 Phosphorus 3.50 mg/dL (2.5-4.5) 04/06/19 04:41 Magnesium 2.20 mg/dL (1.7-2.3) 04/06/19 04:41 Total Bilirubin 0.60 mg/dL (0.1-1.2) 03/27/19 04:27 AST 20 units/L (5-40) 03/27/19 04:27 ALT 30 units/L (7-56) 03/27/19 04:27 Alkaline Phosphatase 136 units/L (35-129) H 03/27/19 04:27 Total Creatine Kinase 133 units/L (55-170) 03/26/19 12:28 CK-MB (CK-2) < 1.0 ng/mL (0.0-4.0) 03/26/19 12:28 CK-MB (CK-2) Rel Index 0.7 (0-4) 03/26/19 12:28 Troponin T < 0.010 ng/mL (0.00-0.029) 03/26/19 14:41 Total Protein 8.0 g/dL (6.3-8.2) 03/27/19 04:27 Albumin 3.2 g/dL (3.9-5) L 03/27/19 04:27 Albumin/Globulin Ratio 0.7 % 03/27/19 04:27 Procalcitonin 1.82 ng/mL (<0.15) 04/01/19 04:19 Urine Color [place] (Yellow) 03/26/19 12:36 Urine Turbidity Slightly-cloudy (Clear) 03/26/19 12:36 Urine pH 5.0 (5.0-7.0) 03/26/19 12:36 Ur Specific [place] 1.028 (1.003-1.030) 03/26/19 12:36 Urine Protein 30 mg/dl mg/dL (Negative) 03/26/19 12:36 Urine Glucose (UA) Neg mg/dL (Negative) 03/26/19 12:36 Urine Ketones Neg mg/dL (Negative) 03/26/19 12:36 Urine Blood Neg (Negative) 03/26/19 12:36 Urine Nitrite Neg (Negative) 03/26/19 12:36 Urine Bilirubin Neg (Negative) 03/26/19 12:36 Urine Urobilinogen 4.0 mg/dL (<2.0) 03/26/19 12:36 Ur Leukocyte Esterase Neg (Negative) 03/26/19 12:36 Urine WBC (Auto) 6.0 /HPF (0.0-6.0) 03/26/19 12:36 Urine RBC (Auto) 3.0 /HPF (0.0-6.0) 03/26/19 12:36 U Epithel Cells (Auto) 11.0 /HPF (0-13.0) 03/26/19 12:36 Urine Mucus 2+ /HPF 03/26/19 12:36 Nasal Screen MRSA (PCR) Negative (Negative) 03/28/19 10:02 Urine Opiates Screen Presumptive negative 03/26/19 12:36 Urine Methadone Screen Presumptive negative 03/26/19 12:36 Ur Barbiturates Screen Presumptive negative 03/26/19 12:36 Levetiracetam <1.0 mcg/mL (12.0-46.0) L 03/26/19 15:46 Ur Phencyclidine Scrn Presumptive negative 03/26/19 12:36 Ur Amphetamines Screen Presumptive negative 03/26/19 12:36 U Benzodiazepines Scrn Presumptive negative 03/26/19 12:36 Urine Cocaine Screen Presumptive negative 03/26/19 12:36 U Marijuana (THC) Screen Presumptive negative 03/26/19 12:36 Drugs of Abuse Note Disclamer 03/26/19 12:36 Active Medications - Current Medications Current Medications: Generic Name Dose Route Start Last Admin Trade Name Freq PRN Reason Stop Dose Admin Acetaminophen 650 mg 03/26/19 22:19 Tylenol PO Q4H PRN Pain MILD(1-3)/Fever >100.5/URIAS Albuterol 2.5 mg 03/26/19 22:36 04/03/19 01:36 Proventil IH 2.5 mg Q3HRT PRN Administration Wheezing Albuterol/Ipratropium 1 ampul 04/05/19 14:00 04/06/19 08:45 Duoneb *Not For Prn Use* IH 1 ampul Q6HRT NANCY Administration Amlodipine Besylate 10 mg 03/27/19 10:00 04/05/19 10:53 Amlodipine PO Not Given DAILY NANCY Aspirin 81 mg 03/27/19 10:00 04/05/19 10:54 Halfprin Ec PO Not Given QDAY NANCY Famotidine 20 mg 03/27/19 10:00 04/05/19 21:08 Pepcid IV 20 mg BID NANCY Administration Folic Acid 1 mg 03/27/19 10:00 04/05/19 10:54 Folvite PO Not Given DAILY [facility] Heparin Sodium (Porcine) 5,000 unit 03/30/19 17:00 04/05/19 21:08 Heparin SUB-Q 5,000 unit Q8HR NANCY Administration Hydralazine HCl 10 mg 04/04/19 16:39 04/05/19 00:31 Apresoline IV 10 mg Q4HR PRN Administration Hypertension Amino Acids/Electrolytes/Dextrose 2,016 mls @ 84 mls/hr 04/05/19 20:00 04/05/19 21:08 Tpn Adult IV 04/06/19 19:59 84 mls/hr DAILY@1999 NANCY Administration Protocol Olanzapine 10 mg 03/27/19 10:00 04/05/19 10:54 Zyprexa PO Not Given DAILY [facility] Ondansetron HCl 4 mg 03/26/19 22:19 04/04/19 21:41 Zofran IV 4 mg Q3H PRN Administration Nausea And Vomiting Sodium Chloride 10 ml 03/27/19 10:00 04/05/19 21:08 Sodium Chloride Flush Syringe 10 Ml IV 10 ml BID NANCY Administration Sodium Chloride 10 ml 03/26/19 22:19 04/04/19 18:45 Sodium Chloride Flush Syringe 10 Ml IV 10 ml PRN PRN Administration LINE FLUSH Nutrition/Malnutrition Assess - Dietary Evaluation Nutrition/Malnutrition Findings: Nutrition Notes Start: 03/27/19 14:04 Freq: Status: Active Protocol: Document 04/05/19 10:34 LM (Rec: 04/05/19 10:45 LM [email or web address]) Nutrition Notes Initial or Follow up Reassessment Current Diagnosis Sepsis,Hypertension, Respiratory Failure Other Pertinent Diagnosis Schizophrenia, dysphagia, AMS, bilat pneu, hypernatremia Current Diet PPN at 84ml/hr Labs/Tests K 3.3 Pertinent Medications Reviewed Height 5 ft 8 in Weight 52.3 kg [place] Body Weight (kg) 70.00 BMI 17.5 Weight Status Underweight Subjective/Other Information PPN say 4. PPN running at 84 ml/hr. Pt's K remains low and with INT. Percent of energy/protein needs met: 44%/100% Burn Absent Trauma Absent Difficulty In Swallowing Current % PO Negligible Minimum of two criteria Yes Body Fat Depletion Mild depletion (non-severe) Muscle Mass Moderate Depletion (severe) #2 Nutrition Diagnosis Malnutrition Diagnosis Progress(for reassessment Continues documentation) #1 Nutrition Diagnosis Inadequate oral intake Diagnosis Progress(for reassessment Continues documentation) Is patient on ventilator? No Is Patient Ambulatory and/or Out of Bed No REE-([facility]-confined to bed) 1538.712 Kcal/Kg value to use for calculation 35 Approximate Energy Requirements Using 1831 kcal/Kg Calculation Used for Recommendations Kcal/kg Additional Notes Protein: 64-80 g (1.2 - 1.5 g/ kg) fluid 1ml/ kcal Nutrition Intervention Change Diet Order: Continue Nutrition Support: PPN at 84 ml/hr: 80 mEq Na, 140 mEq K, 5 mEq Mg, 10 mEq Ca , MVI, thiamine Kcal 680 Protein (gm) 85 Carbohydrates (gm) 100 Fat (gm) 0 Fluid (mL) 2,016 Fiber (gm) 0 Goal #1 Meet needs as best as possible via PPN Anticipated Discharge Needs: unable to determine at this time Follow-Up By: 04/06/19 Additional Comments Lab in am: BMP, Mg, Phos
--- NOTE | 2019-04-06 10:32 | Progress Note ---
Assessment and Plan 68 y/o male admitted with altered mental status and acute respiratory failure from presumed pneumonia. 1. Bipap dependent now 2. Still no family present to discuss goals of care 3. Very very poor prognosis given mental state 4. Continue TPN 5. CXR tomorrow. Guarded prognosis. Patient may need peg but need to determine who the robert ropriate next of kin. Specifically who signed him in to the facility he came from as clearly he was not able to do this himself. Subjective Date of service: 04/06/19 Interval history: Now on Bipap, continuous. Sat 97 on 55%. Eyes open. Mental state appears the same. On TPN. Objective Vital Signs - 12hr 04/05/19 04/06/19 04/06/19 23:00 00:00 01:00 Temperature 97.9 F Pulse Rate 98 H 101 H 102 H Pulse Rate [ Bilateral] Respiratory 38 H 38 H 40 H Rate Respiratory Rate [Bilateral ] Blood Pressure 129/79 153/91 153/91 O2 Sat by Pulse 97 98 97 Oximetry 04/06/19 04/06/19 04/06/19 01:58 02:00 03:00 Temperature Pulse Rate 102 H 98 H Pulse Rate [ 99 H Bilateral] Respiratory 41 H 41 H Rate Respiratory 39 H Rate [Bilateral ] Blood Pressure 153/91 153/91 O2 Sat by Pulse 95 97 Oximetry 04/06/19 04/06/19 04/06/19 04:00 05:00 06:00 Temperature Pulse Rate 100 H 99 H 95 H Pulse Rate [ Bilateral] Respiratory 38 H 40 H 38 H Rate Respiratory Rate [Bilateral ] Blood Pressure 161/94 161/94 161/94 O2 Sat by Pulse 96 96 97 Oximetry 04/06/19 04/06/19 04/06/19 07:00 08:00 08:46 Temperature 99.2 F 98.5 F Pulse Rate Pulse Rate [ 101 H Bilateral] Respiratory Rate Respiratory 39 H Rate [Bilateral ] Blood Pressure O2 Sat by Pulse Oximetry 04/06/19 08:52 Temperature Pulse Rate 95 H Pulse Rate [ Bilateral] Respiratory 38 H Rate Respiratory Rate [Bilateral ] Blood Pressure 161/94 O2 Sat by Pulse 98 Oximetry Constitutional: appears uncomfortable, other (eyes open responsive) Eyes: non-icteric ENT: other (full face mask bipap in place) Neck: supple Effort: mildly labored Ascultation: Right: diminished breath sounds, Bilateral: clear Cardiovascular: regular rate and rhythm CBC and BMP: 04/06/19 04:41 04/06/19 04:41 ABG, PT/INR, D-dimer: ABG ABG pH 7.441 pH Units (7.350-7.450) 04/04/19 21:45 ABG pCO2 39.3 mm Hg 04/04/19 21:45 ABG pO2 76.0 mm Hg (80.0-90.0) L 04/04/19 21:45 ABG O2 Saturation 96.3 % (95.0-99.0) 04/04/19 21:45 PT/INR, D-dimer PT 15.9 Sec. (12.2-14.9) H 03/26/19 12:28 INR 1.25 (0.87-1.13) H 03/26/19 12:28 Abnormal lab findings: Abnormal Labs 03/26/19 03/26/19 03/26/19 12:28 12:28 12:28 WBC RBC Hgb Hct MCHC RDW 16.1 H Lymph % (Auto) 12.3 L [place] % (Auto) Lymph # 0.7 L Seg Neutrophils % 82.0 H Seg Neuts % (Manual) Lymphocytes % (Manual) Seg Neutrophils # Seg Neutrophils # Man Lymphocytes # (Manual) PT 15.9 H INR 1.25 H ABG pH ABG pO2 ABG HCO3 ABG O2 Saturation ABG Base Excess ABG Hemoglobin Oxyhemoglobin Sodium 155 H Potassium Chloride 115.8 H Carbon Dioxide 18 L BUN 39 H Creatinine Glucose 213 H POC Glucose Lactic Acid Calcium Phosphorus Alkaline Phosphatase 163 H Total Protein 8.6 H Albumin 3.4 L Levetiracetam 03/26/19 03/26/19 03/26/19 12:28 13:40 14:41 WBC RBC Hgb Hct MCHC RDW Lymph % (Auto) [place] % (Auto) Lymph # Seg Neutrophils % Seg Neuts % (Manual) Lymphocytes % (Manual) Seg Neutrophils # Seg Neutrophils # Man Lymphocytes # (Manual) PT INR ABG pH ABG pO2 109.5 H ABG HCO3 ABG O2 Saturation ABG Base Excess -2.5 L ABG Hemoglobin 13.9 L Oxyhemoglobin Sodium Potassium Chloride Carbon Dioxide BUN Creatinine Glucose POC Glucose Lactic Acid 3.50 H* 4.90 H* Calcium Phosphorus Alkaline Phosphatase Total Protein Albumin Levetiracetam 03/26/19 03/26/19 03/26/19 15:46 15:46 20:26 WBC RBC Hgb Hct MCHC RDW Lymph % (Auto) [place] % (Auto) Lymph # Seg Neutrophils % Seg Neuts % (Manual) Lymphocytes % (Manual) Seg Neutrophils # Seg Neutrophils # Man Lymphocytes # (Manual) PT INR ABG pH ABG pO2 ABG HCO3 ABG O2 Saturation ABG Base Excess ABG Hemoglobin Oxyhemoglobin Sodium Potassium Chloride Carbon Dioxide BUN Creatinine Glucose POC Glucose Lactic Acid 3.60 H* 2.80 H* Calcium Phosphorus Alkaline Phosphatase Total Protein Albumin Levetiracetam <1.0 L 03/26/19 03/27/19 03/27/19 21:34 04:27 04:27 WBC RBC Hgb Hct MCHC RDW 16.3 H Lymph % (Auto) 10.5 L [place] % (Auto) Lymph # 0.6 L Seg Neutrophils % 83.3 H Seg Neuts % (Manual) Lymphocytes % (Manual) Seg Neutrophils # Seg Neutrophils # Man Lymphocytes # (Manual) PT INR ABG pH ABG pO2 ABG HCO3 ABG O2 Saturation ABG Base Excess ABG Hemoglobin Oxyhemoglobin Sodium 156 H Potassium Chloride 120.2 H Carbon Dioxide 21 L BUN 40 H Creatinine Glucose 207 H POC Glucose Lactic Acid 3.00 H* Calcium Phosphorus Alkaline Phosphatase 136 H Total Protein Albumin 3.2 L Levetiracetam 03/27/19 03/28/19 03/28/19 18:59 03:43 03:43 WBC RBC 3.56 L Hgb 10.3 L Hct 31.9 L MCHC RDW 15.9 H Lymph % (Auto) [place] % (Auto) Lymph # Seg Neutrophils % Seg Neuts % (Manual) Lymphocytes % (Manual) Seg Neutrophils # Seg Neutrophils # Man Lymphocytes # (Manual) PT INR ABG pH ABG pO2 ABG HCO3 ABG O2 Saturation ABG Base Excess ABG Hemoglobin Oxyhemoglobin Sodium 157 H 152 H Potassium Chloride 122.1 H 117.5 H Carbon Dioxide 21 L BUN 41 H 34 H Creatinine Glucose 170 H 143 H POC Glucose Lactic Acid Calcium Phosphorus Alkaline Phosphatase Total Protein Albumin Levetiracetam 03/29/19 03/29/19 03/30/19 05:27 05:27 04:49 WBC 14.5 H RBC 3.51 L Hgb 10.1 L Hct 31.3 L MCHC RDW 16.0 H Lymph % (Auto) [place] % (Auto) Lymph # Seg Neutrophils % Seg Neuts % (Manual) Lymphocytes % (Manual) Seg Neutrophils # Seg Neutrophils # Man Lymphocytes # (Manual) PT INR ABG pH ABG pO2 ABG HCO3 ABG O2 Saturation ABG Base Excess ABG Hemoglobin Oxyhemoglobin Sodium 147 H 152 H Potassium Chloride 113.0 H 117.8 H Carbon Dioxide 20 L 20 L BUN 21 H Creatinine 0.7 L Glucose 127 H 109 H POC Glucose Lactic Acid Calcium Phosphorus Alkaline Phosphatase Total Protein Albumin Levetiracetam 03/30/19 04/01/19 04/01/19 04:49 04:19 04:19 WBC RBC 3.61 L 3.62 L Hgb 10.6 L 10.4 L Hct 31.8 L 32.0 L MCHC RDW 15.6 H 15.7 H Lymph % (Auto) 7.0 L [place] % (Auto) 8.6 H Lymph # 0.5 L Seg Neutrophils % 84.2 H Seg Neuts % (Manual) Lymphocytes % (Manual) Seg Neutrophils # Seg Neutrophils # Man Lymphocytes # (Manual) PT INR ABG pH ABG pO2 ABG HCO3 ABG O2 Saturation ABG Base Excess ABG Hemoglobin Oxyhemoglobin Sodium 154 H Potassium 3.4 L Chloride 120.5 H Carbon Dioxide BUN 29 H Creatinine Glucose 151 H POC Glucose Lactic Acid Calcium Phosphorus Alkaline Phosphatase Total Protein Albumin Levetiracetam 04/02/19 04/02/19 04/02/19 03:25 04:51 04:51 WBC RBC Hgb 11.3 L Hct 34.6 L MCHC RDW 15.6 H Lymph % (Auto) 6.1 L [place] % (Auto) Lymph # 0.6 L Seg Neutrophils % 88.0 H Seg Neuts % (Manual) Lymphocytes % (Manual) Seg Neutrophils # 8.7 H Seg Neutrophils # Man Lymphocytes # (Manual) PT INR ABG pH 7.487 H ABG pO2 48.3 L ABG HCO3 ABG O2 Saturation 87.2 L ABG Base Excess ABG Hemoglobin 12.0 L Oxyhemoglobin 85.6 L Sodium 152 H Potassium 3.3 L Chloride 117.4 H Carbon Dioxide BUN 21 H Creatinine Glucose 134 H POC Glucose Lactic Acid Calcium Phosphorus Alkaline Phosphatase Total Protein Albumin Levetiracetam 04/03/19 04/03/19 04/03/19 01:58 04:13 04:13 WBC 13.9 H RBC Hgb Hct MCHC 31 L RDW 16.2 H Lymph % (Auto) [place] % (Auto) Lymph # Seg Neutrophils % Seg Neuts % (Manual) 91.0 H Lymphocytes % (Manual) 5.0 L Seg Neutrophils # Seg Neutrophils # Man 12.6 H Lymphocytes # (Manual) 0.7 L PT INR ABG pH 7.479 H ABG pO2 65.9 L ABG HCO3 ABG O2 Saturation 94.9 L ABG Base Excess ABG Hemoglobin 10.9 L Oxyhemoglobin 93.5 L Sodium Potassium Chloride 112.0 H Carbon Dioxide 20 L BUN Creatinine 0.6 L Glucose 128 H POC Glucose Lactic Acid Calcium 8.1 L Phosphorus Alkaline Phosphatase Total Protein Albumin Levetiracetam 04/03/19 04/03/19 04/03/19 07:56 13:32 18:07 WBC RBC Hgb Hct MCHC RDW Lymph % (Auto) [place] % (Auto) Lymph # Seg Neutrophils % Seg Neuts % (Manual) Lymphocytes % (Manual) Seg Neutrophils # Seg Neutrophils # Man Lymphocytes # (Manual) PT INR ABG pH ABG pO2 ABG HCO3 ABG O2 Saturation ABG Base Excess ABG Hemoglobin Oxyhemoglobin Sodium Potassium Chloride Carbon Dioxide BUN Creatinine Glucose POC Glucose 135 H 126 H Lactic Acid Calcium Phosphorus 2.20 L Alkaline Phosphatase Total Protein Albumin Levetiracetam 04/04/19 04/04/19 04/04/19 08:58 08:58 21:45 WBC 14.2 H RBC Hgb Hct 34.9 L MCHC RDW Lymph % (Auto) [place] % (Auto) Lymph # Seg Neutrophils % Seg Neuts % (Manual) 95.0 H Lymphocytes % (Manual) 2.0 L Seg Neutrophils # Seg Neutrophils # Man 13.5 H Lymphocytes # (Manual) 0.3 L PT INR ABG pH ABG pO2 76.0 L ABG HCO3 26.2 H ABG O2 Saturation ABG Base Excess ABG Hemoglobin 12.7 L Oxyhemoglobin 94.8 L Sodium Potassium 3.1 L Chloride Carbon Dioxide BUN Creatinine 0.4 L Glucose 149 H POC Glucose Lactic Acid Calcium Phosphorus Alkaline Phosphatase Total Protein Albumin Levetiracetam 04/05/19 04/05/19 04/06/19 04:21 04:21 04:41 WBC 14.6 H 14.2 H RBC Hgb 11.3 L Hct 33.8 L MCHC RDW 16.1 H Lymph % (Auto) [place] % (Auto) Lymph # Seg Neutrophils % Seg Neuts % (Manual) 95.0 H 92.0 H Lymphocytes % (Manual) 1.0 L 3.0 L Seg Neutrophils # Seg Neutrophils # Man 13.9 H 13.1 H Lymphocytes # (Manual) 0.1 L 0.4 L PT INR ABG pH ABG pO2 ABG HCO3 ABG O2 Saturation ABG Base Excess ABG Hemoglobin Oxyhemoglobin Sodium Potassium 3.3 L Chloride Carbon Dioxide BUN 26 H Creatinine 0.6 L Glucose 165 H POC Glucose Lactic Acid Calcium Phosphorus Alkaline Phosphatase Total Protein Albumin Levetiracetam 04/06/19 04:41 WBC RBC Hgb Hct MCHC RDW Lymph % (Auto) [place] % (Auto) Lymph # Seg Neutrophils % Seg Neuts % (Manual) Lymphocytes % (Manual) Seg Neutrophils # Seg Neutrophils # Man Lymphocytes # (Manual) PT INR ABG pH ABG pO2 ABG HCO3 ABG O2 Saturation ABG Base Excess ABG Hemoglobin Oxyhemoglobin Sodium 146 H Potassium Chloride Carbon Dioxide BUN 30 H Creatinine 0.6 L Glucose 132 H POC Glucose Lactic Acid Calcium Phosphorus Alkaline Phosphatase Total Protein Albumin Levetiracetam
[2019-04-06] MEDS: FAMOTIDINE 20 MG/2 ML INJ IV SCH ×2 (11:00→22:37)
[2019-04-06 11:38] LABS: INR 1.18 (0.87-1.13); Partial Thromboplastin Time 35.2 Sec. (24.2-36.6)
[2019-04-06] MEDS: ASPIRIN EC 81 MG TAB PO SCH (12:43)
[2019-04-06] MEDS: FOLIC ACID 1 MG TAB PO SCH (12:43)
[2019-04-06] MEDS: HEPARIN 5,000 UNIT/1 ML VIAL SUB-Q SCH ×3 (12:44→22:37)
[2019-04-06] MEDS: amLODIPine 10 MG TAB PO SCH (12:47)
[2019-04-06] MEDS ORDERED: TOTAL PARENTERAL NUTRITION 2,016 ML IV SCH (20:00)
[2019-04-06] MEDS ORDERED: FAT EMULSIONS 20% 250 ML IV SCH (20:00)
[2019-04-06] MEDS: hydrALAZINE 20 MG/1 ML INJ IV PRN (22:57)
--- NOTE | 2019-04-07 01:50 | Ultrasound Report ---
US chest INDICATION: right pleural effusion. COMPARISON: One view of the chest from 04/04/2019. FINDINGS: A small right pleural effusion is noted without an additional significant abnormality. IMPRESSION: Small right pleural effusion. Signer Name: Melvin Goldsmith MD Signed: 04/07/2019 1:45 AM Workstation Name: [email or web address]
[2019-04-07] MEDS: IPRATROPIUM/ALBUTEROL SULFATE 3 ML AMPUL.NEB IH SCH ×2 (02:39→07:25)
[2019-04-07 06:50] VITALS: BP 92/48
[2019-04-07] MEDS ORDERED: LIP THERAPY VASELINE TP PRN (07:02)
[2019-04-07] MEDS ORDERED: MINERAL OIL/PETROLATUM, WHITE OPHTH OINT 3.5 GM OU PRN (07:02)
--- NOTE | 2019-04-07 07:05 | Event Note ---
Code MET Patient became bradycardic, went into PEA ACLS protocol initiated, refer to the code sheet for details After 1 round of epi, there was ROSC Patient unresponsive, intubated Chest x-ray reviewed, will be transferred to the ICU Check labs
--- NOTE | 2019-04-07 07:22 | XRay Report ---
CHEST 1 VIEW 04/07/2019 7:03 AM INDICATION / CLINICAL INFORMATION: ETT placement. COMPARISON: One view of the chest from 04/04/2019. FINDINGS: SUPPORT DEVICES: An ET tube has been placed with the tip located 3.4 cm above the katelyn. HEART / MEDIASTINUM: No significant abnormality. LUNGS / PLEURA: Aeration of the right lung has improved. There is a small residual right pleural effu kwasi. Left pulmonary opacities are stable. No pneumothorax. ADDITIONAL FINDINGS: No significant additional findings. IMPRESSION: 1. Improved aeration of the right lung with a smaller right pleural effusion. 2. Interval intubation. Signer Name: Melvin Goldsmith MD Signed: 04/07/2019 7:17 AM Workstation Name: [email or web address]
[2019-04-07 07:36] LABS: INR 1.16 (0.87-1.13)
[2019-04-07 07:37] LABS: Partial Thromboplastin Time 35.8 Sec. (24.2-36.6)
[2019-04-07 07:57] LABS: Creatine Kinase MB 5.1 ng/mL (0.0-4.0)
[2019-04-07 07:58] LABS: Hematocrit 30.7 % (35.5-45.6); Hemoglobin 9.9 gm/dl (11.8-15.2); Mean Corpuscular HGB Conc 32 % (32-34); Mean Corpuscular Volume 90 fl (84-94); Platelet Count 451 K/mm3 (140-440); Red Blood Count 3.41 M/mm3 (3.65-5.03); Red Cell Distribution Width 16.1 % (13.2-15.2)
[2019-04-07 08:00] LABS: BUN/Creatinine Ratio 35; Blood Urea Nitrogen 35 mg/dL (9-20); Hemolysis Index 18
[2019-04-07] MEDS: HEPARIN 5,000 UNIT/1 ML VIAL SUB-Q SCH (08:09)
--- NOTE | 2019-04-07 09:17 | Progress Note ---
Hospitalist Physical - Constitutional Vitals: Temp Pulse Resp BP Pulse Ox 97.3 F L 54 L 34 H 92/48 90 04/07/19 03:58 04/07/19 07:35 04/07/19 07:35 04/07/19 07:35 04/07/19 07:35 General appearance: Present: no acute distress Results - Labs CBC & Chem 7: 04/07/19 06:55 04/07/19 06:55 Labs: Laboratory Last Values WBC 13.9 K/mm3 (4.5-11.0) H 04/07/19 06:55 RBC 3.41 M/mm3 (3.65-5.03) L 04/07/19 06:55 Hgb 9.9 gm/dl (11.8-15.2) L 04/07/19 06:55 Hct 30.7 % (35.5-45.6) L 04/07/19 06:55 MCV 90 fl (84-94) 04/07/19 06:55 MCH 29 pg (28-32) 04/07/19 06:55 MCHC 32 % (32-34) 04/07/19 06:55 RDW 16.1 % (13.2-15.2) H 04/07/19 06:55 Plt Count 451 K/mm3 (140-440) H 04/07/19 06:55 Lymph % (Auto) Coverstitch Machine Operator 04/07/19 06:55 [place] % (Auto) Coverstitch Machine Operator 04/07/19 06:55 Eos % (Auto) Coverstitch Machine Operator 04/07/19 06:55 Baso % (Auto) Coverstitch Machine Operator 04/07/19 06:55 Lymph # Coverstitch Machine Operator 04/07/19 06:55 [place] # Coverstitch Machine Operator 04/07/19 06:55 Eos # Coverstitch Machine Operator 04/07/19 06:55 Baso # Coverstitch Machine Operator 04/07/19 06:55 Add Manual Diff Complete 04/06/19 04:41 Total Counted 100 04/06/19 04:41 Seg Neutrophils % Coverstitch Machine Operator 04/07/19 06:55 Seg Neuts % (Manual) 92.0 % (40.0-70.0) H 04/06/19 04:41 Band Neutrophils % 0 % 04/06/19 04:41 Lymphocytes % (Manual) 3.0 % (13.4-35.0) L 04/06/19 04:41 Reactive Lymphs % (Man) 0 % 04/06/19 04:41 Monocytes % (Manual) 4.0 % (0.0-7.3) 04/06/19 04:41 Eosinophils % (Manual) 1.0 % (0.0-4.3) 04/06/19 04:41 Basophils % (Manual) 0 % (0.0-1.8) 04/06/19 04:41 Metamyelocytes % 0 % 04/06/19 04:41 Myelocytes % 0 % 04/06/19 04:41 Promyelocytes % 0 % 04/06/19 04:41 Blast Cells % 0 % 04/06/19 04:41 Nucleated RBC % Not Reportable 04/06/19 04:41 Seg Neutrophils # Coverstitch Machine Operator 04/07/19 06:55 Seg Neutrophils # Man 13.1 K/mm3 (1.8-7.7) H 04/06/19 04:41 Band Neutrophils # 0.0 K/mm3 04/06/19 04:41 Lymphocytes # (Manual) 0.4 K/mm3 (1.2-5.4) L 04/06/19 04:41 Abs React Lymphs (Man) 0.0 K/mm3 04/06/19 04:41 Monocytes # (Manual) 0.6 K/mm3 (0.0-0.8) 04/06/19 04:41 Eosinophils # (Manual) 0.1 K/mm3 (0.0-0.4) 04/06/19 04:41 Basophils # (Manual) 0.0 K/mm3 (0.0-0.1) 04/06/19 04:41 Metamyelocytes # 0.0 K/mm3 04/06/19 04:41 Myelocytes # 0.0 K/mm3 04/06/19 04:41 Promyelocytes # 0.0 K/mm3 04/06/19 04:41 Blast Cells # 0.0 K/mm3 04/06/19 04:41 WBC Morphology Not Reportable 04/06/19 04:41 Hypersegmented Neuts Not Reportable 04/06/19 04:41 Hyposegmented Neuts Not Reportable 04/06/19 04:41 Hypogranular Neuts Not Reportable 04/06/19 04:41 Smudge Cells Not Reportable 04/06/19 04:41 Toxic Granulation Not Reportable 04/06/19 04:41 Toxic Vacuolation Not Reportable 04/06/19 04:41 Dohle Bodies Not Reportable 04/06/19 04:41 Pelger-Huet Anomaly Not Reportable 04/06/19 04:41 Radha Rods Not Reportable 04/06/19 04:41 Platelet Estimate Consistent w auto 04/06/19 04:41 Clumped Platelets Not Reportable 04/06/19 04:41 Plt Clumps, EDTA Not Reportable 04/06/19 04:41 Large Platelets Not Reportable 04/06/19 04:41 Giant Platelets Not Reportable 04/06/19 04:41 Platelet Satelliting Not Reportable 04/06/19 04:41 Plt Morphology Comment Not Reportable 04/06/19 04:41 RBC Morphology Normal 04/06/19 04:41 Dimorphic RBCs Not Reportable 04/06/19 04:41 Polychromasia Not Reportable 04/06/19 04:41 Hypochromasia Not Reportable 04/06/19 04:41 Poikilocytosis Not Reportable 04/06/19 04:41 Anisocytosis Not Reportable 04/06/19 04:41 Microcytosis Not Reportable 04/06/19 04:41 Macrocytosis Not Reportable 04/06/19 04:41 Spherocytes Not Reportable 04/06/19 04:41 Pappenheimer Bodies Not Reportable 04/06/19 04:41 Sickle Cells Not Reportable 04/06/19 04:41 Target Cells Not Reportable 04/06/19 04:41 Tear Drop Cells Not Reportable 04/06/19 04:41 Ovalocytes Not Reportable 04/06/19 04:41 Helmet Cells Not Reportable 04/06/19 04:41 [place] Bodies Not Reportable 04/06/19 04:41 [place] Rings Not Reportable 04/06/19 04:41 [place] Cells Not Reportable 04/06/19 04:41 Bite Cells Not Reportable 04/06/19 04:41 Crenated Cell Not Reportable 04/06/19 04:41 Elliptocytes Not Reportable 04/06/19 04:41 Acanthocytes (Spur) Not Reportable 04/06/19 04:41 Rouleaux Not Reportable 04/06/19 04:41 Hemoglobin C Crystals Not Reportable 04/06/19 04:41 Schistocytes Not Reportable 04/06/19 04:41 Malaria parasites Not Reportable 04/06/19 04:41 Og Bodies Not Reportable 04/06/19 04:41 Hem Pathologist Commnt No 04/06/19 04:41 PT 15.0 Sec. (12.2-14.9) H 04/07/19 06:55 INR 1.16 (0.87-1.13) H 04/07/19 06:55 APTT 35.8 Sec. (24.2-36.6) 04/07/19 06:55 ABG pH 7.441 pH Units (7.350-7.450) 04/04/19 21:45 ABG pCO2 39.3 mm Hg 04/04/19 21:45 ABG pO2 76.0 mm Hg (80.0-90.0) L 04/04/19 21:45 ABG HCO3 26.2 mmol/L (20.0-26.0) H 04/04/19 21:45 ABG O2 Saturation 96.3 % (95.0-99.0) 04/04/19 21:45 ABG O2 Content 17.0 (0.0-44) 04/04/19 21:45 ABG Base Excess 2.0 mmol/L (-2.0-3.0) 04/04/19 21:45 ABG Hemoglobin 12.7 gm/dl (14.0-18.0) L 04/04/19 21:45 ABG Carboxyhemoglobin 1.1 % (0.0-5.0) 04/04/19 21:45 ABG Methemoglobin 0.5 % (0.0-1.5) 04/04/19 21:45 Oxyhemoglobin 94.8 % (95.0-99.0) L 04/04/19 21:45 FiO2 50 % 04/04/19 21:45 Sodium 146 mmol/L (137-145) H 04/07/19 06:55 Potassium 5.6 mmol/L (3.6-5.0) H D 04/07/19 06:55 Chloride 103.5 mmol/L (98-107) 04/07/19 06:55 Carbon Dioxide 25 mmol/L (22-30) 04/07/19 06:55 Anion Gap 23 mmol/L 04/07/19 06:55 BUN 35 mg/dL (9-20) H 04/07/19 06:55 Creatinine 1.0 mg/dL (0.8-1.5) D 04/07/19 06:55 Estimated GFR > 60 ml/min 04/07/19 06:55 BUN/Creatinine Ratio 35 % 04/07/19 06:55 Glucose 239 mg/dL (75-100) H 04/07/19 06:55 POC Glucose 126 (70-105) H 04/03/19 18:07 Hemoglobin A1c 5.7 % (4-6) 03/27/19 04:27 Lactic Acid 1.80 mmol/L (0.7-2.0) 03/27/19 04:27 Calcium 9.0 mg/dL (8.4-10.2) 04/07/19 06:55 Phosphorus 10.20 mg/dL (2.5-4.5) H D 04/07/19 06:55 Magnesium 2.60 mg/dL (1.7-2.3) H 04/07/19 06:55 Total Bilirubin 0.60 mg/dL (0.1-1.2) 03/27/19 04:27 AST 20 units/L (5-40) 03/27/19 04:27 ALT 30 units/L (7-56) 03/27/19 04:27 Alkaline Phosphatase 136 units/L (35-129) H 03/27/19 04:27 Total Creatine Kinase 158 units/L (55-170) 04/07/19 06:55 CK-MB (CK-2) 5.1 ng/mL (0.0-4.0) H 04/07/19 06:55 CK-MB (CK-2) Rel Index 3.2 (0-4) 04/07/19 06:55 Troponin T < 0.010 ng/mL (0.00-0.029) 04/07/19 06:55 Total Protein 8.0 g/dL (6.3-8.2) 03/27/19 04:27 Albumin 3.2 g/dL (3.9-5) L 03/27/19 04:27 Albumin/Globulin Ratio 0.7 % 03/27/19 04:27 Triglycerides 206 mg/dL (2-149) H 04/07/19 06:55 Procalcitonin 1.82 ng/mL (<0.15) 04/01/19 04:19 Urine Color [place] (Yellow) 03/26/19 12:36 Urine Turbidity Slightly-cloudy (Clear) 03/26/19 12:36 Urine pH 5.0 (5.0-7.0) 03/26/19 12:36 Ur Specific [place] 1.028 (1.003-1.030) 03/26/19 12:36 Urine Protein 30 mg/dl mg/dL (Negative) 03/26/19 12:36 Urine Glucose (UA) Neg mg/dL (Negative) 03/26/19 12:36 Urine Ketones Neg mg/dL (Negative) 03/26/19 12:36 Urine Blood Neg (Negative) 03/26/19 12:36 Urine Nitrite Neg (Negative) 03/26/19 12:36 Urine Bilirubin Neg (Negative) 03/26/19 12:36 Urine Urobilinogen 4.0 mg/dL (<2.0) 03/26/19 12:36 Ur Leukocyte Esterase Neg (Negative) 03/26/19 12:36 Urine WBC (Auto) 6.0 /HPF (0.0-6.0) 03/26/19 12:36 Urine RBC (Auto) 3.0 /HPF (0.0-6.0) 03/26/19 12:36 U Epithel Cells (Auto) 11.0 /HPF (0-13.0) 03/26/19 12:36 Urine Mucus 2+ /HPF 03/26/19 12:36 Nasal Screen MRSA (PCR) Negative (Negative) 03/28/19 10:02 Urine Opiates Screen Presumptive negative 03/26/19 12:36 Urine Methadone Screen Presumptive negative 03/26/19 12:36 Ur Barbiturates Screen Presumptive negative 03/26/19 12:36 Levetiracetam <1.0 mcg/mL (12.0-46.0) L 03/26/19 15:46 Ur Phencyclidine Scrn Presumptive negative 03/26/19 12:36 Ur Amphetamines Screen Presumptive negative 03/26/19 12:36 U Benzodiazepines Scrn Presumptive negative 03/26/19 12:36 Urine Cocaine Screen Presumptive negative 03/26/19 12:36 U Marijuana (THC) Screen Presumptive negative 03/26/19 12:36 Drugs of Abuse Note Disclamer 03/26/19 12:36 Active Medications - Current Medications Current Medications: Generic Name Dose Route Start Last Admin Trade Name Freq PRN Reason Stop Dose Admin Acetaminophen 650 mg 03/26/19 22:19 Tylenol PO Q4H PRN Pain MILD(1-3)/Fever >100.5/URIAS Albuterol 2.5 mg 03/26/19 22:36 04/03/19 01:36 Proventil IH 2.5 mg Q3HRT PRN Administration Wheezing Albuterol/Ipratropium 1 ampul 04/05/19 14:00 04/07/19 02:39 Duoneb *Not For Prn Use* IH 1 ampul Q6HRT NANCY Administration Amlodipine Besylate 10 mg 03/27/19 10:00 04/06/19 12:47 Amlodipine PO Not Given DAILY NANCY Aspirin 81 mg 03/27/19 10:00 04/06/19 12:43 Halfprin Ec PO Not Given QDAY NANCY Famotidine 20 mg 03/27/19 10:00 04/06/19 22:37 Pepcid IV 20 mg BID NANCY Administration Folic Acid 1 mg 03/27/19 10:00 04/06/19 12:43 Folvite PO Not Given DAILY [facility] Heparin Sodium (Porcine) 5,000 unit 03/30/19 17:00 04/07/19 08:09 Heparin SUB-Q 5,000 unit Q8HR NANCY Administration Hydralazine HCl 10 mg 04/04/19 16:39 04/06/19 22:57 Apresoline IV 10 mg Q4HR PRN Administration Hypertension Hydrophilic Ointment 1 applic 04/07/19 07:02 Vaseline Lip Therapy TP Q2HR PRN Dry Lips Amino Acids/Electrolytes/Dextrose 2,016 mls @ 84 mls/hr 04/06/19 20:00 04/06/19 20:25 Tpn Adult IV 04/07/19 19:59 84 mls/hr DAILY@2000 NANCY Administration Protocol Multi-Ingred Cream/Lotion/Oil/Oint 1 applic 04/07/19 07:02 Artificial Tears Ophth Oint OU Q4HR PRN Dry Eye(s) Olanzapine 10 mg 03/27/19 10:00 04/06/19 12:43 Zyprexa PO Not Given DAILY NANCY Ondansetron HCl 4 mg 03/26/19 22:19 04/04/19 21:41 Zofran IV 4 mg Q3H PRN Administration Nausea And Vomiting Sodium Chloride 10 ml 03/27/19 10:00 04/06/19 22:38 Sodium Chloride Flush Syringe 10 Ml IV 10 ml BID NANCY Administration Sodium Chloride 10 ml 03/26/19 22:19 04/04/19 18:45 Sodium Chloride Flush Syringe 10 Ml IV 10 ml PRN PRN Administration LINE FLUSH Nutrition/Malnutrition Assess - Dietary Evaluation Nutrition/Malnutrition Findings: Nutrition Notes Start: 03/27/19 14:04 Freq: Status: Active Protocol: Document 04/06/19 12:26 LM (Rec: 04/06/19 12:28 LM [id number]) Nutrition Notes Initial or Follow up Reassessment Current Diagnosis Sepsis,Hypertension, Respiratory Failure Other Pertinent Diagnosis Schizophrenia, dysphagia, AMS, bilat pneu, hypernatremia Current Diet PPN at 84ml/hr Labs/Tests Na 146 Pertinent Medications Reviewed Height 5 ft 8 in Weight 52.3 kg [place] Body Weight (kg) 70.00 BMI 17.5 Weight Status Underweight Subjective/Other Information PPN day 5. Pt tolerating at 84 ml/hr. K corrected. Per MD pt may need PEG but no family present for consent. Percent of energy/protein needs met: 44%/100% Burn Absent Trauma Absent Difficulty In Swallowing Current % PO Negligible Minimum of two criteria Yes Body Fat Depletion Mild depletion (non-severe) Muscle Mass Moderate Depletion (severe) #2 Nutrition Diagnosis Malnutrition Diagnosis Progress(for reassessment Continues documentation) #1 Nutrition Diagnosis Inadequate oral intake Diagnosis Progress(for reassessment Continues documentation) Is patient on ventilator? No Is Patient Ambulatory and/or Out of Bed No REE-([facility]-confined to bed) 1538.712 Kcal/Kg value to use for calculation 35 Approximate Energy Requirements Using 1831 kcal/Kg Calculation Used for Recommendations Kcal/kg Additional Notes Protein: 64-80 g (1.2 - 1.5 g/ kg) fluid 1ml/ kcal Nutrition Intervention Change Diet Order: Continue Nutrition Support: PPN at 84 ml/hr: 7.4% dextrose , lipids, 0 mEq Na, 80 mEq K, MVI Kcal 850 Protein (gm) 85 Carbohydrates (gm) 150 Fat (gm) 50 Fluid (mL) 2,266 Fiber (gm) 0 Goal #1 Meet needs as best as possible via PPN Anticipated Discharge Needs: unable to determine at this time Follow-Up By: 04/07/19 Additional Comments Lab in am: Mg JAMI, Deo
--- NOTE | 2019-04-07 09:54 | Progress Note ---
Assessment and Plan 68 y/o male admitted with altered mental status and acute respiratory failure from presumed pneumonia, now status post cardiac arrest and intubation. Long discussion with Granddaughter at bedside. She is attempting to get the daughter or the son up here to sign for withdrawal of care and DNR/DNI. Per the granddaughter he was AND on hospice but we have no documentation of that hence why he is intubated now. Will continue supportive care. CXR is actually improved. Very sad case. Poor prognosis. CCT31 minutes. Subjective Date of service: 04/07/19 Interval history: Patient had PEA arrest this am. Now intubated. Granddaughter at bedside. Wants Grandfather to be DNR/DNI and withdrawal of care but she is not the next of kin. Objective Vital Signs - 12hr 04/06/19 04/06/19 04/06/19 22:00 22:57 23:00 Temperature Pulse Rate 94 H 97 H 85 Pulse Rate [ Bilateral] Pulse Rate [ From Monitor] Respiratory 47 H 43 H Rate Respiratory Rate [Bilateral ] Blood Pressure 171/97 175/97 174/96 O2 Sat by Pulse 85 95 Oximetry 04/06/19 04/06/19 04/07/19 23:38 23:44 00:00 Temperature 97.4 F L Pulse Rate 92 H 91 H Pulse Rate [ 94 H Bilateral] Pulse Rate [ 79 From Monitor] Respiratory 46 H 45 H Rate Respiratory 39 H Rate [Bilateral ] Blood Pressure 174/96 174/92 O2 Sat by Pulse 92 90 Oximetry 04/07/19 04/07/19 04/07/19 01:00 02:01 02:40 Temperature Pulse Rate 89 92 H 89 Pulse Rate [ Bilateral] Pulse Rate [ From Monitor] Respiratory 44 H 40 H 36 H Rate Respiratory Rate [Bilateral ] Blood Pressure 174/92 174/92 O2 Sat by Pulse 94 95 95 Oximetry 04/07/19 04/07/19 04/07/19 02:41 03:01 03:58 Temperature 97.3 F L Pulse Rate 83 Pulse Rate [ 80 Bilateral] Pulse Rate [ From Monitor] Respiratory 42 H Rate Respiratory 39 H Rate [Bilateral ] Blood Pressure 174/92 O2 Sat by Pulse 99 Oximetry 04/07/19 04/07/19 04/07/19 04:00 05:01 06:01 Temperature Pulse Rate 63 54 L 54 L Pulse Rate [ Bilateral] Pulse Rate [ 64 From Monitor] Respiratory 20 16 16 Rate Respiratory Rate [Bilateral ] Blood Pressure 95/49 92/48 92/48 O2 Sat by Pulse 97 95 94 Oximetry 04/07/19 07:35 Temperature Pulse Rate 54 L Pulse Rate [ Bilateral] Pulse Rate [ From Monitor] Respiratory 34 H Rate Respiratory Rate [Bilateral ] Blood Pressure 92/48 O2 Sat by Pulse 90 Oximetry Constitutional: appears uncomfortable, other (eyes open responsive) Eyes: non-icteric ENT: other (full face mask bipap in place) Neck: supple Effort: mildly labored Ascultation: Right: diminished breath sounds, Bilateral: clear Cardiovascular: regular rate and rhythm CBC and BMP: 04/07/19 06:55 04/07/19 06:55 ABG, PT/INR, D-dimer: ABG ABG pH 7.441 pH Units (7.350-7.450) 04/04/19 21:45 ABG pCO2 39.3 mm Hg 04/04/19 21:45 ABG pO2 76.0 mm Hg (80.0-90.0) L 04/04/19 21:45 ABG O2 Saturation 96.3 % (95.0-99.0) 04/04/19 21:45 PT/INR, D-dimer PT 15.0 Sec. (12.2-14.9) H 04/07/19 06:55 INR 1.16 (0.87-1.13) H 04/07/19 06:55 Abnormal lab findings: Abnormal Labs 03/26/19 03/26/19 03/26/19 12:28 12:28 12:28 WBC RBC Hgb Hct MCHC RDW 16.1 H Plt Count Lymph % (Auto) 12.3 L [place] % (Auto) Lymph # 0.7 L Seg Neutrophils % 82.0 H Seg Neuts % (Manual) Lymphocytes % (Manual) Seg Neutrophils # Seg Neutrophils # Man Lymphocytes # (Manual) PT 15.9 H INR 1.25 H ABG pH ABG pO2 ABG HCO3 ABG O2 Saturation ABG Base Excess ABG Hemoglobin Oxyhemoglobin Sodium 155 H Potassium Chloride 115.8 H Carbon Dioxide 18 L BUN 39 H Creatinine Glucose 213 H POC Glucose Lactic Acid Calcium Phosphorus Magnesium Alkaline Phosphatase 163 H CK-MB (CK-2) Total Protein 8.6 H Albumin 3.4 L Triglycerides Levetiracetam 03/26/19 03/26/19 03/26/19 12:28 13:40 14:41 WBC RBC Hgb Hct MCHC RDW Plt Count Lymph % (Auto) [place] % (Auto) Lymph # Seg Neutrophils % Seg Neuts % (Manual) Lymphocytes % (Manual) Seg Neutrophils # Seg Neutrophils # Man Lymphocytes # (Manual) PT INR ABG pH ABG pO2 109.5 H ABG HCO3 ABG O2 Saturation ABG Base Excess -2.5 L ABG Hemoglobin 13.9 L Oxyhemoglobin Sodium Potassium Chloride Carbon Dioxide BUN Creatinine Glucose POC Glucose Lactic Acid 3.50 H* 4.90 H* Calcium Phosphorus Magnesium Alkaline Phosphatase CK-MB (CK-2) Total Protein Albumin Triglycerides Levetiracetam 03/26/19 03/26/19 03/26/19 15:46 15:46 20:26 WBC RBC Hgb Hct MCHC RDW Plt Count Lymph % (Auto) [place] % (Auto) Lymph # Seg Neutrophils % Seg Neuts % (Manual) Lymphocytes % (Manual) Seg Neutrophils # Seg Neutrophils # Man Lymphocytes # (Manual) PT INR ABG pH ABG pO2 ABG HCO3 ABG O2 Saturation ABG Base Excess ABG Hemoglobin Oxyhemoglobin Sodium Potassium Chloride Carbon Dioxide BUN Creatinine Glucose POC Glucose Lactic Acid 3.60 H* 2.80 H* Calcium Phosphorus Magnesium Alkaline Phosphatase CK-MB (CK-2) Total Protein Albumin Triglycerides Levetiracetam <1.0 L 03/26/19 03/27/19 03/27/19 21:34 04:27 04:27 WBC RBC Hgb Hct MCHC RDW 16.3 H Plt Count Lymph % (Auto) 10.5 L [place] % (Auto) Lymph # 0.6 L Seg Neutrophils % 83.3 H Seg Neuts % (Manual) Lymphocytes % (Manual) Seg Neutrophils # Seg Neutrophils # Man Lymphocytes # (Manual) PT INR ABG pH ABG pO2 ABG HCO3 ABG O2 Saturation ABG Base Excess ABG Hemoglobin Oxyhemoglobin Sodium 156 H Potassium Chloride 120.2 H Carbon Dioxide 21 L BUN 40 H Creatinine Glucose 207 H POC Glucose Lactic Acid 3.00 H* Calcium Phosphorus Magnesium Alkaline Phosphatase 136 H CK-MB (CK-2) Total Protein Albumin 3.2 L Triglycerides Levetiracetam 01/31/20 02/01/20 02/01/20 18:59 03:43 03:43 WBC RBC 3.56 L Hgb 10.3 L Hct 31.9 L MCHC RDW 15.9 H Plt Count Lymph % (Auto) [place] % (Auto) Lymph # Seg Neutrophils % Seg Neuts % (Manual) Lymphocytes % (Manual) Seg Neutrophils # Seg Neutrophils # Man Lymphocytes # (Manual) PT INR ABG pH ABG pO2 ABG HCO3 ABG O2 Saturation ABG Base Excess ABG Hemoglobin Oxyhemoglobin Sodium 157 H 152 H Potassium Chloride 122.1 H 117.5 H Carbon Dioxide 21 L BUN 41 H 34 H Creatinine Glucose 170 H 143 H POC Glucose Lactic Acid Calcium Phosphorus Magnesium Alkaline Phosphatase CK-MB (CK-2) Total Protein Albumin Triglycerides Levetiracetam 03/29/19 03/29/19 03/30/19 05:27 05:27 04:49 WBC 14.5 H RBC 3.51 L Hgb 10.1 L Hct 31.3 L MCHC RDW 16.0 H Plt Count Lymph % (Auto) [place] % (Auto) Lymph # Seg Neutrophils % Seg Neuts % (Manual) Lymphocytes % (Manual) Seg Neutrophils # Seg Neutrophils # Man Lymphocytes # (Manual) PT INR ABG pH ABG pO2 ABG HCO3 ABG O2 Saturation ABG Base Excess ABG Hemoglobin Oxyhemoglobin Sodium 147 H 152 H Potassium Chloride 113.0 H 117.8 H Carbon Dioxide 20 L 20 L BUN 21 H Creatinine 0.7 L Glucose 127 H 109 H POC Glucose Lactic Acid Calcium Phosphorus Magnesium Alkaline Phosphatase CK-MB (CK-2) Total Protein Albumin Triglycerides Levetiracetam 03/30/19 04/01/19 04/01/19 04:49 04:19 04:19 WBC RBC 3.61 L 3.62 L Hgb 10.6 L 10.4 L Hct 31.8 L 32.0 L MCHC RDW 15.6 H 15.7 H Plt Count Lymph % (Auto) 7.0 L [place] % (Auto) 8.6 H Lymph # 0.5 L Seg Neutrophils % 84.2 H Seg Neuts % (Manual) Lymphocytes % (Manual) Seg Neutrophils # Seg Neutrophils # Man Lymphocytes # (Manual) PT INR ABG pH ABG pO2 ABG HCO3 ABG O2 Saturation ABG Base Excess ABG Hemoglobin Oxyhemoglobin Sodium 154 H Potassium 3.4 L Chloride 120.5 H Carbon Dioxide BUN 29 H Creatinine Glucose 151 H POC Glucose Lactic Acid Calcium Phosphorus Magnesium Alkaline Phosphatase CK-MB (CK-2) Total Protein Albumin Triglycerides Levetiracetam 04/02/19 04/02/19 04/02/19 03:25 04:51 04:51 WBC RBC Hgb 11.3 L Hct 34.6 L MCHC RDW 15.6 H Plt Count Lymph % (Auto) 6.1 L [place] % (Auto) Lymph # 0.6 L Seg Neutrophils % 88.0 H Seg Neuts % (Manual) Lymphocytes % (Manual) Seg Neutrophils # 8.7 H Seg Neutrophils # Man Lymphocytes # (Manual) PT INR ABG pH 7.487 H ABG pO2 48.3 L ABG HCO3 ABG O2 Saturation 87.2 L ABG Base Excess ABG Hemoglobin 12.0 L Oxyhemoglobin 85.6 L Sodium 152 H Potassium 3.3 L Chloride 117.4 H Carbon Dioxide BUN 21 H Creatinine Glucose 134 H POC Glucose Lactic Acid Calcium Phosphorus Magnesium Alkaline Phosphatase CK-MB (CK-2) Total Protein Albumin Triglycerides Levetiracetam 04/03/19 04/03/19 04/03/19 01:58 04:13 04:13 WBC 13.9 H RBC Hgb Hct MCHC 31 L RDW 16.2 H Plt Count Lymph % (Auto) [place] % (Auto) Lymph # Seg Neutrophils % Seg Neuts % (Manual) 91.0 H Lymphocytes % (Manual) 5.0 L Seg Neutrophils # Seg Neutrophils # Man 12.6 H Lymphocytes # (Manual) 0.7 L PT INR ABG pH 7.479 H ABG pO2 65.9 L ABG HCO3 ABG O2 Saturation 94.9 L ABG Base Excess ABG Hemoglobin 10.9 L Oxyhemoglobin 93.5 L Sodium Potassium Chloride 112.0 H Carbon Dioxide 20 L BUN Creatinine 0.6 L Glucose 128 H POC Glucose Lactic Acid Calcium 8.1 L Phosphorus Magnesium Alkaline Phosphatase CK-MB (CK-2) Total Protein Albumin Triglycerides Levetiracetam 04/03/19 04/03/19 04/03/19 07:56 13:32 18:07 WBC RBC Hgb Hct MCHC RDW Plt Count Lymph % (Auto) [place] % (Auto) Lymph # Seg Neutrophils % Seg Neuts % (Manual) Lymphocytes % (Manual) Seg Neutrophils # Seg Neutrophils # Man Lymphocytes # (Manual) PT INR ABG pH ABG pO2 ABG HCO3 ABG O2 Saturation ABG Base Excess ABG Hemoglobin Oxyhemoglobin Sodium Potassium Chloride Carbon Dioxide BUN Creatinine Glucose POC Glucose 135 H 126 H Lactic Acid Calcium Phosphorus 2.20 L Magnesium Alkaline Phosphatase CK-MB (CK-2) Total Protein Albumin Triglycerides Levetiracetam 04/04/19 04/04/19 04/04/19 08:58 08:58 21:45 WBC 14.2 H RBC Hgb Hct 34.9 L MCHC RDW Plt Count Lymph % (Auto) [place] % (Auto) Lymph # Seg Neutrophils % Seg Neuts % (Manual) 95.0 H Lymphocytes % (Manual) 2.0 L Seg Neutrophils # Seg Neutrophils # Man 13.5 H Lymphocytes # (Manual) 0.3 L PT INR ABG pH ABG pO2 76.0 L ABG HCO3 26.2 H ABG O2 Saturation ABG Base Excess ABG Hemoglobin 12.7 L Oxyhemoglobin 94.8 L Sodium Potassium 3.1 L Chloride Carbon Dioxide BUN Creatinine 0.4 L Glucose 149 H POC Glucose Lactic Acid Calcium Phosphorus Magnesium Alkaline Phosphatase CK-MB (CK-2) Total Protein Albumin Triglycerides Levetiracetam 04/05/19 04/05/19 04/06/19 04:21 04:21 04:41 WBC 14.6 H 14.2 H RBC Hgb 11.3 L Hct 33.8 L MCHC RDW 16.1 H Plt Count Lymph % (Auto) [place] % (Auto) Lymph # Seg Neutrophils % Seg Neuts % (Manual) 95.0 H 92.0 H Lymphocytes % (Manual) 1.0 L 3.0 L Seg Neutrophils # Seg Neutrophils # Man 13.9 H 13.1 H Lymphocytes # (Manual) 0.1 L 0.4 L PT INR ABG pH ABG pO2 ABG HCO3 ABG O2 Saturation ABG Base Excess ABG Hemoglobin Oxyhemoglobin Sodium Potassium 3.3 L Chloride Carbon Dioxide BUN 26 H Creatinine 0.6 L Glucose 165 H POC Glucose Lactic Acid Calcium Phosphorus Magnesium Alkaline Phosphatase CK-MB (CK-2) Total Protein Albumin Triglycerides Levetiracetam 04/06/19 04/06/19 04/07/19 04:41 10:48 06:55 WBC RBC Hgb Hct MCHC RDW Plt Count Lymph % (Auto) [place] % (Auto) Lymph # Seg Neutrophils % Seg Neuts % (Manual) Lymphocytes % (Manual) Seg Neutrophils # Seg Neutrophils # Man Lymphocytes # (Manual) PT 15.2 H INR 1.18 H ABG pH ABG pO2 ABG HCO3 ABG O2 Saturation ABG Base Excess ABG Hemoglobin Oxyhemoglobin Sodium 146 H 146 H Potassium 5.6 H D Chloride Carbon Dioxide BUN 30 H 35 H Creatinine 0.6 L Glucose 132 H 239 H POC Glucose Lactic Acid Calcium Phosphorus 10.20 H D Magnesium 2.60 H Alkaline Phosphatase CK-MB (CK-2) 5.1 H Total Protein Albumin Triglycerides Levetiracetam 04/07/19 04/07/19 04/07/19 06:55 06:55 06:55 WBC 13.9 H RBC 3.41 L Hgb 9.9 L Hct 30.7 L MCHC RDW 16.1 H Plt Count 451 H Lymph % (Auto) [place] % (Auto) Lymph # Seg Neutrophils % Seg Neuts % (Manual) Lymphocytes % (Manual) Seg Neutrophils # Seg Neutrophils # Man Lymphocytes # (Manual) PT 15.0 H INR 1.16 H ABG pH ABG pO2 ABG HCO3 ABG O2 Saturation ABG Base Excess ABG Hemoglobin Oxyhemoglobin Sodium Potassium Chloride Carbon Dioxide BUN Creatinine Glucose POC Glucose Lactic Acid Calcium Phosphorus Magnesium Alkaline Phosphatase CK-MB (CK-2) Total Protein Albumin Triglycerides 206 H Levetiracetam
[2019-04-07] MEDS ORDERED: INSULIN REGULAR, HUMAN 100 UNITS/1 ML IV ONE (09:58)
[2019-04-07] MEDS ORDERED: DEXTROSE 50% IN WATER (25GM) 50 ML SYRINGE IV ONE (09:59)
[2019-04-07 10:00] LABS: Band Neutrophils # (Manual) 0.1 K/mm3; Basophils % (Manual) 0 % (0.0-1.8); Total Cells Counted 100
[2019-04-07 10:01] LABS: Anisocytosis Few; Burr Cells Few; Platelet Clumps Few; Platelet Estimate Consistent w Auto
[2019-04-07] MEDS ORDERED: SODIUM BICARB 8.4% 50 MEQ/50 ML SYRINGE IV ONE (10:11)
[2019-04-07] MEDS ORDERED: EPINEPHrine 1:10,000 1 MG/10 ML SYRINGE ONE (10:11)
[2019-04-07] MEDS ORDERED: ATROPINE 0.1% (1 MG/10 ML) CARDIAC SYRINGE ONE (10:11)
[2019-04-07] MEDS ORDERED: LORazepam 2 MG/ML VIAL IV PRN ×2 (10:12)
[2019-04-07] MEDS ORDERED: HYPROMELLOSE 0.5% OPHTH SOLN 15 ML OU PRN (10:12)
[2019-04-07] MEDS ORDERED: MORPHINE 2 MG/1 ML INJ IV PRN ×2 (10:12)
[2019-04-07] MEDS ORDERED: GLYCOPYRROLATE 0.4 MG/2 ML INJ IV PRN (10:12)
--- NOTE | 2019-04-07 12:18 | Death Note ---
Note Date of : 04/07/19 Time of : 11:16 Time Pronounced: 11:18
[2019-04-07] MEDS ORDERED: SODIUM CHLORIDE 0.9% 1000 ML IV SOLN ONE (12:27)
--- NOTE | 2019-04-07 23:48 | Death Summary ---
Summary - Providers Consults: 03/27/19 06:20 Consult to Physician [CONS] Routine Comment: Consulting Provider: MICHELLE BAUER Physician Instructions: Reason For Exam: REsp failure and Bilateral PNA 03/27/19 18:08 Consult to Dietitian/Nutrition [CONS] Routine Physician Instructions: Reason For Exam: Reason for Consult: Malnutrition 03/28/19 09:03 Consult to Physician [CONS] Routine Comment: Consulting Provider: MEENU MORELAND Physician Instructions: Reason For Exam: Bilateral pneumonia, sepsis 03/28/19 10:22 Speech Therapy Evaluation and Treat [CONS] Routine Reason For Exam: difficulty swallowing 03/28/19 11:22 Consult to Physician [CONS] Routine Comment: Consulting Provider: AARTI CHESTER Physician Instructions: Reason For Exam: Altered mental status 04/01/19 20:10 Consult to Physician [CONS] Routine Comment: Consulting Provider: SHERRI MCCARTHY Physician Instructions: Reason For Exam: free air on abdomen x ray 04/02/19 10:06 Consult to Dietitian/Nutrition [CONS] Routine Physician Instructions: Reason For Exam: Reason for Consult: Write/Manage TPN/PPN 04/02/19 11:34 Speech Therapy Evaluation and Treat [CONS] Routine Reason For Exam: r/o aspiration 04/07/19 07:02 Consult to Physician [CONS] Routine Comment: Consulting Provider: MICHELLE BAUER Physician Instructions: Reason For Exam: icu admission Attending: DAWN BUCKLEY - summary Date of admission: 03/26/19 14:50 Date of : 04/07/19
== END 2019-04-07 13:00 | DRG 871 ==
LOC: ED 12:11 → IMCU 14:50 → CC1 04-04 21:52
PROVIDERS: ADMIT Internal Medicine; ATTEND Internal Medicine
PROC: 4A033R1 Measurement of Arterial Saturation, Peripheral, Percutaneous Approach (ICD-10-PCS; principal; 2019-03-26)
PROC: 5A09357 Assistance with Respiratory Ventilation, Less than 24 Consecutive Hours, Continuous Positive Airway Pressure (ICD-10-PCS; 2019-03-26)
PROC: 5A09357 Assistance with Respiratory Ventilation, Less than 24 Consecutive Hours, Continuous Positive Airway Pressure (ICD-10-PCS; 2019-03-27)
PROC: 5A09357 Assistance with Respiratory Ventilation, Less than 24 Consecutive Hours, Continuous Positive Airway Pressure (ICD-10-PCS; 2019-03-28)
PROC: 5A09357 Assistance with Respiratory Ventilation, Less than 24 Consecutive Hours, Continuous Positive Airway Pressure (ICD-10-PCS; 2019-03-29)
PROC: 5A09357 Assistance with Respiratory Ventilation, Less than 24 Consecutive Hours, Continuous Positive Airway Pressure (ICD-10-PCS; 2019-03-30)
PROC: 5A09357 Assistance with Respiratory Ventilation, Less than 24 Consecutive Hours, Continuous Positive Airway Pressure (ICD-10-PCS; 2019-03-31)
PROC: 5A09357 Assistance with Respiratory Ventilation, Less than 24 Consecutive Hours, Continuous Positive Airway Pressure (ICD-10-PCS; 2019-04-01)
PROC: 5A09357 Assistance with Respiratory Ventilation, Less than 24 Consecutive Hours, Continuous Positive Airway Pressure (ICD-10-PCS; 2019-04-02)
PROC: 5A09357 Assistance with Respiratory Ventilation, Less than 24 Consecutive Hours, Continuous Positive Airway Pressure (ICD-10-PCS; 2019-04-03)
PROC: 5A09357 Assistance with Respiratory Ventilation, Less than 24 Consecutive Hours, Continuous Positive Airway Pressure (ICD-10-PCS; 2019-04-04)
PROC: 5A09357 Assistance with Respiratory Ventilation, Less than 24 Consecutive Hours, Continuous Positive Airway Pressure (ICD-10-PCS; 2019-04-05)
PROC: 5A1935Z Respiratory Ventilation, Less than 24 Consecutive Hours (ICD-10-PCS; 2019-04-07)
PROC: 0BH17EZ Insertion of Endotracheal Airway into Trachea, Via Natural or Artificial Opening (ICD-10-PCS; 2019-04-07)
DX: A41.9 Sepsis, unspecified organism (principal); J69.0 Pneumonitis due to inhalation of food and vomit; J96.01 Acute respiratory failure with hypoxia; G92 Toxic encephalopathy; I10 Essential (primary) hypertension; F20.0 Paranoid schizophrenia; F03.90 Unspecified dementia, unspecified severity, without behavioral disturbance, psychotic disturbance, mood disturbance, and anxiety; E87.0 Hyperosmolality and hypernatremia; G62.9 Polyneuropathy, unspecified; Z66 Do not resuscitate; R13.12 Dysphagia, oropharyngeal phase; J90 Pleural effusion, not elsewhere classified
CPT/HCPCS: 31500; 31720; 36415; 36600; 70450; 71045; 74018; 74176; 76604; 80048; 80053; 80177; 80307; 81001; 82140; 82550; 82553; 82803; 82962; 83036; 83735; 84100; 84145; 84478; 84484; 85007; 85025; 85027; 85610; 85730; 87040; 87070; 87086; 87205; 87641; 93005; 93010; 94002; 94003; 94640; 94660; 94668; 94669; 94760; 95819; 96365; G0378; J0171; J0360; J0456; J0461; J0692; J1170; J1644; J2270; J2310; J2405; J2920; J3370; J7030; J7040; J7050; J7070